=== PATIENT | male | born 1960 | race Caucasian/White ===

== ENCOUNTER → 2017-11-29 10:46 | Outpatient (CLI) | payer OTHER, SELFPAY ==
[2016-12-16 11:27] VITALS: BMI 33.6
[2017-11-29 12:27] LABS: AST(SGOT) 18 U/L (15-37); Alanine Aminotransfer ALT/SGPT 28 U/L (16-61); Albumin, Serum 3.6 g/dL (3.2-5.0); Alkaline Phosphatase 85 U/L (45-117); Anion Gap 9 (5-15); BUN 23 mg/dL (7-18); Bilirubin, Direct 0.15 mg/dL (0.00-0.30); Calcium,Total 9.2 mg/dL (8.5-10.1); Chloride 100 mmol/L (98-107); Cholesterol 168 mg/dL (200); Creatinine, Serum 1.35 mg/dL (0.70-1.30); EST Glomerular Filtration Rate 58 mL/min (>60); Est Glom Filt Rate - Afr Amer 70 mL/min (>60); Globulin 4.3 g/dL (2.2-4.2); Glucose 253 mg/dL (70-110); High Density Lipoprotein 41 mg/dL; Potassium 4.3 mmol/L (3.5-5.1); Protein, Total 7.9 g/dL (6.4-8.2); Sodium Level 136 mmol/L (136-145); Triglycerides 211 mg/dL; Very Low Density Lipoprotein 42 mg/dL (5-40)
== END ==
PROVIDERS: Family Provider Family Medicine; PCP Family Medicine; Visit Provider Family Medicine
DX: E11.9 Type 2 diabetes mellitus without complications (principal)
CPT/HCPCS: 36415; 80048; 80061; 80076; 82043; 82570

== ENCOUNTER → 2018-05-20 16:30 | Outpatient (CLI) | payer OTHER, SELFPAY ==
[2016-12-16 11:27] VITALS: BMI 33.6
--- NOTE | 2018-05-20 | IMM_PTH ---
PATIENT: ARLEEN NAJERA Jr. LOC: [facility] U#:[id number] AGE/SX: 64/M ROOM: RE05/20/[address]: Dr. Tj Leggett MD : 1960 BED: DIS: SPEC #: [id number] RECD: 05/24/18 14:02 STATUS: NAJMA REElvia #: [id number] GIOVANNI: 05/20/18 00:[address]: Tj eLggett DEPT: IMMUNOHISTOCHEMISTRY RECD BY: Anne Guzman ENTERED: 05/24/18 14:02 SP TYPE: IMMUNO OTHR DR: Dr. Pilo Aviles MD Tissues: A - Stomach, NOS Procedures: H Pylori (initial) PHYSICIAN & INSTITUTION [place] [id number] SPECIMEN INFORMATION: Tissue Source: A ? Gastric antrum/body Clinical Info: Huffman?s Specimen Number: [id number] CPT code: 83631 METHODOLOGY: Deparaffinized sections of prefer/formalin-fixed tissue or PAP/DQ stained slides are incubated with monoclonal/polyclonal antibodies/oligonucleotide probes. Localization is made via biotin free immunoperoxidase method. Appropriate controls are performed and reacted as expected. Results on target cell population are indicated in the following table: RESULTS: ANTIBODY / CLONE RESULT Block A H Pylori (polyclonal) negative These tests were developed and their performance characteristics determined by [facility]. They may not have been cleared or approved by the U.S. Food and Drug Administration. The FDA has determined that such clearance or approval is not necessary. INTERPRETATION: A. Gastric antrum/body, biopsy: Negative for Helicobacter pylori organisms. SJ:dorita 05/25/18
--- NOTE | 2018-05-20 09:00 | EGD_PTH ---
PATIENT: ARLEEN NAJERA Jr. LOC: [facility] U#:[id number] AGE/SX: 64/M ROOM: RE05/20/[address]: Dr. Tj Leggett MD : 1960 BED: DIS: SPEC #: [id number] RECD: 05/20/18 15:37 STATUS: NAJMA BRYSON #: [id number] GIOVANNI: 05/20/18 09:[address]: Tj Leggett DEPT: SURGICAL PATHOLOGY RECD BY: Jenise Lopez ENTERED: 05/23/18 11:16 SP TYPE: EGD BIOPSY OT DR: Dr. Pilo Aviles MD [facility] Tissues: A - Gastric mucous membrane B - Esophagus, NOS Procedures: Special Stain Group II Surgery Specimen Level IV Alcian Blue/PAS (control) HEADER OPERATION: EGD with biopsies PRE-OP DIAGNOSIS: Huffman?s TISSUE SUBMITTED: A ? Antrum/body gastric biopsy, B ? Distal esophagus biopsies, rule out Huffman?s/ dysplasia MICROSCOPIC DIAGNOSIS A. Gastric antrum and body, biopsy: Mild gastritis. B. 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 Chronic inflammation. Negative for dysplasia. See comment. SJ:rg 05/24/18 COMMENT A. The results of immunohistochemistry for Helicobacter pylori will be reported separately ([id number]). B. Alcian blue/PAS stain with matched control is used in the evaluation of the specimen. MICROSCOPIC DESCRIPTION Slides are reviewed. A. The specimen shows fragments of gastric mucosa with chronic inflammatory cell infiltrates in the lamina propria consisting of lymphocytes and plasma cells, consistent with mild chronic gastritis. GROSS DESCRIPTION A - Received in fixative is one container labeled with the patient's name and designated gastric antrum and body biopsy. The specimen consists of multiple irregular fragments of dickinson soft tissue that in aggregate measure 0.6 x 0.3 x 0.1 cm. The specimen is totally submitted in one cassette. B - Received in fixative is one container labeled with the patient's name and designated distal esophagus biopsy. The specimen consists of multiple irregular fragments of light dickinson soft tissue that in aggregate measure 2 x 0.3 x 0.1 cm. The specimen is totally submitted in one cassette. / EV:dorita 05/23/18 TC:3 CPT: 85963 x2, 70461
== END ==
PROVIDERS: Family Provider Family Medicine; PCP Family Medicine; Visit Provider Internal Medicine Gastroenterology
DX: K22.10 Ulcer of esophagus without bleeding (principal)
CPT/HCPCS: 88305; 88313; 88342

== ENCOUNTER → 2018-06-08 15:43 | Outpatient (CLI) | payer OTHER, SELFPAY ==
[2016-12-16 11:27] VITALS: BMI 33.6
[2018-06-08 17:48] LABS: AST(SGOT) 29 U/L (15-37); Alanine Aminotransfer ALT/SGPT 36 U/L (16-61); Albumin, Serum 3.6 g/dL (3.2-5.0); Alkaline Phosphatase 76 U/L (45-117); Anion Gap 11 (5-15); BUN 35 mg/dL (7-18); BUN/Creat Ratio 18.9 RATIO (10-20); Bilirubin, Direct 0.13 mg/dL (0.00-0.30); Calcium,Total 8.8 mg/dL (8.5-10.1); Chloride 102 mmol/L (98-107); Cholesterol 147 mg/dL (200); Creatinine, Serum 1.85 mg/dL (0.70-1.30); EST Glomerular Filtration Rate 40 mL/min (>60); Est Glom Filt Rate - Afr Amer 49 mL/min (>60); Globulin 4.1 g/dL (2.2-4.2); Glucose 384 mg/dL (74-106); High Density Lipoprotein 31 mg/dL; Potassium 4.2 mmol/L (3.5-5.1); Protein, Total 7.7 g/dL (6.4-8.2); Sodium Level 136 mmol/L (136-145); Triglycerides 458 mg/dL
== END ==
PROVIDERS: Family Provider Family Medicine; PCP Family Medicine; Visit Provider Family Medicine
DX: E11.9 Type 2 diabetes mellitus without complications (principal)
CPT/HCPCS: 36415; 80048; 80061; 80076

== ENCOUNTER 2018-06-24 18:14 | Observation (INO) | payer OTHER, SELFPAY ==
[2016-12-16 11:27] VITALS: BMI 33.6
[2018-06-24 18:19] VITALS: BP 157/96; PULSE 81; RESP 20; TEMP 36.9; O2SAT 100; BMI 34.9
[2018-06-24 18:22] VITALS: O2SAT 100
[2018-06-24] MEDS: Morphine 4 MG/ML Syringe IV (18:42)
[2018-06-24] MEDS: 0.9% Normal Saline 1,000 ML 150 ML IV ×2 (18:43→21:17)
[2018-06-24] MEDS: Ondansetron 4 MG/2 ML Vial IV (18:43)
[2018-06-24 18:46] LABS: Absolute Lymphocyte Count 1.24 X10^3/ul (0.83-4.51); Absolute Neutrophil Count 4.5 X10^3/uL (2.0-7.7); Basophil# 0.02 X10^3/uL; Basophil% 0.3 % (0-1); Eosinophil# 0.13 X10^3/uL; Hematocrit 40.3 % (40-54); Hemoglobin 13.7 g/dl (13.0-16.5); Lymphocyte # 1.24 X10^3/ul (4.0); Lymphocyte % 18.9 % (19-41); Mean Corpuscular Hgb 27.8 pg (27.0-32.0); Mean Corpuscular Volume 81.7 fL (80-94); Mean Platelet Vol. 11.2 fl (6.2-12.0); Monocyte% 10.7 % (0-10); Neutrophil # 4.46 X10^3/uL (2.7-7.7); Neutrophil % 67.9 % (47-70); Platelet Count 151 K/mm3 (150-450); RBC Distribution Width CV 13.7 % (11.6-14.6); RBC Distribution Width SD 40.6 fl (35.1-43.9); Red Blood Count 4.93 M/mm3 (4.6-6.2); White Blood Count 6.6 K/mm3 (4.4-11.0)
[2018-06-24 18:47] LABS: POSITIVE COUNT NO; POSITIVE DIFFERENTIAL NO; POSITIVE MORPHOLOGY NO
[2018-06-24 19:03] LABS: Anion Gap 15 (5-15); BUN 32 mg/dL (7-18); BUN/Creat Ratio 18.8 RATIO (10-20); Calcium,Total 9.6 mg/dL (8.5-10.1); Chloride 104 mmol/L (98-107); EST Glomerular Filtration Rate 44 mL/min (>60); Est Glom Filt Rate - Afr Amer 54 mL/min (>60); Glucose 129 mg/dL (74-106); Magnesium 1.4 mg/dL (1.6-2.6); Potassium 3.7 mmol/L (3.5-5.1); Sodium Level 139 mmol/L (136-145)
--- NOTE | 2018-06-24 19:32 | ED.VISSUMM ---
- ER Visit Summary Date of Service: 06/24/18 Chief Complaint: Chest pain History of Present Illness: The patient is a 57 M presents to the emergency department chest pain. Patient has a significant history of coronary vascular disease. He has had multiple stents. He follows with Dr. Okeefe. His last heart catheterization he states was May 2017 where he did have more stents placed. He states he has been in his normal state of health. He has been compliant with his aspirin and Plavix. He states that about 5:00 today, he had a tightness across his chest into both arms and felt short of breath. He states these of the same symptoms that he had when he had his prior [place]. He did take aspirin. He denies any fevers or chills. Physical Examination: Vital signs reviewed General: Well-nourished, well-developed Head: Normocephalic, atraumatic Eyes: Pupils equal and reactive, extraocular muscles intact Neck, supple, no lymphadenopathy Heart: Regular rate and rhythm Respiratory: No distress, clear bilaterally Abdomen: Soft, nontender, nondistended, no peritoneal signs Back: Nontender Extremities: Nontender, no edema, no cords Skin: Normal color no rash Neuro: Alert and oriented, no focal or lateralizing deficits Test Results: [] Emergency Department Course and Treatment: EKG was obtained on patient arrival. He has a right bundle branch block which is unchanged from prior. The patient does have allergy to nitro. He artery received aspirin. He was given morphine and Zofran. He had total resolution of his pain. Screening labs including cardiac enzymes were unremarkable. His x-ray shows no evidence of volume overload or acute heart failure. As the patient is pain-free, I did discuss his care with Dr. Denson. He is agreeable with plan for admission for cardiac rule out. Patient was discussed with the hospitalist will be admitted. Treatment Plan: [] Disposition: Admission Impression: Chest pain This note was generated with QuickProNotes dictation software. It may contain incorrect words, spelling, and punctuation that were not noted in review of the chart prior to signing ED Disposition - Plan for ED Patient: Chief Complaint: Chest Pain Referrals: Pilo Aviles MD [Primary Care Provider] -
--- NOTE | 2018-06-24 19:52 | PCM.HP.STD ---
Problem List (1) Unstable angina Status: Acute History of Present Illness Date of Admission: 06/24/18 Chief Complaint: chest pain The patient is a 57 year old M who is in normal state of health but today around 530, he was peeling potatoes and then started to have a midsternal chest pain. It was associated with diaphoresis, shortness of breath and paresthesias down both arms. This is similar to when the patient has had heart attacks in the past. Patient presented to the emergency room and received morphine which alleviated his pain. Patient had a workup that has been negative thus far. Cardiology, with Dr. Denson, was contacted and advised admitting the patient and to consult cardiology for further determination of the next steps in the patient's care. Patient was here in May 2017 where he chest pain at that time and had a left heart catheterization that showed no acute lesions. Patient did have a heart cath in December 2016 where he had a stent to the distal LAD. [] Past Medical History Past Medical History (Chronic Problems): Chronic Problems (Last Updated 05/31/18 @ 11:41 by Dona Ojeda) Dyspnea on exertion (Chronic) Presence of stent in coronary artery (Chronic) PCI/MERRICK to prox RCA and PCI to distal RCA, mid PDA 11/09/16; FFR/MERRICK to mid and distal LAD 12/16/16; PTCA/MERRICK to distal RCA and PTCA to mid RPDA 05/25/17; Hypertension (Chronic) Atherosclerotic heart disease of [place] coronary artery without angina pectoris (Chronic) PCI/MERRICK to prox RCA and PCI to distal RCA, mid PDA 11/09/16; FFR/MERRICK to mid and distal LAD 12/16/16; PTCA/MERRICK to distal RCA and PTCA to mid RPDA 05/25/17; Generalized abdominal discomfort (Chronic) Type II diabetes mellitus (Chronic) HLD (hyperlipidemia) (Chronic) Renal insufficiency (Chronic) Medical History: Medical History (Last Reviewed 06/24/18 @ 19:54 by Enrrique Kapoor DO) Presence of stent in coronary artery (Chronic) Z95.5 PCI/MERRICK to prox RCA and PCI to distal RCA, mid PDA 11/09/16; FFR/MERRICK to mid and distal LAD 12/16/16; PTCA/MERRICK to distal RCA and PTCA to mid RPDA 05/25/17; Hypertension (Chronic) I10 Atherosclerotic heart disease of [place] coronary artery without angina pectoris (Chronic) I25.10 PCI/MERRICK to prox RCA and PCI to distal RCA, mid PDA 11/09/16; FFR/MERRICK to mid and distal LAD 12/16/16; PTCA/MERRICK to distal RCA and PTCA to mid RPDA 05/25/17; Generalized abdominal discomfort (Chronic) R10.84 Type II diabetes mellitus (Chronic) E11.9 HLD (hyperlipidemia) (Chronic) E78.5 Unstable angina pectoris (Acute) NSTEMI (non-ST elevated myocardial infarction) (Acute) I21.4 Renal insufficiency (Chronic) N28.9 RACHEL (obstructive sleep apnea) G47.33 Chest pain (Inactive) R07.9 Allergies nitroglycerin Allergy (Verified 06/24/18 18:21) Shortness of breath Home Medications: Ambulatory Orders Medication Instructions Recorded Carvedilol [Coreg (Beta Lisa)] 25 mg PO BID 11/08/16 Glimepiride [Amaryl] 2 mg PO DAILY 11/08/16 Hydrochlorothiazide [Hctz] 25 mg PO DAILY 11/08/16 Losartan Potassium [Cozaar] 100 mg PO DAILY 11/08/16 buPROPion SR [Wellbutrin SR (150mg 150 mg PO BID 11/08/16 tablets)] Atorvastatin Calcium [Lipitor] 80 mg PO QHS 12/15/16 Dulaglutide [Trulicity] 1.5 mg SQ QWEEK 12/15/16 clopidogrel 75 mg tablet 75 mg PO QDAY 11/04/17 ranolazine ER 500 mg 1,000 mg PO BID tab 05/31/18 tablet,extended release,12 hr sitagliptin 50 mg-metformin 1,000 1 tab PO DAILY tab 05/31/18 mg tablet Isosorbide DN [Isordil] 30 mg PO DAILY 06/24/18 Surgical History: Surgical History (Last Reviewed 06/24/18 @ 19:54 by Enrrique Kapoor DO) Postsurgical percutaneous transluminal coronary angioplasty (PTCA) status Z98.61 PCI/MERRICK to prox RCA and PCI to distal RCA, mid PDA 11/09/16; FFR/MERRICK to mid and distal LAD 12/16/16 History of bilateral inguinal hernia repair Z98.890, Z87.19 History of eye surgery Z98.890 Surgical History: herniorrhaphy - hiatal hernia surgery; and inguinal hernia surgery and stents x 3. Smoking Status: Never smoker Tobacco Use: Non-smoker Alcohol: None Drugs: None - *Family History Paternal Family History: Family History (Last Reviewed 06/24/18 @ 19:54 by Enrrique Kapoor DO) Mother CAD (coronary artery disease) Myocardial infarction, Onset Age: 46 Sister CAD (coronary artery disease) Sister CAD (coronary artery disease) Brother CAD (coronary artery disease) History Items: No pertinent history Maternal Family History: Family History (Last Reviewed 06/24/18 @ 19:54 by Enrrique Kapoor DO) Mother CAD (coronary artery disease) Myocardial infarction, Onset Age: 46 Sister CAD (coronary artery disease) Sister CAD (coronary artery disease) Brother CAD (coronary artery disease) History Items: Heart Disease - Reported as dying at the age of 46 with history of CAD and LA. Sibling Family History: Family History (Last Reviewed 06/24/18 @ 19:54 by Enrrique Kapoor DO) Mother CAD (coronary artery disease) Myocardial infarction, Onset Age: 46 Sister CAD (coronary artery disease) Sister CAD (coronary artery disease) Brother CAD (coronary artery disease) History Items: Heart Disease - Brothers with a history of CAD and PCI. Review of Systems Constitutional: Reports: Malaise. Denies: Anorexia, Chills, Fever Eyes: Denies: Blurred vision, Double vision HEENT: Denies: Head Aches, Sinus Congestion, Sinus Drainage Cardiovascular: Reports: Chest Pain. Denies: Edema Respiratory: Reports: Shortness of Breath. Denies: Cough Gastrointestinal: Reports: Nausea. Denies: Abdominal Pain, Vomiting Genitourinary: Denies: Dysuria Musculoskeletal: Denies: Arm Pain, Back Pain Skin: Denies: Rash, Wounds Neurological: Denies: Numbness, Tingling, Focal weakness Psychiatric: Denies: Anxiety, Depression Hematologic/ Lymphatic: Denies: Easy Bruising, Easy Bleeding, Hx of blood clot Comment: All review of systems are negative except as mentioned in the history of present illness and the other review of systems. VTE Information - Inpt Only VTE Present on Admission: No VTE Pharm Prophylaxis ordered?: Yes Patient Problems: Active and Suspected Problems (Last Updated 05/31/18 @ 11:41 by Dona Ojeda) Unstable angina (Acute) - Physical Exam General: Alert, Cooperative, No apparent distress, - - Sitting in bed. Comfortable. Afebrile. HEENT: Atraumatic, Normocephalic, - - No icterus Oral: Moist Mucosa, No Gingival or Mucosal Lesions/ Ulcerations Neck: No Nodes, Thyroid Normal Size and Texture Lungs: Clear to auscultation, Normal air movement, No rhonchi, No wheeze Cardiovascular: Regular rate, Regular Rhythm, Normal S1, Normal S2, No murmurs Abdomen: Bowel Sounds Present, Soft, Non Tender, Non-Distended, No Hepato-splenomegaly Extremities: No clubbing, No edema, No Calf Tenderness Skin: No rashes, No breakdown Musculoskeletal: No Tenderness to Palpation of Joints or Extremities, No Muscle Wasting Neurological: Neuro grossly intact, Muscle tone normal, Coordination normal Psych/Mental Status: Normal Affect, Appropriate Vital Signs Temp Pulse Resp BP Pulse Ox 36.9 C 81 20 H 157/96 H 100 06/24/18 18:19 06/24/18 18:19 06/24/18 18:19 06/24/18 18:19 06/24/18 18:22 Oxygen Delivery Method Room Air Weight: 110.3 kg Body Mass Index (BMI) 34.9 Laboratory Tests Past 24 Hrs 06/24/18 06/24/18 18:35 18:35 WBC 6.6 RBC 4.93 Hgb 13.7 Hct 40.3 MCV 81.7 MCH 27.8 MCHC 34.0 RDW 13.7 RDW Differential 40.6 Plt Count 151 MPV 11.2 Immature Gran % (Auto) 0.200 Neut % (Auto) 67.9 Lymph % (Auto) 18.9 L [place] % (Auto) 10.7 H Eos % (Auto) 2.0 Baso % (Auto) 0.3 Absolute Neuts (auto) 4.5 Absolute Lymphs (auto) 1.24 Total Counted Not Reportable Sodium 139 Potassium 3.7 Chloride 104 Carbon Dioxide 20.0 L Anion Gap 15 BUN 32 H Creatinine 1.70 H Estim Creat Clear Calc 50.10 Est GFR (MDRD) Af Amer 54 L Est GFR (MDRD) Non-Af 44 L BUN/Creatinine Ratio 18.8 Glucose 129 H Calcium 9.6 Magnesium 1.4 L Troponin I < 0.015 EKG reviewed and showed normal sinus rhythm with a right bundle branch block. No acute changes. Clinical Impression(s) from Imaging Studies Chest X-Ray 06/24/18 18:20 IMPRESSION: No acute cardiopulmonary findings or changes. 1 minimal linear scar of the left lung base. Negative for new consolidation, focal atelectasis, cardiomegaly or substantial pleural effusion. Large hiatal hernia. Electronically Signed: Sheri Arias MD at 19:12 EDT , Service support , Assessment/Plan All Active Problems (Last Updated 05/31/18 @ 11:41 by Dona Ojeda) Unstable angina (Acute) Unstable angina pectoris (Acute) NSTEMI (non-ST elevated myocardial infarction) (Acute) 1. Unstable angina/chest pain Patient with known coronary artery disease and had symptoms similar to prior events Currently, chest pain-free Plan right now, is to cycle troponins and consult cardiology and determine further steps according to cardiology The patient does develop elevation in his cardiac markers and patient will be started on anticoagulation. 2. Chronic kidney disease stage III Creatinine is 1.7 Will need to be cautious The patient does require left heart catheterization as it could lead to further worsening of his kidney disease IV fluids with 1 L saline 3. Diabetes mellitus type 2 [id number] Continue with his home medications Add sliding scale insulin, moderate The patient does require a left heart catheterization, his metformin will need to be held. 4. 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 5. Hypomagnesemia Will replace Follow-up Code Visit OBSV E&M: 66905 Initial observation care L3
--- NOTE | 2018-06-24 19:56 | HP.PCM_ITS ---
Problem List (1) Unstable angina Status: Acute History of Present Illness Date of Admission: 06/24/18 Chief Complaint: chest pain The patient is a 57 year old M who is in normal state of health but today around 530, he was peeling potatoes and then started to have a midsternal chest pain. It was associated with diaphoresis, shortness of breath and paresthesias down both arms. This is similar to when the patient has had heart attacks in the past. Patient presented to the emergency room and received morphine which alleviated his pain. Patient had a workup that has been negative thus far. Cardiology, with Dr. Denson, was contacted and advised admitting the patient and to consult cardiology for further determination of the next steps in the patient's care. Patient was here in May 2017 where he chest pain at that time and had a left heart catheterization that showed no acute lesions. Patient did have a heart cath in December 2016 where he had a stent to the distal LAD. [] Past Medical History Past Medical History (Chronic Problems): Chronic Problems (Last Updated 05/31/18 @ 11:41 by Dona Ojeda) Dyspnea on exertion (Chronic) Presence of stent in coronary artery (Chronic) PCI/MERRICK to prox RCA and PCI to distal RCA, mid PDA 11/09/16; FFR/MERRICK to mid and distal LAD 12/16/16; PTCA/MERRICK to distal RCA and PTCA to mid RPDA 05/25/17; Hypertension (Chronic) Atherosclerotic heart disease of [place] coronary artery without angina pectoris (Chronic) PCI/MERRICK to prox RCA and PCI to distal RCA, mid PDA 11/09/16; FFR/MERRICK to mid and distal LAD 12/16/16; PTCA/MERRICK to distal RCA and PTCA to mid RPDA 05/25/17; Generalized abdominal discomfort (Chronic) Type II diabetes mellitus (Chronic) HLD (hyperlipidemia) (Chronic) Renal insufficiency (Chronic) Medical History: Medical History (Last Reviewed 06/24/18 @ 19:54 by Enrrique Kapoor DO) Presence of stent in coronary artery (Chronic) Z95.5 PCI/MERRICK to prox RCA and PCI to distal RCA, mid PDA 11/09/16; FFR/MERRICK to mid and distal LAD 12/16/16; PTCA/MERRICK to distal RCA and PTCA to mid RPDA 05/25/17; Hypertension (Chronic) I10 Atherosclerotic heart disease of [place] coronary artery without angina pectoris (Chronic) I25.10 PCI/MERRICK to prox RCA and PCI to distal RCA, mid PDA 11/09/16; FFR/MERRICK to mid and distal LAD 12/16/16; PTCA/MERRICK to distal RCA and PTCA to mid RPDA 05/25/17; Generalized abdominal discomfort (Chronic) R10.84 Type II diabetes mellitus (Chronic) E11.9 HLD (hyperlipidemia) (Chronic) E78.5 Unstable angina pectoris (Acute) NSTEMI (non-ST elevated myocardial infarction) (Acute) I21.4 Renal insufficiency (Chronic) N28.9 RACHEL (obstructive sleep apnea) G47.33 Chest pain (Inactive) R07.9 Allergies nitroglycerin Allergy (Verified 06/24/18 18:21) Shortness of breath Home Medications: Ambulatory Orders Medication Instructions Recorded Carvedilol [Coreg (Beta Lisa)] 25 mg PO BID 11/08/16 Glimepiride [Amaryl] 2 mg PO DAILY 11/08/16 Hydrochlorothiazide [Hctz] 25 mg PO DAILY 11/08/16 Losartan Potassium [Cozaar] 100 mg PO DAILY 11/08/16 buPROPion SR [Wellbutrin SR (150mg 150 mg PO BID 11/08/16 tablets)] Atorvastatin Calcium [Lipitor] 80 mg PO QHS 12/15/16 Dulaglutide [Trulicity] 1.5 mg SQ QWEEK 12/15/16 clopidogrel 75 mg tablet 75 mg PO QDAY 11/04/17 ranolazine ER 500 mg 1,000 mg PO BID tab 05/31/18 tablet,extended release,12 hr sitagliptin 50 mg-metformin 1,000 1 tab PO DAILY tab 05/31/18 mg tablet Isosorbide DN [Isordil] 30 mg PO DAILY 06/24/18 Surgical History: Surgical History (Last Reviewed 06/24/18 @ 19:54 by Enrrique Kapoor DO) Postsurgical percutaneous transluminal coronary angioplasty (PTCA) status Z98.61 PCI/MERRICK to prox RCA and PCI to distal RCA, mid PDA 11/09/16; FFR/MERRICK to mid and distal LAD 12/16/16 History of bilateral inguinal hernia repair Z98.890, Z87.19 History of eye surgery Z98.890 Surgical History: herniorrhaphy - hiatal hernia surgery; and inguinal hernia surgery and stents x 3. Smoking Status: Never smoker Tobacco Use: Non-smoker Alcohol: None Drugs: None - *Family History Paternal Family History: Family History (Last Reviewed 06/24/18 @ 19:54 by Enrrique Kapoor DO) Mother CAD (coronary artery disease) Myocardial infarction, Onset Age: 46 Sister CAD (coronary artery disease) Sister CAD (coronary artery disease) Brother CAD (coronary artery disease) History Items: No pertinent history Maternal Family History: Family History (Last Reviewed 06/24/18 @ 19:54 by Enrrique Kapoor DO) Mother CAD (coronary artery disease) Myocardial infarction, Onset Age: 46 Sister CAD (coronary artery disease) Sister CAD (coronary artery disease) Brother CAD (coronary artery disease) History Items: Heart Disease - Reported as dying at the age of 46 with history of CAD and MS. Sibling Family History: Family History (Last Reviewed 06/24/18 @ 19:54 by Enrrique Kapoor DO) Mother CAD (coronary artery disease) Myocardial infarction, Onset Age: 46 Sister CAD (coronary artery disease) Sister CAD (coronary artery disease) Brother CAD (coronary artery disease) History Items: Heart Disease - Brothers with a history of CAD and PCI. Review of Systems Constitutional: Reports: Malaise. Denies: Anorexia, Chills, Fever Eyes: Denies: Blurred vision, Double vision HEENT: Denies: Head Aches, Sinus Congestion, Sinus Drainage Cardiovascular: Reports: Chest Pain. Denies: Edema Respiratory: Reports: Shortness of Breath. Denies: Cough Gastrointestinal: Reports: Nausea. Denies: Abdominal Pain, Vomiting Genitourinary: Denies: Dysuria Musculoskeletal: Denies: Arm Pain, Back Pain Skin: Denies: Rash, Wounds Neurological: Denies: Numbness, Tingling, Focal weakness Psychiatric: Denies: Anxiety, Depression Hematologic/ Lymphatic: Denies: Easy Bruising, Easy Bleeding, Hx of blood clot Comment: All review of systems are negative except as mentioned in the history of present illness and the other review of systems. VTE Information - Inpt Only VTE Present on Admission: No VTE Pharm Prophylaxis ordered?: Yes Patient Problems: Active and Suspected Problems (Last Updated 05/31/18 @ 11:41 by Dona Ojeda ) Unstable angina (Acute) - Physical Exam General: Alert, Cooperative, No apparent distress, - - Sitting in bed. Comfortable. Afebrile. HEENT: Atraumatic, Normocephalic, - - No icterus Oral: Moist Mucosa, No Gingival or Mucosal Lesions/ Ulcerations Neck: No Nodes, Thyroid Normal Size and Texture Lungs: Clear to auscultation, Normal air movement, No rhonchi, No wheeze Cardiovascular: Regular rate, Regular Rhythm, Normal S1, Normal S2, No murmurs Abdomen: Bowel Sounds Present, Soft, Non Tender, Non-Distended, No Hepato- splenomegaly Extremities: No clubbing, No edema, No Calf Tenderness Skin: No rashes, No breakdown Musculoskeletal: No Tenderness to Palpation of Joints or Extremities, No Muscle Wasting Neurological: Neuro grossly intact, Muscle tone normal, Coordination normal Psych/Mental Status: Normal Affect, Appropriate Vital Signs Temp Pulse Resp BP Pulse Ox 36.9 C 81 20 H 157/96 H 100 06/24/18 18:19 06/24/18 18:19 06/24/18 18:19 06/24/18 18:19 06/24/18 18:22 Oxygen Delivery Method Room Air Weight: 110.3 kg Body Mass Index (BMI) 34.9 Laboratory Tests Past 24 Hrs 06/24/18 06/24/18 18:35 18:35 WBC 6.6 RBC 4.93 Hgb 13.7 Hct 40.3 MCV 81.7 MCH 27.8 MCHC 34.0 RDW 13.7 RDW Differential 40.6 Plt Count 151 MPV 11.2 Immature Gran % (Auto) 0.200 Neut % (Auto) 67.9 Lymph % (Auto) 18.9 L [place] % (Auto) 10.7 H Eos % (Auto) 2.0 Baso % (Auto) 0.3 Absolute Neuts (auto) 4.5 Absolute Lymphs (auto) 1.24 Total Counted Not Reportable Sodium 139 Potassium 3.7 Chloride 104 Carbon Dioxide 20.0 L Anion Gap 15 BUN 32 H Creatinine 1.70 H Estim Creat Clear Calc 50.10 Est GFR (MDRD) Af Amer 54 L Est GFR (MDRD) Non-Af 44 L BUN/Creatinine Ratio 18.8 Glucose 129 H Calcium 9.6 Magnesium 1.4 L Troponin I < 0.015 EKG reviewed and showed normal sinus rhythm with a right bundle branch block. No acute changes. Clinical Impression(s) from Imaging Studies Chest X-Ray 06/24/18 18:20 IMPRESSION: No acute cardiopulmonary findings or changes. 1 minimal linear scar of the left lung base. Negative for new consolidation, focal atelectasis, cardiomegaly or substantial pleural effusion. Large hiatal hernia. Electronically Signed: Sheri Arias MD at 19:12 EDT , Service support , Assessment/Plan All Active Problems (Last Updated 05/31/18 @ 11:41 by Dona Ojeda) Unstable angina (Acute) Unstable angina pectoris (Acute) NSTEMI (non-ST elevated myocardial infarction) (Acute) 1. Unstable angina/chest pain * Patient with known coronary artery disease and had symptoms similar to prior events * Currently, chest pain-free * Plan right now, is to cycle troponins and consult cardiology and determine further steps according to cardiology * The patient does develop elevation in his cardiac markers and patient will be started on anticoagulation. 2. Chronic kidney disease stage III * Creatinine is 1.7 * Will need to be cautious * The patient does require left heart catheterization as it could lead to further worsening of his kidney disease * IV fluids with 1 L saline 3. Diabetes mellitus type 2 * [id number] * Continue with his home medications * Add sliding scale insulin, moderate * The patient does require a left heart catheterization, his metformin will need to be held. 4. DVT prophylaxis * Subcu heparin * However, the patient does require anticoagulation then will need to discontinue and gear changer to heparin drip or Lovenox, weight-based. 5. Hypomagnesemia * Will replace * Follow-up Code Visit OBSV E&M: 93901 Initial observation care L3
[2018-06-24 20:04] VITALS: BMI 34.9
[2018-06-24 20:42] VITALS: PULSE 78
[2018-06-24 20:48] VITALS: BP 127/79; PULSE 76; RESP 18; TEMP 36.8; O2SAT 97
[2018-06-24 20:49] VITALS: BMI 34.5
[2018-06-24] MEDS: Carvedilol 25 MG Tablet PO (21:23)
[2018-06-24] MEDS: buPROPion (SR) 150 MG Tablet.SA PO (21:23)
[2018-06-24] MEDS: Atorvastatin Calcium 80 MG Tablet PO (21:23)
[2018-06-24] MEDS: Ranolazine 500 MG Tablet 1000 MG PO (21:24)
[2018-06-24] MEDS: Heparin Injection (Vial) 5,000 UNIT/ML VIAL 5000 UNIT SC (21:24)
[2018-06-24 22:35] LABS: Bedside Glucose 119 mg/dL (70-110)
[2018-06-24 22:41] VITALS: PULSE 84
[2018-06-25] VITALS (11 sets, daily range): BP systolic 103–150; BP diastolic 60–94; PULSE 67–87; RESP 16–18; TEMP 36.2–37.1; O2SAT 95–99
[2018-06-25 06:23] LABS: Anion Gap 12 (5-15); BUN 26 mg/dL (7-18); BUN/Creat Ratio 18.3 RATIO (10-20); Calcium,Total 8.5 mg/dL (8.5-10.1); Chloride 107 mmol/L (98-107); Creatinine, Serum 1.42 mg/dL (0.70-1.30); EST Glomerular Filtration Rate 55 mL/min (>60); Est Glom Filt Rate - Afr Amer 66 mL/min (>60); Estimated Creatinine Clearance 59.98 ml/min; Glucose 80 mg/dL (74-106); Magnesium 2.1 mg/dL (1.6-2.6); Potassium 3.7 mmol/L (3.5-5.1); Sodium Level 141 mmol/L (136-145)
[2018-06-25 07:10] LABS: Bedside Glucose 105 mg/dL (70-110)
[2018-06-25] MEDS: Losartan Potassium 100 MG Tablet PO (08:31)
[2018-06-25] MEDS: Aspirin E.C. 81 MG Tablet PO (10:50)
[2018-06-25] MEDS: Clopidogrel Bisulfate 75 MG Tablet PO (10:50)
[2018-06-25] MEDS: buPROPion (SR) 150 MG Tablet.SA PO ×2 (10:50→21:24)
[2018-06-25] MEDS: LINAGLIPTIN 5 MG TABLET PO (10:51)
[2018-06-25] MEDS: Isosorbide DN 30 MG Tablet PO (10:51)
[2018-06-25] MEDS: hydroCHLOROthiazide 25 MG Tablet PO (10:51)
[2018-06-25] MEDS: Glimepiride 2 MG Tablet PO (10:51)
[2018-06-25] MEDS: metFORMIN HCl 1,000 MG Tablet 1000 MG PO (10:51)
[2018-06-25] MEDS: Carvedilol 25 MG Tablet PO ×2 (10:51→21:24)
[2018-06-25] MEDS: Ranolazine 500 MG Tablet 1000 MG PO ×2 (10:51→21:24)
--- NOTE | 2018-06-25 10:52 | PCM.CONS.C ---
Problem List (1) Unstable angina Status: Acute (2) Dyspnea on exertion Status: Chronic (3) Presence of stent in coronary artery Status: Chronic Comment: PCI/MERRICK to prox RCA and PCI to distal RCA, mid PDA 11/09/16; FFR/MERRICK to mid and distal LAD 12/16/16; PTCA/MERRICK to distal RCA and PTCA to mid RPDA 05/25/17; (4) Hypertension Status: Chronic Qualifiers: Hypertension type: essential hypertension Qualified Code(s): I10 - Essential (primary) hypertension (5) Atherosclerotic heart disease of [place] coronary artery without angina pectoris Status: Chronic Qualifiers: [place] vs. transplanted heart: [place] heart Qualified Code(s): I25.10 - Atherosclerotic heart disease of [place] coronary artery without angina pectoris Comment: PCI/MERRICK to prox RCA and PCI to distal RCA, mid PDA 11/09/16; FFR/MERRICK to mid and distal LAD 12/16/16; PTCA/MERRICK to distal RCA and PTCA to mid RPDA 05/25/17; (6) Type II diabetes mellitus Status: Chronic (7) HLD (hyperlipidemia) Status: Chronic Qualifiers: Hyperlipidemia type: pure hypercholesterolemia Qualified Code(s): E78.00 - Pure hypercholesterolemia, unspecified; E78.0 - Pure hypercholesterolemia Reason for Consult Date of Consultation: 06/25/18 Reason for Consultation: Unstable angina, shortness of breath, dyspnea on exertion, hiatal hernia, hypertension, hyperlipidemia History of Present Illness: The patient is a 57 year old M, diabetes, non-smoker, hypertension and hypercholesterolemia who is a patient of Dr. Portillo with a history of hypertension, hypercholesterolemia, coronary artery disease status post angioplasty and stenting to his RCA on 11/09/16 followed again by angioplasty and stenting of his distal LAD on 12/31/16, followed by angioplasty and stenting to his right coronary artery by Dr. Davison on 05/25/17. At that time, patient had angioplasty and stenting of his distal RCA, followed by stenting of his proximal RCA complicated by stripping off of the stent in his proximal RCA requiring crush technique. In addition the patient has a significant hiatal hernia, and is pending consultation with Drs. Martin at [facility] for hiatal hernia repair next week. The patient was in normal health up until last evening when he developed chest discomfort radiating to both of his arms with associated dyspnea, shortness of breath, similar to his previous anginal symptoms. Patient reported to [facility] where an EKG was performed which showed normal sinus rhythm with old right bundle branch block. Patient was ruled out for myocardial infarction underwent a treadmill echocardiogram this morning in which he went 5 minutes and 43 seconds, developed substernal chest pressure, but of less intensity, and had no significant wall motion abnormalities. He has a baseline inferior posterior wall hypokinesis which appeared to improve with exercise. On further history he is a non-smoker, nondrinker, denies any presyncope, syncope. His telemetry is been negative. [] Past Medical History Allergies/Adverse Reactions: Allergies nitroglycerin Allergy (Verified 06/24/18 18:21) Shortness of breath Home Medications: Ambulatory Orders Medication Instructions Recorded Carvedilol [Coreg (Beta Lisa)] 25 mg PO BID 11/08/16 Glimepiride [Amaryl] 2 mg PO DAILY 11/08/16 Hydrochlorothiazide [Hctz] 25 mg PO DAILY 11/08/16 Losartan Potassium [Cozaar] 100 mg PO DAILY 11/08/16 buPROPion SR [Wellbutrin SR (150mg 150 mg PO BID 11/08/16 tablets)] Atorvastatin Calcium [Lipitor] 80 mg PO QHS 12/15/16 Dulaglutide [Trulicity] 1.5 mg SQ QWEEK 12/15/16 clopidogrel 75 mg tablet 75 mg PO QDAY 11/04/17 ranolazine ER 500 mg 1,000 mg PO BID tab 05/31/18 tablet,extended release,12 hr sitagliptin 50 mg-metformin 1,000 1 tab PO DAILY tab 05/31/18 mg tablet Isosorbide DN [Isordil] 30 mg PO DAILY 06/24/18 Past Medical History (Chronic Problems): Chronic Problems (Last Reviewed 06/24/18 @ 19:54 by Enrrique Kapoor DO) Dyspnea on exertion (Chronic) Presence of stent in coronary artery (Chronic) PCI/MERRICK to prox RCA and PCI to distal RCA, mid PDA 11/09/16; FFR/MERRICK to mid and distal LAD 12/16/16; PTCA/MERRICK to distal RCA and PTCA to mid RPDA 05/25/17; Hypertension (Chronic) Atherosclerotic heart disease of [place] coronary artery without angina pectoris (Chronic) PCI/MERRICK to prox RCA and PCI to distal RCA, mid PDA 11/09/16; FFR/MERRICK to mid and distal LAD 12/16/16; PTCA/MERRICK to distal RCA and PTCA to mid RPDA 05/25/17; Generalized abdominal discomfort (Chronic) Type II diabetes mellitus (Chronic) HLD (hyperlipidemia) (Chronic) Renal insufficiency (Chronic) Surgical History: herniorrhaphy - hiatal hernia surgery; and inguinal hernia surgery and stents x 3. - *Family History Paternal Family History: Family History (Last Reviewed 06/24/18 @ 19:54 by Enrrique Kapoor DO) Mother CAD (coronary artery disease) Myocardial infarction, Onset Age: 46 Sister CAD (coronary artery disease) Sister CAD (coronary artery disease) Brother CAD (coronary artery disease) History Items: No pertinent history Maternal Family History: Family History (Last Reviewed 06/24/18 @ 19:54 by Enrrique Kapoor DO) Mother CAD (coronary artery disease) Myocardial infarction, Onset Age: 46 Sister CAD (coronary artery disease) Sister CAD (coronary artery disease) Brother CAD (coronary artery disease) History Items: Heart Disease - Reported as dying at the age of 46 with history of CAD and IA. Sibling Family History: Family History (Last Reviewed 06/24/18 @ 19:54 by Enrrique Kapoor DO) Mother CAD (coronary artery disease) Myocardial infarction, Onset Age: 46 Sister CAD (coronary artery disease) Sister CAD (coronary artery disease) Brother CAD (coronary artery disease) History Items: Heart Disease - Brothers with a history of CAD and PCI. Smoking Status: Never smoker Tobacco Use: Non-smoker Alcohol: None Drugs: None Review of Systems - Review of Systems General: Denies: Fever, Night Sweats, Fatigue Cardiovascular: Denies: Chest Discomfort, Shortness of Breath, Orthopnea, PND, Peripheral Edema, Palpitations, Lightheadedness, Dizziness, Near Syncope, Syncope Respiratory: Denies: Cough, Sputum Production, Hemoptysis Gastrointestinal: Denies: Hematemesis, Hematochezia, Melena Genitourinary: Denies: Dysuria, Hematuria Skin: Denies: Rash Subjectve: Patient doing well, no acute distress, sitting in bed. Objective: Vital Signs Temp Pulse Resp BP Pulse Ox 97.1 F L 67 18 150/94 H 99 06/25/18 08:26 06/25/18 08:26 06/25/18 08:26 06/25/18 08:26 06/25/18 08:26 Oxygen Delivery Method Room Air Weight: 241 lb 2.971 oz Body Mass Index (BMI) 34.5 Intake and Output for Last 24 Hours 06/23/18 06/24/18 06/25/18 23:59 23:59 23:59 Intake Total 1072 / 1072 Balance 1072 / 1072 General: Awake, Alert, Oriented x 3 HEENT: PERRL, EOMI, Sclera Non Icteric Neck: Supple, Good ROM, No Lymph Node Enlargement Lungs: Clear to auscultation Cardiovascular: Regular Rhythm, Normal S1, Normal S2, No Murmurs, No Rubs, No Gallops Vascular: No Carotid Bruits, Normal Femoral Pulses, Normal Radial Pulses, Normal Dorsalis Pedal Pulse, Normal Posterior Tibial Pulses Abdomen: Bowel Sounds Present, Soft, Non Tender, No HSM, No Organomegaly Extremities: No Cyanosis, No Clubbing, No edema Neurological: No Focal Motor or Sensory Deficit 06/24/18 22:03: Troponin I < 0.015 06/25/18 00:23: Troponin I < 0.015 06/25/18 05:10: Sodium 141, Potassium 3.7, Chloride 107, Carbon Dioxide 22.0, Anion Gap 12, BUN 26 H, Creatinine 1.42 H, Est GFR (MDRD) Af Amer 66, Est GFR (MDRD) Non-Af 55 L, BUN/Creatinine Ratio 18.3, Glucose 80, Calcium 8.5, Magnesium 2.1 Rhythm: EKG: ECHO: LVEF of 55% with mild inferior posterior hypokinesis. No change from previous. Stress Test: Patient did develop chest pressure during exercise, hypertensive blood pressure response to exercise, no wall motion abnormalities noted. Decreased sensitivity due to poor echo windows requiring Definity agent. Cardiac Cath: PCI: CT Surgery: Holter monitor: EPS: PPM: CXR: Chest CT Scan: Assessment/Plan 1. Unstable angina: The patient has recurrent substernal chest pressure which may be cardiac in nature versus symptoms of his significant hiatal hernia. His chest x-ray does not show any overt hiatal hernia although it was an upright film. His troponins are negative. His echocardiogram shows mild global LV dysfunction with an EF around 55% and mild inferior posterior hypokinesis consistent with previous subtotal occlusion of his PDA. Patient underwent angioplasty and stenting to his distal RCA and proximal RCA complicated by a proximal RCA stent stripped off, subsequently crushed by another stent in May 2017. In addition the patient requires hiatal hernia surgery in the upcoming future at [facility]. His stress echocardiogram was negative for overt ischemia particularly of the inferior wall however images were somewhat challenging to obtain an Definity agent was required. Out of an abundance of caution and due to his previous stents, I recommend that he undergo a repeat left heart catheterization this upcoming Wednesday. He will continue baby aspirin, Plavix. Patient is agreed to proceed. Patient may eat this morning. Patient will continue Coreg, recommend increasing his Isordil to 60 mg twice daily, continue losartan, and start hydrochlorothiazide 12.5 mg p.o. daily for elevated diastolic pressures. 2. Hyperlipidemia: Continue aggressive LDL reduction. Recommend fasting lipid profile. Continue Lipitor. 3. Thank you very much for the opportunity to participate in the cardiac care of your patient. Consultation time took place between 1030 and 11 AM. Code Visit Inpatient E&M: 33358 Init Hosp L2
[2018-06-25 11:30] LABS: Cholesterol 128 mg/dL (200); High Density Lipoprotein 30 mg/dL; Triglycerides 246 mg/dL; Very Low Density Lipoprotein 49 mg/dL (5-40)
--- NOTE | 2018-06-25 12:20 | PCM.PN.HOSP ---
Patient Problems: Active and Suspected Problems (Last Reviewed 06/24/18 @ 19:54 by Enrrique Kapoor DO) Unstable angina (Acute) Subjective: No further chest pain. Vitals/I&O's: Vital Signs Temp Pulse Resp BP Pulse Ox 36.2 C L 87 18 150/94 H 99 06/25/18 08:26 06/25/18 11:28 06/25/18 08:26 06/25/18 08:26 06/25/18 08:26 Oxygen Delivery Method Room Air Weight: 109.4 kg Body Mass Index (BMI) 34.5 Intake and Output for Last 24 Hours 06/23/18 06/24/18 06/25/18 23:59 23:59 23:59 Intake Total 1072 / 1072 Balance 1072 / 1072 General: Alert, No apparent distress, - - up at side of bed eating breakfast. HEENT: Atraumatic, Normocephalic Oral: Moist Mucosa Neck: No Nodes, Thyroid Normal Size and Texture Lungs: Clear to auscultation, Normal air movement, No rhonchi, No wheeze Cardiovascular: Regular rate, Regular Rhythm, Normal S1, Normal S2, No murmurs Abdomen: Bowel Sounds Present, Soft, Non Tender, Non-Distended Extremities: No edema, No Calf Tenderness Laboratory Results 06/24/18 21:21: POC Glucose 119 H 06/24/18 22:03: Troponin I < 0.015 06/25/18 00:23: Troponin I < 0.015 06/25/18 05:10: Sodium 141, Potassium 3.7, Chloride 107, Carbon Dioxide 22.0, Anion Gap 12, BUN 26 H, Creatinine 1.42 H, Estim Creat Clear Calc 59.98, Est GFR (MDRD) Af Amer 66, Est GFR (MDRD) Non-Af 55 L, BUN/Creatinine Ratio 18.3, Glucose 80, Calcium 8.5, Magnesium 2.1 06/25/18 05:10: Triglycerides 246 H, Cholesterol 128, LDL Cholesterol 49, VLDL Cholesterol 49 H, HDL Cholesterol 30 L 06/25/18 06:54: POC Glucose 105 Current Medications Acetaminophen (Tylenol) 650 mg PO Q4H PRN PRN PRN Reason: PAIN Aspirin (Ecotrin) 81 mg PO DAILY@0800 [facility] Last Admin: 08/25/18 10:50 Dose: 81 mg Atorvastatin Calcium (Lipitor) 80 mg PO QHS [facility] Last Admin: 06/24/18 21:23 Dose: 80 mg Bupropion HCl (Wellbutrin Sr (150mg Tablets)) 150 mg PO BID [facility] Last Admin: 06/25/18 10:50 Dose: 150 mg Carvedilol (Coreg) 25 mg PO BID [facility] Last Admin: 06/25/18 10:51 Dose: 25 mg Clopidogrel Bisulfate (Plavix) 75 mg PO DAILY [facility] Last Admin: 06/25/18 10:50 Dose: 75 mg Dextrose (D50w Syringe) 0 gm IV X1 PRN; Protocol PRN Reason: Hypoglycemia Glimepiride (Amaryl) 2 mg PO DAILY@0800 [facility] Last Admin: 06/25/18 10:51 Dose: 2 mg Glucagon () 1 mg IM .X1 PRN PRN Reason: Hypoglycemia Heparin Sodium (Porcine) (Heparin Na) 5,000 unit SC Q8 [facility] Last Admin: 06/25/18 07:03 Dose: Not Given Hydrochlorothiazide (Hctz) 25 mg PO DAILY [facility] Last Admin: 06/25/18 10:51 Dose: 25 mg Insulin Human Lispro (Humalog Kwikpen (Bkc)) 0 unit SQ TIDAC [facility] PRN Reason: Protocol Last Admin: 06/25/18 10:52 Dose: Not Given Isosorbide Mononitrate (Imdur) 60 mg PO DAILY [facility] Linagliptin (Tradjenta) 5 mg PO DAILY@0800 [facility] Last Admin: 06/25/18 10:51 Dose: 5 mg Losartan Potassium (Cozaar) 100 mg PO DAILY [facility] Last Admin: 06/25/18 08:31 Dose: 100 mg Magnesium Hydroxide (Milk Of Magnesia) 30 ml PO DAILY PRN PRN Reason: Constipation Metformin HCl (Glucophage) 1,000 mg PO DAILY@0800 [facility] Last Admin: 06/25/18 10:51 Dose: 1,000 mg Morphine Sulfate () 4 mg IV Q3H PRN PRN PRN Reason: SEVERE PAIN (6-10/10) Non-Formulary Medication (Dulaglutide) 1.5 mg SQ QWEEK [facility] Ranolazine (Ranexa) 1,000 mg PO BID [facility] Last Admin: 06/25/18 10:51 Dose: 1,000 mg Sodium Chloride () 5 - 30 ml IV UD PRN PRN Reason: SALINE FLUSH Medical Necessity - Tobacco Use Smoking Status: Never smoker Tobacco Use: Non-smoker Assessment/Plan All Active Problems (Last Reviewed 06/24/18 @ 19:54 by Enrrique Kapoor DO) Unstable angina (Acute) Unstable angina pectoris (Acute) NSTEMI (non-ST elevated myocardial infarction) (Acute) 1. Unstable angina/chest pain Patient with known coronary artery disease and had symptoms similar to prior events Currently, chest pain-free Plan right now, is to cycle troponins and consult cardiology and determine further steps according to cardiology The patient does develop elevation in his cardiac markers and patient will be started on anticoagulation. stress negative plan for [facility] given patient's prior history. 2. Chronic kidney disease stage III Creatinine is 1.7 Will need to be cautious The patient does require left heart catheterization as it could lead to further worsening of his kidney disease IV fluids with 1 L saline 3. Diabetes mellitus type 2 [id number] Continue with his home medications Add sliding scale insulin, moderate The patient does require a left heart catheterization, his metformin will need to be held. 4. DVT prophylaxis Subcu heparin However, the patient does require anticoagulation then will need to discontinue and jacquard loom card changer to heparin drip or Lovenox, weight-based. 5. Hypomagnesemia resolved Code Visit OBSV E&M: 56866 Subsequent observation care L2
[2018-06-25] MEDS: Heparin Injection (Vial) 5,000 UNIT/ML VIAL 5000 UNIT SC ×2 (14:38→21:25)
[2018-06-25 17:06] LABS: Bedside Glucose 122 mg/dL (70-110)
[2018-06-25] MEDS: Atorvastatin Calcium 80 MG Tablet PO (21:24)
[2018-06-25 21:36] LABS: Bedside Glucose 181 mg/dL (70-110)
[2018-06-26] VITALS (12 sets, daily range): BP systolic 95–140; BP diastolic 58–87; PULSE 68–82; RESP 18; TEMP 36.4–36.9; O2SAT 96–99
[2018-06-26] MEDS: Heparin Injection (Vial) 5,000 UNIT/ML VIAL 5000 UNIT SC ×3 (05:59→22:31)
--- NOTE | 2018-06-26 06:24 | NURSING ---
All documentation completed by Ned Sinclair, Director [facility] reviewed by this RN. This RN agrees with all documentation 06/25/18-06/26/18
[2018-06-26 06:50] LABS: Bedside Glucose 133 mg/dL (70-110)
[2018-06-26] MEDS: Aspirin E.C. 81 MG Tablet PO (08:37)
[2018-06-26] MEDS: metFORMIN HCl 1,000 MG Tablet 1000 MG PO (08:37)
[2018-06-26] MEDS: Ranolazine 500 MG Tablet 1000 MG PO ×2 (08:38→22:31)
[2018-06-26] MEDS: Clopidogrel Bisulfate 75 MG Tablet PO (08:38)
[2018-06-26] MEDS: buPROPion (SR) 150 MG Tablet.SA PO ×2 (08:38→22:32)
[2018-06-26] MEDS: Carvedilol 25 MG Tablet PO ×2 (08:38→22:33)
[2018-06-26] MEDS: Glimepiride 2 MG Tablet PO (08:38)
[2018-06-26] MEDS: LINAGLIPTIN 5 MG TABLET PO (08:39)
--- NOTE | 2018-06-26 10:21 | PCM.PN.CARD ---
Subjectve: Patient doing well this morning, try to get up to walk around and had some shortness of breath. Also had some atypical right upper sided chest pain, dissimilar from his previous angina. Telemetry shows normal sinus rhythm. Did have some dizziness yesterday when he had some low blood pressure. Objective: Vital Signs Temp Pulse Resp BP Pulse Ox 97.6 F L 82 18 114/64 97 06/26/18 08:34 06/26/18 08:34 06/26/18 08:34 06/26/18 08:34 06/26/18 08:34 Oxygen Delivery Method Room Air Weight: 241 lb 2.971 oz Body Mass Index (BMI) 34.5 Intake and Output for Last 24 Hours 06/24/18 06/25/18 06/26/18 23:59 23:59 23:59 Intake Total 2191 / 2191 100 / 100 Balance 2191 100 / 100 General: Awake, Alert, Oriented x 3 HEENT: PERRL, EOMI, Sclera Non Icteric Neck: Supple, Good ROM, No Lymph Node Enlargement Lungs: Clear to auscultation Cardiovascular: Regular Rhythm, Normal S1, Normal S2, No Murmurs, No Rubs, No Gallops 06/25/18 05:10: Triglycerides 246 H, Cholesterol 128, LDL Cholesterol 49, VLDL Cholesterol 49 H, HDL Cholesterol 30 L Rhythm: EKG: ECHO: Stress Test: Cardiac Cath: PCI: CT Surgery: Holter monitor: EPS: PPM: CXR: Chest CT Scan: Medical Necessity - Tobacco Use Smoking Status: Never smoker Tobacco Use: Non-smoker Assessment/Plan 1. Unstable angina: The patient has recurrent substernal chest pressure which may be cardiac in nature versus symptoms of his significant hiatal hernia. His chest x-ray does not show any overt hiatal hernia although it was an upright film. His troponins are negative. His echocardiogram shows mild global LV dysfunction with an EF around 55% and mild inferior posterior hypokinesis consistent with previous subtotal occlusion of his PDA. Patient underwent angioplasty and stenting to his distal RCA and proximal RCA complicated by a proximal RCA stent stripped off, subsequently crushed by another stent in May 2017. Continue aspirin and Plavix. We will hold his metformin tomorrow and resume it on Wednesday. In addition the patient requires hiatal hernia surgery in the upcoming future at [facility]. His stress echocardiogram was negative for overt ischemia particularly of the inferior wall however images were somewhat challenging to obtain an Definity agent was required. Out of an abundance of caution and due to his previous stents, I recommend that he undergo a repeat left heart catheterization this upcoming Wednesday. He will continue baby aspirin, Plavix. Patient is agreed to proceed. We will decrease Imdur to 30 mg p.o. twice daily given his positional lightheadedness and dizziness yesterday. He will continue losartan, hydrochlorothiazide 25 mg and continue Coreg. 2. Hyperlipidemia: Continue aggressive LDL reduction. Recommend fasting lipid profile. Continue Lipitor. 3. Thank you very much for the opportunity to participate in the cardiac care of your patient. Repeat left heart catheterization pending for tomorrow. Code Visit Inpatient E&M: 41875 Subs Hosp L2
--- NOTE | 2018-06-26 11:25 | PCM.PN.HOSP ---
Patient Problems: Active and Suspected Problems (Last Reviewed 06/24/18 @ 19:54 by Enrrique Kapoor DO) Unstable angina (Acute) Subjective: Had some left lateral chest pain. Up and ambulating in hallways. Vitals/I&O's: Vital Signs Temp Pulse Resp BP Pulse Ox 36.4 C L 74 18 100/64 96 06/26/18 10:47 06/26/18 10:47 06/26/18 10:47 06/26/18 10:47 06/26/18 10:47 Oxygen Delivery Method Room Air Weight: 109.4 kg Body Mass Index (BMI) 34.5 Intake and Output for Last 24 Hours 06/24/18 06/25/18 06/26/18 23:59 23:59 23:59 Intake Total 2191 100 / 100 Balance 2191 100 / 100 General: Alert, No apparent distress HEENT: Atraumatic, Normocephalic Oral: Moist Mucosa, No Gingival or Mucosal Lesions/ Ulcerations Neck: No Nodes, Thyroid Normal Size and Texture Lungs: Clear to auscultation, Normal air movement, No rhonchi, No wheeze Cardiovascular: Regular rate, Regular Rhythm, Normal S1, Normal S2, No murmurs Abdomen: Bowel Sounds Present, Soft, Non Tender, Non-Distended Neurological: Coordination normal, Gait narrow based and stable Psych/Mental Status: Normal Affect, Appropriate Laboratory Results 06/25/18 05:10: Triglycerides 246 H, Cholesterol 128, LDL Cholesterol 49, VLDL Cholesterol 49 H, HDL Cholesterol 30 L 06/25/18 16:53: POC Glucose 122 H 06/25/18 21:21: POC Glucose 181 H 06/26/18 06:47: POC Glucose 133 H Current Medications Acetaminophen (Tylenol) 650 mg PO Q4H PRN PRN PRN Reason: PAIN Aspirin (Ecotrin) 81 mg PO DAILY@0800 [facility] Last Admin: 06/26/18 08:37 Dose: 81 mg Atorvastatin Calcium (Lipitor) 80 mg PO QHS [facility] Last Admin: 06/25/18 21:24 Dose: 80 mg Bupropion HCl (Wellbutrin Sr (150mg Tablets)) 150 mg PO BID [facility] Last Admin: 06/26/18 08:38 Dose: 150 mg Carvedilol (Coreg) 25 mg PO BID [facility] Last Admin: 06/26/18 08:38 Dose: 25 mg Clopidogrel Bisulfate (Plavix) 75 mg PO DAILY [facility] Last Admin: 06/26/18 08:38 Dose: 75 mg Dextrose (D50w Syringe) 0 gm IV X1 PRN; Protocol PRN Reason: Hypoglycemia Diphenhydramine HCl (Benadryl) 50 mg PO X1 ONE Stop: 06/27/18 08:01 Glimepiride (Amaryl) 2 mg PO DAILY@0800 [facility] Last Admin: 06/26/18 08:38 Dose: 2 mg Glucagon () 1 mg IM .X1 PRN PRN Reason: Hypoglycemia Heparin Sodium (Porcine) (Heparin Na) 5,000 unit SC Q8 [facility] Last Admin: 06/26/18 05:59 Dose: 5,000 unit Hydrochlorothiazide (Hctz) 25 mg PO DAILY [facility] Last Admin: 06/26/18 10:56 Dose: Not Given Sodium Chloride () 1,000 mls @ 0 mls/hr IV .Q0M [facility] PRN Reason: KVO Insulin Human Lispro (Humalog Kwikpen (Bkc)) 0 unit SQ TIDAC [facility] PRN Reason: Protocol Last Admin: 06/26/18 06:53 Dose: Not Given Isosorbide Mononitrate (Imdur) 30 mg PO BID [facility] Linagliptin (Tradjenta) 5 mg PO DAILY@0800 [facility] Last Admin: 06/26/18 08:39 Dose: 5 mg Losartan Potassium (Cozaar) 100 mg PO DAILY [facility] Last Admin: 06/26/18 10:56 Dose: Not Given Magnesium Hydroxide (Milk Of Magnesia) 30 ml PO DAILY PRN PRN Reason: Constipation Metformin HCl (Glucophage) 1,000 mg PO DAILY@0800 [facility] Last Admin: 06/26/18 08:37 Dose: 1,000 mg Morphine Sulfate () 4 mg IV Q3H PRN PRN PRN Reason: SEVERE PAIN (6-10/10) Ranolazine (Ranexa) 1,000 mg PO BID [facility] Last Admin: 06/26/18 08:38 Dose: 1,000 mg Sodium Chloride () 5 - 30 ml IV UD PRN PRN Reason: SALINE FLUSH Medical Necessity - Tobacco Use Smoking Status: Never smoker Tobacco Use: Non-smoker Assessment/Plan All Active Problems (Last Reviewed 06/24/18 @ 19:54 by Enrrique Kapoor DO) Unstable angina (Acute) Unstable angina pectoris (Acute) NSTEMI (non-ST elevated myocardial infarction) (Acute) 1. Unstable angina/chest pain Patient with known coronary artery disease and had symptoms similar to prior events Currently, chest pain-free Plan right now, is to cycle troponins and consult cardiology and determine further steps according to cardiology The patient does develop elevation in his cardiac markers and patient will be started on anticoagulation. stress negative plan for [facility] given patient's prior history. 2. Chronic kidney disease stage III Creatinine is 1.7 Will need to be cautious The patient does require left heart catheterization as it could lead to further worsening of his kidney disease IV fluids with 1 L saline 3. Diabetes mellitus type 2 [id number] Continue with his home medications Add sliding scale insulin, moderate The patient does require a left heart catheterization, his metformin will need to be held. 4. DVT prophylaxis Subcu heparin However, the patient does require anticoagulation then will need to discontinue and price changer to heparin drip or Lovenox, weight-based. 5. Hypomagnesemia resolved Code Visit OBSV E&M: 73224 Subsequent observation care L2
[2018-06-26 11:40] LABS: Bedside Glucose 129 mg/dL (70-110)
[2018-06-26 16:46] LABS: Bedside Glucose 96 mg/dL (70-110)
[2018-06-26] MEDS: Atorvastatin Calcium 80 MG Tablet PO (22:32)
[2018-06-26] MEDS: Isosorbide Mononitrate 30 MG Tablet PO (22:37)
[2018-06-27] VITALS (20 sets, daily range): BP systolic 99–126; BP diastolic 65–77; PULSE 69–87; RESP 15–19; TEMP 36.4–36.6; O2SAT 96–99; BMI 34.6
[2018-06-27 00:11] LABS: Bedside Glucose 108 mg/dL (70-110)
[2018-06-27 05:24] LABS: Absolute Lymphocyte Count 1.78 X10^3/ul (0.83-4.51); Absolute Neutrophil Count 2.8 X10^3/uL (2.0-7.7); Basophil# 0.03 X10^3/uL; Basophil% 0.6 % (0-1); Eosinophil# 0.13 X10^3/uL; Eosinophils% 2.4 % (0-5); Hemoglobin 12.9 g/dl (13.0-16.5); Lymphocyte # 1.78 X10^3/ul (4.0); Lymphocyte % 32.8 % (19-41); Mean Corp Hgb Conc 33.9 g/gl (32-36); Mean Corpuscular Hgb 27.9 pg (27.0-32.0); Mean Corpuscular Volume 82.3 fL (80-94); Mean Platelet Vol. 11.4 fl (6.2-12.0); Monocyte# 0.73 X10^3/uL; Monocyte% 13.4 % (0-10); Neutrophil # 2.75 X10^3/uL (2.7-7.7); Neutrophil % 50.6 % (47-70); Platelet Count 143 K/mm3 (150-450); RBC Distribution Width CV 13.8 % (11.6-14.6); RBC Distribution Width SD 40.5 fl (35.1-43.9); Red Blood Count 4.62 M/mm3 (4.6-6.2); White Blood Count 5.4 K/mm3 (4.4-11.0)
[2018-06-27 05:47] LABS: Anion Gap 13 (5-15); BUN 18 mg/dL (7-18); BUN/Creat Ratio 11.6 RATIO (10-20); Calcium,Total 8.3 mg/dL (8.5-10.1); Chloride 106 mmol/L (98-107); Creatinine, Serum 1.55 mg/dL (0.70-1.30); EST Glomerular Filtration Rate 49 mL/min (>60); Est Glom Filt Rate - Afr Amer 60 mL/min (>60); Estimated Creatinine Clearance 54.95 ml/min; Glucose 105 mg/dL (74-106); Potassium 3.9 mmol/L (3.5-5.1); Sodium Level 141 mmol/L (136-145)
[2018-06-27] MEDS: Ranolazine 500 MG Tablet 1000 MG PO ×2 (05:47→21:25)
[2018-06-27] MEDS: Carvedilol 25 MG Tablet PO (05:47)
[2018-06-27] MEDS: Losartan Potassium 100 MG Tablet PO (05:47)
[2018-06-27] MEDS: Clopidogrel Bisulfate 75 MG Tablet PO (05:47)
[2018-06-27] MEDS: Aspirin E.C. 81 MG Tablet PO (05:47)
[2018-06-27] MEDS: Isosorbide Mononitrate 30 MG Tablet PO ×2 (05:49→21:25)
[2018-06-27 05:51] LABS: International Normalized Ratio 1.1; Prothrombin Time (Protime)PT. 14.6 SECONDS (11.7-14.9)
[2018-06-27 05:52] LABS: Partial Thromboplast Time 26.8 Seconds (24.1-36.2)
[2018-06-27 05:58] LABS: POSITIVE COUNT NO; POSITIVE DIFFERENTIAL NO; POSITIVE MORPHOLOGY NO
[2018-06-27 06:09] LABS: Bacteria 0 SEEN /hpf (None Seen); Mucous, Urine 0 SEEN /hpf (<or=2+); Red Blood Cells-Urine 0 SEEN /hpf (0-5); White Blood Cells 0 SEEN /hpf (0-5)
[2018-06-27 06:22] LABS: Color, Urine Yellow (Yellow); Glucose, Dipstick Normal (Normal); Ketone-Dipstick Negative (Negative); Leukocyte Esterase-Dipstick Negative /ul (Negative); Nitrite-Dipstick Negative (Negative); Occult Blood-Urine Negative /ul (Negative); Protein-Dipstick Negative (Negative); Specific Gravity, Urine 1.015 (1.002-1.030); Urine Bilirubin Dipstick Negative (Negative); Urine Clarity Clear (Clear); Urine Urobilinogen 1 mg/dl (Normal)
[2018-06-27 06:47] LABS: Bedside Glucose 126 mg/dL (70-110)
[2018-06-27 06:52] LABS: Squamous Epithelial Cells - UA 0-5 SEEN /hpf (0-5)
[2018-06-27] MEDS: 0.9% NaCl Peripheral Flush Adult/Peds IV (07:51)
--- NOTE | 2018-06-27 08:28 | NURSING ---
to medical laboratory technical officer, [facility] business dean in attendance
--- NOTE | 2018-06-27 09:29 | CASEMGMT ---
According to the MMO website, the following are in-network tertiary facilities: [facility], [facility], [facility], [facility], [facility], [facility], [employer], and . Rachana YUN CM
[2018-06-27 10:26] LABS: ACT Activated Clotting Time 169 sec (74-137)
[2018-06-27] MEDS: 0.9% Normal Saline 1,000 ML 150 ML IV (10:45)
[2018-06-27] MEDS: DiphenhydrAMINE 25 MG Capsule 50 MG PO (10:45)
[2018-06-27] MEDS: Acetaminophen 325 MG Tablet 650 MG PO (11:09)
[2018-06-27] MEDS: diazePAM 5 MG Tablet PO (11:10)
--- NOTE | 2018-06-27 11:14 | PCM.PN.HOSP ---
Patient Problems: Active and Suspected Problems (Last Reviewed 06/24/18 @ 19:54 by Enrrique Kapoor DO) Unstable angina (Acute) Subjective: Patient seen and examined. He was admitted on account of chest pain is been managed for unstable angina. Patient was scheduled to have a cardiac cath today. He had cardiac cath this morning which showed normal LV size, wall motion and systolic function; had successufl PCI with PTCA at bifurction; unsuccessful PCI of mid PDA. Patient was hypotensive during the procedure and had to receive a troponin. He was therefore transferred to the ICU after the procedure. Patient was seen and examined prior to the cath and felt well. He had no complaints and said chest pain had improved. He denied any fever or chills, any cough or chest pain, shortness of breath, abdominal pain, any diarrhea vomiting. 12 point Review of systems is otherwise negative. Vitals/I&O's: Vital Signs Temp Pulse Resp BP Pulse Ox 97.6 F L 83 19 H 104/73 98 06/27/18 10:54 06/27/18 11:00 06/27/18 11:00 06/27/18 11:00 06/27/18 11:00 Oxygen Delivery Method Room Air Weight: 241 lb 2.971 oz Body Mass Index (BMI) 34.5 Intake and Output for Last 24 Hours 06/25/18 06/26/18 06/27/18 23:59 23:59 23:59 Intake Total 2192 / 2192 650 / 650 Balance 2192 / 2192 650 / 650 General: Alert, Oriented x3, Cooperative, No apparent distress HEENT: Atraumatic, PERRLA, EOMI, Normocephalic Oral: Moist Mucosa Neck: Supple, No JVD, Negative Carotid Bruits Lungs: Clear to auscultation, Normal air movement, No rhonchi, No wheeze, No rales Cardiovascular: Regular rate, Regular Rhythm, Normal S1, Normal S2, No murmurs Abdomen: Bowel Sounds Present, Soft, Non Tender, Non-Distended, No Hepato-splenomegaly Extremities: No clubbing, No cyanosis, No edema, Capillary Refill Less than 3 Seconds Skin: No rashes, No breakdown Musculoskeletal: No Tenderness to Palpation of Joints or Extremities Lymphatic: No Cervical, Supraclavicular, or Inguinal Adenopathy Neurological: Cranial nerves II-XII grossly intact, Motor Exam 5/5 strength throughout Psych/Mental Status: Normal Affect, Appropriate, Alert and oriented to time, place, person, mood and affect Laboratory Results 06/26/18 11:28: POC Glucose 129 H 06/26/18 16:38: POC Glucose 96 06/26/18 22:28: POC Glucose 108 06/27/18 04:42: WBC 5.4, RBC 4.62, Hgb 12.9 L, Hct 38.0 L, MCV 82.3, MCH 27.9, MCHC 33.9, RDW 13.8, RDW Differential 40.5, Plt Count 143 L, MPV 11.4, Immature Gran % (Auto) 0.200, Neut % (Auto) 50.6, Lymph % (Auto) 32.8, [place] % (Auto) 13.4 H, Eos % (Auto) 2.4, Baso % (Auto) 0.6, Absolute Neuts (auto) 2.8, Absolute Lymphs (auto) 1.78, Total Counted Not Reportable 06/27/18 04:42: PT 14.6, INR 1.1, APTT 26.8 06/27/18 04:42: Sodium 141, Potassium 3.9, Chloride 106, Carbon Dioxide 22.0, Anion Gap 13, BUN 18, Creatinine 1.55 H, Estim Creat Clear Calc 54.95, Est GFR (MDRD) Af Amer 60, Est GFR (MDRD) Non-Af 49 L, BUN/Creatinine Ratio 11.6, Glucose 105, Calcium 8.3 L 06/27/18 05:50: Urine Color Yellow, Urine Clarity Clear, Urine pH 6.0, Ur Specific [place] 1.015, Urine Protein Negative, Urine Glucose (UA) Normal, Urine Ketones Negative, Urine Occult Blood Negative, Urine Nitrite Negative, Urine Bilirubin Negative, Urine Urobilinogen 1 H, Ur Leukocyte Esterase Negative, Urine RBC 0 SEEN, Urine WBC 0 SEEN, Ur Squamous Epith Cells 0-5 SEEN, Urine Bacteria 0 SEEN, Urine Mucus 0 SEEN 06/27/18 06:43: POC Glucose 126 H 06/27/18 10:00: Activated Clotting Time 169 H Current Medications Acetaminophen (Tylenol) 650 mg PO Q6H PRN PRN PRN Reason: Mild Pain (0-2/10) Last Admin: 06/27/18 11:09 Dose: 650 mg Aspirin (Ecotrin) 81 mg PO DAILY@0800 [facility] Last Admin: 06/27/18 05:47 Dose: 81 mg Atorvastatin Calcium (Lipitor) 80 mg PO QHS [facility] Last Admin: 06/26/18 22:32 Dose: 80 mg Atropine Sulfate () 0.5 mg IV UD PRN PRN Reason: HR <50 bpm Bupropion HCl (Wellbutrin Sr (150mg Tablets)) 150 mg PO BID [facility] Last Admin: 06/26/18 22:32 Dose: 150 mg Carvedilol (Coreg) 25 mg PO BID [facility] Last Admin: 06/27/18 05:47 Dose: 25 mg Clopidogrel Bisulfate (Plavix) 75 mg PO DAILY [facility] Last Admin: 06/27/18 05:47 Dose: 75 mg Dextrose (D50w Syringe) 0 gm IV X1 PRN; Protocol PRN Reason: Hypoglycemia Diazepam (Valium) 5 mg PO Q6H PRN PRN PRN Reason: BACK SPASMS/ANXIETY Last Admin: 06/27/18 11:10 Dose: 5 mg Glimepiride (Amaryl) 2 mg PO DAILY@0800 [facility] Last Admin: 06/26/18 08:38 Dose: 2 mg Glucagon () 1 mg IM .X1 PRN PRN Reason: Hypoglycemia Heparin Sodium (Beef Lung) (Heparin 500 Unit/5 Ml (100/Ml)) 500 unit IV UD PRN PRN Reason: HEPARIN FLUSH Hydrochlorothiazide (Hctz) 25 mg PO DAILY [facility] Last Admin: 06/26/18 10:56 Dose: Not Given Sodium Chloride () 1,000 mls @ 0 mls/hr IV .Q0M [facility] PRN Reason: KVO Sodium Chloride () 1,000 mls @ 150 mls/hr IV .Q6H40M [facility] Stop: 06/27/18 16:49 Insulin Human Lispro (Humalog Kwikpen (Bkc)) 0 unit SQ TIDAC [facility] PRN Reason: Protocol Last Admin: 06/27/18 07:51 Dose: Not Given Isosorbide Mononitrate (Imdur) 30 mg PO BID [facility] Last Admin: 06/27/18 05:49 Dose: 30 mg Labetalol HCl (Trandate) 5 mg IV X1 PRN PRN Reason: SBP > 160 when pulling sheath Stop: 06/29/18 10:07 Linagliptin (Tradjenta) 5 mg PO DAILY@0800 [facility] Last Admin: 06/26/18 08:39 Dose: 5 mg Losartan Potassium (Cozaar) 100 mg PO DAILY [facility] Last Admin: 06/27/18 05:47 Dose: 100 mg Magnesium Hydroxide (Milk Of Magnesia) 30 ml PO DAILY PRN PRN Reason: Constipation Metoclopramide HCl (Reglan) 5 mg IV Q6H PRN PRN Reason: NAUSEA/VOMITING Morphine Sulfate () 2 mg IV Q4H PRN PRN PRN Reason: Mild back pain (0-2/10) Ranolazine (Ranexa) 1,000 mg PO BID [facility] Last Admin: 06/27/18 05:47 Dose: 1,000 mg Sodium Chloride () 5 - 30 ml IV UD PRN PRN Reason: SALINE FLUSH Last Admin: 06/27/18 07:51 Dose: 10 ml Sodium Chloride () 500 ml IV BOLUS PRN PRN Reason: VASO-VAGAL PROTOCOL Medical Necessity - Tobacco Use Smoking Status: Never smoker Tobacco Use: Non-smoker Assessment/Plan All Active Problems (Last Reviewed 06/24/18 @ 19:54 by Enrrique Kapoor DO) Unstable angina (Acute) Unstable angina pectoris (Acute) NSTEMI (non-ST elevated myocardial infarction) (Acute) 1. Unstable angina s/p left heart cath and balloon angioplasty had left heart cath today which showed successful PCTA to the distal RCA at bifurcation, with reduction of 75% stenosis to 50% stenosis. unable to avance balloon to PL branches due to tortuosity and previous stents despite long sheaths. Unsuccessful PCI of mid PDA. per cardio, to have aspirin indefinitely and plavix for at least 12 months Patient was hypotensive during the procedure with blood pressure going as low as 70 systolic. He received a troponin and a bolus of IV fluids Transferred to the ICU for closer monitoring. on atorvastatin 80mg qhs, carvedilol 25mg bid, plavix 75mg daily and aspirin 81mg daily. Also on losartan 100mg daily and ranexa as well as imdur 2. CKD stage 3 CR today is 1.55, which is around his baseline will monitor and give IVF o/a of contrast administration 3. DM2 on ISS; metformin on hold o/a of cath. also on linagliptin 4. Hypotension: due to cardiac cath. Will hold BP meds and give iVf. received atropine and bolus of IVf as documented above. 5. Hypertension: BP meds on hold due to hypotension as documented above. 6. CAD s/p multiple stents: plan as documented under 1. 7. DVT prophylaxis: heparin This note was generated with [employer] dictation software. It may contain incorrect words, spelling, and punctuation that were not noted in checking the note before signing. Code Visit Inpatient E&M: 39398 Subs Hosp L3
[2018-06-27 12:30] LABS: Bedside Glucose 142 mg/dL (70-110)
--- NOTE | 2018-06-27 13:10 | CRPHASE1_ITS ---
Patient Data/[employer] Correspondent:: Nirmal Denson PCP:: Pilo Aviles Risk Factors/Lifestyle Smoking Status: Never smoker Hx Hypertension: Yes Hx Diabetes Mellitus Type 2: Yes Hx Metabolic Disorders: Yes Hx Dyslipidemia: Yes Hx Obesity: Yes Height: 1.78 m Weight:: 109.4 kg BMI: 34.6 Stress: Long-standing Caffeine: No Family History: Family History (Last Reviewed 06/24/18 @ 19:54 by Enrrique Kapoor DO) Mother CAD (coronary artery disease) Myocardial infarction, Onset Age: 46 Sister CAD (coronary artery disease) Sister CAD (coronary artery disease) Brother CAD (coronary artery disease) Family History: Heart Disease Past Cardiac Illness: Previous PCI w/Stent Laboratory Values: Cardiac Rehab Phase I Labs Triglycerides 246 mg/dL (-199) H 06/25/18 05:10 Cholesterol 128 mg/dL (200) 06/25/18 05:10 LDL Cholesterol 49 mg/dL (0-130) 06/25/18 05:10 HDL Cholesterol 30 mg/dL (40-) L 06/25/18 05:10 Phase I Education Given On:: [place], Nutrition, Antiplatelet medication, Diabetes - Type II Knowledge of Condition:: Yes Hospital Course Pain Description: Tightness, Pressure Medical/Surgical History Angina:: Yes CAD:: Yes Pulmonary:: No COPD:: No Asthma:: No Diabetes Type II:: Yes Hypertension:: Yes Dyslipidemia:: Yes PE:: No DVT:: No GERD:: Yes Cancer:: No Renal:: No Thyroid:: No Depression:: Yes Anxiety:: Yes CABG: No PTCA:: Yes ICD:: No Pacemaker:: No Discharge/Home/Social Eval Discharge Disposition: Home Marital Status:
--- NOTE | 2018-06-27 13:12 | CRPH1.INSTRU ---
General Education CAD and cardiac anatomy and function:: Not instructed Explanation of diagnoses and procedures:: Not instructed Sign/Symptoms of GA:: Needs reinforcement Antiplatelet therapy: Not instructed Proper use of NTG-SL: Not instructed Emergency procedures and activation of EMS: Not instructed Compliance of all prescribed medications: Not instructed Smoking Patient Nicotine/Smoking Risk Factors Are:: Never smoked Dyslipidemia Dyslipidemia Response Code:: Not instructed Overweight/Obesity Patient Overweight/Obesity Risk Factors Are:: Obesity - > or = 30 Overweight/Obesity:: Not instructed Hypertension Recommendations Include:: BP <130/80 if diabetic Hypertension:: Needs reinforcement Heart Disease Patient Heart Disease Risk Factors Are:: Family history of heart disease < 65 years old, Previous cardiac event Heart Disease Response Code:: Needs reinforcement Diabetes Recommendations Include:: Maintain fasting blood sugars 70-110 md/dL, Maintain HgbA1c of 6% or less, Monitor blood sugar as prescribed Diabetes:: Needs reinforcement Metabolic Syndrome Metabolic Syndrome Response Code:: Not instructed Sedentary Sedentary Response Code:: Not instructed Stress Recommendations Include:: Identification of stressors, and assessment of coping skills - PT AND STATE THEY HAVE AN AUTISTIC SON, 16 YO, STRESS
--- NOTE | 2018-06-27 13:15 | CRPH1.INST_ITS ---
General Education CAD and cardiac anatomy and function:: Not instructed Explanation of diagnoses and procedures:: Not instructed Sign/Symptoms of OR:: Needs reinforcement Antiplatelet therapy: Not instructed Proper use of NTG-SL: Not instructed Emergency procedures and activation of EMS: Not instructed Compliance of all prescribed medications: Not instructed Smoking Patient Nicotine/Smoking Risk Factors Are:: Never smoked Dyslipidemia Dyslipidemia Response Code:: Not instructed Overweight/Obesity Patient Overweight/Obesity Risk Factors Are:: Obesity - > or = 30 Overweight/Obesity:: Not instructed Hypertension Recommendations Include:: BP <130/80 if diabetic Hypertension:: Needs reinforcement Heart Disease Patient Heart Disease Risk Factors Are:: Family history of heart disease < 65 years old, Previous cardiac event Heart Disease Response Code:: Needs reinforcement Diabetes Recommendations Include:: Maintain fasting blood sugars 70-110 md/dL, Maintain HgbA1c of 6% or less, Monitor blood sugar as prescribed Diabetes:: Needs reinforcement Metabolic Syndrome Metabolic Syndrome Response Code:: Not instructed Sedentary Sedentary Response Code:: Not instructed Stress Recommendations Include:: Identification of stressors, and assessment of coping skills - PT AND STATE THEY HAVE AN AUTISTIC SON, 16 YO, STRESS
[2018-06-27] MEDS: buPROPion (SR) 150 MG Tablet.SA PO ×2 (16:13→21:25)
--- NOTE | 2018-06-27 17:16 | PCM.PN.CARD ---
Subjectve: The patient is now status post further invasive evaluation performed by Dr. Denson with respect to diagnostic cardiac catheterization. This led to distal RCA PTCA/no stent. The patient appears to be resting comfortably at this time. He has no acute adverse symptoms or events. Objective: Vital Signs Temp Pulse Resp BP Pulse Ox 97.8 F 82 18 103/76 96 06/27/18 16:00 06/27/18 16:00 06/27/18 16:00 06/27/18 16:00 06/27/18 16:00 Oxygen Delivery Method Room Air Weight: 241 lb 2.971 oz Body Mass Index (BMI) 34.5 Intake and Output for Last 24 Hours 06/25/18 06/26/18 06/27/18 23:59 23:59 23:59 Intake Total 2192 / 2192 650 / 650 120 / 120 Balance 2192 / 2192 650 / 650 120 / 120 General: Awake, Alert, Oriented x 3, Cooperative, No Acute Distress Neck: No JVD Lungs: Clear to auscultation Cardiovascular: Regular Rhythm, Premature Ectopic Beats, Normal S1, Normal S2 Abdomen: Bowel Sounds Present, Soft, Non Tender Neurological: No Focal Motor or Sensory Deficit 06/27/18 04:42: WBC 5.4, RBC 4.62, Hgb 12.9 L, Hct 38.0 L, MCV 82.3, MCH 27.9, MCHC 33.9, RDW 13.8, RDW Differential 40.5, Plt Count 143 L, MPV 11.4, Immature Gran % (Auto) 0.200, Neut % (Auto) 50.6, Lymph % (Auto) 32.8, [place] % (Auto) 13.4 H, Eos % (Auto) 2.4, Baso % (Auto) 0.6, Absolute Neuts (auto) 2.8, Total Counted Not Reportable 06/27/18 04:42: PT 14.6, INR 1.1, APTT 26.8 06/27/18 04:42: Sodium 141, Potassium 3.9, Chloride 106, Carbon Dioxide 22.0, Anion Gap 13, BUN 18, Creatinine 1.55 H, Est GFR (MDRD) Af Amer 60, Est GFR (MDRD) Non-Af 49 L, BUN/Creatinine Ratio 11.6, Glucose 105, Calcium 8.3 L 06/27/18 05:50: Urine Color Yellow, Urine Clarity Clear, Urine pH 6.0, Ur Specific [place] 1.015, Urine Protein Negative, Urine Glucose (UA) Normal, Urine Ketones Negative, Urine Occult Blood Negative, Urine Nitrite Negative, Urine Bilirubin Negative, Urine Urobilinogen 1 H, Ur Leukocyte Esterase Negative, Urine RBC 0 SEEN, Urine WBC 0 SEEN Rhythm: Sinus rhythm Cardiac Cath: Please see official report PCI: Please see official report Medical Necessity - Tobacco Use Smoking Status: Never smoker Tobacco Use: Non-smoker Assessment/Plan 1. CAD status post RCA PTCA/no stent The patient has a history of underlying extensive coronary artery disease. He is undergone multiple diagnostic cardiac catheterization/PCI procedures. At the present time based upon ongoing concerns and the need for upcoming noncardiac surgery he underwent repeat cardiac catheterization under the direction of Dr. Denson. He received PTCA to the distal RCA. Unfortunately the right PDA system was unable to be intervened upon despite Dr. Denson's attempts. Thus the present time he will need to continue his risk factor modification and medical management. He will need continued outpatient cardiovascular follow-up. 2. Hyperlipidemia The patient will need to continue risk factor evaluation care as deemed appropriate. 3. Hypertension The patient's blood pressure will be followed. He will need to continue medical management with adjustment as needed. 4. Diabetes mellitus The patient will continue under the care of internal medicine. Comment: The patient's case has been discussed and reviewed with the patient and Dr. Denson. This note was generated with [employer] dictation software. It may contain incorrect words, spelling, and punctuation that were not noted in checking the note before signing.
[2018-06-27 17:50] LABS: Bedside Glucose 138 mg/dL (70-110)
[2018-06-27] MEDS: Atorvastatin Calcium 80 MG Tablet PO (21:25)
[2018-06-27 21:26] LABS: Bedside Glucose 158 mg/dL (70-110)
[2018-06-28] VITALS (12 sets, daily range): BP systolic 96–145; BP diastolic 60–97; PULSE 68–83; RESP 13–18; TEMP 36.4–36.6; O2SAT 94–98
[2018-06-28 05:06] LABS: Absolute Lymphocyte Count 1.38 X10^3/ul (0.83-4.51); Absolute Neutrophil Count 2.5 X10^3/uL (2.0-7.7); Basophil# 0.01 X10^3/uL; Basophil% 0.2 % (0-1); Eosinophil# 0.11 X10^3/uL; Eosinophils% 2.5 % (0-5); Hematocrit 36.4 % (40-54); Lymphocyte # 1.38 X10^3/ul (4.0); Lymphocyte % 31.6 % (19-41); Mean Corpuscular Hgb 27.6 pg (27.0-32.0); Mean Corpuscular Volume 83.7 fL (80-94); Mean Platelet Vol. 10.9 fl (6.2-12.0); Monocyte# 0.42 X10^3/uL; Monocyte% 9.6 % (0-10); Neutrophil # 2.45 X10^3/uL (2.7-7.7); Neutrophil % 56.1 % (47-70); Platelet Count 117 K/mm3 (150-450); RBC Distribution Width CV 13.8 % (11.6-14.6); RBC Distribution Width SD 42.3 fl (35.1-43.9); Red Blood Count 4.35 M/mm3 (4.6-6.2); White Blood Count 4.4 K/mm3 (4.4-11.0)
[2018-06-28 05:13] LABS: POSITIVE COUNT NO; POSITIVE DIFFERENTIAL NO; POSITIVE MORPHOLOGY NO
[2018-06-28 05:27] LABS: Anion Gap 10 (5-15); BUN 14 mg/dL (7-18); BUN/Creat Ratio 9.7 RATIO (10-20); Calcium,Total 8.3 mg/dL (8.5-10.1); Chloride 110 mmol/L (98-107); Creatinine, Serum 1.45 mg/dL (0.70-1.30); EST Glomerular Filtration Rate 53 mL/min (>60); Est Glom Filt Rate - Afr Amer 65 mL/min (>60); Estimated Creatinine Clearance 58.74 ml/min; Glucose 130 mg/dL (74-106); Potassium 4.1 mmol/L (3.5-5.1); Sodium Level 144 mmol/L (136-145)
--- NOTE | 2018-06-28 08:41 | PCM.PN.CARD ---
Subjectve: The patient is awake and alert. He denies any ongoing chest discomfort or difficulty breathing. Objective: Vital Signs Temp Pulse Resp BP Pulse Ox 97.5 F L 73 15 145/88 H 97 06/28/18 07:26 06/28/18 07:26 06/28/18 07:26 06/28/18 07:26 06/28/18 07:26 Oxygen Delivery Method Room Air Weight: 241 lb 2.971 oz Body Mass Index (BMI) 34.5 Intake and Output for Last 24 Hours 06/26/18 06/27/18 06/28/18 23:59 23:59 23:59 Intake Total 650 / 650 2280 / 2280 400 / 400 Output Total 525 / 525 1000 / 1000 Balance 650 / 650 1755 / 1755 -600 / -600 General: Awake, Alert, Oriented x 3, Cooperative, No Acute Distress Neck: No JVD Lungs: Clear to auscultation Cardiovascular: Regular Rhythm, Normal S1, Normal S2 Vascular: Normal Femoral Pulses Abdomen: Bowel Sounds Present, Soft, Non Tender Extremities: No Cyanosis, No Clubbing, No edema Neurological: No Focal Motor or Sensory Deficit Psych/Mental Status: Appropriate, Normal Affect 06/28/18 05:00: WBC 4.4, RBC 4.35 L, Hgb 12.0 L, Hct 36.4 L, MCV 83.7, MCH 27.6, MCHC 33.0, RDW 13.8, RDW Differential 42.3, Plt Count 117 L, MPV 10.9, Immature Gran % (Auto) 0.000, Neut % (Auto) 56.1, Lymph % (Auto) 31.6, [place] % (Auto) 9.6, Eos % (Auto) 2.5, Baso % (Auto) 0.2, Absolute Neuts (auto) 2.5, Total Counted Not Reportable 06/28/18 05:00: Sodium 144, Potassium 4.1, Chloride 110 H, Carbon Dioxide 24.0, Anion Gap 10, BUN 14, Creatinine 1.45 H, Est GFR (MDRD) Af Amer 65, Est GFR (MDRD) Non-Af 53 L, BUN/Creatinine Ratio 9.7 L, Glucose 130 H, Calcium 8.3 L Rhythm: Sinus rhythm EKG: Rhythm; right bundle branch block pattern; no acute ECG changes Medical Necessity - Tobacco Use Smoking Status: Never smoker Tobacco Use: Non-smoker Assessment/Plan 1. CAD status post RCA PTCA/no stent The patient has a history of underlying extensive coronary artery disease. He is undergone multiple diagnostic cardiac catheterization/PCI procedures. At the present time based upon ongoing concerns and the need for upcoming noncardiac surgery he underwent repeat cardiac catheterization under the direction of Dr. Denson. He received PTCA to the distal RCA. Unfortunately the right PDA system was unable to be intervened upon despite Dr. Denson's attempts. Thus the present time he will need to continue his risk factor modification and medical management. Will continue on medications with respect to his aspirin, antiplatelet agents, nitrates, beta-blockers, afterload reducing agents, and his statins, etc. He will need continued outpatient cardiovascular follow-up. 2. Hyperlipidemia The patient will need to continue risk factor evaluation care as deemed appropriate. 3. Hypertension The patient's blood pressure will be followed. As his blood pressure is returning to his baseline status he will reinitiate his medications, which were on temporary hold, with respect to his beta-blockers, diuretics, and ARB's. He will need to continue medical management with adjustment as needed. 4. Diabetes mellitus The patient will continue under the care of internal medicine. Overall, at the present time, barring unforeseen event, it appears the patient will continue medical therapy, continue outpatient cardiovascular follow-up, and with respect to returning to work would plan to do so on 07/05/2018. Also, with respect to the patient's future noncardiovascular surgery, he will need close monitoring of his cardiac rate, rhythm, and blood pressure during and following his surgical procedure with attempts to avoid significant fluctuations in his vital signs during and following his surgical procedure. He should also have avoidance of IV volume overload during and following his surgical procedure. He should be considered for cardiac monitoring following his procedure. Should continue his medications, especially his beta-blockers which he has been on, during and following his surgical procedure as best as possible. His antiplatelet therapy may need to be temporarily interrupted for his procedure and resumed as soon as possible following his procedure. As his procedure is being performed at [facility], if need be, cardiology at that institution can be consulted to assist with the evaluation care of the patient. Comment: The patient's case has been discussed and reviewed with the patient and Dr. Denson. This note was generated with App in the [employer] software. It may contain incorrect words, spelling, and punctuation that were not noted in checking the note before signing.
--- NOTE | 2018-06-28 09:15 | PCM.DC ---
- Discharge Diagnoses Current Active Problems: Current Active and Chronic Problems (Last Reviewed 06/24/18 @ 19:54 by Enrrique Kapoor DO) Unstable angina (Acute) You will use the following diet at home:: Cardiac Your food should be the consistency of: Regular Your liquids should be the consistency of: Regular/Thin Discharge Activity: Return to Normal Activity May resume sexual activity in: No Restrictions Weight Bearing Status: Weight bearing as tolerated Call your doctor if you observe: Shortness of breath, Dizziness, Chest pain Instructions: Discharge Instructions for Angina, Warning Signs of a Heart Attack Allergies/Adverse Reactions: Allergies nitroglycerin Allergy (Verified 06/24/18 18:21) Shortness of breath Medications to take at Discharge Carvedilol [Coreg (Beta Lisa)] 25 mg PO BID 11/08/16 Glimepiride [Amaryl] 2 mg PO DAILY 11/08/16 Hydrochlorothiazide [Hctz] 25 mg PO DAILY 11/08/16 Losartan Potassium [Cozaar] 100 mg PO DAILY 11/08/16 buPROPion SR [Wellbutrin SR (150mg tablets)] 150 mg PO BID 11/08/16 Atorvastatin Calcium [Lipitor] 80 mg PO QHS 12/15/16 Dulaglutide [Trulicity] 1.5 mg SQ QWEEK 12/15/16 clopidogrel 75 mg tablet 75 mg PO QDAY 11/04/17 ranolazine ER 500 mg tablet,extended release,12 hr 1,000 mg PO BID tab 05/31/18 sitagliptin 50 mg-metformin 1,000 mg tablet 1 tab PO DAILY tab 05/31/18 Isosorbide DN [Isordil] 30 mg PO DAILY 06/24/18 Primary Care Physician: Pilo Aviles MD [Primary Care Provider] - Please follow up with your Primary Care Physician in: one week Test Results: Test results from this visit will be discussed in further detail at your follow-up appointment, if applicable. Please Follow Up With: Nirmal Denson MD When: two weeks Proposed Discharge Date: 06/28/18
--- NOTE | 2018-06-28 09:17 | PCM.DC.SUM ---
Discharge Date and Diagnosis Date of Admission: 06/24/18 Date of Discharge: 06/28/18 - Primary Discharge Diagnosis Active and Suspected Problems (Last Reviewed 06/24/18 @ 19:54 by Enrrique Kapoor DO) Unstable angina (Acute) - Secondary Discharge Diagnosis Chronic Problems (Last Reviewed 06/24/18 @ 19:54 by Enrrique Kapoor DO) Dyspnea on exertion (Chronic) Presence of stent in coronary artery (Chronic) PCI/MERRICK to prox RCA and PCI to distal RCA, mid PDA 11/09/16; FFR/MERRICK to mid and distal LAD 12/16/16; PTCA/MERRICK to distal RCA and PTCA to mid RPDA 05/25/17; Hypertension (Chronic) Atherosclerotic heart disease of [place] coronary artery without angina pectoris (Chronic) PCI/MERRICK to prox RCA and PCI to distal RCA, mid PDA 11/09/16; FFR/MERRICK to mid and distal LAD 12/16/16; PTCA/MERRICK to distal RCA and PTCA to mid RPDA 05/25/17; Generalized abdominal discomfort (Chronic) Type II diabetes mellitus (Chronic) HLD (hyperlipidemia) (Chronic) Renal insufficiency (Chronic) Hospital Course and Treatment Imaging Results: Laboratory Tests 06/24/18 06/24/18 06/24/18 18:35 18:35 21:21 WBC 6.6 RBC 4.93 Hgb 13.7 Hct 40.3 MCV 81.7 MCH 27.8 MCHC 34.0 RDW 13.7 RDW Differential 40.6 Plt Count 151 MPV 11.2 Immature Gran % (Auto) 0.200 Neut % (Auto) 67.9 Lymph % (Auto) 18.9 L [place] % (Auto) 10.7 H Eos % (Auto) 2.0 Baso % (Auto) 0.3 Absolute Neuts (auto) 4.5 Absolute Lymphs (auto) 1.24 Total Counted Not Reportable PT INR APTT Activated Clotting Time Sodium 139 Potassium 3.7 Chloride 104 Carbon Dioxide 20.0 L Anion Gap 15 BUN 32 H Creatinine 1.70 H Estim Creat Clear Calc 50.10 Est GFR (MDRD) Af Amer 54 L Est GFR (MDRD) Non-Af 44 L BUN/Creatinine Ratio 18.8 Glucose 129 H Calcium 9.6 Magnesium 1.4 L Troponin I < 0.015 Triglycerides Cholesterol LDL Cholesterol VLDL Cholesterol HDL Cholesterol Urine Color Urine Clarity Urine pH Ur Specific [place] Urine Protein Urine Glucose (UA) Urine Ketones Urine Occult Blood Urine Nitrite Urine Bilirubin Urine Urobilinogen Ur Leukocyte Esterase Urine RBC Urine WBC Ur Squamous Epith Cells Urine Bacteria Urine Mucus POC Glucose 119 H 06/24/18 06/25/18 06/25/18 22:03 00:23 05:10 WBC RBC Hgb Hct MCV MCH MCHC RDW RDW Differential Plt Count MPV Immature Gran % (Auto) Neut % (Auto) Lymph % (Auto) [place] % (Auto) Eos % (Auto) Baso % (Auto) Absolute Neuts (auto) Absolute Lymphs (auto) Total Counted PT INR APTT Activated Clotting Time Sodium 141 Potassium 3.7 Chloride 107 Carbon Dioxide 22.0 Anion Gap 12 BUN 26 H Creatinine 1.42 H Estim Creat Clear Calc 59.98 Est GFR (MDRD) Af Amer 66 Est GFR (MDRD) Non-Af 55 L BUN/Creatinine Ratio 18.3 Glucose 80 Calcium 8.5 Magnesium 2.1 Troponin I < 0.015 < 0.015 Triglycerides Cholesterol LDL Cholesterol VLDL Cholesterol HDL Cholesterol Urine Color Urine Clarity Urine pH Ur Specific [place] Urine Protein Urine Glucose (UA) Urine Ketones Urine Occult Blood Urine Nitrite Urine Bilirubin Urine Urobilinogen Ur Leukocyte Esterase Urine RBC Urine WBC Ur Squamous Epith Cells Urine Bacteria Urine Mucus POC Glucose 06/25/18 06/25/18 06/25/18 05:10 06:54 16:53 WBC RBC Hgb Hct MCV MCH MCHC RDW RDW Differential Plt Count MPV Immature Gran % (Auto) Neut % (Auto) Lymph % (Auto) [place] % (Auto) Eos % (Auto) Baso % (Auto) Absolute Neuts (auto) Absolute Lymphs (auto) Total Counted PT INR APTT Activated Clotting Time Sodium Potassium Chloride Carbon Dioxide Anion Gap BUN Creatinine Estim Creat Clear Calc Est GFR (MDRD) Af Amer Est GFR (MDRD) Non-Af BUN/Creatinine Ratio Glucose Calcium Magnesium Troponin I Triglycerides 246 H Cholesterol 128 LDL Cholesterol 49 VLDL Cholesterol 49 H HDL Cholesterol 30 L Urine Color Urine Clarity Urine pH Ur Specific [place] Urine Protein Urine Glucose (UA) Urine Ketones Urine Occult Blood Urine Nitrite Urine Bilirubin Urine Urobilinogen Ur Leukocyte Esterase Urine RBC Urine WBC Ur Squamous Epith Cells Urine Bacteria Urine Mucus POC Glucose 105 122 H 06/25/18 06/26/18 06/26/18 21:21 06:47 11:28 WBC RBC Hgb Hct MCV MCH MCHC RDW RDW Differential Plt Count MPV Immature Gran % (Auto) Neut % (Auto) Lymph % (Auto) [place] % (Auto) Eos % (Auto) Baso % (Auto) Absolute Neuts (auto) Absolute Lymphs (auto) Total Counted PT INR APTT Activated Clotting Time Sodium Potassium Chloride Carbon Dioxide Anion Gap BUN Creatinine Estim Creat Clear Calc Est GFR (MDRD) Af Amer Est GFR (MDRD) Non-Af BUN/Creatinine Ratio Glucose Calcium Magnesium Troponin I Triglycerides Cholesterol LDL Cholesterol VLDL Cholesterol HDL Cholesterol Urine Color Urine Clarity Urine pH Ur Specific [place] Urine Protein Urine Glucose (UA) Urine Ketones Urine Occult Blood Urine Nitrite Urine Bilirubin Urine Urobilinogen Ur Leukocyte Esterase Urine RBC Urine WBC Ur Squamous Epith Cells Urine Bacteria Urine Mucus POC Glucose 181 H 133 H 129 H 06/26/18 06/26/18 06/27/18 16:38 22:28 04:42 WBC 5.4 RBC 4.62 Hgb 12.9 L Hct 38.0 L MCV 82.3 MCH 27.9 MCHC 33.9 RDW 13.8 RDW Differential 40.5 Plt Count 143 L MPV 11.4 Immature Gran % (Auto) 0.200 Neut % (Auto) 50.6 Lymph % (Auto) 32.8 [place] % (Auto) 13.4 H Eos % (Auto) 2.4 Baso % (Auto) 0.6 Absolute Neuts (auto) 2.8 Absolute Lymphs (auto) 1.78 Total Counted Not Reportable PT INR APTT Activated Clotting Time Sodium Potassium Chloride Carbon Dioxide Anion Gap BUN Creatinine Estim Creat Clear Calc Est GFR (MDRD) Af Amer Est GFR (MDRD) Non-Af BUN/Creatinine Ratio Glucose Calcium Magnesium Troponin I Triglycerides Cholesterol LDL Cholesterol VLDL Cholesterol HDL Cholesterol Urine Color Urine Clarity Urine pH Ur Specific [place] Urine Protein Urine Glucose (UA) Urine Ketones Urine Occult Blood Urine Nitrite Urine Bilirubin Urine Urobilinogen Ur Leukocyte Esterase Urine RBC Urine WBC Ur Squamous Epith Cells Urine Bacteria Urine Mucus POC Glucose 96 108 06/27/18 06/27/18 06/27/18 04:42 04:42 05:50 WBC RBC Hgb Hct MCV MCH MCHC RDW RDW Differential Plt Count MPV Immature Gran % (Auto) Neut % (Auto) Lymph % (Auto) [place] % (Auto) Eos % (Auto) Baso % (Auto) Absolute Neuts (auto) Absolute Lymphs (auto) Total Counted PT 14.6 INR 1.1 APTT 26.8 Activated Clotting Time Sodium 141 Potassium 3.9 Chloride 106 Carbon Dioxide 22.0 Anion Gap 13 BUN 18 Creatinine 1.55 H Estim Creat Clear Calc 54.95 Est GFR (MDRD) Af Amer 60 Est GFR (MDRD) Non-Af 49 L BUN/Creatinine Ratio 11.6 Glucose 105 Calcium 8.3 L Magnesium Troponin I Triglycerides Cholesterol LDL Cholesterol VLDL Cholesterol HDL Cholesterol Urine Color Yellow Urine Clarity Clear Urine pH 6.0 Ur Specific [place] 1.015 Urine Protein Negative Urine Glucose (UA) Normal Urine Ketones Negative Urine Occult Blood Negative Urine Nitrite Negative Urine Bilirubin Negative Urine Urobilinogen 1 H Ur Leukocyte Esterase Negative Urine RBC 0 SEEN Urine WBC 0 SEEN Ur Squamous Epith Cells 0-5 SEEN Urine Bacteria 0 SEEN Urine Mucus 0 SEEN POC Glucose 06/27/18 06/27/18 06/27/18 06:43 10:00 11:17 WBC RBC Hgb Hct MCV MCH MCHC RDW RDW Differential Plt Count MPV Immature Gran % (Auto) Neut % (Auto) Lymph % (Auto) [place] % (Auto) Eos % (Auto) Baso % (Auto) Absolute Neuts (auto) Absolute Lymphs (auto) Total Counted PT INR APTT Activated Clotting Time 169 H Sodium Potassium Chloride Carbon Dioxide Anion Gap BUN Creatinine Estim Creat Clear Calc Est GFR (MDRD) Af Amer Est GFR (MDRD) Non-Af BUN/Creatinine Ratio Glucose Calcium Magnesium Troponin I Triglycerides Cholesterol LDL Cholesterol VLDL Cholesterol HDL Cholesterol Urine Color Urine Clarity Urine pH Ur Specific [place] Urine Protein Urine Glucose (UA) Urine Ketones Urine Occult Blood Urine Nitrite Urine Bilirubin Urine Urobilinogen Ur Leukocyte Esterase Urine RBC Urine WBC Ur Squamous Epith Cells Urine Bacteria Urine Mucus POC Glucose 126 H 142 H 06/27/18 06/27/18 06/28/18 17:46 21:20 05:00 WBC 4.4 RBC 4.35 L Hgb 12.0 L Hct 36.4 L MCV 83.7 MCH 27.6 MCHC 33.0 RDW 13.8 RDW Differential 42.3 Plt Count 117 L MPV 10.9 Immature Gran % (Auto) 0.000 Neut % (Auto) 56.1 Lymph % (Auto) 31.6 [place] % (Auto) 9.6 Eos % (Auto) 2.5 Baso % (Auto) 0.2 Absolute Neuts (auto) 2.5 Absolute Lymphs (auto) 1.38 Total Counted Not Reportable PT INR APTT Activated Clotting Time Sodium Potassium Chloride Carbon Dioxide Anion Gap BUN Creatinine Estim Creat Clear Calc Est GFR (MDRD) Af Amer Est GFR (MDRD) Non-Af BUN/Creatinine Ratio Glucose Calcium Magnesium Troponin I Triglycerides Cholesterol LDL Cholesterol VLDL Cholesterol HDL Cholesterol Urine Color Urine Clarity Urine pH Ur Specific [place] Urine Protein Urine Glucose (UA) Urine Ketones Urine Occult Blood Urine Nitrite Urine Bilirubin Urine Urobilinogen Ur Leukocyte Esterase Urine RBC Urine WBC Ur Squamous Epith Cells Urine Bacteria Urine Mucus POC Glucose 138 H 158 H 06/28/18 05:00 WBC RBC Hgb Hct MCV MCH MCHC RDW RDW Differential Plt Count MPV Immature Gran % (Auto) Neut % (Auto) Lymph % (Auto) [place] % (Auto) Eos % (Auto) Baso % (Auto) Absolute Neuts (auto) Absolute Lymphs (auto) Total Counted PT INR APTT Activated Clotting Time Sodium 144 Potassium 4.1 Chloride 110 H Carbon Dioxide 24.0 Anion Gap 10 BUN 14 Creatinine 1.45 H Estim Creat Clear Calc 58.74 Est GFR (MDRD) Af Amer 65 Est GFR (MDRD) Non-Af 53 L BUN/Creatinine Ratio 9.7 L Glucose 130 H Calcium 8.3 L Magnesium Troponin I Triglycerides Cholesterol LDL Cholesterol VLDL Cholesterol HDL Cholesterol Urine Color Urine Clarity Urine pH Ur Specific [place] Urine Protein Urine Glucose (UA) Urine Ketones Urine Occult Blood Urine Nitrite Urine Bilirubin Urine Urobilinogen Ur Leukocyte Esterase Urine RBC Urine WBC Ur Squamous Epith Cells Urine Bacteria Urine Mucus POC Glucose Diagnostic Data Chest X-Ray 06/24/18 18:20 IMPRESSION: No acute cardiopulmonary findings or changes. 1 minimal linear scar of the left lung base. Negative for new consolidation, focal atelectasis, cardiomegaly or substantial pleural effusion. Large hiatal hernia. Electronically Signed: Sheri Arias MD at 19:12 EDT , Service support , The estimated ejection fraction is 55 %. Trivial mitral valve insufficiency. Trivial tricuspid valve insufficiency. Mid-Inferior: Mildly hypokinetic Infero-Basal: Mildly hypokinetic Compared to echo repoort dated 05/13/2017, no appreciable changes noted. Medications to take at Discharge Carvedilol [Coreg (Beta Lisa)] 25 mg PO BID 11/08/16 Glimepiride [Amaryl] 2 mg PO DAILY 11/08/16 Hydrochlorothiazide [Hctz] 25 mg PO DAILY 11/08/16 Losartan Potassium [Cozaar] 100 mg PO DAILY 11/08/16 buPROPion SR [Wellbutrin SR (150mg tablets)] 150 mg PO BID 11/08/16 Atorvastatin Calcium [Lipitor] 80 mg PO QHS 12/15/16 Dulaglutide [Trulicity] 1.5 mg SQ QWEEK 12/15/16 clopidogrel 75 mg tablet 75 mg PO QDAY 11/04/17 ranolazine ER 500 mg tablet,extended release,12 hr 1,000 mg PO BID tab 05/31/18 sitagliptin 50 mg-metformin 1,000 mg tablet 1 tab PO DAILY tab 05/31/18 Isosorbide DN [Isordil] 30 mg PO DAILY 06/24/18 cardiology Operations: None Procedures: 2-D Echocardiogram, Cardiac catheterization Summary of Care Provided: The patient is a 57 year old M with a history of CAD status post multiple stents, hypertension, hyperlipidemia, type 2 diabetes mellitus and CKD as well as hiatal hernia. He was admitted by the ED on 06/24/2018 with a complaint of midsternal chest pain with assisted diaphoresis, shortness of breath and paresthesias down both arms. This is similar to when he had heart attacks in the past. Chest pain was relieved by morphine administered in the ED. Initial troponins were negative. MARTHA score was 4. EKG showed normal sinus rhythm with old right bundle branch block he was admitted and managed for chest pain. He had a stress echocardiogram during which he developed substernal chest pressure with no significant wall motion abnormalities from baseline inferior posterior wall hypokinesis which appeared to improve with exercise. Out of an abundance of caution and due to his previous stents, cardiology recommended that he have a repeat left heart catheterization. Patient continued on his aspirin, Plavix and statin as well as Coreg and was also on Imdur and was started on hydrochlorothiazide as well. He had a left heart cath on 06/27/2018 which showed successful PCTA to distal RCA at bifurcation with reduction of 75% stenosis 50% stenosis. However balloon was not advanced to PL branches due to tortuosity and previous stents despite a long sheath and those unsuccessful PCI of mid PD. Patient was hypotensive during cath which resolved with administration of atropine. He was therefore admitted to the ICU for monitoring after the cath. Patient remained stable in the ICU and blood pressure normalized. 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 Patient seen and examined prior to discharge. He had no complaints and felt very well. He denied any fever or chills, cough or chest pain, any shortness of breath, abdominal pain, diarrhea vomiting. Review of systems is otherwise negative. Labs and vitals reviewed. Home medications reviewed and reconciled. Medications were optimised, imdur was increased to 60mg daily and he was also started on HCTZ. He is to follow-up with his surgeon at [facility] for hiatal hernia repair. Plavix 5 days before hiatal hernia surgery.Surgery scheduled for September [address] Martin at [facility]. o/e: vitals:' Vital Signs Height 5 ft 10 in Weight: 241 lb 2.971 oz Weight in Pounds 241.2 lbs BMI 34.6 Pulse Ox 98 Temperature 97.5 F Pulse Rate 73 Respiratory Rate 15 Blood Pressure [BP] 124/70 Blood Pressure 124/70 Blood Pressure Position [BP] Semi-Fowlers Blood Pressure Position Semi-Fowlers []General: Alert, Oriented x3, Cooperative, No apparent distress HEENT: Atraumatic, PERRLA, EOMI, Normocephalic Oral: Moist Mucosa Neck: Supple, No JVD, Negative Carotid Bruits Lungs: Clear to auscultation, Normal air movement, No rhonchi, No wheeze, No rales Cardiovascular: Regular rate, Regular Rhythm, Normal S1, Normal S2, No murmurs Abdomen: Bowel Sounds Present, Soft, Non Tender, Non-Distended, No Hepato-splenomegaly Extremities: No clubbing, No cyanosis, No edema, Capillary Refill Less than 3 Seconds Skin: No rashes, No breakdown Musculoskeletal: No Tenderness to Palpation of Joints or Extremities Lymphatic: No Cervical, Supraclavicular, or Inguinal Adenopathy Neurological: Cranial nerves II-XII grossly intact, Motor Exam 5/5 strength throughout Psych/Mental Status: Normal Affect, Appropriate, Alert and oriented to time, place, person, mood and affect Plan as stated above. Patient counselled to abstain from taking his metformin for the next 48 hours due to contrast administration with cardiac cath. He is to resume taking metformin on 06/30/18. Discharge Activity: Return to Normal Activity May resume sexual activity in: No Restrictions Weight Bearing Status: Weight bearing as tolerated Call your doctor if you observe: Shortness of breath, Dizziness, Chest pain Home Medications: Medications to take at Discharge Carvedilol [Coreg (Beta Lisa)] 25 mg PO BID 11/08/16 Glimepiride [Amaryl] 2 mg PO DAILY 11/08/16 Hydrochlorothiazide [Hctz] 25 mg PO DAILY 11/08/16 Losartan Potassium [Cozaar] 100 mg PO DAILY 11/08/16 buPROPion SR [Wellbutrin SR (150mg tablets)] 150 mg PO BID 11/08/16 Atorvastatin Calcium [Lipitor] 80 mg PO QHS 12/15/16 Dulaglutide [Trulicity] 1.5 mg SQ QWEEK 12/15/16 clopidogrel 75 mg tablet 75 mg PO QDAY 11/04/17 ranolazine ER 500 mg tablet,extended release,12 hr 1,000 mg PO BID tab 05/31/18 sitagliptin 50 mg-metformin 1,000 mg tablet 1 tab PO DAILY tab 05/31/18 Isosorbide DN [Isordil] 30 mg PO DAILY 06/24/18 Primary Care Physician: Pilo Aviles MD [Primary Care Provider] - Please follow up with your Primary Care Physician in: one week Please Follow Up With: Nirmal Denson MD When: two weeks Patient Instructions: Discharge Instructions for Angina, Warning Signs of a Heart Attack Disposition: Home Minutes spent on discharge:: 40 Patient Condition:: Stable Medical Necessity - Tobacco Use Smoking Status: Never smoker Tobacco Use: Non-smoker Meaningful Use Info Meaningful Use Diagnoses (Choose all that apply): None applicable Code Visit Inpatient E&M: 50466 Disch Hosp
[2018-06-28] MEDS: LINAGLIPTIN 5 MG TABLET PO (10:01)
[2018-06-28] MEDS: Aspirin E.C. 81 MG Tablet PO (10:01)
[2018-06-28] MEDS: Glimepiride 2 MG Tablet PO (10:01)
[2018-06-28] MEDS: Losartan Potassium 100 MG Tablet PO (10:02)
[2018-06-28] MEDS: Carvedilol 25 MG Tablet PO (10:02)
[2018-06-28] MEDS: hydroCHLOROthiazide 25 MG Tablet PO (10:03)
[2018-06-28] MEDS: Isosorbide Mononitrate 30 MG Tablet PO (10:03)
[2018-06-28] MEDS: Clopidogrel Bisulfate 75 MG Tablet PO (10:03)
[2018-06-28] MEDS: Ranolazine 500 MG Tablet 1000 MG PO (10:03)
[2018-06-28] MEDS: buPROPion (SR) 150 MG Tablet.SA PO (10:04)
--- NOTE | 2018-06-28 10:09 | PCM.PN.CARD ---
Subjectve: Patient doing well this morning, absolutely no chest pain overnight. Right groin is clean/dry/intact, no thrills, bruits or hematoma. Telemetry negative. Hemoglobin and creatinine within nominal limits. Objective: Vital Signs Temp Pulse Resp BP Pulse Ox 97.5 F L 76 18 124/70 H 98 06/28/18 07:26 06/28/18 09:00 06/28/18 09:00 06/28/18 09:00 06/28/18 09:00 Oxygen Delivery Method Room Air Weight: 241 lb 2.971 oz Body Mass Index (BMI) 34.5 Intake and Output for Last 24 Hours 06/26/18 06/27/18 06/28/18 23:59 23:59 23:59 Intake Total 650 / 650 2280 / 2280 400 / 400 Output Total 525 / 525 1000 / 1000 Balance 650 / 650 1755 / 1755 -600 / -600 General: Awake, Alert, Oriented x 3 HEENT: PERRL, EOMI, Sclera Non Icteric Neck: Supple, Good ROM, No Lymph Node Enlargement Lungs: Clear to auscultation Cardiovascular: Regular Rhythm, Normal S1, Normal S2, No Murmurs, No Rubs, No Gallops 06/28/18 05:00: WBC 4.4, RBC 4.35 L, Hgb 12.0 L, Hct 36.4 L, MCV 83.7, MCH 27.6, MCHC 33.0, RDW 13.8, RDW Differential 42.3, Plt Count 117 L, MPV 10.9, Immature Gran % (Auto) 0.000, Neut % (Auto) 56.1, Lymph % (Auto) 31.6, [place] % (Auto) 9.6, Eos % (Auto) 2.5, Baso % (Auto) 0.2, Absolute Neuts (auto) 2.5, Total Counted Not Reportable 06/28/18 05:00: Sodium 144, Potassium 4.1, Chloride 110 H, Carbon Dioxide 24.0, Anion Gap 10, BUN 14, Creatinine 1.45 H, Est GFR (MDRD) Af Amer 65, Est GFR (MDRD) Non-Af 53 L, BUN/Creatinine Ratio 9.7 L, Glucose 130 H, Calcium 8.3 L Rhythm: EKG: ECHO: Stress Test: Cardiac Cath: PCI: CT Surgery: Holter monitor: EPS: PPM: CXR: Chest CT Scan: Medical Necessity - Tobacco Use Smoking Status: Never smoker Tobacco Use: Non-smoker Assessment/Plan 1. Unstable angina: The patient has recurrent substernal chest pressure which may be cardiac in nature versus symptoms of his significant hiatal hernia. His chest x-ray does not show any overt hiatal hernia although it was an upright film. His troponins are negative. His echocardiogram shows mild global LV dysfunction with an EF around 55% and mild inferior posterior hypokinesis consistent with previous subtotal occlusion of his PDA. Patient underwent angioplasty and stenting to his distal RCA and proximal RCA complicated by a proximal RCA stent stripped off, subsequently crushed by another stent in May 2017. Continue aspirin and Plavix. We will hold his metformin tomorrow and resume it on Wednesday. In addition the patient requires hiatal hernia surgery in the upcoming future at [facility]. His stress echocardiogram was negative for overt ischemia particularly of the inferior wall however images were somewhat challenging to obtain an Definity agent was required. Out of an abundance of caution and due to his previous stents, I recommended that he undergo a repeat left heart catheterization which took place yesterday, 06/27/18. This demonstrated widely patent stents of his LAD, proximal and mid right coronary artery. We attempted to proceed with percutaneous balloon inflation of the mid posterior lateral branch, distal RCA, and PDA. We were unable to advance our balloons past the bifurcation of the PDA due to tortuosity, and poor backup despite a long sheath and an AL-1 guide. We ballooned the bifurcation of the PDA and PL branch, and try to balloon the mid PDA with minimal success. Patient had no chest pain symptoms during the procedure overnight. Would not recommend any additional intervention at this time given the challenges with his anatomy. I believe he can proceed with hiatal hernia surgery repair with Dr. Torres Martin at [facility] sometime around September. I have made a copy of his catheterization film which I requested him to take with him on his clinic and hospitalization visits so that they can identify the challenges that we had trying to correct his coronary disease. His vessels are fairly small, and I do not believe would be worthwhile attempting aggressive corrective measures at this time. He will continue baby aspirin, Plavix. Would recommend holding his Plavix about 5 days prior to his hiatal hernia surgery. He will require at least 3 months of dual antiplatelet therapy for his balloon angioplasty of his distal RCA. Patient is agreed to proceed. We will decrease Imdur to 30 mg p.o. twice daily given his positional lightheadedness and dizziness yesterday. He will continue losartan, hydrochlorothiazide 25 mg and continue Coreg. 2. Hyperlipidemia: Continue aggressive LDL reduction. Recommend fasting lipid profile. Continue Lipitor. 3. Thank you very much for the opportunity to participate in the cardiac care of your patient. Patient may be discharged home and follow-up with Dr. Okeefe.
--- NOTE | 2018-06-28 10:28 | NURSING ---
discharged with instruction in care of
== END 2018-06-28 10:22 | disposition home or self-care (01) ==
LOC: ED 18:55 → PCU 20:09 → ICU 06-27 09:46
PROVIDERS: Internal Medicine Cardiovascular Disease; Emergency Provider Emergency Medicine; Family Provider Family Medicine; PCP Family Medicine; Visit Provider Student in an Organized Health Care Education/Training Program
DX: I25.110 Atherosclerotic heart disease of native coronary artery with unstable angina pectoris (principal); Z95.5 Presence of coronary angioplasty implant and graft; E78.5 Hyperlipidemia, unspecified; E11.22 Type 2 diabetes mellitus with diabetic chronic kidney disease; I12.9 Hypertensive chronic kidney disease with stage 1 through stage 4 chronic kidney disease, or unspecified chronic kidney disease; N18.3 Chronic kidney disease, stage 3 (moderate); K44.9 Diaphragmatic hernia without obstruction or gangrene; I45.10 Unspecified right bundle-branch block; Z79.899 Other long term (current) drug therapy; Z79.02 Long term (current) use of antithrombotics/antiplatelets; I25.2 Old myocardial infarction; G47.33 Obstructive sleep apnea (adult) (pediatric)
CPT/HCPCS: 36415; 71045; 80048; 80061; 81001; 82962; 83735; 84484; 85025; 85347; 85610; 85730; 92920; 93005; 93017; 93306; 93350; 93458; 96361; 96372; 96374; 96375; 99218; 99285; C1760; J7030; Q9957; A4216; C1725; C1769; C1887; C1894; C8928; G0378; J2405; Q9967

== ENCOUNTER → 2018-10-21 08:26 | Outpatient (CLI) | payer OTHER, SELFPAY ==
[2018-06-27 13:12] VITALS: BMI 34.6
[2018-10-18 15:03] VITALS: BMI 33.3
[2018-10-21 11:02] LABS: Anion Gap 11 (5-15); BUN 27 mg/dL (7-18); BUN/Creat Ratio 18.5 RATIO (10-20); Calcium,Total 9.6 mg/dL (8.5-10.1); Chloride 106 mmol/L (98-107); Cholesterol 180 mg/dL (200); Creatinine, Serum 1.46 mg/dL (0.70-1.30); EST Glomerular Filtration Rate 53 mL/min (>60); Est Glom Filt Rate - Afr Amer 64 mL/min (>60); Glucose 277 mg/dL (74-106); High Density Lipoprotein 34 mg/dL; Potassium 4.3 mmol/L (3.5-5.1); Sodium Level 139 mmol/L (136-145); Triglycerides 263 mg/dL; Very Low Density Lipoprotein 53 mg/dL (5-40)
== END ==
PROVIDERS: Family Provider Family Medicine; PCP Family Medicine; Referring Provider Family Medicine; Visit Provider Family Medicine
DX: E11.65 Type 2 diabetes mellitus with hyperglycemia (principal)
CPT/HCPCS: 36415; 80048; 80061

== ENCOUNTER → 2018-12-15 06:19 | Outpatient (CLI) | payer OTHER, SELFPAY ==
[2018-06-27 13:12] VITALS: BMI 34.6
[2018-11-29 07:46] VITALS: BMI 33.0
--- NOTE | 2018-12-16 13:49 | PFT ---
INTRODUCTION: The patient is a 58-year-old male that presents for pulmonary function studies secondary to a diagnosis of dyspnea. Respiratory therapy reports good patient effort. Bronchodilators were used during testing. INTERPRETATION: Forced expiration spirometry demonstrates no evidence of a large airways obstructive ventilatory defect with a postbronchodilator FEV1/FVC of 74%. There was no significant response to aerosolized bronchodilators. Spirograms are of good quality and plateau gradually. Body plethysmography was performed and reveals lung volumes to be within normal limits. Diffusing capacity by single breath CO is also within normal limits. When compared to previous pulmonary function studies dated July 2017, there has been significant improvement in the patient's FVC and FEV1. In addition, the patient's DLCO has improved by 27%. IMPRESSION: Essentially normal pulmonary function studies. There has been significant improvement since PFTs were last completed in July 2017.
== END ==
PROVIDERS: Family Provider Family Medicine; PCP Family Medicine; Referring Provider Internal Medicine Critical Care Medicine; Visit Provider Internal Medicine Critical Care Medicine
DX: R06.09 Other forms of dyspnea (principal); K44.9 Diaphragmatic hernia without obstruction or gangrene
CPT/HCPCS: 94060; 94726; 94729

== ENCOUNTER → 2019-07-14 06:50 | Outpatient (CLI) | payer OTHER, SELFPAY ==
[2018-06-27 13:12] VITALS: BMI 34.6
[2019-05-02 06:49] VITALS: BMI 34.9
--- NOTE | 2019-07-15 08:42 | BRONCHALL ---
Bronchoprovocation Challenge - Bronchoprovocation Challenge Bronchoprovocation Challenge: INTRODUCTION: The patient is a 58-year-old male that presents for a methacholine challenge secondary to a diagnosis of dyspnea on exertion. Respiratory therapy reports good patient effort. INTERPRETATION: Initial spirometry did not show any large airways obstructive ventilatory defect and preserved airflow throughout. The patient was then given progressively increasing doses of methacholine in a standardized fashion. At no point during testing to the patient have a significant drop in his FEV1 to indicate the presence of bronchial hyperresponsiveness. IMPRESSION: Negative methacholine challenge.
== END ==
PROVIDERS: Family Provider Family Medicine; PCP Family Medicine; Referring Provider Internal Medicine Critical Care Medicine; Visit Provider Internal Medicine Critical Care Medicine
DX: R06.09 Other forms of dyspnea (principal)
CPT/HCPCS: 94070; 95070; J3490; J7674

== ENCOUNTER 2019-09-26 16:39 | Emergency (ER) | payer OTHER, SELFPAY ==
[2018-06-27 13:12] VITALS: BMI 34.6
[2019-08-07 15:11] VITALS: BMI 35.2
[2019-09-26 16:40] VITALS: BP 161/91; PULSE 95; RESP 18; TEMP 36.8; O2SAT 98; BMI 36.5
--- NOTE | 2019-09-26 16:56 | EKG12_ITS ---
Test Reason : GEN ILLNESS Blood Pressure : / mmHG Vent. Rate : 091 BPM Atrial Rate : 091 BPM P-R Int : 158 ms QRS Dur : 140 ms QT Int : 398 ms P-R-T Axes : 035 -40 -05 degrees QTc Int : 489 ms Sinus rhythm with Premature supraventricular complexes Left axis deviation Right bundle branch block Abnormal ECG Confirmed by STEPHANE BENJAMIN ([id number]), international editorial producer EVELIO DOMINGUEZ ([id number]) on 09/29/2019 11:25:44 AM Referred By: ERIC Confirmed By:STEPHANE BENJAMIN
--- NOTE | 2019-09-26 16:56 | CT_ITS ---
We are attempting to reach an attending provider to discuss findings. An addendum with communication details will be sent when the communication is complete. STUDY: CT BRAIN WITHOUT CONTRAST REASON FOR EXAM: Male, 58 years old. Weakness. Dizziness. RADIATION DOSAGE (If Supplied By Facility): CTDIvol = ( 44.99 ) mGy, DLP = ( 796.11 ) mGycm TECHNIQUE: Transaxial CT imaging of the brain was performed without administration of intravenous contrast material. Individualized dose optimization techniques were used for this CT. COMPARISON: January 24, 2017 FINDINGS: Normal soft tissue structures. Normal calvarium. There is right-sided extra-axial fluid collection consistent with subdural hematoma measuring 13.1 x 7.4 x 2.2 cm with layering increased density at the posterior aspect and diminished density at the anterior aspect. There is effacement of the sulci. There is shift of midline structures of 1.3 cm with subfalcine herniation. There is effacement of the right lateral ventricle. There is effacement of the basal cisterns. Normal basal ganglia and thalami. Normal brainstem. Normal cerebellum. There is intracranial hemorrhage. There are no findings of an acute ischemic infarction. Normal visualized paranasal sinuses. CT/Brain/Head without Contrast IMPRESSION: Large right extra-axial fluid collection consistent with subdural hematoma. There is mass effect with subfalcine herniation and impending uncal herniation. Electronically Signed: Titus Guzman MD at 18:26 EST , Service support ,
--- NOTE | 2019-09-26 17:05 | RAD_ITS ---
STUDY: X-RAY CHEST REASON FOR EXAM: Male, 58 years old. Weakness. TECHNIQUE: Single AP portable view of the chest. COMPARISON: December 25, 2017. FINDINGS: The lungs are clear and expanded. There is no demonstrated pleural abnormality. Normal size heart. Normal mediastinum and tim. Normal visualized pulmonary arteries. Normal visualized aortic arch and descending thoracic aorta. Normal visualized thoracic spine. Normal visualized ribs, clavicles, and shoulders. There is no demonstrated abnormality of the visualized soft tissue structures of the upper abdomen. RAD/Chest 1 View IMPRESSION: Normal x-ray examination of the chest. Electronically Signed: Titus Guzman MD at 17:31 EST , Service support ,
[2019-09-26 17:32] VITALS: O2SAT 98
[2019-09-26 17:34] VITALS: BP 148/91; PULSE 89; RESP 17; O2SAT 97
[2019-09-26 17:39] LABS: Absolute Lymphocyte Count 0.68 X10^3/uL (0.83-4.51); Absolute Neutrophil Count 7.6 X10^3/uL (2.0-7.7); Basophil# 0.02 X10^3/uL; Basophil% 0.2 % (0-1); Eosinophil# 0.01 X10^3/uL; Eosinophils% 0.1 % (0-5); Hematocrit 43.2 % (40-54); Hemoglobin 14.4 g/dL (13.0-16.5); Lymphocyte # 0.68 X10^3/ul (4.0); Lymphocyte % 7.7 % (19-41); Mean Corp Hgb Conc 33.3 g/dL (32-36); Mean Corpuscular Hgb 28.7 pg (27.0-32.0); Mean Corpuscular Volume 86.2 fL (80-94); Mean Platelet Vol. 11.1 fl (6.2-12.0); Monocyte# 0.52 X10^3/uL; Monocyte% 5.9 % (0-10); NRBC Flagged by Analyzer 0 % (0-5); Neutrophil # 7.58 X10^3/uL (2.7-7.7); Neutrophil % 85.8 % (47-70); Platelet Count 159 K/mm3 (150-450); RBC Distribution Width CV 13.2 % (11.6-14.6); RBC Distribution Width SD 41.2 fl (35.1-43.9); Red Blood Count 5.01 M/mm3 (4.6-6.2); White Blood Count 8.8 K/mm3 (4.4-11.0)
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
[2019-09-26 17:45] LABS: Bedside Glucose 130 mg/dL (70-110)
[2019-09-26 17:57] LABS: Anion Gap 9 (5-15); BUN 18 mg/dL (7-18); BUN/Creat Ratio 14.3 RATIO (10-20); Calcium,Total 9.2 mg/dL (8.5-10.1); Chloride 105 mmol/L (98-107); Creatinine, Serum 1.26 mg/dL (0.70-1.30); EST Glomerular Filtration Rate 63 mL/min (>60); Est Glom Filt Rate - Afr Amer 76 mL/min (>60); Estimated Creatinine Clearance 62.58 ml/min; Glucose 153 mg/dL (74-106); Potassium 4.1 mmol/L (3.5-5.1); Sodium Level 139 mmol/L (136-145)
[2019-09-26 18:04] LABS: International Normalized Ratio 1.2; Prothrombin Time (Protime)PT. 15.1 SECONDS (11.7-14.9)
[2019-09-26 18:05] LABS: Partial Thromboplast Time 24.4 Seconds (24.1-36.2)
[2019-09-26 18:08] VITALS: BP 150/75; PULSE 91; RESP 13; O2SAT 99
[2019-09-26 18:30] VITALS: BP 165/94; PULSE 89; RESP 16; O2SAT 97
[2019-09-26 18:54] VITALS: BP 165/94; PULSE 89; RESP 16; O2SAT 97
== END 2019-09-26 18:55 | disposition short-term general hospital (02) ==
PROVIDERS: Emergency Provider Emergency Medicine; Family Provider Family Medicine; PCP Family Medicine
DX: I62.00 Nontraumatic subdural hemorrhage, unspecified (principal); R27.0 Ataxia, unspecified; G83.14 Monoplegia of lower limb affecting left nondominant side; I25.10 Atherosclerotic heart disease of native coronary artery without angina pectoris; I10 Essential (primary) hypertension; E78.5 Hyperlipidemia, unspecified; Z79.02 Long term (current) use of antithrombotics/antiplatelets
CPT/HCPCS: 70450; 71045; 80048; 82962; 84484; 85025; 85610; 85730; 93005; 99285; A4216

== ENCOUNTER 2019-10-16 15:21 | Outpatient (RCR) | payer OTHER, SELFPAY ==
[2018-06-27 13:12] VITALS: BMI 34.6
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
--- NOTE | 2020-03-12 11:12 | HP.PT.NRP ---
ARLEEN NAJERA Jr. was seen in my office for initial evaluation on 10/16/19. The following Plan of Care was established for this patient: This patient was last seen in our office . Pertinent comments regarding their Physical therapy will appear below: Patient has not attended physical therapy in over 8 weeks- appropriate for d/c and return to MD as appropriate. At this point I will be discontinuing this patient from physical therapy. I would be happy to see this patient again in the future if found appropriate by the physician. Thank you! ADAM AgT
== END 2019-10-16 19:00 | disposition home or self-care (01) ==
LOC: PT 15:21
PROVIDERS: Family Provider Family Medicine; PCP Family Medicine
DX: I62.00 Nontraumatic subdural hemorrhage, unspecified (principal)
CPT/HCPCS: 97161

== ENCOUNTER → 2020-02-27 06:07 | Outpatient (CLI) | payer OTHER, SELFPAY ==
[2018-06-27 13:12] VITALS: BMI 34.6
[2020-02-06 09:22] VITALS: BMI 34.1
--- NOTE | 2020-02-27 09:55 | STRESSREP ---
Stress Test Report Date: 02-27-2020 Procedure: Pharmacologic stress nuclear imaging study Indications: Chest pain; CAD; PCI Consent: Per the patient Procedure: The patient underwent pharmacologic (Regadenoson) evaluation with a peak heart rate of 103 beats per minute (63 %predicted maximal heart rate) and a peak blood pressure of 166/90 mmHg. The baseline ECG demonstrated sinus rhythm; right bundle branch block pattern. The peak pharmacologic ECG demonstrated no obvious ECG changes. There were no cardiac dysrhythmias pretest, during pharmacologic infusion, or recovery. There was no complaint of chest discomfort during pharmacologic infusion or recovery. The examination was discontinued secondary to completion of protocol. Impression: 1. Pharmacologic (Regadenoson) evaluation 2. Peak pharmacologic ECG with no obvious ECG changes. 3. There were no cardiac dysrhythmias pretest, during pharmacologic infusion, or recovery. 4. Nuclear images pending Myocardial perfusion imaging study: Technique: The patient was injected with 14.4 millicuries of technetium 99m Cardiolite and subsequently rest SPECT Cardiolite nuclear imaging was obtained in the horizontal long, vertical long, and short axis views. The patient underwent pharmacologic (Regadenoson) evaluation with a peak heart rate of 103 beats per minute (63 % percent predicted maximal heart rate) and a peak blood pressure of 166/90 mmHg. The patient was injected with 45.0 millicuries of technetium 99m Cardiolite and subsequently stress SPECT Cardiolite nuclear imaging was obtained in the horizontal long, vertical long, and short axis views. A gated Cardiolite study at peak stress was obtained. Interpretation: Rest and stress SPECT Cardiolite nuclear imaging status post realignment, normalization, and attenuation correction demonstrate status post stress diminished myocardial perfusion/tracer uptake in portions of the distal inferior and inferior apical segments. There is diminished end systolic thickening and brightening in the aforementioned areas. The gated Cardiolite study demonstrates diminished myocardial thickening and inward wall motion in the aforementioned areas. The reported LVEF is 51 %. Impression: 1. Rest and stress SPECT Cardiolite nuclear imaging demonstrate myocardial perfusion changes appearing compatible with an area of stress-induced myocardial ischemia in portions of the distal inferior and inferior apical segments. 2. The gated Cardiolite study reports an LVEF of 51 %. This note was generated with [employer] software. It may contain incorrect words, spelling, and punctuation that were not noted in checking the note before signing.
== END ==
PROVIDERS: PCP Family Medicine; Referring Provider Physician Assistant Medical; Visit Provider Physician Assistant Medical
DX: I25.10 Atherosclerotic heart disease of native coronary artery without angina pectoris (principal); I10 Essential (primary) hypertension; E11.9 Type 2 diabetes mellitus without complications; R06.09 Other forms of dyspnea
CPT/HCPCS: 78452; 93017; A9500; A4216; J2785

== ENCOUNTER → 2020-05-02 08:32 | Outpatient (CLI) | payer OTHER, SELFPAY ==
[2018-06-27 13:12] VITALS: BMI 34.6
[2020-03-27 10:16] VITALS: BMI 34.1
--- NOTE | 2020-05-02 08:36 | RAD_ITS ---
STUDY: X-RAY - RIGHT FOOT CLINICAL: Male, 59 years old. Patient awoke yesterday with foot pain laterally extending across MT bones medially, no trauma TECHNIQUE: 3 view(s) of the foot. COMPARISON: None. FINDINGS: There is a plantar calcaneal spur. Normal visualized subtalar, talonavicular, calcaneocuboid, tarsal and tarsometatarsal articulations. Normal metatarsi. Normal metatarsophalangeal joint of the great toe. Normal tibial and fibular sesamoid bones. Normal interphalangeal joint of the great toe. Normal phalanges of the great toe. Normal second through fifth metatarsophalangeal joints. Normal interphalangeal joints and phalanges of the lesser toes. The soft tissue structures are unremarkable. RAD/Foot min 3 Views IMPRESSION: Small plantar spur. Electronically Signed: Arsen Crowley, at 9:37 EDT , Service support ,
== END ==
PROVIDERS: PCP Family Medicine; Referring Provider Family Medicine; Visit Provider Family Medicine
DX: M77.41 Metatarsalgia, right foot (principal)
CPT/HCPCS: 73630

== ENCOUNTER → 2020-07-01 10:46 | Outpatient (CLI) | payer OTHER, SELFPAY ==
[2018-06-27 13:12] VITALS: BMI 34.6
[2020-07-01 09:46] VITALS: BMI 33.8
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
[2020-07-01 11:14] LABS: Absolute Lymphocyte Count 1.85 X10^3/uL (0.83-4.51); Absolute Neutrophil Count 4.8 X10^3/uL (2.0-7.7); Basophil# 0.04 X10^3/uL; Basophil% 0.5 % (0-1); Eosinophil# 0.18 X10^3/uL; Eosinophils% 2.4 % (0-5); Hematocrit 45.6 % (40-54); Hemoglobin 15.1 g/dL (13.0-16.5); Lymphocyte # 1.85 X10^3/ul (4.0); Lymphocyte % 24.3 % (19-41); Mean Corp Hgb Conc 33.1 g/dL (32-36); Mean Corpuscular Hgb 28.3 pg (27.0-32.0); Mean Corpuscular Volume 85.4 fL (80-94); Monocyte# 0.71 X10^3/uL; Monocyte% 9.3 % (0-10); NRBC Flagged by Analyzer 0 % (0-5); Neutrophil # 4.81 X10^3/uL (2.7-7.7); Neutrophil % 63.2 % (47-70); Platelet Count 172 K/mm3 (150-450); RBC Distribution Width CV 13.2 % (11.6-14.6); RBC Distribution Width SD 40.6 fl (35.1-43.9); Red Blood Count 5.34 M/mm3 (4.6-6.2); White Blood Count 7.6 K/mm3 (4.4-11.0)
[2020-07-01 11:40] LABS: BNP,B-Type NATRIURETIC PEPTIDE 5.9 pg/mL (0-100)
[2020-07-01 11:41] LABS: Anion Gap 5 (5-15); BUN 21 mg/dL (7-18); BUN/Creat Ratio 17.4 RATIO (10-20); Calcium,Total 9.2 mg/dL (8.5-10.1); Chloride 105 mmol/L (98-107); Creatinine, Serum 1.21 mg/dL (0.70-1.30); EST Glomerular Filtration Rate 65 mL/min (>60); Est Glom Filt Rate - Afr Amer 79 mL/min (>60); Glucose 299 mg/dL (74-106); Potassium 4.5 mmol/L (3.5-5.1); Sodium Level 136 mmol/L (136-145)
== END ==
PROVIDERS: PCP Family Medicine; Referring Provider Physician Assistant Medical; Visit Provider Physician Assistant Medical
DX: R06.09 Other forms of dyspnea (principal); R06.9 Unspecified abnormalities of breathing
CPT/HCPCS: 36415; 71046; 80048; 83880; 85025

== ENCOUNTER 2020-07-15 19:00 | Emergency (ER) | payer OTHER, SELFPAY ==
[2018-06-27 13:12] VITALS: BMI 34.6
[2020-07-01 09:46] VITALS: BMI 33.8
[2020-07-15 19:01] VITALS: BP 156/99; PULSE 83; RESP 20; TEMP 36.1; O2SAT 99; BMI 33.5
--- NOTE | 2020-07-15 19:42 | EKG12_ITS ---
Test Reason : CP Blood Pressure : / mmHG Vent. Rate : 084 BPM Atrial Rate : 084 BPM P-R Int : 158 ms QRS Dur : 138 ms QT Int : 406 ms P-R-T Axes : 053 -19 -03 degrees QTc Int : 479 ms Normal sinus rhythm Right bundle branch block Abnormal ECG Confirmed by CAMPBELL LYNNE, OLEGARIO ([id number]), machine quilt stuffer JAM SIMPSON ([id number]) on 07/17/2020 11:09:36 AM Referred By: Confirmed By:OLEGARIO HIGHTOWER MD
--- NOTE | 2020-07-15 19:42 | RAD_ITS ---
STUDY: X-RAY CHEST REASON FOR EXAM: Male, 59 years old. Chest discomfort worsening today. TECHNIQUE: Frontal view COMPARISON: 07/01/2020 FINDINGS: The lungs are expanded. Mild left basilar atelectasis similar to previous study. Normal size heart. Normal mediastinum and tim. Normal visualized pulmonary arteries. Normal visualized aortic arch and descending thoracic aorta. Normal visualized thoracic spine. Normal visualized ribs, clavicles, and shoulders. There is no demonstrated abnormality of the visualized soft tissue structures of the upper abdomen. RAD/Chest 1 View (Portable) IMPRESSION: Mild left basilar atelectasis. Electronically Signed: Gaurav Rasmussen DO at 19:57 EDT Tel [phone], Service support ,
--- NOTE | 2020-07-15 20:02 | CT_ITS ---
STUDY: CT ABDOMEN AND PELVIS WITHOUT CONTRAST REASON FOR EXAM: Male, 59 years old. RIGHT FLANK PAIN. -- hx:hiatal hernia,mi,diabetes -- Surgery:hiatal.hernia repair x 2,inguinal hernia repair, heart stents RADIATION DOSAGE (If Supplied By Facility): CTDIvol = ( 16.11 ) mGy, DLP = ( 865.18 ) mGycm TECHNIQUE: Transaxial images were obtained from the dome of the diaphragm to the symphysis pubis without oral contrast, and without intravenous contrast. Sagittal and coronal images were reconstructed. Individualized dose optimization techniques were used for this CT. COMPARISON: 11/07/2012 FINDINGS: The visualized lung bases are unremarkable. The visualized portions of the heart are within normal limits. Fatty liver. Normal gallbladder and extrahepatic biliary system. Normal spleen. Normal pancreas. Normal bilateral adrenal glands. 3.5 cm cyst in the right kidney. Mild right hydronephrosis and hydroureter. Normal left kidney. Small hiatal hernia. Normal small intestine. Diverticulosis of the colon. The appendix is visualized and appears normal. Mildly calcified abdominal aorta. Normal inferior vena cava. Normal retroperitoneum. There is a stone measuring 2 mm within the intramural segment of the right UVJ in the urinary bladder. Mild fatty density at the inguinal canals, left more than right. Mild fatty umbilical hernia. Normal osseous structures. CT/Abdomen/Pelvis without Cont IMPRESSION: Hiatal hernia. Colonic diverticulosis. Right renal cyst. Right hydronephrosis and hydroureter with a stone noted at the right UVJ. Mild fatty density at the inguinal canals. Small fatty umbilical hernia. Fatty liver. Electronically Signed: Gaurav Rasmussen DO at 21:34 EDT Tel [phone], Service support ,
[2020-07-15 20:09] LABS: Absolute Lymphocyte Count 1.62 X10^3/uL (0.83-4.51); Absolute Neutrophil Count 6.2 X10^3/uL (2.0-7.7); Basophil# 0.03 X10^3/uL; Basophil% 0.3 % (0-1); Eosinophil# 0.13 X10^3/uL; Eosinophils% 1.5 % (0-5); Hematocrit 48.3 % (40-54); Lymphocyte # 1.62 X10^3/ul (4.0); Lymphocyte % 18.7 % (19-41); Mean Corp Hgb Conc 33.1 g/dL (32-36); Mean Corpuscular Hgb 27.6 pg (27.0-32.0); Mean Corpuscular Volume 83.3 fL (80-94); Mean Platelet Vol. 11.3 fl (6.2-12.0); Monocyte# 0.68 X10^3/uL; Monocyte% 7.9 % (0-10); NRBC Flagged by Analyzer 0 % (0-5); Neutrophil # 6.18 X10^3/uL (2.7-7.7); Neutrophil % 71.4 % (47-70); Platelet Count 176 K/mm3 (150-450); RBC Distribution Width CV 13.2 % (11.6-14.6); RBC Distribution Width SD 39.9 fl (35.1-43.9); White Blood Count 8.7 K/mm3 (4.4-11.0)
[2020-07-15 20:30] LABS: Anion Gap 6 (5-15); BUN 16 mg/dL (7-18); BUN/Creat Ratio 13.8 RATIO (10-20); Calcium,Total 9.3 mg/dL (8.5-10.1); Chloride 109 mmol/L (98-107); Creatinine, Serum 1.16 mg/dL (0.70-1.30); EST Glomerular Filtration Rate 69 mL/min (>60); Est Glom Filt Rate - Afr Amer 83 mL/min (>60); Estimated Creatinine Clearance 71.67 ml/min; Glucose 176 mg/dL (74-106); Potassium 3.7 mmol/L (3.5-5.1); Sodium Level 140 mmol/L (136-145)
[2020-07-15 20:41] LABS: International Normalized Ratio 1.1; Prothrombin Time (Protime)PT. 13.6 SECONDS (11.7-14.9)
[2020-07-15] MEDS: 0.9% Normal Saline 1,000 ML 150 ML IV (20:51)
[2020-07-15] MEDS: Ketorolac 30 MG/ML Syringe IV (20:51)
[2020-07-15 21:00] LABS: Bacteria 0 SEEN /hpf (None Seen); Mucous, Urine 0 SEEN /hpf (<or=2+); Red Blood Cells-Urine 0 SEEN /hpf (0-5); Squamous Epithelial Cells - UA 0 SEEN /hpf (0-5); White Blood Cells 0 SEEN /hpf (0-5)
[2020-07-15 21:06] LABS: Color, Urine Yellow (Yellow); Glucose, Dipstick 100 mg/dl (Normal); Ketone-Dipstick Negative (Negative); Leukocyte Esterase-Dipstick Negative /ul (Negative); Nitrite-Dipstick Negative (Negative); Occult Blood-Urine 50 /ul (Negative); Protein-Dipstick 30 mg/dl (Negative); Urine Bilirubin Dipstick Negative (Negative); Urine Clarity Clear (Clear); Urine Urobilinogen Normal (Normal)
--- NOTE | 2020-07-15 22:04 | ED.VIS.GEN ---
History of Present Illness Chief Complaint: Chest Pain Detail of Chief Complaint: Flank pain, chest pain, left arm tingling Informant: Patient Onset: Today Current Severity: Mild Maximum Severity: Moderate Narrative: She presents to the ER secondary to right flank pain. He has had multiple bouts of sharp right flank pain today. He states when driving home from work he was having trouble finding a comfortable position to sit. He does report having some intermittent chest pain but states he has had that frequently in the past with negative work-ups. He states he would not of come to the emergency room just for that. He also states he has had some intermittent numbness and tingling in his left arm today. He denies neck pain or recent injury. - Past Medical History (1) Atherosclerotic heart disease of [place] coronary artery without angina pectoris Status: Chronic Comment: PCI/MERRICK to prox RCA and PCI to distal RCA, mid PDA 11/09/16; FFR/MERRICK to mid and distal LAD 12/16/16; PTCA/MERRICK to distal RCA and PTCA to mid RPDA 05/25/17; PTCA to distal RCA and unsuccessful PCI to mid PDA in June 2018; (2) Essential (primary) hypertension Status: Chronic (3) RACHEL (obstructive sleep apnea) Status: Chronic (4) Presence of stent in coronary artery Status: Chronic Comment: PCI/MERRICK to prox RCA and PCI to distal RCA, mid PDA 11/09/16; FFR/MERRICK to mid and distal LAD 12/16/16; PTCA/MERRICK to distal RCA and PTCA to mid RPDA 05/25/17; (5) Pure hypercholesterolemia Status: Chronic (6) Type II diabetes mellitus Status: Chronic Past Medical History - Allergies and Home Meds Allergies/Adverse Reactions: Allergies nitroglycerin Allergy (Verified 07/15/20 19:01) Shortness of breath Primary Care Physician: Pilo Aviles MD [Primary Care Provider] - Prior records reviewed: Yes Surgical History: herniorrhaphy - hiatal hernia surgery; and inguinal hernia surgery and stents x 3. Lives: Spouse/ Significant Other Smoking Status: Never smoker - Family History Paternal Family History: Family History (Last Reviewed 03/29/20 @ 13:06 by Dona Shore PA, PA) Mother CAD (coronary artery disease) Myocardial infarction, Onset Age: 46 Sister CAD (coronary artery disease) Sister CAD (coronary artery disease) Brother CAD (coronary artery disease) Family History: Reports: No pertinent history Maternal Family History: Family History (Last Reviewed 03/29/20 @ 13:06 by Dona MARTINEZ, PA) Mother CAD (coronary artery disease) Myocardial infarction, Onset Age: 46 Sister CAD (coronary artery disease) Sister CAD (coronary artery disease) Brother CAD (coronary artery disease) Family History: Reports: Heart Disease - Reported as dying at the age of 46 with history of CAD and MD. Sibling Family History: Family History (Last Reviewed 03/29/20 @ 13:06 by Dona MARTINEZ, PA) Mother CAD (coronary artery disease) Myocardial infarction, Onset Age: 46 Sister CAD (coronary artery disease) Sister CAD (coronary artery disease) Brother CAD (coronary artery disease) Family History: Reports: Heart Disease - Brothers with a history of CAD and PCI. Review of Systems General: Denies: Chills, Fever Eyes: Denies: Visual changes - bilaterally ENT: Denies: Bilateral ear pain Cardiovascular: Reports: Chest pain Respiratory: Denies: Dyspnea, Cough Gastrointestinal: Reports: Abdominal pain - Right flank pain Genitourinary: Denies: Dysuria Musculoskeletal: Denies: Swelling, Extremity Pain Skin: Denies: Rash Neurological: Denies: Headache Hematologic: Denies: Easy bruising, Easy bleeding Allergy: Denies: Uticaria Physical Exam Vital Signs/Narrative: Vital Signs Temp Pulse Resp BP Pulse Ox 07/15/20 19:01 97.0 F L 83 20 H 156/99 H 99 Inital Vital Signs reviewed: Yes General: Well nourished, Well developed Head: Normocephalic ENT: Moist mucous membranes Neck: Supple Cardiovascular: Regular rate, Regular rhythm Respiratory: No distress, CTA bilaterally Abdomen: Soft, Nontender, Normal bowel sounds Back: Nontender Extremities: Nontender Skin: Normal color Neurological: Alert, Oriented x3 Psychological: Normal affect Diagnostic/Tx/Re-eval Impressions Chest X-Ray 07/15/20 19:42 IMPRESSION: Mild left basilar atelectasis. Electronically Signed: Gaurav Rasmussen DO at 19:57 EDT Tel [phone], Service support , Abdomen/Pelvis CT 07/15/20 20:02 IMPRESSION: Hiatal hernia. Colonic diverticulosis. Right renal cyst. Right hydronephrosis and hydroureter with a stone noted at the right UVJ. Mild fatty density at the inguinal canals. Small fatty umbilical hernia. Fatty liver. Electronically Signed: Gaurav Rasmussen DO at 21:34 EDT Tel [phone], Service support , 07/15/20 19:42 Chest 1 View (Portable) [RAD] Stat 07/15/20 20:02 Abdomen/Pelvis without Cont [CT] Stat Laboratory Results 07/15/20 07/15/20 07/15/20 19:53 19:53 19:53 WBC 8.7 RBC 5.80 Hgb 16.0 Hct 48.3 MCV 83.3 MCH 27.6 MCHC 33.1 RDW Std Deviation 39.9 RDW Coeff of Papi 13.2 Plt Count 176 MPV 11.3 Immature Gran % (Auto) 0.200 Neut % (Auto) 71.4 H Lymph % (Auto) 18.7 L [place] % (Auto) 7.9 Eos % (Auto) 1.5 Baso % (Auto) 0.3 Absolute Neuts (auto) 6.2 Absolute Lymphs (auto) 1.62 Nucleated RBC % 0 PT 13.6 INR 1.1 Sodium 140 Potassium 3.7 Chloride 109 H Carbon Dioxide 25.0 Anion Gap 6 BUN 16 Creatinine 1.16 Estim Creat Clear Calc 71.67 Est GFR (MDRD) Af Amer 83 Est GFR (MDRD) Non-Af 69 BUN/Creatinine Ratio 13.8 Glucose 176 H Calcium 9.3 Troponin I < 0.015 Urine Color Urine Clarity Urine pH Ur Specific [place] Urine Protein Urine Glucose (UA) Urine Ketones Urine Occult Blood Urine Nitrite Urine Bilirubin Urine Urobilinogen Ur Leukocyte Esterase Urine RBC Urine WBC Ur Squamous Epith Cells Urine Bacteria Urine Mucus 07/15/20 20:54 WBC RBC Hgb Hct MCV MCH MCHC RDW Std Deviation RDW Coeff of [place] Plt Count MPV Immature Gran % (Auto) Neut % (Auto) Lymph % (Auto) [place] % (Auto) Eos % (Auto) Baso % (Auto) Absolute Neuts (auto) Absolute Lymphs (auto) Nucleated RBC % PT INR Sodium Potassium Chloride Carbon Dioxide Anion Gap BUN Creatinine Estim Creat Clear Calc Est GFR (MDRD) Af Amer Est GFR (MDRD) Non-Af BUN/Creatinine Ratio Glucose Calcium Troponin I Urine Color Yellow Urine Clarity Clear Urine pH 5.0 Ur Specific [place] 1.020 Urine Protein 30 H Urine Glucose (UA) 100 H Urine Ketones Negative Urine Occult Blood 50 H Urine Nitrite Negative Urine Bilirubin Negative Urine Urobilinogen Normal Ur Leukocyte Esterase Negative Urine RBC 0 SEEN Urine WBC 0 SEEN Ur Squamous Epith Cells 0 SEEN Urine Bacteria 0 SEEN Urine Mucus 0 SEEN - EKG Initial EKG Interpretation: Sinus Rhythm - Sinus at 84 with right bundle branch block. No acute ischemia. - Medical Decision Making Patient had been ordered morphine however wanted to be able to drive himself home. He was given Toradol and IV fluids. Patient does have evidence of a 2 mm right distal ureter stone. Cardiac work-up was unremarkable. Pain medication will be sent to the pharmacy for him to cook pickled meat in the morning. He will be referred to Dr. Santana as needed. ED Disposition - Plan for ED Patient: Disposition: Home or Assisted Living Diagnosis: Kidney stone Instructions: ED Renal Stone w Colic Prescriptions: Naproxen [Naprosyn] 500 mg PO BID PRN PRN #20 tab PRN Reason: Pain Score 4-10/10 Transmission Status: Pending to [id number] Hydrocodone Bitart/Apap 5-325 [[place] 5MG-325MG] 1 tablet PO Q6H PRN PRN 3 Days #10 tablet PRN Reason: Pain Transmission Status: Received by [id number] Ondansetron [Zofran Odt] 4 mg PO Q8H PRN PRN #10 tab PRN Reason: Nausea Transmission Status: Pending to [id number] Referrals: Dami Santana MD [STAFF PHYSICIAN] - As Needed
[2020-07-15 22:18] VITALS: PULSE 75; RESP 16
[2020-07-15 22:19] VITALS: PULSE 75; RESP 16
== END 2020-07-15 22:26 | disposition home or self-care (01) ==
PROVIDERS: Emergency Provider Emergency Medicine; PCP Family Medicine
DX: N20.0 Calculus of kidney (principal); I25.10 Atherosclerotic heart disease of native coronary artery without angina pectoris; Z95.5 Presence of coronary angioplasty implant and graft
CPT/HCPCS: 71045; 74176; 80048; 81001; 84484; 85025; 85610; 93005; 96361; 96374; 96375; 99285; J7030; J2405

== ENCOUNTER 2020-12-11 17:44 | Emergency (ER) | payer OTHER, SELFPAY ==
[2018-06-27 13:12] VITALS: BMI 34.6
[2020-10-14 14:44] VITALS: BMI 33.5
[2020-12-11] VITALS (7 sets, daily range): BP systolic 140–176; BP diastolic 78–96; PULSE 71–94; RESP 16–20; TEMP 36.7; O2SAT 97–100; BMI 34.8
--- NOTE | 2020-12-11 18:01 | EKG12_ITS ---
Test Reason : HEAD INJURY Blood Pressure : / mmHG Vent. Rate : 073 BPM Atrial Rate : 073 BPM P-R Int : 162 ms QRS Dur : 150 ms QT Int : 426 ms P-R-T Axes : 034 -20 -01 degrees QTc Int : 469 ms Normal sinus rhythm Right bundle branch block Abnormal ECG Confirmed by SHERMAN LYNNE, RACHELLE ([id number]), brands editor JAM SIMPSON ([id number]) on 12/13/2020 8:39:32 AM Referred By: KEILA Confirmed By:RADHA WHITAKER MD
--- NOTE | 2020-12-11 18:01 | CT_ITS ---
We are attempting to reach an attending provider to discuss findings. An addendum with communication details will be sent when the communication is complete. STUDY: CT HEAD STROKE PROTOCOL W/O CONTRAST INJECTION REASON FOR EXAM: Male, 60 years old. FELL 2 DAYS AGO ON ICE AND HIT BACK OF HEAD, PT ON THINNERS, LEFT EYE PRESSURE, HX HTN, DIAB, CAD RADIATION DOSAGE (If Supplied By Facility): CTDIvol = ( 44.99 ) mGy, DLP = ( 846.73 ) mGycm TECHNIQUE: Transaxial CT imaging of the brain was performed without administration of intravenous contrast material. Individualized dose optimization techniques were used for this CT. COMPARISON: 09/26/2019. FINDINGS: Normal soft tissue structures. Small anusha hole noted within the right parietal bone Calcification of cavernous carotids. Mild cortical atrophy and periventricular white matter ischemic changes.. Normal basal ganglia and thalami. Normal brainstem. Normal cerebellum. There is no intracranial hemorrhage. There are no findings of an acute ischemic infarction. Normal visualized paranasal sinuses. Previously noted right subdural hematoma has resolved. CT/STROKE Brain/Head without Cont IMPRESSION: Mild atrophy and periventricular white matter ischemic changes. No evidence for acute bleed.. If concern for acute infarct MRI recommended. Electronically Signed: Kristian Spencer MD at 18:38 EST , Service support ,
[2020-12-11 18:13] LABS: Absolute Lymphocyte Count 2.02 X10^3/uL (0.83-4.51); Absolute Neutrophil Count 4.6 X10^3/uL (2.0-7.7); Basophil# 0.03 X10^3/uL; Basophil% 0.4 % (0-1); Eosinophil# 0.16 X10^3/uL; Eosinophils% 2.1 % (0-5); Hemoglobin 15.4 g/dL (13.0-16.5); Lymphocyte # 2.02 X10^3/ul (4.0); Lymphocyte % 26.5 % (19-41); Mean Corp Hgb Conc 33.5 g/dL (32-36); Mean Corpuscular Hgb 28.4 pg (27.0-32.0); Mean Corpuscular Volume 84.7 fL (80-94); Mean Platelet Vol. 11.2 fl (6.2-12.0); Monocyte# 0.77 X10^3/uL; Monocyte% 10.1 % (0-10); NRBC Flagged by Analyzer 0 % (0-5); Neutrophil # 4.61 X10^3/uL (2.7-7.7); Neutrophil % 60.5 % (47-70); Platelet Count 178 K/mm3 (150-450); RBC Distribution Width CV 12.8 % (11.6-14.6); RBC Distribution Width SD 39.3 fl (35.1-43.9); Red Blood Count 5.43 M/mm3 (4.6-6.2); White Blood Count 7.6 K/mm3 (4.4-11.0)
--- NOTE | 2020-12-11 18:19 | RAD_ITS ---
STUDY: X-RAY CHEST REASON FOR EXAM: Male, 60 years old. HYPERTENSION, SOB. FELL ON ICE WEDNESDAY AND HIT BACK OF HEAD TECHNIQUE: AP portable COMPARISON: 07/01/2020 FINDINGS: Less than optimal inspiratory effort is seen however the lungs are clear. There is no demonstrated pleural abnormality. Heart is mildly enlarged. Normal mediastinum and tim. Normal visualized pulmonary arteries. Mildly calcified aortic arch and descending thoracic aorta. Dorsal spine demonstrates degenerative change. Normal visualized ribs, clavicles, and shoulders. Postsurgical changes are seen in left upper quadrant of the abdomen with mild bowel distention. RAD/Chest 1 View IMPRESSION: No acute cardiopulmonary pathology Electronically Signed: Kristian Spencer MD at 18:42 EST , Service support ,
--- NOTE | 2020-12-11 18:22 | ED.VISSUMM ---
- ER Visit Summary Date of Service: 12/11/20 Chief Complaint: Left upper eyelid drooping History of Present Illness: The patient is a [address] Aviles and Dr. Okeefe. He reports that he noticed that his left upper eyelid was drooping 4 days ago. This seemed to have gradually worsened. It does not seem to be related to the time of day. He denies any other neurologic symptoms. No change in his vision. No vertigo. No difficulty with his speech. No numbness or weakness. He denies any chest pain or palpitations. Physical Examination: Vitals: Stable. Afebrile. General: Well-nourished and well-developed. Eyes: Ptosis is present on the left. Extraocular motions are intact. He does not have an a fair pupillary defect. His pupils are equal and reactive to light. Head: Normocephalic atraumatic. Neck: Supple, no lymphadenopathy. No JVD. Nontender. Cardiovascular: Regular rate and rhythm. No murmurs. Respiratory: No respiratory distress. Clear to auscultation bilaterally. Abdominal: Soft, nontender, nondistended, normal bowel sounds. No guarding, rebound, or peritoneal signs. Back: Nontender. Extremities: Nontender, no edema. Skin: Normal color, no rash. Neurologic: Alert and oriented ?3. Cranial nerves II through XII are intact. Normal strength and sensation. Psych: Normal affect. Test Results: EKG is sinus at 73 and unchanged from October 2020. Troponin is negative. INR is 1.1 and PTT of 20.9. Chem-7 shows a BUN of 19. CBC shows monocytes of 10. Clinical Impression(s) from Imaging Studies Brain CT 12/11/20 18:01 IMPRESSION: Mild atrophy and periventricular white matter ischemic changes. No evidence for acute bleed.. If concern for acute infarct MRI recommended. Electronically Signed: Kristian Spencer MD at 18:38 EST , Service support , ADDENDUM: 12/11/20 5252 IMPRESSION: Mild atrophy and periventricular white matter ischemic changes. No evidence for acute bleed.. If concern for acute infarct MRI recommended. N.B. : The above information has been verbally conveyed by Kristian Spencer MD to Lex Antunez MD, MD, on 12/11/2020 18:40:57 (ET). Electronically Signed: Kristian Spencer MD at 18:38 EST , Service support , Chest X-Ray 12/11/20 18:19 IMPRESSION: No acute cardiopulmonary pathology Electronically Signed: Kristian Spencer MD at 18:42 EST , Service support , Head/Neck CTA 12/11/20 19:30 IMPRESSION: Mild atherosclerotic disease of the brain as well as the neck without evidence for hemodynamically significant stenosis or occlusive thrombus. Electronically Signed: Kristian Spencer MD at 20:01 EST , Service support , Emergency Department Course and Treatment: Patient is resting comfortably without complaint. Treatment Plan: Patient was discussed with Dr. Soni of ophthalmology. She will be discharged with instructions to follow-up tomorrow for another exam and further evaluation. Return to the emergency department for any worsening symptoms. Disposition: To home in improved and stable condition. Impression: 1. Ptosis on left. This note was generated with [employer] dictation software. It may contain incorrect words, spelling, and punctuation that were not noted in review of the chart prior to signing ED Disposition - Plan for ED Patient: Instructions: Treating Dry Eyes Referrals: Chetna Soni MD [STAFF PHYSICIAN] - 1 Day for another exam
[2020-12-11 18:31] LABS: Bedside Glucose 87 mg/dL (70-110)
[2020-12-11 18:32] LABS: Anion Gap 5 (5-15); BUN 19 mg/dL (7-18); BUN/Creat Ratio 15.4 RATIO (10-20); Calcium,Total 9.3 mg/dL (8.5-10.1); Chloride 107 mmol/L (98-107); Creatinine, Serum 1.23 mg/dL (0.70-1.30); EST Glomerular Filtration Rate 64 mL/min (>60); Est Glom Filt Rate - Afr Amer 77 mL/min (>60); Estimated Creatinine Clearance 66.77 ml/min; Glucose 94 mg/dL (74-106); Potassium 3.9 mmol/L (3.5-5.1); Sodium Level 138 mmol/L (136-145)
[2020-12-11 18:34] LABS: International Normalized Ratio 1.1; Prothrombin Time (Protime)PT. 13.9 SECONDS (11.7-14.9)
[2020-12-11 18:36] LABS: Partial Thromboplast Time 20.9 Seconds (24.1-36.2)
--- NOTE | 2020-12-11 19:30 | CT_ITS ---
STUDY: CTA HEAD AND NECK WITH CONTRAST REASON FOR EXAM: Male, 60 years old. PTOSIS ON LEFT SIDE, HIT POSTERIOR HEAD ON ZACK, C/O LEFT EYE PRESSURE, HX HTN, DIAB, STENT RADIATION DOSAGE (If Supplied By Facility): CTDIvol = ( 23.85 ) mGy, DLP = ( 771.98 ) mGycm TECHNIQUE: CT angiography was performed with a multi-detector CT scanner. Data acquisition was obtained from the skull base through the vertex following intravenous administration of IV 100mL Isovue-370. MIP images were reconstructed from the axial data set. Post-processing of the angiographic images was performed, with multiplanar reformation and 3D reconstruction. Individualized dose optimization techniques were used for this CT. COMPARISON: No relevant priors. FINDINGS: Normal bilateral petrous carotid arteries. Calcific plaquing of the right cavernous carotid artery with a normal supraclinoid bifurcation. Calcific plaquing of the left cavernous carotid artery with a normal supraclinoid bifurcation. Normal right A1 segments of the anterior cerebral artery. Normal left A1 segments of the anterior cerebral artery. Normal intact anterior communicating artery (ACOM). Normal bilateral A2 segments of the anterior cerebral arteries. Normal right M1 and M2 segments of the middle cerebral arteries, with a normal M1 bifurcation. Normal left M1 and M2 segments of the middle cerebral arteries, with a normal M1 bifurcation. Normal right posterior communicating artery (PCOM). Normal left posterior communicating artery (PCOM). Normal bilateral vertebral arteries. Normal basilar artery with a normal basilar bifurcation. The visualized bilateral superior cerebellar (SCA) arteries are normal. Normal bilateral P1, P2 and visualized P3 segments of the posterior cerebral arteries. There is no demonstrated aneurysm of the [place]. There is no demonstrated abnormality of the visualized brain. AORTIC ARCH: Normal visualized aortic arch. Normal origins of the brachiocephalic, left common carotid, and left subclavian arteries. RIGHT CAROTID ARTERIES: Normal right common carotid artery (CCA). Minor calcific plaquing of the right common carotid bulb. Minor calcific plaquing of the origin of the right internal carotid (ICA) artery without a hemodynamically significant stenosis. Normal visualized cervical portion of the right internal carotid artery. Normal origin of the right external carotid artery (ECA). LEFT CAROTID ARTERIES: Normal left common carotid artery (CCA). Minor calcific plaquing of the left common carotid bulb. Minor calcific plaquing of the origin of the left internal carotid (ICA) artery without a hemodynamically significant stenosis. Normal visualized cervical portion of the left internal carotid artery. Normal origin of the left external carotid artery (ECA). VERTEBRAL ARTERIES: Normal right vertebral artery. Mild calcific plaquing of the distal left vertebral CT/CTA Head AND Neck W/ Contrast IMPRESSION: Mild atherosclerotic disease of the brain as well as the neck without evidence for hemodynamically significant stenosis or occlusive thrombus. Electronically Signed: Kristian Spencer MD at 20:01 EST , Service support ,
== END 2020-12-11 20:19 | disposition home or self-care (01) ==
LOC: ED 18:40
PROVIDERS: Emergency Provider Emergency Medicine; PCP Family Medicine
DX: H02.402 Unspecified ptosis of left eyelid (principal); I25.10 Atherosclerotic heart disease of native coronary artery without angina pectoris; E78.00 Pure hypercholesterolemia, unspecified; I10 Essential (primary) hypertension; Z79.82 Long term (current) use of aspirin
CPT/HCPCS: 70450; 70496; 70498; 71045; 80048; 82962; 84484; 85025; 85610; 85730; 93005; 99284; Q9967; A4216

== ENCOUNTER 2021-05-08 05:28 | Inpatient (IN) | payer OTHER, SELFPAY ==
[2018-06-27 13:12] VITALS: BMI 34.6
[2021-04-17 14:25] VITALS: BMI 34.7
[2021-05-08] VITALS (11 sets, daily range): BP systolic 120–182; BP diastolic 63–114; PULSE 62–83; RESP 12–20; TEMP 36–36.7; O2SAT 96–98; BMI 36.0; BMI 33.7
--- NOTE | 2021-05-08 05:32 | RAD_ITS ---
STUDY: X-RAY CHEST REASON FOR EXAM: Male, 60 years old. chest pain TECHNIQUE: Single AP portable view of the chest. COMPARISON: 12/11/2020 FINDINGS: The lungs are clear and expanded. There is no demonstrated pleural abnormality. Normal size heart. Normal mediastinum and tim. Normal visualized pulmonary arteries. Normal visualized aortic arch and descending thoracic aorta. Normal visualized thoracic spine. Normal visualized ribs, clavicles, and shoulders. There is no demonstrated abnormality of the visualized soft tissue structures of the upper abdomen. RAD/Chest 1 View (Portable) IMPRESSION: Normal x-ray examination of the chest. Electronically Signed: Jaspreet Baez DO at 6:11 EDT Tel , Service support ,
--- NOTE | 2021-05-08 05:32 | EKG12_ITS ---
Test Reason : CP Blood Pressure : / mmHG Vent. Rate : 071 BPM Atrial Rate : 071 BPM P-R Int : 156 ms QRS Dur : 138 ms QT Int : 426 ms P-R-T Axes : 014 -45 011 degrees QTc Int : 462 ms Normal sinus rhythm Right bundle branch block Left anterior fascicular block Bifascicular block Abnormal ECG Confirmed by SATINDER LYNNE, SLIM ([id number]), dictionary editor JAM SIMPSON ([id number]) on 05/12/2021 1:04:50 PM Referred By: MR Confirmed By:SLIM RAJAN MD
[2021-05-08] MEDS: Morphine 4 MG/ML Syringe IV (05:37)
[2021-05-08] MEDS: Ondansetron 4 MG/2 ML Vial IV (05:37)
[2021-05-08] MEDS: Aspirin 81 MG TAB.CHEW 324 MG PO (05:37)
[2021-05-08 05:40] LABS: Absolute Lymphocyte Count 1.99 X10^3/uL (0.83-4.51); Absolute Neutrophil Count 4.2 X10^3/uL (2.0-7.7); Basophil# 0.03 X10^3/uL; Basophil% 0.4 % (0-1); Eosinophil# 0.21 X10^3/uL; Hematocrit 46.1 % (40-54); Hemoglobin 15.3 g/dL (13.0-16.5); Lymphocyte # 1.99 X10^3/ul (0.83-4.51); Lymphocyte % 28.1 % (19-41); Mean Corp Hgb Conc 33.2 g/dL (32-36); Mean Corpuscular Hgb 28.3 pg (27.0-32.0); Mean Corpuscular Volume 85.2 fL (80-94); Mean Platelet Vol. 11.8 fl (6.2-12.0); Monocyte# 0.62 X10^3/uL; Monocyte% 8.8 % (0-10); NRBC Flagged by Analyzer 0 % (0-5); Neutrophil % 59.4 % (47-70); Platelet Count 171 K/mm3 (150-450); RBC Distribution Width SD 40.2 fl (35.1-43.9); Red Blood Count 5.41 M/mm3 (4.6-6.2); White Blood Count 7.1 K/mm3 (4.4-11.0)
--- NOTE | 2021-05-08 05:46 | ED.VIS.CHEST ---
HPI History of Present Illness Chief Complaint: Chest Pain Narrative Narrative: Patient presenting for evaluation secondary to chest pain. Patient does have a underlying history of significant atherosclerotic heart disease with multiple stents, diabetes, hypertension, hyperlipidemia. Patient states that he has been dealing with intermittent chest pain over the course of about the last 2 weeks but has become more persistent tonight. He states that at the beginning of the night it lasted for about an hour then went away then he woke up about an hour prior to arrival and its been continuous and severe. Substernal radiating up into his jaw and down through his arms causing some tingling in his hands. He does endorse that there is some lightheadedness with it. No shortness of breath. No real exacerbating relieving factors other than that is worse when he lays flat. Patient denies any fevers chills night sweats. He denies recent infectious signs or symptoms. Patient's last stress test was about a year ago. He denies any recent cardiac catheterizations. No changes in his medications. Review of systems otherwise negative. [facility] Medical History (Updated 05/08/21 @ 07:[address] Greg Kelley MD) Atherosclerotic heart disease of [place] coronary artery without angina pectoris Chest pain Dyspnea on exertion Essential (primary) hypertension Generalized abdominal discomfort Hernia, hiatal Kidney stone NSTEMI (non-ST elevated myocardial infarction) RACHEL (obstructive sleep apnea) Pure hypercholesterolemia Renal insufficiency Type II diabetes mellitus Unstable angina Unstable angina pectoris Home Medications atorvastatin 80 mg PO QHS 12/15/16 [History Last Taken 06/23/18] sitagliptin 50 mg-metformin 1,000 mg tablet 1 tab PO BID tab 10/18/18 [History Last Taken Unknown] pioglitazone 30 mg tablet 30 mg PO DAILY 02/03/19 [History Last Taken Unknown] losartan 25 mg tablet 25 mg PO DAILY 08/07/19 [History Last Taken Unknown] glimepiride 2 mg tablet 4 mg PO DAILY tab 11/22/19 [History Last Taken Unknown] carvedilol 6.25 mg tablet 6.25 mg PO BID #180 tab 03/27/20 [Rx Last Taken Unknown] isosorbide mononitrate 60 mg tablet,extended release 24 hr 60 mg PO BID #180 tab 03/27/20 [Rx Last Taken Unknown] aspirin 81 mg chewable tablet 81 mg PO DAILY #1 tab 10/14/20 [Rx Last Taken Unknown] clopidogrel 75 mg PO DAILY 12/11/20 [History Last Taken Unknown] Allergy/AdvReac Type Severity Reaction Status Date / Time nitroglycerin Allergy Shortness Verified 05/08/21 05:31 of breath Family History Mother CAD (coronary artery disease) Myocardial infarction, Onset Age: 46 Sister CAD (coronary artery disease) Sister CAD (coronary artery disease) Brother CAD (coronary artery disease) Surgical History History of bilateral inguinal hernia repair History of eye surgery History of repair of hiatal hernia (~08/2018) Postsurgical percutaneous transluminal coronary angioplasty (PTCA) status Presence of stent in coronary artery (~05/25/17) Social History Smoking Status: Never smoker alcohol intake: never substance use type: does not use caffeine: No ROS ROS ED Constitutional Constitutional ED: Denies fever(s) Eyes Eyes: Denies change in vision ENT ENT ED: Denies rhinorrhea or sore throat Cardiovascular Cardiovascular: Reports as per HPI and chest pain Respiratory/Chest Respiratory/Chest: Denies cough, dyspnea or dyspnea on exertion Gastrointestinal Gastrointestinal: Denies abdominal pain, nausea or vomiting Genitourinary Genitourinary ED: Denies dysuria Musculoskeletal Musculoskeletal: Denies myalgias or neck pain Integumentary Denies rash Neurologic Neurologic: Denies headache(s), paresthesias or weakness Psychiatric Psychiatric: Denies depression Endocrine Endocrinology: Denies polydipsia or polyuria Hematologic/Lymphatic Hematologic/Lymphatic: Denies easy bleeding or easy bruising Allergic/Immunologic Allergic/Immunologic ED: Denies urticaria EXAM Physical Exam Const Vital Signs: 05/08/21 05:29 05/08/21 05:33 05/08/21 05:34 Temperature 96.8 F L Temperature Source Temporal Pulse Rate 76 Respiratory Rate 20 H Respiratory Effort Normal Blood Pressure 182/114 H Blood Pressure Mean 136 Pulse Ox 98 Oxygen Delivery Method Room Air Oxygen Flow Rate (L/min) 05/08/21 06:26 05/08/21 06:29 05/08/21 07:00 Temperature 97 F L Temperature Source Temporal Pulse Rate 80 83 72 Respiratory Rate 13 12 17 Respiratory Effort Blood Pressure 145/94 H 145/94 H 125/89 H Blood Pressure Mean 111 111 101 Pulse Ox 96 96 98 Oxygen Delivery Method Nasal Cannula Oxygen Flow Rate (L/min) 2 Positive well nourished and well developed Constitutional Narrative: Very anxious male otherwise not in physiologic distress General Appearance ED: well developed and NAD HEENT Reports moist mucous membranes normocephalic and atraumatic Eyes EOMs intact bilaterally Neck no lymphadenopathy, supple and no JVD Chest Wall inspection of chest normal and palpation of chest normal Chest Narrative: No evidence of vesicular rash Resp normal respiratory effort and clear to auscultation bilaterally Auscultation: Negative for rales, rhonchi or wheezes Cardio regular rate, regular rhythm, S1 normal heart sound, S2 normal heart sound and no murmurs Peripheral Pulses: radial pulses present and posterior tibial pulses present GI normal to inspection, nondistended, normoactive bowel sounds, soft to palpation and non-tender Extremity normal to inspection Extremity Narrative: Calves are supple no palpable cord General Extremety ED: Negative for edema or tenderness General Extremity: Negative for edema Neuro oriented x3 and no sensory deficits noted Sensorium / Orientation: awake and alert Psych Mood & Affect: anxious Skin no rashes or lesions noted Heart Score History: Highly Suspicious ECG: Significant ST-Depression Age: >45 - <65 years Risk Factors: >/= 3 Risk Factors or History of CAD Score: 7 MDM MDM MDM Narrative Medical decision making narrative: Patient presented for evaluation secondary to chest pain. Patient's EKG does demonstrate evidence of anteroseptal changes. Patient was administered aspirin in the emergency department. CBC was unremarkable, chemistry shows normal renal function no electrolyte derangements. Patient's initial high-sensitivity troponin was 1400 indicative of a likely non-ST elevation myocardial infarction. Repeat evaluation of the patient shows him to be chest pain-free, I ordered a nitroglycerin drip should he redevelop chest pain, and place the patient on a heparin drip. I discussed patient's case with Dr. Boudreaux, cardiology who recommended the patient to stay n.p.o. Patient will be admitted under the hospitalist for further treatment. Lab Data Labs: Laboratory Results - last 24 hr 05/08/21 05/08/21 05/08/21 05:35 05:35 07:00 WBC 7.1 RBC 5.41 Hgb 15.3 Hct 46.1 MCV 85.2 MCH 28.3 MCHC 33.2 RDW Std Deviation 40.2 RDW Coeff of Papi 13.0 Plt Count 171 MPV 11.8 Immature Gran % (Auto) 0.300 Neut % (Auto) 59.4 Lymph % (Auto) 28.1 [place] % (Auto) 8.8 Eos % (Auto) 3.0 Baso % (Auto) 0.4 Absolute Neuts (auto) 4.2 Absolute Lymphs (auto) 1.99 Nucleated RBC % 0 APTT 25.4 Sodium 136 Potassium 4.4 Chloride 103 Carbon Dioxide 24.0 Anion Gap 9 BUN 18 Creatinine 1.25 Estim Creat Clear Calc 65.70 Est GFR (MDRD) Af Amer 76 Est GFR (MDRD) Non-Af 63 BUN/Creatinine Ratio 14.4 Glucose 325 H Calcium 9.2 Troponin I High Sens 1441.6 H* Radiography Chest X-Ray - ED: 1 View, Read by ED Physician and Normal Diagnostic Testing: Radiology Impression Chest X-Ray 05/08/21 05:32 IMPRESSION: Normal x-ray examination of the chest. Electronically Signed: Jaspreet Baez DO at 6:11 EDT Tel , Service support , EKG Initial EKG: Attestation: I personally reviewed and interpreted this EKG as follows: (Sinus rhythm of 71 with right bundle branch block morphology. New onset of a left anterior fascicular block with T wave inversions anteriorly in leads V2 and V3 that were not present in a prior EKG December of this year. No evidence of pathologic ST elevation. There is some minimal ST depression ) Critical Care Time Critical care time (excluding procedures): 30-74 minutes, Discussing w/Patient &/or Family/Help Desk Analyst, Discussing w/Consultants and Arranging Admission or Transfer Discharge Plan Triage Chief Complaint: Chest Pain ED Provider: Greg Kelley Dx/Rx/DC Orders Clinical Impression: NSTEMI (non-ST elevated myocardial infarction) Prescriptions: No Action sitagliptin-metformin 50-1,000 mg tablet 1 tab PO BID RF: 0 losartan 25 mg tablet 25 mg PO DAILY RF: 0 pioglitazone [Actos] 30 mg tablet 30 mg PO DAILY RF: 0 aspirin 81 mg tablet,chewable 81 mg PO DAILY Qty: 1 RF: 0 carvedilol 6.25 mg tablet 6.25 mg PO BID Qty: 180 RF: 3 isosorbide mononitrate 60 mg tablet extended release 24 hr 60 mg PO BID Qty: 180 RF: 3 glimepiride 2 mg tablet 4 mg PO DAILY RF: 0 atorvastatin 80 MG tablet 80 mg PO QHS RF: 0 clopidogrel 75 MG tablet 75 mg PO DAILY RF: 0 Primary Care Provider: Pilo Aviles Referrals: Pilo Aviles MD [Primary Care Provider] - Disposition Disposition: Acute Care Hospital [facility]
[2021-05-08 06:40] LABS: Anion Gap 9 (5-15); BUN 18 mg/dL (7-18); BUN/Creat Ratio 14.4 RATIO (10-20); Calcium,Total 9.2 mg/dL (8.5-10.1); Chloride 103 mmol/L (98-107); Creatinine, Serum 1.25 mg/dL (0.70-1.30); EST Glomerular Filtration Rate 63 mL/min (>60); Est Glom Filt Rate - Afr Amer 76 mL/min (>60); Glucose 325 mg/dL (74-106); Potassium 4.4 mmol/L (3.5-5.1); Sodium Level 136 mmol/L (136-145)
[2021-05-08] MEDS: HEPARIN/D5w 25,000 UNITS 25,000 UNITS/250 ML IV.SOLN. 10 UNITS IV (07:15)
[2021-05-08] MEDS: Heparin Injection (Vial) 5,000 UNIT/ML VIAL 4000 UNIT IV (07:15)
[2021-05-08 07:17] LABS: Partial Thromboplast Time 25.4 Seconds (24.1-36.2)
--- NOTE | 2021-05-08 07:28 | PCM.HP.STD ---
HPI - General General Date of Admission: 05/08/21 HPI Narrative ARLEEN NAJERA, is a 60 M who presents to the hospital with chest pain. He has been having intermittent chest pain for the last 2 weeks however overnight it became more persistent and intense. It lasted for about an hour prior to going away and he was able to go to bed and then when he woke up this morning he had severe chest pain that continued until his arrival here in the hospital. He does have an extensive previous cardiac history with a stent to his RCA in 2018 and a failed stent to the PDA. In the ER he had an elevated troponin to 1400, and his EKG showed minimal ST depressions. The ED spoke with cardiology for plans of a heparin drip and [employer] today. [facility] Medical History Atherosclerotic heart disease of [place] coronary artery without angina pectoris Chest pain Dyspnea on exertion Essential (primary) hypertension Generalized abdominal discomfort Hernia, hiatal Kidney stone NSTEMI (non-ST elevated myocardial infarction) RACHEL (obstructive sleep apnea) Pure hypercholesterolemia Renal insufficiency Type II diabetes mellitus Unstable angina Unstable angina pectoris Home Medications atorvastatin 80 mg PO DAILY 12/15/16 [History Last Taken 05/08/21] sitagliptin 50 mg-metformin 1,000 mg tablet 1 tab PO BID tab 10/18/18 [History Last Taken 05/08/21 04:30] pioglitazone 30 mg tablet 30 mg PO DAILY 02/03/19 [History Last Taken 05/08/21] losartan 25 mg tablet 25 mg PO DAILY 08/07/19 [History Last Taken 05/08/21] glimepiride 2 mg tablet 4 mg PO DAILY tab 11/22/19 [History Last Taken 05/08/21] carvedilol 6.25 mg tablet 6.25 mg PO BID #180 tab 03/27/20 [Rx Last Taken 05/08/21 04:30] isosorbide mononitrate 60 mg tablet,extended release 24 hr 60 mg PO BID #180 tab 03/27/20 [Rx Last Taken 05/08/21 04:30] aspirin 81 mg chewable tablet 81 mg PO DAILY #1 tab 10/14/20 [Rx Last Taken 05/08/21] clopidogrel 75 mg PO DAILY 12/11/20 [History Last Taken 05/08/21] Allergy/AdvReac Type Severity Reaction Status Date / Time nitroglycerin Allergy Shortness Verified 05/08/21 05:31 of breath Family History Mother CAD (coronary artery disease) Myocardial infarction, Onset Age: 46 Sister CAD (coronary artery disease) Sister CAD (coronary artery disease) Brother CAD (coronary artery disease) Surgical History History of bilateral inguinal hernia repair History of eye surgery History of repair of hiatal hernia (~08/2018) Postsurgical percutaneous transluminal coronary angioplasty (PTCA) status Presence of stent in coronary artery (~05/25/17) Social History Smoking Status: Never smoker alcohol intake: never substance use type: does not use caffeine: No ROS Constitutional Constitutional: Denies chills, fatigue, fever(s) or malaise Eyes Eyes: Denies blurry vision ENT HEENT: Denies headache(s) or nasal discharge Cardiovascular Cardiovascular: Reports chest pain; Denies dyspnea on exertion or syncope Respiratory/Chest Respiratory/Chest: Denies cough, shortness of breath at rest or shortness of breath with exertion Gastrointestinal Gastrointestinal: Denies constipation, diarrhea, nausea or vomiting Genitourinary Genitourinary: Denies dysuria Neurologic Neurologic: Denies focal weakness, numbness or tremor(s) Psychiatric Psychiatric: Denies anxiety or depression Vital Signs Vital Signs Vital Signs: 05/08/21 05:29 05/08/21 05:33 05/08/21 05:34 Temperature 96.8 F L Temperature Source Temporal Pulse Rate 76 Respiratory Rate 20 H Respiratory Effort Normal Blood Pressure 182/114 H Blood Pressure Mean 136 Pulse Ox 98 Oxygen Delivery Method Room Air Oxygen Flow Rate (L/min) 05/08/21 06:26 05/08/21 06:29 05/08/21 07:00 Temperature 97 F L Temperature Source Temporal Pulse Rate 80 83 72 Respiratory Rate 13 12 17 Respiratory Effort Blood Pressure 145/94 H 145/94 H 125/89 H Blood Pressure Mean 111 111 101 Pulse Ox 96 96 98 Oxygen Delivery Method Nasal Cannula Oxygen Flow Rate (L/min) 2 Weight Weight: 251 lb 1.704 oz Body Mass Index (BMI) 36.0 Physical Exam Const alert, oriented x3 and no apparent distress General Appearance: cooperative HEENT normocephalic and moist oral mucous membranes Eyes PERRL, EOMs intact bilaterally and conjunctivae normal Neck supple and no JVD Resp normal respiratory effort, no retractions, no use of accessory muscles and clear to auscultation bilaterally Auscultation: Negative for crackles, rales, rhonchi or wheezes Cardio regular rate, regular rhythm, S1 normal heart sound, S2 normal heart sound and no murmurs GI soft to palpation, non-tender and non-distended; Negative for hepatosplenomegaly Extremity no clubbing, cyanosis or edema Skin no rashes or lesions noted Neuro no focal motor deficits and no sensory deficits noted Psych affect normal Appearance: appropriate Results Lab / Micro Data Result Diagrams: 05/08/21 05:35 05/08/21 05:35 Labs: Laboratory Results - last 24 hr 05/08/21 05/08/21 05/08/21 05:35 05:35 07:00 WBC 7.1 RBC 5.41 Hgb 15.3 Hct 46.1 MCV 85.2 MCH 28.3 MCHC 33.2 RDW Std Deviation 40.2 RDW Coeff of Papi 13.0 Plt Count 171 MPV 11.8 Immature Gran % (Auto) 0.300 Neut % (Auto) 59.4 Lymph % (Auto) 28.1 [place] % (Auto) 8.8 Eos % (Auto) 3.0 Baso % (Auto) 0.4 Absolute Neuts (auto) 4.2 Absolute Lymphs (auto) 1.99 Nucleated RBC % 0 APTT 25.4 Sodium 136 Potassium 4.4 Chloride 103 Carbon Dioxide 24.0 Anion Gap 9 BUN 18 Creatinine 1.25 Estim Creat Clear Calc 65.70 Est GFR (MDRD) Af Amer 76 Est GFR (MDRD) Non-Af 63 BUN/Creatinine Ratio 14.4 Glucose 325 H Calcium 9.2 Troponin I High Sens 1441.6 H* Radiology Impression Chest X-Ray 05/08/21 05:32 IMPRESSION: Normal x-ray examination of the chest. Electronically Signed: Jaspreet Baez DO at 6:11 EDT Tel , Service support , Assessment & Plan Assessment/Plan (1) Type II diabetes mellitus: (2) NSTEMI (non-ST elevated myocardial infarction): PLAN: 1. NSTEMI/CAD status post stents/HTN/HLD -We will continue with his home blood pressure medications -Consult cardiology for cath and possible stenting -Continue with a heparin drip -Continue with his home aspirin and Plavix 2. DM2 -We will hold his home medications, place with long-acting insulin at night as well as sliding scale insulin -Accu-Cheks AC at bedtime, will adjust as necessary DVT: Heparin drip Charges/Coding Visit Charges Inpatient E&M: 62888 Init Hosp L2
[2021-05-08 08:51] LABS: International Normalized Ratio 1.1; Prothrombin Time (Protime)PT. 13.4 SECONDS (11.7-14.9)
--- NOTE | 2021-05-08 09:23 | EKG12_ITS ---
Test Reason : Blood Pressure : / mmHG Vent. Rate : 071 BPM Atrial Rate : 071 BPM P-R Int : 164 ms QRS Dur : 146 ms QT Int : 424 ms P-R-T Axes : 035 -38 039 degrees QTc Int : 460 ms Normal sinus rhythm Left axis deviation Right bundle branch block Abnormal ECG When compared with ECG of 08-MAY-2021 08:43, MANUAL COMPARISON REQUIRED, DATA IS UNCONFIRMED Confirmed by SATINDER LYNNE, SLIM ([id number]), medical editor JAM SIMPSON ([id number]) on 05/13/2021 7:43:47 AM Referred By: TANIA Confirmed By:SLIM RAJAN MD
--- NOTE | 2021-05-08 09:34 | CASEMGMT ---
According to the MMO website, the following are in-network tertiary facilities: [facility], [facility], [facility], [facility], [facility], [facility], [facility], [facility], [facility], and . Rachana YUN CM
--- NOTE | 2021-05-08 10:02 | PCM.CONS.C ---
Assessment & Plan Assessment/Plan (1) NSTEMI (non-ST elevated myocardial infarction): PLAN: 60-year-old patient, with the extensive cardiac history, patient had a history of CAD prior PCI and stent to the distal RCA as well has PCI and stent of the LAD Last cardiac catheterization done here at [facility] by Dr. Denson in Jun 2018 where he had a PCI to the mid PDA patient had a history of right-sided subdural hematoma after head injury in Sep 2019 requiring right craniotomy/anusha hole history of obstructive sleep apnea, hypertension, hyperlipidemia This presentation with progressive symptoms of chest pain for the last 2 weeks came into the ER where he been evaluated by EKG series of high sensitive troponin which is elevated and treated as non-ST elevation CA Symptoms of chest pain improved and currently he is on Plavix, atorvastatin, aspirin and heparin Recommendation and plan; 1. His primary lute packer or applier Dr. Thomas discussed the case with the [place] lute packer or applier Dr. Henson for transfer to accountant controller care due to the complexity of his coronary artery disease and long segment of stent from the distal to the proximal RCA and diffuse atherosclerosis involving the posterolateral branch and the RPDA Last angiogram is LAD stent is patent and the left main is normal and LV function is preserved. 2. Based on his clinical presentation and complexity of his coronary anatomy recommendation will be to transfer to a tertiary facility with a backup cardiovascular surgery support. 3. We will continue the current medical treatment, (2) Chest pain: (3) RACHEL (obstructive sleep apnea): (4) Pure hypercholesterolemia: (5) Presence of stent in coronary artery: HPI Consult Data Date of Consult: 05/08/21 HPI Narrative Reason for Consultation: CAD/non-STEMI HPI Narrative: ARLEEN NAJERA, is a 60 M who presents [facility] Medical History Atherosclerotic heart disease of [place] coronary artery without angina pectoris Chest pain Dyspnea on exertion Essential (primary) hypertension Generalized abdominal discomfort Hernia, hiatal Kidney stone NSTEMI (non-ST elevated myocardial infarction) RACHEL (obstructive sleep apnea) Pure hypercholesterolemia Renal insufficiency Type II diabetes mellitus Unstable angina Unstable angina pectoris Home Medications atorvastatin 80 mg PO QHS 12/15/16 [History Last Taken 06/23/18] sitagliptin 50 mg-metformin 1,000 mg tablet 1 tab PO BID tab 10/18/18 [History Last Taken Unknown] pioglitazone 30 mg tablet 30 mg PO DAILY 02/03/19 [History Last Taken Unknown] losartan 25 mg tablet 25 mg PO DAILY 08/07/19 [History Last Taken Unknown] glimepiride 2 mg tablet 4 mg PO DAILY tab 11/22/19 [History Last Taken Unknown] carvedilol 6.25 mg tablet 6.25 mg PO BID #180 tab 03/27/20 [Rx Last Taken Unknown] isosorbide mononitrate 60 mg tablet,extended release 24 hr 60 mg PO BID #180 tab 03/27/20 [Rx Last Taken Unknown] aspirin 81 mg chewable tablet 81 mg PO DAILY #1 tab 10/14/20 [Rx Last Taken Unknown] clopidogrel 75 mg PO DAILY 12/11/20 [History Last Taken Unknown] Allergy/AdvReac Type Severity Reaction Status Date / Time nitroglycerin Allergy Shortness Verified 05/08/21 05:31 of breath Family History Mother CAD (coronary artery disease) Myocardial infarction, Onset Age: 46 Sister CAD (coronary artery disease) Sister CAD (coronary artery disease) Brother CAD (coronary artery disease) Surgical History History of bilateral inguinal hernia repair History of eye surgery History of repair of hiatal hernia (~08/2018) Postsurgical percutaneous transluminal coronary angioplasty (PTCA) status Presence of stent in coronary artery (~05/25/17) Social History Smoking Status: Never smoker alcohol intake: never substance use type: does not use caffeine: No Physical Exam Narrative Patient seen evaluated today at bedside along with the nursing staff, at bedside Symptoms of chest pain resolved Patient alert and orientated x3 Not in acute distress Review of the property assessment monitor showed underlying normal sinus rhythm Cardiovascular examination; S1-S2 normal, no murmur, no systolic or diastolic murmur, no pericardial rub, no added sounds Respiratory system examination; Normal bilateral air entry Examination of the abdomen; abdomen is soft no palpable mass Examination of lower extremity no lower extremity edema, no clubbing no cyanosis Examination of central nervous system no focal neurological deficit. Objective Data Vital Signs: Vital Signs Temp Pulse Resp BP Pulse Ox 97.9 F 71 16 135/84 H 97 05/08/21 08:28 05/08/21 08:28 05/08/21 08:28 05/08/21 08:28 05/08/21 08:28 Oxygen Flow Rate (L/min) 2 Oxygen Delivery Method Room Air Weight: 235 lb 5 oz Body Mass Index (BMI) 33.7 Lab / Micro Data Result Diagrams: 05/08/21 05:35 05/08/21 05:35 Labs: Laboratory Results - last 24 hr 05/08/21 05/08/21 05/08/21 05:35 05:35 07:00 WBC 7.1 RBC 5.41 Hgb 15.3 Hct 46.1 MCV 85.2 MCH 28.3 MCHC 33.2 RDW Std Deviation 40.2 RDW Coeff of Papi 13.0 Plt Count 171 MPV 11.8 Immature Gran % (Auto) 0.300 Neut % (Auto) 59.4 Lymph % (Auto) 28.1 [place] % (Auto) 8.8 Eos % (Auto) 3.0 Baso % (Auto) 0.4 Absolute Neuts (auto) 4.2 Absolute Lymphs (auto) 1.99 Nucleated RBC % 0 PT INR APTT 25.4 Sodium 136 Potassium 4.4 Chloride 103 Carbon Dioxide 24.0 Anion Gap 9 BUN 18 Creatinine 1.25 Estim Creat Clear Calc 65.70 Est GFR (MDRD) Af Amer 76 Est GFR (MDRD) Non-Af 63 BUN/Creatinine Ratio 14.4 Glucose 325 H Calcium 9.2 Troponin I High Sens 1441.6 H* 05/08/21 07:00 WBC RBC Hgb Hct MCV MCH MCHC RDW Std Deviation RDW Coeff of Papi Plt Count MPV Immature Gran % (Auto) Neut % (Auto) Lymph % (Auto) [place] % (Auto) Eos % (Auto) Baso % (Auto) Absolute Neuts (auto) Absolute Lymphs (auto) Nucleated RBC % PT 13.4 INR 1.1 APTT Sodium Potassium Chloride Carbon Dioxide Anion Gap BUN Creatinine Estim Creat Clear Calc Est GFR (MDRD) Af Amer Est GFR (MDRD) Non-Af BUN/Creatinine Ratio Glucose Calcium Troponin I High Sens Cardiology Labs/Tests 05/08/21 05:35: WBC 7.1, RBC 5.41, Hgb 15.3, Hct 46.1, MCV 85.2, MCH 28.3, MCHC 33.2, Plt Count 171, MPV 11.8, Immature Gran % (Auto) 0.300, Neut % (Auto) 59.4, Lymph % (Auto) 28.1, [place] % (Auto) 8.8, Eos % (Auto) 3.0, Baso % (Auto) 0.4, Absolute Neuts (auto) 4.2, Nucleated RBC % 0 05/08/21 05:35: Sodium 136, Potassium 4.4, Chloride 103, Carbon Dioxide 24.0, Anion Gap 9, BUN 18, Creatinine 1.25, Est GFR (MDRD) Af Amer 76, Est GFR (MDRD) Non-Af 63, BUN/Creatinine Ratio 14.4, Glucose 325 H, Calcium 9.2 05/08/21 07:00: APTT 25.4 05/08/21 07:00: PT 13.4, INR 1.1 Rhythm: Normal sinus rhythm EKG: Normal sinus rhythm Right bundle branch block Left anterior fascicular blocks, bifascicular block Radiography Diagnostic Testing: Radiology Impression Chest X-Ray 05/08/21 05:32 IMPRESSION: Normal x-ray examination of the chest. Electronically Signed: Jaspreet Baez DO at 6:11 EDT Tel , Service support ,
[2021-05-08] MEDS: 0.9% Normal Saline 1,000 ML 100 ML IV ×2 (10:37→18:33)
[2021-05-08 12:36] LABS: Bedside Glucose 250 mg/dL (70-110)
[2021-05-08 13:49] LABS: Partial Thromboplast Time 43.5 Seconds (24.1-36.2)
--- NOTE | 2021-05-08 14:34 | DS.PCM_ITS ---
Providers Date of Admission: 05/08/21 Primary Care Physician: Dr. Pilo Aviles MD Consultations 05/08/21 08:25 Consult: Cardiology Routine Consulting Provider: Jose Arenas Reason for Consult: NSTEMI EMERGENT Consult: No MD Notified: Yes Date Notified: 05/08/21 Time Notified: 07:27 Method of Notification: Verbal Reason For Visit: NSTEMI Diagnosis Discharge Diagnosis (1) Type II diabetes mellitus: Status: Chronic Code(s): E11.9 - Type 2 diabetes mellitus without complications (2) NSTEMI (non-ST elevated myocardial infarction): Status: Acute Code(s): I21.4 - Non-ST elevation (NSTEMI) myocardial infarction Medications at Discharge Home Medications atorvastatin 80 mg PO DAILY 12/15/16 sitagliptin 50 mg-metformin 1,000 mg tablet 1 tab PO BID tab 10/18/18 pioglitazone 30 mg tablet 30 mg PO DAILY 02/03/19 losartan 25 mg tablet 25 mg PO DAILY 08/07/19 glimepiride 2 mg tablet 4 mg PO DAILY tab 11/22/19 carvedilol 6.25 mg tablet 6.25 mg PO BID #180 tab 03/27/20 isosorbide mononitrate 60 mg tablet,extended release 24 hr 60 mg PO BID #180 tab 03/27/20 aspirin 81 mg chewable tablet 81 mg PO DAILY #1 tab 10/14/20 clopidogrel 75 mg PO DAILY 12/11/20 Hospital Course Operations None Procedures None Summary of Care Provided Minutes Spent on Discharge: 35 Hospital Course: Per HPI: ARLEEN NAJERA, is a 60 M who presents to the hospital with chest pain. He has been having intermittent chest pain for the last 2 weeks however overnight it became more persistent and intense. It lasted for about an hour prior to going away and he was able to go to bed and then when he woke up this morning he had severe chest pain that continued until his arrival here in the hospital. He does have an extensive previous cardiac history with a stent to his RCA in 2018 and a failed stent to the PDA. In the ER he had an elevated troponin to 1400, and his EKG showed minimal ST depressions. The ED spoke with cardiology for plans of a heparin drip and Record Ch[employer] today. Hospital Course: 1. NSTEMI/CAD status post stent/HTN/SSV-65-ft[age]-old male with a extensive family history of heart disease presents to the hospital with 2 weeks of intermittent chest pain that progressively got worse and presented this morning with more severe chest pain. He was found to have an elevated troponin to 1400 and the high sensitivity panel and was started on a heparin drip. On review of his previous cath images, it felt that his lesions would be too challenging to manage at this hospital and he stated that his primary secondary english teacher had recommended if he see a secondary english teacher in the [facility] for further evaluation and management. Unfortunately there is a huge weight at [facility] therefore we were able to communicate with [facility] and they were able to accept him this afternoon. In the meantime he did develop some more chest pain after he was given a dose of morphine and started on nitroglycerin drip which he is currently tolerating and states the morphine and nitro helped relieve his chest pain. Plan for discharge this afternoon to [facility] for further cardiac evaluation. This plan was discussed with him and his and both expressed understanding of the risk and benefits of transfer and would like to proceed. Physical Exam Const alert, oriented x3 and no apparent distress General Appearance: cooperative HEENT normocephalic and moist oral mucous membranes Eyes PERRL, EOMs intact bilaterally and conjunctivae normal Neck supple and no JVD Resp normal respiratory effort, no retractions, no use of accessory muscles and clear to auscultation bilaterally Auscultation: Negative for crackles, rales, rhonchi or wheezes Cardio regular rate, regular rhythm, S1 normal heart sound, S2 normal heart sound and no murmurs GI soft to palpation, non-tender and non-distended; Negative for hepatosplenomegaly Extremity no clubbing, cyanosis or edema Skin no rashes or lesions noted Neuro no focal motor deficits and no sensory deficits noted Psych affect normal Appearance: appropriate Weight / BMI Weight Weight: 235 lb 5 oz Body Mass Index (BMI) 33.7 ABG / Lab / Microbiology Data Result Diagrams: 05/09/21 03:46 05/09/21 03:46 Laboratory: Laboratory Results - last 24 hr 05/08/21 05/08/21 05/08/21 05:35 05:35 07:00 WBC 7.1 RBC 5.41 Hgb 15.3 Hct 46.1 MCV 85.2 MCH 28.3 MCHC 33.2 RDW Std Deviation 40.2 RDW Coeff of Papi 13.0 Plt Count 171 MPV 11.8 Immature Gran % (Auto) 0.300 Neut % (Auto) 59.4 Lymph % (Auto) 28.1 [place] % (Auto) 8.8 Eos % (Auto) 3.0 Baso % (Auto) 0.4 Absolute Neuts (auto) 4.2 Absolute Lymphs (auto) 1.99 Nucleated RBC % 0 PT INR APTT 25.4 Sodium 136 Potassium 4.4 Chloride 103 Carbon Dioxide 24.0 Anion Gap 9 BUN 18 Creatinine 1.25 Estim Creat Clear Calc 65.70 Est GFR (MDRD) Af Amer 76 Est GFR (MDRD) Non-Af 63 BUN/Creatinine Ratio 14.4 Glucose 325 H Calcium 9.2 Troponin I High Sens 1441.6 H* POC Glucose 05/08/21 05/08/21 05/08/21 07:00 12:22 13:28 WBC RBC Hgb Hct MCV MCH MCHC RDW Std Deviation RDW Coeff of Papi Plt Count MPV Immature Gran % (Auto) Neut % (Auto) Lymph % (Auto) [place] % (Auto) Eos % (Auto) Baso % (Auto) Absolute Neuts (auto) Absolute Lymphs (auto) Nucleated RBC % PT 13.4 INR 1.1 APTT 43.5 H Sodium Potassium Chloride Carbon Dioxide Anion Gap BUN Creatinine Estim Creat Clear Calc Est GFR (MDRD) Af Amer Est GFR (MDRD) Non-Af BUN/Creatinine Ratio Glucose Calcium Troponin I High Sens POC Glucose 250 H Radiography Diagnostic Testing: Radiology Impression Chest X-Ray 05/08/21 05:32 IMPRESSION: Normal x-ray examination of the chest. Electronically Signed: Jaspreet Baez DO at 6:11 EDT Tel , Service support , Meaningful Use Info Meaningful Use Diagnoses (Choose all that apply): None applicable Discharge Plan Admission Admit Date/Time: 05/08/21 07:27 Attending Provider: Frederic Erazo Primary Care Provider: Pilo Aviles Consulting Providers: Jose Arenas Discharge Orders/Prescriptions Prescriptions: No Action sitagliptin-metformin 50-1,000 mg tablet 1 tab PO BID RF: 0 losartan 25 mg tablet 25 mg PO DAILY RF: 0 pioglitazone [Actos] 30 mg tablet 30 mg PO DAILY RF: 0 aspirin 81 mg tablet,chewable 81 mg PO DAILY Qty: 1 RF: 0 carvedilol 6.25 mg tablet 6.25 mg PO BID Qty: 180 RF: 3 isosorbide mononitrate 60 mg tablet extended release 24 hr 60 mg PO BID Qty: 180 RF: 3 glimepiride 2 mg tablet 4 mg PO DAILY RF: 0 atorvastatin 80 MG tablet 80 mg PO DAILY RF: 0 clopidogrel 75 MG tablet 75 mg PO DAILY RF: 0 Referrals / Follow Up: Pilo Aviles MD [Primary Care Provider] - Disposition Discharge Orders: Discharge Patient (Routine); Ordered 05/09/21 Ordered By: Dr. Frederic Erazo Charges/Coding Visit Charges Inpatient E&M: 27986 Disch Hosp
[2021-05-08] MEDS: Insulin Lispro 100 UNIT/ML INSULN.PEN SC ×2 (16:52→21:05)
[2021-05-08 17:35] LABS: Bedside Glucose 233 mg/dL (70-110)
[2021-05-08] MEDS: Morphine 2 MG/ML Syringe IV (20:12)
[2021-05-08] MEDS: 0.9% Saline Lock 10 ML Syringe IV (20:17)
[2021-05-08] MEDS: Carvedilol 6.25 MG Tablet PO (20:18)
[2021-05-08] MEDS: Atorvastatin Calcium 80 MG Tablet PO (20:18)
[2021-05-08] MEDS: Isosorbide Mononitrate 60 MG Tablet PO (20:18)
[2021-05-08 21:01] LABS: Partial Thromboplast Time 40.2 Seconds (24.1-36.2)
[2021-05-08 21:16] LABS: Bedside Glucose 249 mg/dL (70-110)
[2021-05-08] MEDS: Heparin Injection (Vial) 5,000 UNIT/ML VIAL IV (22:10)
[2021-05-09] VITALS (17 sets, daily range): BP systolic 97–170; BP diastolic 52–127; PULSE 60–88; RESP 14–32; TEMP 36.6–36.7; O2SAT 95–100
[2021-05-09] MEDS: HEPARIN/D5w 25,000 UNITS 25,000 UNITS/250 ML IV.SOLN. 13 UNITS IV (03:07)
[2021-05-09] MEDS: 0.9% Normal Saline 1,000 ML 100 ML IV ×2 (03:07→10:57)
[2021-05-09 04:06] LABS: Absolute Lymphocyte Count 2.11 X10^3/uL (0.83-4.51); Absolute Neutrophil Count 3.4 X10^3/uL (2.0-7.7); Basophil# 0.03 X10^3/uL; Basophil% 0.5 % (0-1); Eosinophil# 0.18 X10^3/uL; Eosinophils% 2.9 % (0-5); Hematocrit 40.9 % (40-54); Hemoglobin 13.4 g/dL (13.0-16.5); Lymphocyte # 2.11 X10^3/ul (0.83-4.51); Lymphocyte % 33.5 % (19-41); Mean Corp Hgb Conc 32.8 g/dL (32-36); Mean Corpuscular Hgb 28.5 pg (27.0-32.0); Mean Corpuscular Volume 86.8 fL (80-94); Mean Platelet Vol. 11.8 fl (6.2-12.0); Monocyte# 0.51 X10^3/uL; Monocyte% 8.1 % (0-10); NRBC Flagged by Analyzer 0 % (0-5); Neutrophil # 3.43 X10^3/uL (2.7-7.7); Neutrophil % 54.5 % (47-70); Platelet Count 150 K/mm3 (150-450); RBC Distribution Width SD 40.9 fl (35.1-43.9); Red Blood Count 4.71 M/mm3 (4.6-6.2); White Blood Count 6.3 K/mm3 (4.4-11.0)
[2021-05-09 04:11] LABS: Partial Thromboplast Time 55.2 Seconds (24.1-36.2)
[2021-05-09 04:14] LABS: Anion Gap 6 (5-15); BUN 19 mg/dL (7-18); BUN/Creat Ratio 17.3 RATIO (10-20); Calcium,Total 8.2 mg/dL (8.5-10.1); Chloride 105 mmol/L (98-107); EST Glomerular Filtration Rate 73 mL/min (>60); Est Glom Filt Rate - Afr Amer 88 mL/min (>60); Estimated Creatinine Clearance 74.66 ml/min; Glucose 205 mg/dL (74-106); Potassium 4.1 mmol/L (3.5-5.1); Sodium Level 137 mmol/L (136-145)
[2021-05-09] MEDS: Insulin Lispro 100 UNIT/ML INSULN.PEN SC ×2 (06:40→10:58)
[2021-05-09 06:46] LABS: Bedside Glucose 210 mg/dL (70-110)
--- NOTE | 2021-05-09 08:54 | PN.CARD_ITS ---
Subjective Subjective The patient states that he has still had an episode of chest discomfort yesterday evening for which she received additional medical therapy. He states he is feeling better at this time. He denies any acute respiratory related issues. Objective Data Vital Signs: Vital Signs Temp Pulse Resp BP Pulse Ox 98.1 F 60 16 97/52 L 96 05/09/21 02:00 05/09/21 07:28 05/09/21 02:00 05/09/21 02:00 05/09/21 02:00 Oxygen Flow Rate (L/min) 2 Oxygen Delivery Method Room Air Weight: 235 lb 5 oz Body Mass Index (BMI) 33.7 Intake & Output: Intake and Output for Last 24 Hours 05/07/21 05/08/21 05/09/21 23:59 23:59 23:59 Intake Total 947.67 / 947.67 Output Total 375 / 375 Balance 572.67 / 572.67 Lab / Micro Data Result Diagrams: 05/09/21 03:46 05/09/21 03:46 Labs: Laboratory Results - last 24 hr 05/08/21 05/08/21 05/08/21 12:22 13:28 16:51 WBC RBC Hgb Hct MCV MCH MCHC RDW Std Deviation RDW Coeff of Papi Plt Count MPV Immature Gran % (Auto) Neut % (Auto) Lymph % (Auto) Christian % (Auto) Eos % (Auto) Baso % (Auto) Absolute Neuts (auto) Absolute Lymphs (auto) Nucleated RBC % APTT 43.5 H Sodium Potassium Chloride Carbon Dioxide Anion Gap BUN Creatinine Estim Creat Clear Calc Est GFR (MDRD) Af Amer Est GFR (MDRD) Non-Af BUN/Creatinine Ratio Glucose Calcium POC Glucose 250 H 233 H 05/08/21 05/08/21 05/09/21 20:35 21:03 03:46 WBC 6.3 RBC 4.71 Hgb 13.4 Hct 40.9 MCV 86.8 MCH 28.5 MCHC 32.8 RDW Std Deviation 40.9 RDW Coeff of Papi 13.0 Plt Count 150 MPV 11.8 Immature Gran % (Auto) 0.500 Neut % (Auto) 54.5 Lymph % (Auto) 33.5 Christian % (Auto) 8.1 Eos % (Auto) 2.9 Baso % (Auto) 0.5 Absolute Neuts (auto) 3.4 Absolute Lymphs (auto) 2.11 Nucleated RBC % 0 APTT 40.2 H Sodium Potassium Chloride Carbon Dioxide Anion Gap BUN Creatinine Estim Creat Clear Calc Est GFR (MDRD) Af Amer Est GFR (MDRD) Non-Af BUN/Creatinine Ratio Glucose Calcium POC Glucose 249 H 05/09/21 05/09/21 05/09/21 03:46 03:46 06:39 WBC RBC Hgb Hct MCV MCH MCHC RDW Std Deviation RDW Coeff of Papi Plt Count MPV Immature Gran % (Auto) Neut % (Auto) Lymph % (Auto) Christian % (Auto) Eos % (Auto) Baso % (Auto) Absolute Neuts (auto) Absolute Lymphs (auto) Nucleated RBC % APTT 55.2 H Sodium 137 Potassium 4.1 Chloride 105 Carbon Dioxide 26.0 Anion Gap 6 BUN 19 H Creatinine 1.10 Estim Creat Clear Calc 74.66 Est GFR (MDRD) Af Amer 88 Est GFR (MDRD) Non-Af 73 BUN/Creatinine Ratio 17.3 Glucose 205 H Calcium 8.2 L POC Glucose 210 H Cardiology Labs/Tests 05/08/21 13:28: APTT 43.5 H 05/08/21 20:35: APTT 40.2 H 05/09/21 03:46: WBC 6.3, RBC 4.71, Hgb 13.4, Hct 40.9, MCV 86.8, MCH 28.5, MCHC 32.8, Plt Count 150, MPV 11.8, Immature Gran % (Auto) 0.500, Neut % (Auto) 54.5, Lymph % (Auto) 33.5, Christian % (Auto) 8.1, Eos % (Auto) 2.9, Baso % (Auto) 0.5, Absolute Neuts (auto) 3.4, Nucleated RBC % 0 05/09/21 03:46: Sodium 137, Potassium 4.1, Chloride 105, Carbon Dioxide 26.0, Anion Gap 6, BUN 19 H, Creatinine 1.10, Est GFR (MDRD) Af Amer 88, Est GFR (MDRD) Non-Af 73, BUN/Creatinine Ratio 17.3, Glucose 205 H, Calcium 8.2 L 07/09/21 03:46: APTT 55.2 H Rhythm: Sinus rhythm; brief episodes appearing compatible with an ectopic atrial rhythm/tachycardia Date of Procedure: 11/09/16 Procedure: Left heart catheterization, left ventriculogram, coronary arteriography Indications: Unstable angina pectoris; non-ST segment elevation NV Consent: Per patient Medications: Versed 1 mg IV push total Procedure: The patient was brought to the cardiac catheterization laboratory laid supine on the cardiac catheterization table. The right inguinal area was prepped and draped in standard sterile fashion. 2% Xylocaine was used for local anesthesia. Using the modified Seldinger technique the right femoral artery was cannulated and a #4 Tunisian arterial sheath was placed. A #4 Tunisian JL 5 Marlen left coronary artery catheter was then advanced to the level of the central aorta where central aortic pressure was noted. This catheter was then used to engage the left coronary ostium where selective left coronary arteriography was performed in multiple views. This catheter was then exchanged over a J-tip guidewire for a #4 Tunisian 3 DRC Kieran right catheter. This catheter was then advanced to the level of the central aorta where central aortic pressure was noted. It was then used to engage the right coronary ostium where selective right coronary arteriography was performed in multiple views. This catheter was then exchanged over a J-tip guidewire for a #4 Tunisian pigtail catheter. This catheter was then advanced to the level of the central aorta and with the assistance of a J-tip guidewire prolapsed across the aortic valve into the left ventricle. Left ventricular pressure was measured recorded. A single plane TUBBS left ventriculogram was performed using 20 cc of Isovue at 10 cc/s. Left ventricular pressure was measured recorded. The left heart pullback procedure was performed. All catheters were subsequently removed. The cardiac catheterization sheath was secured in place pending further evaluation and care per interventional cardiology. There was no apparent bleeding, hematoma, or complication otherwise prior to completion of the diagnostic cardiac catheterization case. Findings: Hemodynamics: Pre-angiographic dye load: Central aortic pressure: 83/65 mmHg Mean central aortic pressure: 74 mmHg Left ventricular pressure: 81/30 mmHg Post angiographic dye load: Central aortic pressure: 90/71 mmHg Mean central aortic pressure: 83 mmHg Left ventricular pressure: 75/21 mmHg Left ventricle: Normal left ventricular size, wall motion, and systolic function. The estimated LVEF is 55%. Left main coronary artery: This is a large vessel giving rise to the left anterior descending and left circumflex coronary arteries. It appears to be angiographically normal. Left anterior descending coronary artery: Moderate sized vessel giving rise to a small septal cafeteria supervisor system and a small first diagonal branch and a small to moderate second diagonal branch and subsequently courses towards the LV apex. Status post the diagonal branching system the LAD demonstrates 25% diffuse eccentric appearing stenosis. The mid LAD demonstrates a 50-75% smooth eccentric appearing stenosis in the area of the [place]. The diagonal branching system demonstrates minimal luminal irregularities. Left circumflex coronary artery: The LCx appears to be a large vessel giving rise to a large first OM and then continuing on as a small moderate size vessel terminating as a small vessel in the AV groove. The OM vessel demonstrates minimal luminal irregularities. Status post the takeoff of the OM the LCx demonstrates a 10-25% concentric ap pearing stenosis. Right coronary artery: This is a large dominant vessel giving rise to a moderate sized right PDA, moderate size right AV segment, and small right posterior lateral system. The RCA demonstrates a proximal 75% long diffuse irregular appearing stenosis followed by a 25% eccentric appearing stenosis followed by mid minimal luminal irregularities followed by distal 50-75% eccentric appearing stenosis followed by distal diffuse 25% eccentric appearing stenosis. The right PDA demonstrates a mid subtotal occlusion. The ostial/proximal portion of the right AV segment demonstrates a 50-75% appearing stenosis. The right posterior lateral branch demonstrates a mid 50% appearing stenosis. Aortic valve annulus: Normal Aortic valve: Normal Aortic root: Normal Mitral valve annulus: Normal Atrial valve: Normal Discussion: The cardiac catheterization reveals elevation of the left ventricular end- diastolic pressure compatible decreased diastolic compliance. The left ventricle demonstrates normal left ventricular size, wall motion, and systolic function. The estimated LVEF is 55%. Coronary arteriography demonstrates angiographically significant appearing multivessel CAD. The patient will need to continue cardiovascular risk factor evaluation and medical management. He will need to continue medical therapy as deemed appropriate. His case has been discussed with Nirmal Denson MD, the interventional section of the [facility]. The consensus was to proceed with further catheter based PCI of the RCA distribution with subsequent medical therapy and noninvasive evaluation via exercise tolerance test/imaging study of the coronary physiology to assist with further guidance for possible additional catheter based revascularization therapy of the left coronary artery system. Findings: 1. Elevated left ventricular end-diastolic pressure compatible decreased diastolic compliance 2. Left ventricle: A. Normal left ventricular size, wall motion, and systolic function B. Estimated LVEF 55% 3. Left main coronary artery: A. Angiographically normal 4. Left anterior descending coronary artery: A. Status post the diagonal branching system the LAD demonstrates 25% diffuse eccentric appearing stenosis B. Mid LAD demonstrates a 50-75% smooth eccentric appearing stenosis in the area of the [place] C. Diagonal branching system demonstrates minimal luminal irregularities 5. Left circumflex coronary artery: A. OM vessel demonstrates minimal luminal irregularities B. Status post the takeoff of the OM the LCx demonstrates a 10-25% concentric appearing stenosis 6. Right coronary artery: A. Large dominant vessel B. Proximal 75% long diffuse irregular appearing stenosis followed by 25% eccentric appearing stenosis C. Mid minimal luminal irregularities D. Distal 50-75% eccentric appearing stenosis followed by distal 25% diffuse eccentric appearing stenosis E. Right PDA: Mid subtotal occlusion F. Ostial/proximal portion of the right AV segment demonstrates a 50-75% appearing stenosis G. Right posterior lateral branch demonstrates a mid 50% appearing stenosis Cardiac catheterization: 05-25-2017: Left ventricle: Mid inferior wall: Hypokinetic; LVEF 60% Left main coronary artery: Normal LAD: Previous stent: Patent LCx: 25% stenosis RCA: Proximal stent: Patent RCA: Distal: 85% stenosis followed by 50% stenosis followed by 75% stenosis RCA: Right posterior left ventricular branch: 85% stenosis RCA: Right PDA: Subtotally occluded RCA: Right AV segment: 50 to 75% stenosis PCI: DATE OF PROCEDURE: 11/09/2016. HISTORY OF PRESENT ILLNESS: The patient is a very pleasant 55-year-old diabetic gentleman, nonsmoker, who presented to [facility] on 11/08[facility]2016 with substernal chest pain and an indeterminate troponin. The patient was brought to the director geophysical laboratory today by Dr. Okeefe who performed a left heart catheterization on the patient. He found that there were no nobstructive disease lesions in multiple arteries, but in particular the mid LAD and distal LAD stenosis of about 50-60%. In addition, he was found to have a dominant right coronary artery with an eccentric proximal 80% stenosis at a santos's crook, followed distally with a 70% stenosis, followed in the mid PDA with an 90% stenosis in a 2-0 mm or less sized vessel. The patient had been pretreated with aspirin and Plavix, and it appear that his PDA lesion was most likely the culprit for his angina given it was the tightest of all the vessels. As the patient's right coronary appeared to be a santos's crook and we anticipated some challenges with negotiating wires and balloons down the vessel, a long 55 cm sheath was exchanged for the 4-Tunisian sheath and flushed with heparinized saline. The patient was then given 6000 units of IV heparin. Next, a 6-Tunisian HS2 guide catheter was engaged into the right coronary artery. There was no dampening or ventricularization upon engagement. Next, a 0.01 free universal wire was used to cannulate the PDA without difficulty. Next, a 2.0 x 12 mm balloon was positioned across the lesion in the PDA and deployed at 6 atmospheres x2 inflations. It was then pulled back into the distal RCA and finally the proximal RCA once again being deployed at 10 atmospheres x10 seconds. 100 mcg of intracoronary nitro were given as the patient is EXQUISITELY SENSITIVE TO NITROGLYCERIN. Post-POBA angiogram demonstrated excellent MARTHA 3 flow down the PDA; however, there was significant recoil of the mid PDA lesion. There were no other dissections not ed. We then attempted to negotiate the same 2-0 balloon down the vessel, but due to its flaring we were unable to get down the PDA. We then took a 3.0 x 12 mm balloon and predilated the distal and proximal RCA. We then attempted to pass the previously mentioned balloon down the BMW wire, but were unable to do so. We then tried a 2.0 x 9 Euphora balloon, but again were unable to pass it into the PDA. Balloon appeared to be getting caught on multiple stenotic areas throughout the course of the RCA. We then tried a second дмитрий wire, this time a 0.014 run through wire into the PDA. We then attempted to pass the balloon down this wire as well as the original BMW wire without success. Next, we thought it may be better to stent the distal RCA and possibly the proximal RCA in order to facilitate passage of stents. We attempted multiple times with a 3.0 x 15 Promus stent to cross the proximal portion of the right coronary artery, but due to the tortuosity, calcification and stenosis we were unable to do so despite дмитрий wire, GuideLiner, and pushing off the back part of the aorta. We then did a final angiogram and detected an edge dissection possibly from the GuideLiner in the proximal portion of the RCA. We then passed the 3.0 x 12 mm balloon down the run through wire into the proximal RCA and inflated the balloon for 30 seconds in order to tack up the dissection. With double дмитрий wire in place, we then made a final attempt to place a drug-eluting stent and placed a 3.5 x 16 Promus Synergy Marina stent in the proximal RCA at 14 atmospheres with an excellent result. There were no dissections noted in the distal RCA, and previously mentioned recoil of the mid PDA was still present. At this point, we had used almost 400 mL of IV contrast dye between the 2 cases, th e patient was chest pain free, hemodynamically stable, and the dissection was treated with a stent, so therefore we decided to abort any additional angioplasty or stenting. The wire and guide catheter removed and the long 55 cm sheath was exchanged for a 6-Tunisian short sheath and flushed with heparinized saline. CONCLUSION: 1. Successful complex angioplasty and stenting requiring multiple wires, multiple balloons, multiple stents to the PDA, distal RCA and proximal RCA with the final drug-eluting stent in the proximal RCA to tack up a dissection, possibly induced by the GuideLiner. The patient received a 3.5 x 16 Promus Synergy stent with an excellent result. 2. The patient will be managed medically with aspirin, Plavix, beta-blockers, MOISES inhibitors, and aggressive antilipid medications. The patient will follow up with Dr. Okeefe going forward and consideration will be made for a possible stress test to assess the perfusion of the anterior wall with the LAD stenoses. My jacobo mmendation should we require additional work on the RCA would be that he require a long 55 cm sheath, as well as an AL1 guide catheter to provide additional backup being careful not to crimp the proximal portion of the right coronary artery stents. PCI: DATE OF SERVICE: 12/16/2016 HISTORY OF PRESENT ILLNESS: The patient is a very pleasant 56-year-old moderately obese diabetic gentleman with a history of hypertension, hypercholesterolemia, coronary artery disease with com plex coronary anatomy of his right coronary artery and PDA. The patient underwent angioplasty and stenting of his proximal RCA several weeks ago, which was complicated by difficult access into the PDA. The PDA and distal RCA were ballooned only. We were unable to negotiate stents down to these vessels. In addition, the patient had what appeared to be a diffusely diseased mid LAD and distal LAD stenosis in tandem with each other. This did not appear on his stress test to be abnormal. Post-angioplasty, the patient continued to have both exertional and nonexertional chest pain as well as profound fatigue. To better evaluate his LAD, a FFR was requested by Dr. Okeefe. The risks and benefits of the procedure were thoroughly explained to the patient and informed consent was obtained as well as limitations with surgical backup, should there be a complication. Next, the patient was prepped and draped in the usual sterile fashion. Under fluoroscopic guidance, the right femoral artery was anesthetized with 1% lidocaine followed by access with a single anterior stick of a Cook needle, followed by the placement of an exchange length J-wire. Next, a 6-Tunisian short sheath was placed without complications and flushed with heparinized saline. Next, a 6-Tunisian EBU 3.75 guide was easily engaged into the left main coronary artery. There was no dampening or ventricularization upon engagement. Next, a 0.014 FFR wire was normalized in the left main, and easily passed down the 2 tandem LAD lesions and deposited in the distal LAD. Next, adenosine infusion was given per protocol and his FFR was found to be 0.52. As this was markedly abnormal, we then proceeded with intervention of his mid and distal LAD. With the wire already in place and 6000 units of heparin already given at the time of access, we then proceed with angioplasty. A 2.0 x 12 balloon was used to predilate from distal to proximal several inflations at 8 atmospheres. 200 mcg of intracoronary nitroglycerin was given. Post-POBA angiography demonstrated excellent MARTHA 3 flow, no new lesions and no dissection. Next, a 2.5 x 12 Promus Synergy stent was positioned across the distal LAD stenosis and deployed at 12 atmospheres x10 seconds. We then positioned a 2.5 x 38 Promus Synergy stent telescoping the distal end into the previously mentioned distal LAD stent. Being careful not to encroach on the ostium of the diagonal branch, we then deployed the stent at 14 atmospheres x10 seconds. Post-stent angiography demonstrated excellent MARTHA 3 flow, no new lesions and no dissection. It appeared that the proximal portion of the long stent was somewhat under deployed and this was treated with a 3.0 x 8 noncompliant Emerge balloon from the mid portion of the long stent to the ostium of the long stent u nder fluoroscopic guidance. 200 mcg again were given. Post-POBA angiography demonstrated excellent MARTHA 3 flow, no new lesions and no dissection. We then reactivated the FFR of the flow wire to determine if post-stent FFR normalized and it was found to be 0.89, which was normal. Wire and guide catheter removed and the sheath was sutured into place. CONCLUSIONS: Successful heparin and Plavix assisted and FFR guided angioplasty and stenting of the mid and distal LAD receiving a 2.5 x 12 Promus Synergy stent in the distal LAD, followed upstream with a 2.5 x 38 Promus Synergy stent postdilated proximally with a 3.0 noncompliant balloon. Post-FFR analysis of the stented area turned out to be 0.89, which was normal. RECOMMENDATIONS: 1. At this point, the patient will continue baby aspirin and Plavix going forward. We did not relook at his right coronary artery as we want this to heal for several months' time before reattempting angioplasty of his right coronary artery if indicated. In addition, his blood pressure was somewhat low, which may be contributing to his overall fatigue symptoms. Adjustments of his antihypertensives may need to be performed in order to improve the patient's overall wellbeing. 2. The patient will be admitted to the ICU, and the sheath will be removed once his ACT is less than 150 seconds. 3. The patient will follow up with Dr. Okeefe going forward. The patient tolerated the procedure well. PCI: 06-27-2018 CONCLUSIONS Normal LV size, wall motion,and systolic function Single vessel CAD of the PDA and PL branch Successful PCI with PTCA to the distal RCA at bifurcation with a 2.0 x 12 Balloon; 75%-->50%, no dissection. Unable to advance balloon to PL branches due to tortuosity and previous stents and despite long sheath, AL-1 guide and run through wire. Unsuccessful PCI of the mid PDA despite inflating 1.5 mm balloon; unable to advance new balloon into lesion due to tortuosity and despite maximal backup as outlined above. RECOMMENDATIONS Referred for immediate PCI Highly recommend quitting all tobacco products Follow up with primary visual effects editor Risk factor modification ASA Indefinitley Plavix for at least 12 months Routine post interventional care Refer for Outpatient Cardiac Rehab Manual sheath removal per protocol Pt will require at least 1 month of DAPT, prior to hiatal hernia repair surgery. Would not attempt any additional PCI of RCA given previous loss of stent in proximal portion of RCA, tortuosity and lack of pushability despite maximal back up. No evidence of damage to proximal RCA stent at end of procedure. Successful Mynx closure. Pt is at low risk for non-cardiac hiatal hernia surgery. F/u with Dr Okeefe. DESCRIPTION OF PROCEDURE The patient arrived to the procedure lab. The risks and benefits of the procedure as well as a full description of our services here and lack of surgical backup were fully explained to the patient and/or their significant other prior to the catheterization. The Timeout was completed, verifying the correct patient and procedure. The patient's procedural site was prepped and draped in the usual fashion. Local anesthetic was given subcutaneously to right groin region with Lidocaine 2%. Using a modified Seldinger technique, arterial access was obtained via the right femoral artery, a 4Fr sheath was inserted. Left Coronary Artery selective angiography was performed in multiple views using a 4 Fr. JL5 catheter. Right Coronary Artery selective angiography was then performed in multiple views using a 4 Fr. 3DRC catheter Arterial sheath was exchanged for a 6fr 45cm sheath ALI Guide catheter was inserted and engaged into the RCA. Angiogram performed pre balloon dilatation. BMW Guide wire was advanced to the Right PDA. runthrough Guide wire was advanced to the 1st PL branch emerge 2.00x12 Balloon catheter was inserted. PTCA balloon inflated at 10 atms for 11 secs. Emerge 1.50x8 Balloon catheter was inserted into PDA PTCA balloon inflated at 12 atms for 13 secs. Angiogram performed post balloon dilatation. emerge 1.20x8 Balloon catheter was inserted into PDA branch Contrast was injected through the sheath and the Right Iliac and Femoral artery were assessed for possible closure device. The arterial sheath was pulled and a Mynx closure device was deployed for hemostasis CORONARY ANGIOGRAPHY DOMINANCE: Right Dominant LEFT HEART ASSESSMENT Left Ventricular Ejection Fraction: by LV Gram 60 % Normal Left Ventricular systolic function Inferior Mid Hypokinesis - Mild LEFT MAIN: Angiographically normal LEFT ANTERIOR DECENDING ARTERY: PROX LAD: Previously placed stent is patent CIRCUMFLEX ARTERY: Mild luminal irregularities less than 30% RIGHT CORONARY ARTERY: Previously placed stent is patent DISTAL RCA: 70 % Stenosis RT PLV: 75 % Stenosis RT PDA: Mid - 85 % Stenosis INTERVENTION INFORMATION LESION SITE: RPL (1st) Lesion Complexity: High/C, lesion at bifurcation: Yes, thrombus present: No, lesion length: 18 mm, culprit lesion: No Pre Stenosis: 70 % Pre intervention MARTHA flow: 3 PROCEDURE: Balloon Angioplasty Post Stenosis: 50 % Post intervention MARTHA flow: 3 Lesion Devices: Choe .014 BMW [place] Straight 190cm Choe .014 BMW [place] Straight 190cm Terumo .014 Runthrough Extra Floppy 180cm straight Hebert Sci EMERGE MR 1.50x08 BALLOON LESION SITE: RT PDA (Mid) Lesion Complexity: Non-High/Non-C, lesion at bifurcation: No, thrombus present: No, lesion length: 16 mm, culprit lesion: Yes Pre Stenosis: 85 % Pre intervention MARTHA flow: 3 PROCEDURE: Balloon Angioplasty Post Stenosis: 85 % Post intervention MARTHA flow: 3 Lesion Devices: Hebert Sci EMERGE MR 1.50x08 BALLOON Hebert Sci EMERGE MR 1.20x08 BALLOON Physical Exam Const alert, oriented x3, no apparent distress and healthy appearing Orientation / Consciousness: awake HEENT normocephalic, head/scalp atraumatic and hearing grossly normal bilaterally Eyes PERRL and EOMs intact bilaterally Neck full ROM, supple and no JVD Chest inspection of chest normal Resp normal respiratory effort and clear to auscultation bilaterally Cardio regular rate, regular rhythm, S1 normal heart sound, S2 normal heart sound and no JVD GI normal to inspection, nondistended, normoactive bowel sounds Extremity no pedal edema Skin no rashes or lesions noted Psych mental status grossly normal Assessment & Plan Assessment/Plan (1) NSTEMI (non-ST elevated myocardial infarction): PLAN: The patient has presented back with recurrent symptoms and objective findings compatible with a non-STEMI. His previous cardiac history was reviewed as well as his previous cardiac catheterization/PCI procedures/attempts. The patient had been referred as an outpatient to [facility] for evaluation for chronic total occlusion therapy. At the present time based upon the patient's recurrent acute course he is being monitored and is being treated medically including IV heparin. An attempt has been made with [facility] to arrange transfer to their facility. However they have notified the hospital of the patient is on a waiting list . A discussion was held with the patient with respect to consideration for transfer to another tertiary care facility such as [facility] for advance cardiovascular evaluation and care. The patient was agreeable to this. (2) Atherosclerotic heart disease of [place] coronary artery without angina pectoris: QUALIFIERS: [place] vs. transplanted heart: [place] heart Qualified Code(s): I25.10 - Atherosclerotic heart disease of [place] coronary artery without angina pectoris PLAN: The patient does have a history of underlying CAD. He has undergone PCI in the past. He has been treated medically with aspirin, antiplatelets, nitrates, beta- blockers, and lipid-lowering agents. He has had attempt at Ranexa in the past which he states was not beneficial to him. At the moment he will continue medical therapy which has included IV heparin pending further cardiovascular evaluation care. (3) Presence of stent in coronary artery: PLAN: The patient does have a history of underlying PCI. Again there is been concerns, especially of the RCA system, of distal RCA disease which has undergone attempted PCI on more than one occasion at [facility]. These attempts were unsuccessful with respect to maintaining patency of the distal RCA system. At the moment is unclear whether this is contributing to the patient's ongoing acute event versus another coronary lesion. Based upon his extensive history/disease and previous conversations requesting a referral to a tertiary care center for further assessment of his CAD status and possible HEEL TRIMMER it was felt reasonable that he be transferred to such a center for further evaluation and care at this time. He was agreeable to this approach. (4) Pure hypercholesterolemia: PLAN: He will continue lipid-lowering therapy. (5) Essential (primary) hypertension: PLAN: His blood pressure will be monitored. He will continue medical management. (6) Type II diabetes mellitus: PLAN: He will continue evaluation care per internal medicine. (7) Renal insufficiency: PLAN: His renal function does need to be taken into consideration with respect to ongoing evaluation and care and medical therapy. Addt'l Comments The patient's case has been discussed and reviewed with the patient. The patient's case was also discussed with Dr. Marin Patel of [facility] cardiology. He agreed to accept the patient in transfer for further evaluation and care. This note was generated using a voice recognition system and there may be incorrect words, spelling or punctuation that were not noted when reviewing the office note prior to saving. Procedure Criteria Type of Procedure Procedure Type: Elective Elective Risks - COVID COVID Risk Discussion: The surgeon/proceduralist and patient have discussed in detail the risk of exposure to and/or potential harm posed by the COVID-19 virus with having a surgery/procedure at this time versus the risk of delaying the surgery/procedure. It is not possible to know either the risk of delaying the surgery or procedure or chance of getting an infection with perfect accuracy, but a joint decision was made between the patient and the surgeon/proceduralist to proceed at this time with the scheduled surgery/procedure as indicated on the consent form.
--- NOTE | 2021-05-09 09:09 | NURSING ---
Report given to Maddison YUN, at [facility] at 2710
[2021-05-09] MEDS: Morphine 2 MG/ML Syringe IV (09:32)
--- NOTE | 2021-05-09 09:45 | EKG12_ITS ---
Test Reason : Blood Pressure : / mmHG Vent. Rate : 065 BPM Atrial Rate : 065 BPM P-R Int : 158 ms QRS Dur : 136 ms QT Int : 436 ms P-R-T Axes : 019 -25 -01 degrees QTc Int : 453 ms Normal sinus rhythm Right bundle branch block Abnormal ECG When compared with ECG of 08-MAY-2021 05:32, MANUAL COMPARISON REQUIRED, DATA IS UNCONFIRMED Confirmed by SATINDER LYNNE, SLIM ([id number]), industrial editor JAM SIMPSON ([id number]) on 05/13/2021 7:44:33 AM Referred By: JOSEP Confirmed By:SLIM RAJAN MD
[2021-05-09] MEDS: Losartan Potassium 25 MG Tablet PO (09:51)
[2021-05-09] MEDS: Isosorbide Mononitrate 60 MG Tablet PO (09:51)
[2021-05-09] MEDS: Carvedilol 6.25 MG Tablet PO (09:51)
[2021-05-09] MEDS: Aspirin 81 MG TAB.CHEW PO (09:51)
[2021-05-09] MEDS: Clopidogrel Bisulfate 75 MG Tablet PO (09:51)
[2021-05-09 10:14] LABS: Partial Thromboplast Time 49.1 Seconds (24.1-36.2)
[2021-05-09] MEDS: Nitroglycerin Infusion 250 ML 3 MG CONT INF (10:54)
[2021-05-09 11:16] LABS: Bedside Glucose 266 mg/dL (70-110)
--- NOTE | 2021-05-09 14:51 | NURSING ---
This RN gave report to COURT [place] at [facility].
[2021-05-09 17:05] LABS: Bedside Glucose 197 mg/dL (70-110)
== END 2021-05-09 16:57 | disposition short-term general hospital (02) | DRG 282 ==
LOC: ED 07:35 → PCU 07:44
PROVIDERS: Admitting Provider Family Medicine; Emergency Provider Emergency Medicine; PCP Family Medicine; Visit Provider Family Medicine
DX: I21.4 Non-ST elevation (NSTEMI) myocardial infarction (principal); E11.9 Type 2 diabetes mellitus without complications; I25.10 Atherosclerotic heart disease of native coronary artery without angina pectoris; I10 Essential (primary) hypertension; E78.5 Hyperlipidemia, unspecified; G47.33 Obstructive sleep apnea (adult) (pediatric); Z79.899 Other long term (current) drug therapy; Z79.84 Long term (current) use of oral hypoglycemic drugs; Z79.02 Long term (current) use of antithrombotics/antiplatelets; Z79.82 Long term (current) use of aspirin; Z95.5 Presence of coronary angioplasty implant and graft
CPT/HCPCS: 36415; 71045; 80048; 82962; 84484; 85025; 85610; 85730; 93005; 97802; 99285; J7030; A4216; J2405

== ENCOUNTER → 2021-06-02 11:23 | Outpatient (CLI) | payer OTHER, SELFPAY ==
[2018-06-27 13:12] VITALS: BMI 34.6
[2021-05-08 08:25] VITALS: BMI 33.7
[2021-06-02 13:09] LABS: Anion Gap 10 (5-15); BUN 22 mg/dL (7-18); BUN/Creat Ratio 18.2 RATIO (10-20); Calcium,Total 9.7 mg/dL (8.5-10.1); Chloride 96 mmol/L (98-107); Creatinine, Serum 1.21 mg/dL (0.70-1.30); EST Glomerular Filtration Rate 65 mL/min (>60); Est Glom Filt Rate - Afr Amer 79 mL/min (>60); Glucose 446 mg/dL (74-106); Potassium 4.5 mmol/L (3.5-5.1); Sodium Level 128 mmol/L (136-145)
== END ==
PROVIDERS: PCP Family Medicine; Referring Provider Family Medicine; Visit Provider Family Medicine
DX: E11.9 Type 2 diabetes mellitus without complications (principal)
CPT/HCPCS: 36415; 80048

== ENCOUNTER → 2021-06-24 11:40 | Outpatient (CLI) | payer OTHER, SELFPAY ==
[2018-06-27 13:12] VITALS: BMI 34.6
[2021-06-13 13:44] VITALS: BMI 30.5
--- NOTE | 2021-06-24 18:51 | STRESSREP ---
Stress Test Report Date: 06-24-2021 Procedure: Exercise tolerance test Indications: CAD; status post PCI; status post CABG; precardiac rehabilitation evaluation Consent: Per the patient Procedure: The patient exercised on a Jason protocol for 3 minutes completing Stage II (secondary to technical difficulties the treadmill went from preexercise directly to stage II) achieving a peak heart rate of 116 bpm (72% predicted maximal heart rate) with a peak blood pressure 170/96 mmHg and a peak MET capacity of approximately 7 MET's. The baseline ECG demonstrated sinus rhythm; right bundle branch block pattern. The peak exercise ECG demonstrated no obvious ECG change. There were no cardiac dysrhythmias pretest, during exercise, or recovery. The functional capacity was considered average. The patient had complaints of chest discomfort, shortness of breath, and fatigue at peak exercise/peak recovery. The examination was discontinued secondary to shortness of breath, fatigue, and leg discomfort. Impression: 1. Technically inadequate (percent predicted maximal heart rate less than 85%) exercise tolerance test 2. Peak exercise ECG with with continued right bundle branch block pattern with no obvious ECG changes at the heart rate achieved 3. There were no cardiac dysrhythmias during exercise or recovery This note was generated with [employer] software. It may contain incorrect words, spelling, and punctuation that were not noted in checking the note before signing.
== END ==
PROVIDERS: PCP Family Medicine; Referring Provider Internal Medicine Cardiovascular Disease; Visit Provider Internal Medicine Cardiovascular Disease
DX: I25.10 Atherosclerotic heart disease of native coronary artery without angina pectoris (principal); Z95.5 Presence of coronary angioplasty implant and graft; Z95.1 Presence of aortocoronary bypass graft
CPT/HCPCS: 93017

== ENCOUNTER → 2021-06-25 12:47 | Outpatient (CLI) | payer OTHER, SELFPAY ==
[2018-06-27 13:12] VITALS: BMI 34.6
[2021-06-13 13:44] VITALS: BMI 30.5
--- NOTE | 2021-06-25 12:56 | PCM.CR.HP2 ---
CR - History & Physical - General Arrival date:: 06/25/21 Arrival time:: 12:57 Date of Referral:: 06/13/21 Date of CR Evaluation:: 06/25/21 Referring Physician: Dr. Pilo Okeefe Primary Diagnosis: CABG - History of Present Cardiac Event Onset Date: Enter Onset Date of cardiac illnesses in Comment field below Coronary Artery Bypass Graft:: Yes - 05/15/2021 - Sleep Disorder Evaluation Hx of Sleep Apnea: Yes Do you snore loudly (louder than talking or can be heard through closed doors)?: No Do you often feel tired/ fatigued/ sleepy during daytime?: No Has anyone observed you stop breathing during sleep?: No History of Hypertension (for STOP score): Yes STOP Results: Negative - Medications Home Medications: Ambulatory Orders Medication Instructions Recorded atorvastatin 80 mg PO DAILY 12/15/16 aspirin 81 mg chewable tablet 81 mg PO DAILY #1 tab 10/14/20 clopidogrel 75 mg PO DAILY 12/11/20 ezetimibe 10 mg tablet 10 mg PO DAILY 05/19/21 furosemide 40 mg tablet 40 mg PO DAILY 05/19/21 acetaminophen 325 mg tablet 650 mg PO Q4H PRN tab 05/30/21 metoprolol tartrate 25 mg tablet 25 mg PO BID tab 06/13/21 pioglitazone 30 mg tablet 30 mg PO DAILY tab 06/13/21 sitagliptin 50 mg-metformin 1,000 1 tab PO BID 06/13/21 mg tablet - Allergies Allergies/Adverse Reactions: Allergies nitroglycerin Adverse Reaction (Verified 05/09/21 10:18) Shortness of breath Advanced Directives - Advanced Directives Power of Director Of Academic Support: No Living Will: No Advance Directives Information Provided: No Advance Directives on File: No DNR Order?:: No - MOLST See MOLST form: No Past Medical History - Covid-19 Screening Fever: No Unexplained muscle aches: No Current respiratory symptoms: No Upper respiratory infections symptoms: No Gastro-intestinal symptoms: No Sen-Dyvk-Bdsfio symptoms: No Has tested positive for COVID-19 in last 30 days: No Had contact w/person w/symptoms or Covid-19 (+) last 14 days: No Has High Risk Exposures ID'd by Health dept/Inf Control team: No 65 years or older:: No Lives in Assisted Living facility:: No Has a chronic lung disease or moderate to severe asthma:: No Has a serious heart condition:: Yes Immunocompromised:: No Severely obese (Body Mass Index of 40 or higher):: No Diabetic:: Yes Has chronic kidney disease undergoing dialysis:: No Has liver disease:: No - Past Medical Illness Medical History: Past Medical History (Last Updated 06/13/21 @ 13:48 by Dona Shore PA, PA) Atherosclerotic heart disease of [place] coronary artery without angina pectoris I25.10 PCI/MERRICK to prox RCA and PCI to distal RCA, mid PDA 11/09/16; FFR/MERRICK to mid and distal LAD 12/16/16; PTCA/MERRICK to distal RCA and PTCA to mid RPDA 05/25/17; PTCA to distal RCA and unsuccessful PCI to mid PDA in June 2018; WHITAKER to LAD 05/15/21 Chest pain R07.9 Dyspnea on exertion R06.09 Essential (primary) hypertension I10 Generalized abdominal discomfort R10.84 Hernia, hiatal K44.9 Status post Leah fundoplication Kidney stone N20.0 NSTEMI (non-ST elevated myocardial infarction) I21.4 RACHEL (obstructive sleep apnea) G47.33 Pure hypercholesterolemia E78.00 Renal insufficiency N28.9 Type II diabetes mellitus E11.9 Unstable angina I20.0 Unstable angina pectoris - Past Surgical History Surgical History: Past Surgical History (Last Reviewed 06/13/21 @ 13:48 by Dona MARTINEZ, PA) History of bilateral inguinal hernia repair Z98.890, Z87.19 History of coronary artery bypass graft Onset Date: 05/15/21 Z95.1 WHITAKER to LAD 05/15/21 History of eye surgery Z98.890 History of repair of hiatal hernia Onset Date: ~08/2018 Z98.890, Z87.19 Postsurgical percutaneous transluminal coronary angioplasty (PTCA) status Z98.61 PCI/MERRICK to prox RCA and PCI to distal RCA, mid PDA 11/09/16; FFR/MERRICK to mid and distal LAD 12/16/16 Presence of stent in coronary artery Onset Date: ~05/25/17 Z95.5 PCI/MERRICK to prox RCA and PCI to distal RCA, mid PDA 11/09/16; FFR/MERRICK to mid and distal LAD 12/16/16; PTCA/MERRICK to distal RCA and PTCA to mid RPDA 05/25/17; Surgical History: herniorrhaphy - hiatal hernia surgery; and inguinal hernia surgery and stents x 3. - Family History Summary Family History: Family History (Last Reviewed 06/13/21 @ 13:48 by Dona Shore PA, PA) Mother CAD (coronary artery disease) Myocardial infarction, Onset Age: 46 Sister CAD (coronary artery disease) Sister CAD (coronary artery disease) Brother CAD (coronary artery disease) Social History - Smoking History Smoking Status: Never smoker Hx Tobacco Use: No Hx Smoking Exposure: No - Alcohol Use Alcohol Usage: No - Substance Abuse Hx Substance Use: No - Occupation Occupation (List type of work in comments):: Employed Hours worked per day:: 11 - Hobbies, Recreation, Social Activities Recreational Activities: I am able to engage in a few activities Social Environment - Status Marital Status: - Current Living Arrangements Living Environment:: Spouse - Children How many children do you have?: 5 Do any of your children live nearby?: Yes - Safety Do you feel safe in your surroundings?: Yes - Assistance Do you need any assistance at home?: none Review of Systems - Review of Systems Hints: Right click = Denies (Slash). Left click = Reports ([place]) Review of Present Symptoms: Reports: Shortness of Breath with Exertion, Operative Discomfort, Wound Healing. Denies: Shortness of Breath at Rest, PVD, Angina, Dizziness/Lightheadedness, Fatigue, Heart Arrhythmia/Irregularities, Appetite - Normal, Appetite - Special Diet, Sleep - Normal, Sexual Changes - Pain Is Patient Pain Free?: No Pain Location: chest Pain Level: 05/10 Risk Factor Assessment - Vital Signs Pulse Ox: 98 - Pulse Pulse Rate: 85 Pulse Rhythm: Regular - Hypertension Blood Pressure Sitting - Left Arm: 106/72 - Stress Stress: Home/Family - Diabetes Diabetic History: Type II Nutrition Referral for Diabetes: Yes - Obesity Height: 5 ft 10 in Weight:: 96.615 kg Weight in Pounds: 213.0 lbs Body Mass Index (BMI): 30.5 Nutritional Referral for Obesity: No - Physical Inactivity Physical Inactivity: Recreational activity - Risk Stratification Risk Guidelines: Lowest Risk: Risk Factor for Smoking, Moderate Risk: Risk Factor for Dyslipidemia, Risk Factor for Obesity, Risk Factor for Sedentary Lifestyle, Risk Factor for Depression, Highest Risk: Risk Factor for Diabetes, Risk Factor for Hypertension - Family History Family History: Family History (Last Reviewed 06/13/21 @ 13:48 by Dona Shore PA, PA) Mother CAD (coronary artery disease) Myocardial infarction, Onset Age: 46 Sister CAD (coronary artery disease) Sister CAD (coronary artery disease) Brother CAD (coronary artery disease) Motivation - Motivation to Participate On a scale of 1 to 10, how prepared are you to commit to attending program?: 8 What do you see as barriers to successfully being able to complete the program?: work What do you see as the benefits of succesfully completing the program? In other words, what do you hope to get out of participating in the program?: more energy Are there issues you are dealing with that will interfere with completing the program?: none Do you have a spouse or signficant other, family or friends who will help support you to complete the program?:
--- NOTE | 2021-06-25 12:56 | PCM.CR.ITP ---
Diagnosis - General Information Admitting Diagnosis: CABG Personal Learning Style:: Audio/Visual Barriers to Learning: Vision Impairment Stage of change r/t lifestyle modifications:: Contemplation Gave educational material for:: Treating Heart Disease, Emotions & Heart Disease, Stress Management & Relaxation, Sleep Disorders & Heart Disease, How The Heart Works, What it means to have Heart Disease, How Coronary Artery Disease is Diagnosed, Heart Procedures, What Heart Medications Do, Risk Factors & Modifications, Living an Active Life, Nutrition - Education/Goals Cardiac Rehabilitation Goals: 1. Maintain the individual as the primary focus of care. 2. To improve the patient's quality of life. 3. Identification of cardiac risk factors and provide cardiac risk factor management. 4. Enhance the psychosocial status of the patient. 5. Reconditioning enough to allow the patient to resume customary activities. 6. Control symptoms of cardiac disease Personal Goals: Initial Assessment: Improve energy level, Get back to work, or to resume activities faster, Improve muscle strength and endurance, Improve diet and eating habits (eat healthier), Control risk factors (learn risk factor modification) Scale for measuring improvement of personal goals: Enter appropriate number in Comments. 2 = Unchanged. 3 = Slightly Better. 4 = Moderate Improvement. 5 = Met my Goal - Diagnosis & Disease Process Outcomes/Goals: Pt IDs own risk factors & lifestyle modifications by Session 10, Verbalizes symptoms of angina & response by session 3., Pt independently manages, Other Additional Outcomes/Goals: Plan/Interventions: Assist Pt to ID & engage in lifestyle modification to reduce CVD risk, Instruct on individual risk factors, Review symptoms of angina & emergency actions, Review secondary diagnosis & identify educational needs., Other see comment 30 day Reassessments:: Not Met 30 day Reassessments:: Not Met 30 day Reassessments:: Not Met 30 day Reassessments:: Not Met Final Reassessments:: Not Met - Safety Referral to Physical Therapy: No Referral to [facility] Case Management: No Fall Risk Assessed:: Yes Assistive Devices:: None Exercise - Initial Assessment - Visit Date of Eval: 06/25/21 - initial eval Mets: Pre-: >3 METS for 30 minutes by discharge, >5 METS for 30 minutes by discharge, >7 METS for 30 minutes by discharge - Physician Prescribed Exercise Modalities: Treadmill, Biodyne, Airdyne, NuStep, SciFit Frequency: 3x/week for 12 weeks [36 sessions] Intensity: 60-80% of age predicted maximum heart rate reserve Current METSs:: 3 Target Heart Rate:: 97-137 Resting Blood Pressure: 106/72 EKG Type: SR w/RBBB - Outcomes & Goals Goals:: Verbalizes understanding of THR, RPE & goal METS by session 6, Documents in home exercise log/reports 30 min aerobic 5 day/wk by DC, Demonstrates accurate pulse taking by DC, Other additional outcome/goals: see below - Intervention & Plan Exercise Program Goals: Instruct on personal THR & RPE, Instruct on MET level & personal MET goal, Show patient to take own pulse /validate performance until accurate, Instruct on home exercise, Other additional plan/int - Physical Activity Home Exercise Physical Activity - Home Exercise: Safe Exercise, Warm-up, Self-monitoring, Cool-Down, Home Exercise > 30 min Daily, Sitting Time <3 hours/daily - Outcomes & Goals Outcomes/Goals: Demonstrates correct Warm-up/exercise Cool-Down (S3) if = 2.5 METs, Verbalizes symptoms of exercise intolerance by Session 3 (S3), Demonstrate safe equipment use (S3) & follows exercise prescrition (6), Other: See below - Intervention & Plan Plan/Intervention: Instruct warm-up & cool-down if exercising at > 2 METs, Instruct on symptoms of exercise intolerance & actions to take, Instruct & monitor on saf, Assess intial functional capacity & safety risk, Other See below Nutrition - Initial Assessment - Program Goals Nutrition Program Goals: LDL <100 optimal. 100 - 129 Near optimal. 130 - 159 Borderline High. 160 - 189 High. Total Cholesterol <200 desirable. 200 - 239 Borderline High. >/= 240 High. HDL < 40 Low >/=60 High. Triglycerides <150 desirable. <199 optimal. VlDL 5 - 40. HgbA1C <7%. BMI <25 Patient has diagnosis of Hyperlipidemia (ICD E78)?: Yes - Visit Date of Assessment:: 06/25/21 - initial eval - Cholesterol/Lipids Determine presence & major risk factors that modify LDL goal: Hypertension or hypertensive medication, Low HDL cholesterol <40 mg/dL*, Family history of premature CHD in Male < 55 years: female <65 yearsFa, Age men > 45 years; women >/= 55 years Outcomes/Goals: Pt IDs own risk factors & lifestyle modifications by Session 10, Verbalizes symptoms of angina & response by session 3., Pt independently manages, Other Additional Outcomes/Goals: Intervention/Plan: Advocate for lipid panel cholesterol medication if applicable, Instruct on personal lipid levels & lipid goals/NCEP guidelines, Instruct on cholesterol, Other additional plan/int Referral to dietitian:: Yes - Diabetes (Other Core Measures) Diabetes Type: Diagnosis Type II ICD-10 E11 Non-Insulin Dependent?: Yes Do you monitor your blood sugar at home?: Yes Referral to Diabetic Clinic:: Yes Outcomes/Goals:: Able to state symptoms of, Able to state, Able to state, Other additional - Weight Mgt (Other Care) Height: 5 ft 10 in Weight:: 96.615 kg BMI: 30.5 Diagnosis Overweight/Obesity BMI> 30% ICD-10 E66: No Diagnosis High BMI/Morbid Obesity BMI> 35% ICD-10 Z68: No Outcomes/Goals: Pt sets, maintains & shows weight loss goal & trend during rehab, Other additional outcomes/goals Intervention/Plan: Instruct on ideal BMI & set weight loss goal w/patient, Assist pt to ID & incorporate diet changes for weight loss by S9, Refer to Structured Weight Loss program as appropriate, Encourage goal of using 250-300dcal per session for weight loss, Other additional plan/interventions - Healthy Eating Habits Will attend diet classes:: Yes Outcomes/Goals:: Consume diet rich in vegs,fruits,whole grain/high fiber,fish,lean meat, Limit sat/trans fats,cholesterol & added salts & sugars, Other additional outcome/goals: Intervention/Plan:: Assess current eating habits, Other Additional plan/interventions - Education Gave educational materials for:: Signs & symptoms of hypoglycemia, Signs & symptoms of hyperglycemia, Relate diabetes to coronary artery disease, Healthy eating Nutrition - 30-Day Assessment Nutrition - 60-Day Assessment Nutrition - 90-Day Assessment Nutrition - Final Assessment Medical - Initial Assessment - Visit Date of Eval: 06/25/21 - initial eval - Medication Compliance Preventative Medication(s):: Aspirin, Clopidogrel/P2Y12 inhibit, Statin/lipid, Beta cricket H/O mental health issues: depression, anxiety, or addiction?: No Doesn?t believe in the benefits of treatment?: No Believes medications are unnecessary or harmful?: No Has a concern about medication side effects?: No Expresses concern over the cost of medications?: No Outcomes/Goals: Verbalizes medications,desired effect & common side effects @ DC, Pt self-reports following medication regimen, Keeps card in wallet w/medications listed by DC, Other additional outcome/goals: Interventions/plans: Instruct on medication effects & side effects, Review medication list w/patient every two weeks, Instruct importance of taking meds as ordered & assist problem solving, Other additional - Tobacco Use Tobacco Use: Non-smoker Do you use smokeless tobacco?: No - Hypertension Hypertension Diagnosis:: Hypertension ICD-10 I10 Resting Blood Pressure:: 106/72 [employer] Hypertension Guidelines: [place] [employer] Hypertension Guidelines. Normal BP Less than 120/80. Elevated BP 120/80. Hypertension Stage 1: BP 130-139/80-89. Hypertesnion Stage 2: BP 140 or higher/90 or higher. Hypertension Crisis: BP higher than 180/120 Outcomes/Goals: Able to verbalize/achieve optimal blood pressure <130/80, Incorporates diet changes & exercise for blood pressure control by DC, Other additional outcomes/goals Interventions/plan: Instruct on optimal blood pressure, hypertension & medications, Instruct on effects of sodium, alcohol, stress, exercise &hypertension, Other additional plan/interventions - Tobacco Cessation Referral Smoking Cessation Referral:: No Individual Education/Counseling:: No Education Schedule Given:: Yes Medical- 30-Day Assessment Medical- 60-Day Assessment Medical- 90-Day Assessment Medical - Final Assessment Psychosocial - Initial Assess - VIsit Date of Eval: 06/25/21 - initial eval Not Applicable: No History of previous Mental disease:: No - Outcomes/Goals: See list Psychosocial Outcomes/Goals:: ID's personal stressors & 2 strategies to manage stress by discharge, Other Additional outcome/goals: - Intervention/Plan: See List Interventions/Plan:: Assess stressors,coping strategies & signs of derpression on admission, Instruct/assist pt to develop coping & personal stress Mgt strategies, Refer to Behavioral Health if appropriate, Refer to Physician if appropriate, Instruct patient to recognize signs & symptoms of depression, Instruct patient to recog, Other additional plan/intervention Psychosocial - 30-Day Assess Psychosocial - 60-Day Assess Psychosocial - 90-Day Assess Psychosocial - Final Assessmen Patient Health Questionnaire Initial Assessment 1. Little interest or pleasure in doing things: More than half the days 2. Feeling down, depressed, or hopeless: Several days 3. Trouble falling or staying asleep, or sleeping too much: Not at all 4. Feeling tired or having little energy: Nearly every day 5. Poor appetite or overeating: Not at all 6. Feeling bad about yourself -- or that you are a failure or have let yourself or your family down: More than half the days 7. Trouble concentrating on things, such as reading the newspaper or watching television: Not at all 8. Moving or speaking so slowly that other people could have noticed. Or the opposite - being so fidgety or restless that you have been moving around a lot more than usual: Not at all 9. Thoughts that you would be better off , or of hurting yourself in some way: Not at all How difficult have these problems made it for you to do your work, take care of things at home, or get along with other people?: Somewhat difficult Total Score: 8 MARU-Q SV Test - Statements CAD is a disease of the arteries in the heart: False Examples of risk factors for heart disease: True Angina is chest pain or discomfort: I Don't Know The benefits of resistance training include: True Eating more meat and dairy products: False Anti-platelet medications such as aspirin are important: True The only effective way to manage stress: False An exercise warm-up slowly increases heart rate: True Prepared, processed foods usually have high sodium: True Depression is common after a heart attack: True The statin medications lower cholesterol: True To control blood pressure, lower the amount of sodium: True If someone gets chest discomfort during walking: False Transfats are partially hydrogenated vegetable oils: True Sleep apnea that is not treated increases the risk: I Don't Know To control cholesterol, one should become a vegetarian: False Someone knows if he/she is exercising at the right level: I Don't Know Diabetes cannot be prevented with exercise & health eating: False Stress is a large risk for heart attack: True A diet that can help lower blood pressure is rich in: True - Total Score Total Correct Responses: 17 Self-Efficacy Initial Assessment We would like to know how confident you are in doing certain activities. Please select your confidence level for:: Select your confidence level for the following using the scale 1-10 where 1 is not at all confident and 10 is totally confident. Your score is the average of all 6 responses. Fatigue: How confident are you that you can keep the fatigue caused by your disease from interfering with the things you want to do? Select Number: 10 Physical Discomfort or Pain: How confident are you that you can keep the physical discomfort or pain of your disease from interfering with the things you want to do? Select Number: 5 Emotional Distress: How confident are you that you can keep the emotional distress caused by your disease from interfering with the things you want to do? Select Number: 8 Other Symptoms or Health Problems: How confident are you that you can keep other symptoms or health problems from interfering with the things you want to do? Select Number: 9 Different Tasks and Activities: How confident are you that you can do the different tasks and activities needed to manage your health condition so as to reduce your need to see a doctor? Select Number: 9 Medication: How confident are you that you can do things other than just taking medication to reduce how much your illness affects your everyday life? Select Number: 9 Total Score:: 8 Nutrition Survey - Nutrition Survey Initial Have you lost >10 lbs over the past 2 months without trying?: Yes Are you following a special diet at home for diabetes, low fat, or low salt?: No Are you interested in meeting with a dietitian for help understanding your diet?: No Do you eat less than 3 meals a day?: Yes Do you eat fatty meats (espinoza, sausage, ribs, etc), fried foods, desserts, large amounts of salad dressings, margarine, butter, or cheese most days?: Yes Do you have food allergies? [Enter types in comment field]: No Do you eat in restaurants more than 3 times a week?: No Do you season food with salt, seasoning salt, or garlic salt?: Yes Do you used canned, boxed, frozen meals, or soups, seasoning packets?: No Total Score:: 4
[2021-06-25 13:54] VITALS: BP 106/72; PULSE 85; O2SAT 98; BMI 30.5
[2021-06-25 13:55] VITALS: BP 106/72; BMI 30.5
== END ==
PROVIDERS: PCP Family Medicine; Referring Provider Internal Medicine Cardiovascular Disease; Visit Provider Internal Medicine Cardiovascular Disease
DX: Z95.1 Presence of aortocoronary bypass graft (principal)

== ENCOUNTER 2021-06-30 15:35 | Outpatient (RCR) | payer OTHER, SELFPAY ==
[2021-06-25 13:55] VITALS: BMI 30.5
== END 2021-07-01 23:59 ==
LOC: CR 15:35
PROVIDERS: PCP Family Medicine; Referring Provider Internal Medicine Cardiovascular Disease; Visit Provider Internal Medicine Cardiovascular Disease
DX: I25.10 Atherosclerotic heart disease of native coronary artery without angina pectoris (principal); Z95.5 Presence of coronary angioplasty implant and graft; I10 Essential (primary) hypertension; Z95.1 Presence of aortocoronary bypass graft; I21.4 Non-ST elevation (NSTEMI) myocardial infarction
CPT/HCPCS: 93798

== ENCOUNTER 2021-07-04 15:15 | Outpatient (RCR) | payer OTHER, SELFPAY ==
[2021-06-25 13:55] VITALS: BMI 30.5
== END 2021-07-31 23:59 ==
LOC: CR 15:15
PROVIDERS: PCP Family Medicine; Referring Provider Internal Medicine Cardiovascular Disease; Visit Provider Internal Medicine Cardiovascular Disease
DX: I25.10 Atherosclerotic heart disease of native coronary artery without angina pectoris (principal); I25.2 Old myocardial infarction; Z95.1 Presence of aortocoronary bypass graft; I10 Essential (primary) hypertension; Z95.5 Presence of coronary angioplasty implant and graft
CPT/HCPCS: 93798

== ENCOUNTER 2021-09-07 11:52 | Emergency (ER) | payer OTHER, SELFPAY ==
[2021-06-25 13:55] VITALS: BMI 30.5
[2021-09-07 11:53] VITALS: BP 170/115; PULSE 96; RESP 16; TEMP 36.6; O2SAT 99; BMI 31.3
--- NOTE | 2021-09-07 12:06 | EX.ED.GENINJ ---
HPI History of Present Illness Chief Complaint: Laceration Informant: patient Onset/Context/Timing Onset: Today Location of pain/injuries: Left arm Current Severity: Mild Maximum Severity: Moderate Narrative Narrative: Patient presents with laceration to the proximal medial left arm. He states he got it caught on a wagon hook this morning. He is right-hand dominant. He states he initially had some paresthesias in his left arm but that is improved currently. [facility] Medical History Atherosclerotic heart disease of [place] coronary artery without angina pectoris Chest pain Dyspnea on exertion Essential (primary) hypertension Generalized abdominal discomfort Hernia, hiatal Kidney stone NSTEMI (non-ST elevated myocardial infarction) RACHEL (obstructive sleep apnea) Pure hypercholesterolemia Renal insufficiency Type II diabetes mellitus Unstable angina Unstable angina pectoris Home Medications atorvastatin 80 mg PO DAILY 12/15/16 [History Last Taken 05/08/21] aspirin 81 mg chewable tablet 81 mg PO DAILY #1 tab 10/14/20 [Rx Last Taken 05/08/21] clopidogrel 75 mg PO DAILY 12/11/20 [History Last Taken 05/08/21] ezetimibe 10 mg tablet 10 mg PO DAILY 05/19/21 [History Last Taken Unknown] furosemide 40 mg tablet 40 mg PO DAILY 05/19/21 [History Last Taken Unknown] acetaminophen 325 mg tablet 650 mg PO Q4H PRN tab 05/30/21 [History Last Taken Unknown] metoprolol tartrate 25 mg tablet 25 mg PO BID tab 06/13/21 [History Last Taken Unknown] pioglitazone 30 mg tablet 30 mg PO DAILY tab 06/13/21 [History Last Taken Unknown] sitagliptin 50 mg-metformin 1,000 mg tablet 1 tab PO BID 06/13/21 [History Last Taken Unknown] Allergy/AdvReac Type Severity Reaction Status Date / Time No Known Allergies Allergy Verified 09/07/21 11:55 Family History Mother CAD (coronary artery disease) Myocardial infarction, Onset Age: 46 Sister CAD (coronary artery disease) Sister CAD (coronary artery disease) Brother CAD (coronary artery disease) Surgical History History of bilateral inguinal hernia repair History of coronary artery bypass graft (05/15/21) History of eye surgery History of repair of hiatal hernia (~08/2018) Postsurgical percutaneous transluminal coronary angioplasty (PTCA) status Presence of stent in coronary artery (~05/25/17) Social History Smoking Status: Never smoker alcohol intake: never substance use type: does not use caffeine: No ROS ROS ED Constitutional Constitutional ED: Denies chills or fever(s) Eyes Eyes: Denies change in vision ENT ENT ED: Denies rhinorrhea or sore throat Cardiovascular Cardiovascular: Denies chest pain Respiratory/Chest Respiratory/Chest: Denies dyspnea Gastrointestinal Gastrointestinal: Denies abdominal pain Musculoskeletal Musculoskeletal: Reports myalgias Integumentary Reports other Details: Laceration left Neurologic Neurologic: Reports paresthesias; Denies weakness Allergic/Immunologic Allergic/Immunologic ED: Denies urticaria EXAM Physical Exam Const Vital Signs: 09/07/21 11:53 Temperature 97.9 F Temperature Source Temporal Pulse Rate 96 Respiratory Rate 16 Blood Pressure 170/115 H Blood Pressure Mean 133 Pulse Ox 99 Oxygen Delivery Method Room Air Positive well nourished and well developed General Appearance ED: well developed Eyes PERRL and EOMs intact bilaterally Neck full ROM Chest Wall inspection of chest normal and palpation of chest normal Resp normal respiratory effort and clear to auscultation bilaterally Cardio regular rhythm Rate: regular rate GI normal to inspection, nondistended, normoactive bowel sounds Extremity Extremity Narrative: 5 cm laceration on the medial aspect of the left upper inner arm. Mild bleeding noted. Full range of motion of left upper extremity. Strong distal pulses with normal sensation. Neuro oriented x3 Sensorium / Orientation: alert Skin Skin Narrative: Laceration as above PROC Procedures Lacerations Left upper arm laceration: Length: 1.97 in Depth: Sub Q Prep: [place] Laceration repair: Irrigated, Lidocaine and Local Number of Sutures/Kanika: 8 Suture Information: Ethilon, Simple and 4-0 Comment: Left upper extremity laceration anesthetized with 9 cc of 1% lidocaine. Wound cleansed and irrigated. Skin closed with 8 simple interrupted sutures of 4-0 nylon. MDM MDM MDM Narrative Medical decision making narrative: Tetanus update provided. Wound sutured. Please see procedure note. Treatment and Re-Evaluation Comments:: Wound care discussed. Patient to have sutures removed in 7 to 10 days. Discharge Plan Triage Chief Complaint: Laceration ED Provider: Danielle Delgado Dx/Rx/DC Orders Clinical Impression: Laceration of left upper arm Instructions: ED Laceration: All Closures Prescriptions: No Action aspirin 81 mg tablet,chewable 81 mg PO DAILY Qty: 1 RF: 0 pioglitazone 30 mg tablet 30 mg PO DAILY RF: 0 Janumet 50-1,000 mg tablet 1 tab PO BID RF: 0 ezetimibe 10 mg tablet 10 mg PO DAILY RF: 0 furosemide 40 mg tablet 40 mg PO DAILY RF: 0 metoprolol tartrate 25 mg tablet 25 mg PO BID RF: 0 atorvastatin 80 MG tablet 80 mg PO DAILY RF: 0 clopidogrel 75 MG tablet 75 mg PO DAILY RF: 0 acetaminophen 325 mg tablet 650 mg PO Q4H PRNRF: 0 Primary Care Provider: Pilo Aviles Referrals: Pilo Aviles MD [Primary Care Provider] - 10 Day for suture removal Disposition Disposition: Home, Self Care
[2021-09-07] MEDS: Lidocaine 1% (20 ml mdv) 20 ML Vial INFILT (12:13)
[2021-09-07] MEDS: Diphth,Pertuss(Acell),Tet Vac 0.5 ML Vial IM (12:13)
== END 2021-09-07 12:40 | disposition home or self-care (01) ==
PROVIDERS: Emergency Provider Emergency Medicine; PCP Family Medicine
DX: S41.112A Laceration without foreign body of left upper arm, initial encounter (principal); I25.110 Atherosclerotic heart disease of native coronary artery with unstable angina pectoris; I25.2 Old myocardial infarction; X58.XXXA Exposure to other specified factors, initial encounter
CPT/HCPCS: 12001; 90715; 96372; 99283

== ENCOUNTER 2021-12-19 21:46 | Emergency (ER) | payer OTHER, SELFPAY ==
[2021-06-25 13:55] VITALS: BMI 30.5
[2021-12-19 21:47] VITALS: BP 163/89; PULSE 85; RESP 16; TEMP 36.1; O2SAT 98; BMI 34.4
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
--- NOTE | 2021-12-19 22:45 | RAD_ITS ---
STUDY: X-RAY - RIGHT HAND, ATTENTION FIFTH FINGER REASON FOR EXAM: Male, 61 years old. trauma pain -- 5th finger TECHNIQUE: 3 view(s) of the finger were obtained. COMPARISON: None. FINDINGS: Normal metacarpal head. Normal metacarpophalangeal joint. Normal proximal phalanx. Normal middle phalanx. Normal distal phalanx. Normal proximal interphalangeal joint. Normal distal interphalangeal joint. RAD/Finger(s) Min 2 Views IMPRESSION: Normal x-ray examination of the finger. Electronically Signed: Jaspreet Baez DO at 23:15 EST ,
== END 2021-12-19 23:31 | disposition home or self-care (01) ==
PROVIDERS: Emergency Provider Emergency Medicine; PCP Family Medicine; Visit Provider Emergency Medicine
DX: S63.616A Unspecified sprain of right little finger, initial encounter (principal); E11.9 Type 2 diabetes mellitus without complications; S60.041A Contusion of right ring finger without damage to nail, initial encounter; I25.10 Atherosclerotic heart disease of native coronary artery without angina pectoris; I10 Essential (primary) hypertension; E78.00 Pure hypercholesterolemia, unspecified; G47.33 Obstructive sleep apnea (adult) (pediatric); I25.2 Old myocardial infarction; Z95.5 Presence of coronary angioplasty implant and graft; X58.XXXA Exposure to other specified factors, initial encounter; Z79.82 Long term (current) use of aspirin; Z79.84 Long term (current) use of oral hypoglycemic drugs; Z79.899 Other long term (current) drug therapy
CPT/HCPCS: 73140; 99282

== ENCOUNTER 2022-01-29 14:12 | Outpatient (CLI) | payer OTHER, SELFPAY ==
[2021-06-25 13:55] VITALS: BMI 30.5
[2022-01-29 15:46] LABS: Anion Gap 5 (5-15); BUN 23 mg/dL (7-18); BUN/Creat Ratio 20.4 RATIO (10-20); Calcium,Total 9.1 mg/dL (8.5-10.1); Chloride 108 mmol/L (98-107); Cholesterol 144 mg/dL (200); Creatinine, Serum 1.13 mg/dL (0.70-1.30); EST Glomerular Filtration Rate 70 mL/min (>60); Est Glom Filt Rate - Afr Amer 85 mL/min (>60); Glucose 113 mg/dL (74-106); High Density Lipoprotein 37 mg/dL; Potassium 4.3 mmol/L (3.5-5.1); Sodium Level 139 mmol/L (136-145); Triglycerides 168 mg/dL; Very Low Density Lipoprotein 34 mg/dL (5-40)
== END 2022-01-29 23:59 | disposition home or self-care (01) ==
LOC: MFPLAB 14:16
PROVIDERS: PCP Family Medicine; Referring Provider Family Medicine; Visit Provider Family Medicine
DX: N52.9 Male erectile dysfunction, unspecified (principal); E11.9 Type 2 diabetes mellitus without complications
CPT/HCPCS: 36415; 80048; 80061; 84403

== ENCOUNTER → 2022-05-16 | Outpatient (CLI) | payer OTHER, SELFPAY ==
[2021-06-25 13:55] VITALS: BMI 30.5
[2022-05-16 09:16] LABS: Anion Gap 6 (5-15); BUN 18 mg/dL (7-18); BUN/Creat Ratio 14.4 RATIO (10-20); Calcium,Total 9.2 mg/dL (8.5-10.1); Chloride 107 mmol/L (98-107); Cholesterol 135 mg/dL (200); Creatinine, Serum 1.25 mg/dL (0.70-1.30); EST Glomerular Filtration Rate 63 mL/min (>60); Est Glom Filt Rate - Afr Amer 76 mL/min (>60); Glucose 198 mg/dL (74-106); High Density Lipoprotein 37 mg/dL; Potassium 4.4 mmol/L (3.5-5.1); Sodium Level 139 mmol/L (136-145); Triglycerides 145 mg/dL; Very Low Density Lipoprotein 29 mg/dL (5-40)
== END | disposition home or self-care (01) ==
LOC: LAB 07:22
PROVIDERS: PCP Family Medicine; Referring Provider Family Medicine; Visit Provider Family Medicine
DX: E11.9 Type 2 diabetes mellitus without complications (principal)
CPT/HCPCS: 36415; 80048; 80061

== ENCOUNTER → 2022-06-11 | Outpatient (CLI) | payer OTHER, SELFPAY ==
[2021-06-25 13:55] VITALS: BMI 30.5
--- NOTE | 2022-06-11 16:10 | RAD_ITS ---
INDICATION: Dyspnea EXAMINATION/TECHNIQUE: X-RAY - XR Chest 2 Views COMPARISON: Chest radiograph from 05/08/2021 FINDINGS: Support devices: None. No focal consolidations, effusions, or sizable pneumothorax. Scattered chronic fibrotic changes, predominantly in the lung bases. Cardiomediastinal silhouette is within normal limits. Midline sternotomy postoperative changes with intact appearance of the cerclage wires. No acute findings in the bones or soft tissues. RAD/Chest PA and Lateral IMPRESSION: No radiographic evidence of acute cardiopulmonary disease. Electronically Signed: Donovan Reardon, at 9:25 EDT ,
[2022-06-11 16:47] LABS: Absolute Lymphocyte Count 1.93 X10^3/uL (0.83-4.51); Absolute Neutrophil Count 5.2 X10^3/uL (2.0-7.7); Basophil# 0.03 X10^3/uL; Basophil% 0.4 % (0-1); Eosinophil# 0.16 X10^3/uL; Hematocrit 43.7 % (40-54); Hemoglobin 14.6 g/dL (13.0-16.5); Lymphocyte # 1.93 X10^3/ul (0.83-4.51); Mean Corp Hgb Conc 33.4 g/dL (32-36); Mean Corpuscular Hgb 27.4 pg (27.0-32.0); Mean Corpuscular Volume 82.1 fL (80-94); Mean Platelet Vol. 11.1 fl (6.2-12.0); Monocyte# 0.73 X10^3/uL; Monocyte% 9.1 % (0-10); NRBC Flagged by Analyzer 0 % (0-5); Neutrophil # 5.17 X10^3/uL (2.7-7.7); Neutrophil % 64.4 % (47-70); Platelet Count 176 K/mm3 (150-450); RBC Distribution Width CV 13.9 % (11.6-14.6); RBC Distribution Width SD 41.1 fl (35.1-43.9); Red Blood Count 5.32 M/mm3 (4.6-6.2)
[2022-06-11 17:11] LABS: Anion Gap 6 (5-15); BNP,B-Type NATRIURETIC PEPTIDE 10.8 pg/mL (0-100); BUN 20 mg/dL (7-18); BUN/Creat Ratio 14.6 RATIO (10-20); Calcium,Total 9.3 mg/dL (8.5-10.1); Chloride 107 mmol/L (98-107); Creatinine, Serum 1.37 mg/dL (0.70-1.30); EST Glomerular Filtration Rate 56 mL/min (>60); Est Glom Filt Rate - Afr Amer 68 mL/min (>60); Glucose 204 mg/dL (74-106); Potassium 4.1 mmol/L (3.5-5.1); Sodium Level 138 mmol/L (136-145)
== END | disposition home or self-care (01) ==
LOC: RAD 16:08
PROVIDERS: PCP Family Medicine; Visit Provider Nurse Practitioner Gerontology
DX: R06.00 Dyspnea, unspecified (principal)
CPT/HCPCS: 36415; 71046; 80048; 83880; 85025

== ENCOUNTER → 2022-06-13 | Outpatient (CLI) | payer OTHER, SELFPAY ==
[2021-06-25 13:55] VITALS: BMI 30.5
[2022-06-13 09:57] LABS: D-Dimer Quantitative (DVT/PE) < 0.27 FEU/ug/m (0.27-0.49)
== END | disposition home or self-care (01) ==
PROVIDERS: PCP Family Medicine; Referring Provider Nurse Practitioner Gerontology; Visit Provider Nurse Practitioner Gerontology
DX: R06.00 Dyspnea, unspecified (principal)
CPT/HCPCS: 36415; 85379

== ENCOUNTER → 2022-06-25 | Outpatient (CLI) | payer OTHER, SELFPAY ==
[2021-06-25 13:55] VITALS: BMI 30.5
--- NOTE | 2022-06-25 07:00 | ECHOCS_ITS ---
Reason For Study: DYSPNEA Procedure This was a 2D Doppler, Color Flow transthoracic echocardiogram. The study was technically difficult. Contrast injection was performed. Exam performed in department. Left Ventricle Normal LV size. Segmental dysfunction with preserved ejection fraction (see wall motion). The estimated ejection fraction is 60 %. No evidence for diastolic dysfunction. No regional wall motion abnormalities noted. Right Ventricle Normal RV size. Normal systolic function. Atria Normal left atrium. The right atrium is mildly enlarged. No doppler evidence for ASD. Mitral Valve There is no mitral annular calcification. The mitral valve is structurally normal. No prolapse or stenosis seen. Mild (1+) mitral valve insufficiency. Tricuspid Valve Normal tricuspid valve. Trivial tricuspid valve insufficiency. Unable to estimate RV systolic pressure due to insufficient tricuspid regurgitant envelope. Aortic Valve Normal aortic valve. Trivial aortic valve insufficiency. Pulmonic Valve The pulmonic valve is not well visualized. Great Vessels Normal sized aortic root. Pericardium/Pleural No pericardial effusion. Medication 22 gauge I.V. with prn adaptor inserted into right arm. Diluted definity 2ml given slow IV push to enhance endocardial definition. MMode/2D Measurements & Calculations LVIDd: 5.0 cm IVSd: 0.94 cm Ao root diam: 3.4 cm LVIDs: 3.1 cm LVPWd: 1.2 cm FS: 37.5 % LAV(MOD-bp): 52.8 ml LVAd ap4: 36.2 cm2 SV(MOD-sp4): 80.4 ml LAV(MOD-bp) Indexed: 23.4 ml/m2 LVLd ap4: 9.0 cm LAV(MOD-sp2): 52.2 ml EDV(MOD-sp4): 117.5 ml LAV(MOD-sp4): 45.6 ml EDV(sp4-el): 122.8 ml LVAs ap4: 19.1 cm2 LVLs ap4: 8.0 cm ESV(MOD-sp4): 37.1 ml ESV(sp4-el): 39.1 ml EF(MOD-sp4): 68.5 % EF(sp4-el): 68.2 % SV(sp4-el): 83.8 ml LA A4 area: 18.7 cm2 LA dimension(2D): 4.1 cm RA A4 area: 22.5 cm2 Time Measurements MV dec time: 0.31 sec Doppler Measurements & Calculations MV E max bonilla: 57.9 cm/sec Lat Peak E' Bonilla: 7.6 cm/sec Med Peak E' Bonilla: 5.1 cm/sec MV A max bonilla: 64.7 cm/sec E/E' lat: 7.7 E/E' med: 11.3 MV E/A: 0.89 MV V2 max: 69.7 cm/sec MV dec slope: 190.6 cm/sec2 Ao V2 max: 99.6 cm/sec MV max P.9 mmHg Ao max P.0 mmHg MV V2 mean: 37.6 cm/sec Ao V2 mean: 69.3 cm/sec MV mean P.67 mmHg Ao mean P.2 mmHg MV V2 VTI: 23.2 cm Ao V2 VTI: 22.3 cm LV V1 max: 75.7 cm/sec PA V2 max: 60.8 cm/sec LV V1 max P.3 mmHg LV V1 mean P.3 mmHg LV V1 mean: 54.9 cm/sec LV V1 VTI: 17.5 cm ECHO/Echo Complete W/ Contrast Interpretation Summary This study was technically difficult. Contrast injection was perfomed. Segmental dysfunction with preserved ejection fraction (see wall motion). The estimated ejection fraction is 60 %. The right atrium is mildly enlarged. Mild (1+) mitral valve insufficiency. Trivial tricuspid valve insufficiency. Trivial aortic valve insufficiency. Unable to estimate RV systolic pressure due to insufficient tricuspid regurgita nt envelope. No evidence for diastolic dysfunction. Ordering Physician: Roxana Gongora Referring Physician: Roxana Gongora Performed By: Nandini Deras RCS
--- NOTE | 2022-06-25 09:42 | STRESSREP_ITS ---
Stress Test Report Date: 06/25/2022 Procedure: Exercise tolerance test/imaging study Indications: Dypnea on exertion; CAD; PCI; CABG Consent: Per the patient Procedure: The patient exercised on a Jason protocol for 05:53 minutes completing Stage I and 2 minutes 53 seconds of Stage II achieving a peak heart rate of 117 bpm (73% predicted maximal heart rate) with a peak blood pressure 170/82 mmHg and a peak MET capacity of 7 METs. The baseline ECG demonstrated normal sinus rhythm; right bundle branch block. The peak exercise ECG demonstrated continued right bundle branch block pattern. There were no cardiac dysrhythmias pretest, during exercise, or recovery. The functional capacity was considered average. There was no complaint of chest discomfort during exercise or recovery. The examination was discontinued secondary to chest discomfort, dyspnea, and lightheadedness. Impression: 1. Technically adequate (percent predicted maximal heart rate greater than 85%) exercise tolerance test 2. Peak exercise ECG with continued right bundle branch block pattern 3. There were no cardiac dysrhythmias pretest, during exercise, or recovery 4. Pharmacologic (Regadenoson) evaluation pending Procedure: Pharmacologic stress nuclear imaging study Consent: Per the patient Procedure: The patient underwent pharmacologic (Regadenoson 0.4mg ) evaluation with a peak heart rate of 90 beats per minute (56%predicted maximal heart rate) and a peak blood pressure of 128/88 mmHg. The baseline ECG demonstrated normal sinus rhythm; right bundle branch block pattern. The peak pharmacologic ECG demonstrated continued right bundle branch block pattern. There were no cardiac dysrhythmias pretest, during pharmacologic infusion, or recovery. There was no complaint of chest discomfort during pharmacologic infusion or recovery. The examination was discontinued secondary to completion of protocol. Impression: 1. Pharmacologic (Regadenoson) evaluation 2. Peak pharmacologic ECG with continued right bundle branch block pattern. 3. There were no cardiac dysrhythmias pretest, during pharmacologic infusion, or recovery. 4. Nuclear images pending Myocardial perfusion imaging study: Technique: The patient was injected with 14.8 millicuries of technetium 99m Cardiolite and subsequently rest SPECT Cardiolite nuclear imaging was obtained in the horizontal long, vertical long, and short axis views. The patient exercised on a Jason protocol for 05:53 minutes completing Stage I and 2 minutes 53 seconds of Stage II achieving a peak heart rate of 117 bpm (73% predicted maximal heart rate) with a peak blood pressure 170/82 mmHg and a peak MET capacity of 7 METs. The patient underwent pharmacologic (Regadenoson) evaluation with a peak heart rate of 90 beats per minute (56% percent predicted maximal heart rate) and a peak blood pressure of 128/80 mmHg. The patient was injected with 44.3 millicuries of technetium 99m Cardiolite and subsequently stress SPECT Cardiolite nuclear imaging was obtained in the horizontal long, vertical long, and short axis views. A gated Cardiolite study at peak stress was obtained. Interpretation: Rest and stress SPECT Cardiolite nuclear imaging status post realignment, normalization, and attenuation correction demonstrate at rest the appearance of relative uniform tracer uptake and myocardial perfusion appearing within normal limits. Status post stress there is notation of diminished myocardial perfusion/tracer uptake in portions of the distal inferior/inferior apical segments. There is end-systolic thickening and brightening. The gated Cardiolite study demonstrates myocardial thickening and inward wall motion.. The reported LVEF is 56%. Impression: 1. Rest and stress SPECT her nuclear imaging demonstrate myocardial perfusion changes compatible with an area of stress-induced myocardial ischemia involving portions of the distal inferior/inferior apical segments. 2. The gated Cardiolite study reports an LVEF of 56%. This note was generated with [employer] software. It may contain incorrect words, spelling, and punctuation that were not noted in checking the note before signing.
== END | disposition home or self-care (01) ==
LOC: CVS 06:59
PROVIDERS: PCP Family Medicine; Referring Provider Nurse Practitioner Gerontology; Visit Provider Nurse Practitioner Gerontology
DX: R06.00 Dyspnea, unspecified (principal); I25.10 Atherosclerotic heart disease of native coronary artery without angina pectoris; R06.02 Shortness of breath; Z95.1 Presence of aortocoronary bypass graft; Z95.5 Presence of coronary angioplasty implant and graft
CPT/HCPCS: 78452; 93017; 93306; A9500; Q9957; A4216; C8929; J2785

== ENCOUNTER → 2022-08-22 | Outpatient (CLI) | payer OTHER, SELFPAY ==
[2021-06-25 13:55] VITALS: BMI 30.5
[2022-08-22 08:58] LABS: Anion Gap 7 (5-15); BUN 19 mg/dL (7-18); BUN/Creat Ratio 16.1 RATIO (10-20); Calcium,Total 9.1 mg/dL (8.5-10.1); Chloride 109 mmol/L (98-107); Cholesterol 118 mg/dL (200); Creatinine, Serum 1.18 mg/dL (0.70-1.30); EST Glomerular Filtration Rate 67 mL/min (>60); Est Glom Filt Rate - Afr Amer 81 mL/min (>60); Glucose 169 mg/dL (74-106); High Density Lipoprotein 37 mg/dL; Potassium 4.2 mmol/L (3.5-5.1); Sodium Level 140 mmol/L (136-145); Triglycerides 116 mg/dL; Very Low Density Lipoprotein 23 mg/dL (5-40)
== END | disposition home or self-care (01) ==
LOC: LAB 07:16
PROVIDERS: PCP Family Medicine; Referring Provider Family Medicine; Visit Provider Family Medicine
DX: E11.9 Type 2 diabetes mellitus without complications (principal)
CPT/HCPCS: 36415; 80048; 80061

== ENCOUNTER → 2022-12-03 | Outpatient (CLI) | payer OTHER, SELFPAY ==
[2021-06-25 13:55] VITALS: BMI 30.5
--- NOTE | 2022-12-03 16:20 | RAD_ITS ---
INDICATION: KNEE PAIN RIGHT KNEE PAIN FOR MONTHS. NO INJURY. EXAMINATION/TECHNIQUE: X-RAY - RIGHT XR Knee Complete 4 Views or More 4 VIEWS COMPARISON: None. FINDINGS: BONES: No fracture demonstrated. Degenerative changes with joint space narrowing and osteophytes most pronounced at the patellofemoral and medial joint compartments. JOINTS: No dislocation. SOFT TISSUES: Unremarkable. Arterial calcifications. RAD/Knee 4 or More Views IMPRESSION: Degenerative changes. No evidence of fracture. Electronically Signed: Afua Lemus MD at 8:00 EST ,
== END | disposition home or self-care (01) ==
LOC: MTRAD 16:18
PROVIDERS: PCP Family Medicine; Referring Provider Family Medicine; Visit Provider Family Medicine
DX: M25.561 Pain in right knee (principal)
CPT/HCPCS: 73564

== ENCOUNTER → 2023-03-11 | Outpatient (CLI) | payer OTHER, SELFPAY ==
[2021-06-25 13:55] VITALS: BMI 30.5
[2023-03-11 15:23] LABS: Hemoglobin 14.4 g/dL (13.0-16.5); Mean Corp Hgb Conc 32.7 g/dL (32-36); Mean Corpuscular Hgb 27.5 pg (27.0-32.0); Mean Platelet Vol. 11.5 fl (6.2-12.0); Platelet Count 172 K/mm3 (150-450); RBC Distribution Width CV 13.9 % (11.6-14.6); RBC Distribution Width SD 42.7 fl (35.1-43.9); Red Blood Count 5.24 M/mm3 (4.6-6.2); White Blood Count 6.7 K/mm3 (4.4-11.0)
[2023-03-11 15:35] LABS: Anion Gap 6 (5-15); BUN 18 mg/dL (7-18); BUN/Creat Ratio 15.3 RATIO (10-20); Calcium,Total 8.9 mg/dL (8.5-10.1); Chloride 108 mmol/L (98-107); Cholesterol 132 mg/dL (200); Creatinine, Serum 1.18 mg/dL (0.70-1.30); EST Glomerular Filtration Rate 67 mL/min (>60); Est Glom Filt Rate - Afr Amer 81 mL/min (>60); Glucose 158 mg/dL (74-106); High Density Lipoprotein 41 mg/dL; Sodium Level 137 mmol/L (136-145); Triglycerides 150 mg/dL; Very Low Density Lipoprotein 30 mg/dL (5-40)
== END | disposition home or self-care (01) ==
LOC: MTLAB 11:36
PROVIDERS: PCP Family Medicine; Referring Provider Family Medicine; Visit Provider Family Medicine
DX: I10 Essential (primary) hypertension (principal); R42 Dizziness and giddiness
CPT/HCPCS: 36415; 80048; 80061; 85027

== ENCOUNTER 2023-03-15 07:28 | Day surgery (SDC) | payer OTHER, SELFPAY ==
[2021-06-25 13:55] VITALS: BMI 30.5
[2023-03-12 14:15] VITALS: BMI 33.9
--- NOTE | 2023-03-12 14:35 | RAD_ITS ---
HISTORY: Cardiac Catheterization. TECHNIQUE: XR Chest 2 Views. COMPARISON: 06/11/2022. FINDINGS: CARDIOMEDIASTINAL BORDERS: Cardiac silhouette within normal limits in size. Mediastinal contour unremarkable with calcification of the aortic knob and midline sternotomy. LUNGS: Chronic calcified granuloma in the right upper lobe. Low lung volumes with chronic mild atelectasis and scarring in the lung bases. PLEURA: No pleural effusion or pneumothorax seen. OSSEOUS STRUCTURES: Degenerative change. OTHER: Gaseous distention of bowel in the upper abdomen. RAD/Chest PA and Lateral IMPRESSION: No acute cardiopulmonary process identified. Electronically Signed: Mayte Mcginnis MD at 14:36 EDT ,
--- NOTE | 2023-03-19 14:21 | CL.D_ITS ---
Patient Name: ARLEEN NAJERA Study Date: 03/15/2023 Performing: Hao Lacy MD Ht: 70 inches 177.8 cm : 1960 Wt: 236.8 lbs 107.27 kg Age: 62 Gender: male BSA: 2.24 PROCEDURE(S) PERFORMED [id number])LHC/COR/CABG CLINICAL PROFILE AND INDICATIONS Indications: Worsening Angina Heart Failure: None Stress/Imaging Date: 06/22/22 CAD Presentations: Unstable angina. CONCLUSIONS Severe [place] coronary artery disease involving severe disease of the distal right coronary artery in the proximal left anterior descending artery. The right coronary artery previously had 2 PCI attempts which were unsuccessful and the LAD is bypassed. RECOMMENDATIONS Medical therapy DESCRIPTION OF PROCEDURE The patient arrived to the procedure lab. The risks and benefits of the procedure as well as a full description of our services here and current unavailability of surgical backup were fully explained to the patient and/or their significant other prior to the catheterization. The Timeout was completed, verifying the correct patient and procedure. The patient's procedural site was prepped and draped in the usual fashion. Local anesthetic was given subcutaneously to left radial region with Lidocaine 2%. Using a modified Seldinger technique, arterial access was obtained via the left radial artery, a 6Fr sheath was inserted. Left internal mammary artery graft to the LAD selective angiography was performed in multiple views using a 5 Fr. IM catheter. Left Coronary Artery selective angiography was performed in multiple views using a 5 Fr. JL3.5 catheter. Right Coronary Artery selective angiography was then performed in multiple views using a 5 Fr. 3DRC (Kieran) catheter.The arterial sheath was pulled and a TR Band was applied for hemostasis. 8cc of air CORONARY ANGIOGRAPHY DOMINANCE: Right Dominant LEFT HEART ASSESSMENT Left Ventricular Ejection Fraction: by Echo 60 % Normal LV wall motion Normal Left Ventricular systolic function LEFT MAIN: Mild calcification, No significant disease noted LEFT ANTERIOR DESCENDING ARTERY: Severely diseased vessel previously stented with a proximal 80% stenosis and an area of long in-stent stenosis. First diagonal with an ostial 80%, a second diagonal which is larger with diffuse 80% stenosis CIRCUMFLEX ARTERY: Nondominant left circumflex artery with tiny first obtuse marginal branch and a second obtuse marginal branch with a bifurcating 50% stenosis in the AV groove branch with mild disease RIGHT CORONARY ARTERY: Previously stented large dominant vessel. Proximal stent with minimal in-stent stenosis mid segment with 30% stenosis the mid to distal stent is patent, bifurcation of the PDA and PL with 60% stenosis and then is subtotally occluded mid PDA and a high-grade distal PL stenosis GRAFTS: WHITAKER graft to the Mid LAD is patent COMPLICATIONS No Complications PROCEDURE MEDICATIONS Fentanyl 50 mcg IV Versed 1 mg IV Versed 1 mg IV Oxygen: 2 L/min via nasal cannula Heparin given IA 03/15/2023 08:52:45 Verapamil 2.5mg, Ntg 100mcgs, 3000 units of Heparin given IA 03/15/2023 08:52:45 SUMMARY OF HEMODYNAMIC DATA Time AIR REST ECG 07:50:13 Art 142/70 (94) 08:57:14 AO 149/65 (97) SA 09:03:55 ECG 09:35:58 AIR REST 09:38:21 Signed By Hao Lacy MD On 03/19/2023 14:20:06 Hao Lacy MD
== END 2023-03-15 11:00 | disposition home or self-care (01) ==
LOC: CLSP 07:29
PROVIDERS: PCP Family Medicine; Referring Provider Internal Medicine Cardiovascular Disease; Visit Provider Internal Medicine Cardiovascular Disease
DX: I25.110 Atherosclerotic heart disease of native coronary artery with unstable angina pectoris (principal); E11.9 Type 2 diabetes mellitus without complications; I25.2 Old myocardial infarction; G47.33 Obstructive sleep apnea (adult) (pediatric); E78.00 Pure hypercholesterolemia, unspecified; E66.9 Obesity, unspecified; Z95.1 Presence of aortocoronary bypass graft; Z95.5 Presence of coronary angioplasty implant and graft; Z79.82 Long term (current) use of aspirin; Z79.84 Long term (current) use of oral hypoglycemic drugs; Z79.899 Other long term (current) drug therapy; Z68.33 Body mass index [BMI] 33.0-33.9, adult
CPT/HCPCS: 71046; 93455; 93459; 99152; 99153; C1894; J7040; C1769; Q9967

== ENCOUNTER → 2023-04-27 | Outpatient (CLI) | payer OTHER, SELFPAY ==
[2021-06-25 13:55] VITALS: BMI 30.5
[2023-04-27 11:43] LABS: Absolute Lymphocyte Count 1.63 X10^3/uL (0.83-4.51); Absolute Neutrophil Count 5.1 X10^3/uL (2.0-7.7); Basophil# 0.04 X10^3/uL; Basophil% 0.5 % (0-1); Eosinophil# 0.16 X10^3/uL; Eosinophils% 2.1 % (0-5); Hematocrit 45.6 % (40-54); Hemoglobin 14.5 g/dL (13.0-16.5); Lymphocyte # 1.63 X10^3/ul (0.83-4.51); Lymphocyte % 21.2 % (19-41); Mean Corp Hgb Conc 31.8 g/dL (32-36); Mean Corpuscular Hgb 27.7 pg (27.0-32.0); Mean Corpuscular Volume 87.2 fL (80-94); Mean Platelet Vol. 11.3 fl (6.2-12.0); Monocyte% 9.1 % (0-10); NRBC Flagged by Analyzer 0 % (0-5); Neutrophil # 5.13 X10^3/uL (2.7-7.7); Neutrophil % 66.6 % (47-70); Platelet Count 206 K/mm3 (150-450); RBC Distribution Width CV 13.6 % (11.6-14.6); RBC Distribution Width SD 43.4 fl (35.1-43.9); Red Blood Count 5.23 M/mm3 (4.6-6.2); White Blood Count 7.7 K/mm3 (4.4-11.0)
[2023-04-27 12:08] LABS: Vitamin D,25 Hydroxy 32.6 ng/mL
[2023-04-27 12:26] LABS: Free T3 2.5 pg/mL (2.18-3.98); T4 Free Direct 0.83 ng/dL (0.76-1.46); Thyroid Stim Hormone (TSH) 0.63 uIU/mL (0.358-3.74)
== END | disposition home or self-care (01) ==
LOC: LAB 11:14
PROVIDERS: PCP Family Medicine; Referring Provider Nurse Practitioner Gerontology; Visit Provider Nurse Practitioner Gerontology
DX: R53.83 Other fatigue (principal)
CPT/HCPCS: 36415; 82306; 84439; 84443; 84481; 85025

== ENCOUNTER 2023-09-12 19:15 | Emergency (ER) | payer OTHER, SELFPAY ==
[2021-06-25 13:55] VITALS: BMI 30.5
[2023-09-12 19:16] VITALS: BP 173/100; PULSE 84; RESP 18; TEMP 36.6; O2SAT 98; BMI 32.9
--- NOTE | 2023-09-12 19:24 | EDS_ITS ---
<Statement entered by Danielle Delgado MD - 09/12/23 22:21> I have personally performed a face to face assessment of the patient and have reviewed the MARY Note. Patient presents secondary to right foot injury. 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 He complains of pain across the top of his right foot. Patient sitting upright in bed no acute distress. Lower extremity examination reveals mild edema and tenderness over the dorsal aspect of the foot. Good cap refill and sensation noted distally. No tenderness at the ankle or knee. Right foot x-rays from interpretation reveal nondisplaced transverse fracture along the proximal second metatarsal. Test results were discussed with podiatry. Patient given walking boot and crutches. Patient will follow-up with podiatry. Return instructions given. HPI History of Present Illness Chief Complaint: Lower Extremity Injury Narrative Narrative: Patient presents with a right foot injury. A metal gate was knocked over onto his foot and a cow stepped on top of it. He has bruising and swelling to the top of the foot but is able to ambulate. No weakness or paresthesias. [facility] Medical History Atherosclerotic heart disease of [place] coronary artery without angina pectoris Chest pain Dyspnea on exertion Essential (primary) hypertension Generalized abdominal discomfort Hernia, hiatal Kidney stone NSTEMI (non-ST elevated myocardial infarction) RACHEL (obstructive sleep apnea) Pure hypercholesterolemia Renal insufficiency Type II diabetes mellitus Unstable angina Unstable angina pectoris Home Medications atorvastatin 80 mg tablet 80 mg PO DAILY lower chloesterol 12/15/16 [History Last Taken 05/08/21] aspirin 81 mg chewable tablet 81 mg PO DAILY #1 TAB 10/14/20 [Rx Last Taken 03/15/23] clopidogrel 75 mg tablet 75 mg PO DAILY antiplatelet 12/11/20 [History Last Taken 03/15/23] ezetimibe 10 mg tablet 10 mg PO DAILY 05/19/21 [History Last Taken Unknown] acetaminophen 325 mg tablet 650 mg PO Q4H PRN Pain 05/30/21 [History Last Taken Unknown] metoprolol tartrate 25 mg tablet 25 mg PO BID 06/13/21 [History Last Taken 03/15/23] pioglitazone 30 mg tablet 30 mg PO DAILY 06/13/21 [History Last Taken Unknown] sitagliptin phosphate 50 mg-metformin 1,000 mg tablet (Janumet) 1 tab PO BID 06/13/21 [History Last Taken Unknown] glimepiride 4 mg tablet 4 mg PO DAILY 03/12/23 [History Last Taken Unknown] isosorbide mononitrate 30 mg tablet,extended release 24 hr 60 mg PO DAILY 03/12/23 [History Last Taken Unknown] nitroglycerin 0.4 mg sublingual tablet 0.4 mg sublingual Q5-15M PRN chest pain #25 tabs 03/12/23 [Rx Last Taken Unknown] pantoprazole 40 mg tablet,delayed release 40 mg PO DAILY 03/12/23 [History Last Taken Unknown] ranolazine 1,000 mg tablet,extended release,12 hr 1,000 mg PO BID take with food #180 tabs 05/12/23 [Rx Last Taken Unknown] Allergy/AdvReac Type Severity Reaction Status Date / Time No Known Allergies Allergy Verified 09/12/23 19:18 Family History Mother CAD (coronary artery disease) Myocardial infarction, Onset Age: 46 Sister CAD (coronary artery disease) Sister CAD (coronary artery disease) Brother CAD (coronary artery disease) Surgical History History of bilateral inguinal hernia repair History of coronary artery bypass graft (05/15/21) History of eye surgery History of repair of hiatal hernia (~08/2018) Postsurgical percutaneous transluminal coronary angioplasty (PTCA) status Presence of stent in coronary artery (~05/25/17) Social History Smoking Status: Never smoker alcohol intake: never substance use type: does not use caffeine: No ROS ROS ED ROS Narrative Neuro: Negative for motor/sensory dysfunction. Skin: Negative for wound. Musc: Positive for foot pain, swelling, trauma. EXAM Physical Exam Narrative Exam Narrative: CONST: Patient sitting in no acute distress. EYES: Normal inspection. NECK: Normal inspection. SKIN: Color normal, no rash, warm, dry, intact. EXTREMITIES: Soft tissue swelling, tenderness, and bruising over right dorsal foot. No tenderness of the ankle or digits. Full ROM, normal strength and DF/PF, normal sensation, 2+ DP pulse. NEURO: Oriented x4. PSYCH: Normal affect. Const Vital Signs: 09/12/23 19:16 Temperature 97.9 F Temperature Source Temporal Pulse Rate 84 Respiratory Rate 18 Blood Pressure 173/100 H Blood Pressure Mean 124 Pulse Ox 98 Oxygen Delivery Method Room Air MDM MDM MDM Narrative Medical decision making narrative: Patient has traumatic left foot injury and has bruising, swelling and tenderness over the dorsal foot. Ankle nontender. Neurovascularly intact. X-ray shows nondisplaced fracture at the base of the second metatarsal bone. I spoke with on-call podiatry Dr. Cooper to discuss weightbearing status as the patient already receiving IV culture. He recommended a walking boot, crutches, and to try to be nonweightbearing initially for the first week until he follows up in the office. Patient was given these instructions. He is comfortable using ice and OTC pain relievers and declined narcotics. He was discharged in stable condition. Radiography Diagnostic Testing: Clinical Impression(s) from Imaging Studies Foot X-Ray 09/12/23 19:25 IMPRESSION: Nondisplaced fracture of the base of the second metatarsal bone. Electronically Signed: Apolinar Mishra MD at 19:38 EST Reading Location ID and State: [facility] / [place] , Service support , ED attending interpretation of left foot x-ray shows a nondisplaced fracture at the base of the second metatarsal Discharge Plan Triage Chief Complaint: Lower Extremity Injury ED Midlevel Provider: Shanita Watkins ED Provider: Danielle Delgado Dx/Rx/DC Orders Clinical Impression: Closed fracture of second metatarsal bone of right foot Instructions: ED Fracture, Foot Prescriptions: No Action aspirin 81 mg tablet,chewable 81 mg PO DAILY Qty: 1 0RF pioglitazone 30 mg tablet 30 mg PO DAILY Janumet 50-1,000 mg tablet 1 tab PO BID ezetimibe 10 mg tablet 10 mg PO DAILY metoprolol tartrate 25 mg tablet 25 mg PO BID pantoprazole 40 mg tablet,delayed release (DR/EC) 40 mg PO DAILY glimepiride 4 mg tablet 4 mg PO DAILY nitroglycerin 0.4 mg tablet, sublingual 0.4 mg sublingual Q5-15M PRN (Reason: chest pain) Qty: 25 3RF Rx Instructions: do not exceed 3 doses per episode isosorbide mononitrate 30 mg tablet extended release 24 hr 60 mg PO DAILY atorvastatin 80 MG tablet 80 mg PO DAILY clopidogrel 75 MG tablet 75 mg PO DAILY acetaminophen 325 mg tablet 650 mg PO Q4H PRN (Reason: Pain) ranolazine 1,000 mg tablet extended release 12 hr 1,000 mg PO BID Qty: 180 3RF Primary Care Provider: Pilo Aviles Referrals: Greg Cooper DPM [Med Staff - Active Staff] - Pilo Aviels MD [Primary Care Provider] - Activity Restrictions/Additional Instructions: Ice, rest, and keep your weight off of the foot until you follow-up with orthopedics Disposition Disposition: Home, Self Care
--- NOTE | 2023-09-12 19:25 | RAD_ITS ---
EXAM: XR RIGHT FOOT COMPLETE, 3 OR MORE VIEWS CLINICAL INDICATION: cow stepped on foot TECHNIQUE: Frontal, lateral and oblique views of the right foot. COMPARISON: No relevant prior studies available. FINDINGS: BONES/JOINTS: Nondisplaced fracture of the base of the second metatarsal bone. There is a calcaneal spur. Preservation of the joint space. No sclerotic or destructive changes observed. SOFT TISSUES: Unremarkable. No soft tissue swelling or gas. No radiopaque foreign body. RAD/Foot min 3 Views IMPRESSION: Nondisplaced fracture of the base of the second metatarsal bone. Electronically Signed: Apolinar Mishra MD at 19:38 EST ,
== END 2023-09-12 20:25 | disposition home or self-care (01) ==
LOC: ED 20:10
PROVIDERS: Emergency Provider Emergency Medicine; PCP Family Medicine; Visit Provider Emergency Medicine
DX: S92.324A Nondisplaced fracture of second metatarsal bone, right foot, initial encounter for closed fracture (principal); E11.9 Type 2 diabetes mellitus without complications; I25.10 Atherosclerotic heart disease of native coronary artery without angina pectoris; E78.00 Pure hypercholesterolemia, unspecified; I10 Essential (primary) hypertension; I25.2 Old myocardial infarction; Z79.82 Long term (current) use of aspirin; Z79.84 Long term (current) use of oral hypoglycemic drugs; Z79.899 Other long term (current) drug therapy; X58.XXXA Exposure to other specified factors, initial encounter; Z95.1 Presence of aortocoronary bypass graft; Z95.5 Presence of coronary angioplasty implant and graft
CPT/HCPCS: 73630; 99283

== ENCOUNTER 2023-10-04 11:47 | Outpatient (CLI) | payer OTHER, SELFPAY ==
[2021-06-25 13:55] VITALS: BMI 30.5
[2023-10-04 16:08] LABS: AST(SGOT) 18 U/L (15-37); Alanine Aminotransfer ALT/SGPT 28 U/L (16-61); Albumin, Serum 3.8 g/dL (3.2-5.0); Alkaline Phosphatase 74 U/L (45-117); Anion Gap 6 (5-15); BUN 23 mg/dL (7-18); BUN/Creat Ratio 17.4 RATIO (10-20); Calcium,Total 9.2 mg/dL (8.5-10.1); Chloride 108 mmol/L (98-107); Cholesterol 174 mg/dL (200); Creatinine, Serum 1.32 mg/dL (0.70-1.30); EST Glomerular Filtration Rate 58 mL/min (>60); Est Glom Filt Rate - Afr Amer 71 mL/min (>60); Globulin 3.9 g/dL (2.2-4.2); Glucose 136 mg/dL (74-106); High Density Lipoprotein 43 mg/dL; Potassium 4.5 mmol/L (3.5-5.1); Protein, Total 7.7 g/dL (6.4-8.2); Sodium Level 141 mmol/L (136-145); Triglycerides 181 mg/dL; Very Low Density Lipoprotein 36 mg/dL (5-40)
== END 2023-10-04 23:59 | disposition home or self-care (01) ==
LOC: MFPLAB 11:47
PROVIDERS: PCP Family Medicine; Visit Provider Family Medicine
DX: E11.9 Type 2 diabetes mellitus without complications (principal)
CPT/HCPCS: 36415; 80053; 80061; 83036

== ENCOUNTER → 2023-10-04 | Outpatient (CLI) | payer OTHER, SELFPAY ==
[2021-06-25 13:55] VITALS: BMI 30.5
--- NOTE | 2023-10-04 09:00 | MRI_ITS ---
STUDY: MRI RIGHT FOOT REASON FOR EXAM: Male, 62 years old. Metatarsal fracture, right foot. TECHNIQUE: Standardized fat and water weighted pulse sequences were obtained in all 3 orthogonal planes. COMPARISON: Right foot radiographs dated 09/12/2023. FINDINGS: There is a nondisplaced fracture with cortical thickening of the proximal shaft of the second metatarsal with adjacent marrow edema (coronal T2 series 9 images 17-18; axial STIR series 6 images 28-29). Normal bone marrow of the remainder of the metatarsals, phalanges, tarsals and visualized distal tibia/fibula, without fracture, periostitis, erosions or reactive bone edema. Normal sesamoids without sesamoiditis, fracture or avascular necrosis. Normal joint spaces, without effusions. There are no extraarticular fluid collections. Normal visualized Chopart and Lisfranc joints and normal Lisfranc ligament. Normal intermetatarsal spaces without intermetatarsal ([place]) neuroma or bursitis. Normal visualized distal posterior tibialis tendon. Normal visualized distal anterior tibialis tendon. Normal visualized distal peroneus longus and brevis tendons. Normal visualized extensor digitorum longus, extensor hallucis longus, flexor digitorum brevis and flexor hallucis longus tendons. Normal visualized plantar fascia without fasciitis, fibromatosis or tear. Normal intrinsic muscles of the foot, without soft tissue masses or evidence of denervation atrophy. There is subcutaneous soft tissue edema along the dorsum of the forefoot. MRI/Lower Ext/No Jt/w/o IMPRESSION: Nondisplaced fracture with cortical thickening of the proximal shaft of the second metatarsal with adjacent marrow edema. Subcutaneous soft tissue edema along the dorsum of the forefoot. Electronically Signed: Van Howe MD at 15:18 EST ,
== END | disposition home or self-care (01) ==
LOC: MRI 09:03
PROVIDERS: PCP Family Medicine; Referring Provider Podiatrist; Visit Provider Podiatrist
DX: S93.326A Dislocation of tarsometatarsal joint of unspecified foot, initial encounter (principal)
CPT/HCPCS: 73718

== ENCOUNTER 2023-11-20 23:29 | Observation (INO) | payer OTHER, SELFPAY ==
[2021-06-25 13:55] VITALS: BMI 30.5
[2023-11-20 23:31] VITALS: BP 185/118; PULSE 77; RESP 20; TEMP 36.4; O2SAT 99; BMI 32.5
--- NOTE | 2023-11-20 23:46 | ED.VIS.CHEST ---
HPI History of Present Illness Chief Complaint: Chest Pain Informant: patient and EMS Narrative Narrative: Patient presents with episode of chest pain. Patient has a history of multiple stents approximately 7. He had bypass surgery in May 2022. He states he was just sitting watching TV when he got anterior chest pressure and heaviness. May be slightly short of breath. No diaphoresis or nausea. He did get lightheaded. This is similar to his other episodes that have ended up leading to repeat stenting. He is on aspirin and Plavix and is taking them. He is also taking all his other meds including for diabetes blood pressure and cholesterol. He sees Dr. Lacy. [facility] Medical History Atherosclerotic heart disease of [place] coronary artery without angina pectoris Chest pain Dyspnea on exertion Essential (primary) hypertension Generalized abdominal discomfort Hernia, hiatal Kidney stone NSTEMI (non-ST elevated myocardial infarction) RACHEL (obstructive sleep apnea) Pure hypercholesterolemia Renal insufficiency Type II diabetes mellitus Unstable angina Unstable angina pectoris Home Medications atorvastatin 80 mg tablet 80 mg PO DAILY lower chloesterol 12/15/16 [History Last Taken 05/08/21] aspirin 81 mg chewable tablet 81 mg PO DAILY #1 TAB 10/14/20 [Rx Last Taken 03/15/23] clopidogrel 75 mg tablet 75 mg PO DAILY antiplatelet 12/11/20 [History Last Taken 03/15/23] ezetimibe 10 mg tablet 10 mg PO DAILY 05/19/21 [History Last Taken Unknown] acetaminophen 325 mg tablet 650 mg PO Q4H PRN Pain 05/30/21 [History Last Taken Unknown] metoprolol tartrate 25 mg tablet 25 mg PO BID 06/13/21 [History Last Taken 03/15/23] pioglitazone 30 mg tablet 30 mg PO DAILY 06/13/21 [History Last Taken Unknown] sitagliptin phosphate 50 mg-metformin 1,000 mg tablet (Janumet) 1 tab PO BID 06/13/21 [History Last Taken Unknown] glimepiride 4 mg tablet 4 mg PO DAILY 03/12/23 [History Last Taken Unknown] isosorbide mononitrate 30 mg tablet,extended release 24 hr 30 mg PO DAILY 03/12/23 [History Last Taken Unknown] pantoprazole 40 mg tablet,delayed release 40 mg PO DAILY 03/12/23 [History Last Taken Unknown] ranolazine 1,000 mg tablet,extended release,12 hr 1,000 mg PO BID take with food #180 tabs 05/12/23 [Rx Last Taken Unknown] Allergy/AdvReac Type Severity Reaction Status Date / Time No Known Allergies Allergy Verified 09/12/23 19:18 Family History (Reviewed 08/25/23 @ 11:17 by Roxana Gongora FINANCIAL ADMINISTRATION OFFICER, FINANCIAL ADMINISTRATION OFFICER-C) Mother CAD (coronary artery disease) Myocardial infarction, Onset Age: 46 Sister CAD (coronary artery disease) Sister CAD (coronary artery disease) Brother CAD (coronary artery disease) Surgical History (Reviewed 08/25/23 @ 11:17 by Roxana Gongora FINANCIAL ADMINISTRATION OFFICER, FINANCIAL ADMINISTRATION OFFICER-C) History of bilateral inguinal hernia repair History of coronary artery bypass graft (05/15/21) History of eye surgery History of repair of hiatal hernia (~08/2018) Postsurgical percutaneous transluminal coronary angioplasty (PTCA) status Presence of stent in coronary artery (~05/25/17) Social History Smoking Status: Never smoker alcohol intake: never substance use type: does not use caffeine: No ROS ROS ED ROS Narrative A complete review of systems was performed and is negative except as documented in the history of present illness. Some specific details below. Constitutional: No recent fevers or chills. He was feeling normal when this happened. EYE: No discharge, visual complaints, or pain. ENT: No difficulty swallowing. No swelling. No pain. No reflux symptoms. CV: See history of present illness. Respiratory: See history of present illness. No shortness of breath now. GI: No abdominal pain. No nausea vomiting diarrhea. No blood in stool. No nausea with the episode. : No frequency dysuria or hematuria. Musculoskeletal: No recent trauma. No pains. No swelling. Skin: No rash. Nondiaphoretic now or with the episode. Neuro: No weakness or numbness. Endocrine: No polyuria or polydipsia. EXAM Physical Exam Narrative Exam Narrative: CONSTITUTIONAL: Patient is nontoxic in appearance. The patient looks comfortable. Work of breathing looks normal. HEENT: No notable trauma. Mucous membranes moist. EYES: No conjunctival injection. No pallor. NECK:No JVD. No stridor. CARDIOVASCULAR: Regular rate. Regular rhythm. No notable murmur. No JVD. He has a well-healed median sternotomy. RESPIRATORY: No respiratory distress. Breathing is unlabored. No wheezes. No rhonchi. No rales. No pain with a deep breath. No chest wall tenderness. Saturations are normal at 99% on room air showing no hypoxia. GASTROINTESTINAL: Not distended. Bowel sounds are normal. No tenderness. GENITOURINARY: No tenderness over the bladder. No CVA tenderness. MUSCULOSKELETAL: Atraumatic. No notable peripheral edema. No tenderness. NEUROLOGICAL: Patient is alert and appropriate. No focal deficit noted. SKIN: No noted rashes. No diaphoresis. PSYCHIATRIC: Patient is calm. Mood is appropriate. Const Vital Signs: 11/20/23 23:31 11/20/23 23:39 11/21/23 01:33 Temperature 97.5 F L Temperature Source Oral Pulse Rate 77 70 Respiratory Rate 20 H 14 Respiratory Effort Normal Blood Pressure 185/118 H 161/92 H Blood Pressure Mean 140 115 Pulse Ox 99 98 Oxygen Delivery Method Room Air Room Air Heart Score History: Moderately Suspicious ECG: Nonspecific Repolarization Age: >45 - <65 years Risk Factors: >/= 3 Risk Factors or History of CAD Troponin: </= Normal Limit Score: 5 MDM MDM MDM Narrative Medical decision making narrative: My independent interpretation of the patient's single view chest x-ray shows his prior median sternotomy wires and surgery. No sign of cute process. Final reading is negative. Patient's CBC is overall normal. The patient's electrolytes are normal other than mild elevation of chloride at 109. Patient's magnesium is normal at 2.0. Patient's first troponin is negative at 11. Lab Data Labs: Laboratory Results - last 24 hr 11/20/23 23:40 WBC 6.7 RBC 5.36 Hgb 14.9 Hct 46.4 MCV 86.6 MCH 27.8 MCHC 32.1 RDW Std Deviation 41.5 RDW Coeff of Papi 13.3 Plt Count 175 MPV 11.5 Immature Gran % (Auto) 0.200 Neut % (Auto) 55.5 Lymph % (Auto) 27.3 [place] % (Auto) 13.1 H Eos % (Auto) 3.3 Baso % (Auto) 0.6 Absolute Neuts (auto) 3.7 Absolute Lymphs (auto) 1.82 Nucleated RBC % 0 Sodium 139 Potassium 4.1 Chloride 109 H Carbon Dioxide 25.0 Anion Gap 5 BUN 17 Creatinine 1.23 Estim Creat Clear Calc 75.75 Est GFR (MDRD) Af Amer 77 Est GFR (MDRD) Non-Af 63 BUN/Creatinine Ratio 13.8 Glucose 119 H Calcium 9.7 Magnesium 2.0 Troponin I High Sens 11 Radiography Diagnostic Testing: Clinical Impression(s) from Imaging Studies Chest X-Ray 11/21/23 00:25 IMPRESSION: No acute findings in the chest. Electronically Signed: Apolinar Bentley MD at 0:57 EST , EKG Initial EKG: Comments: My independent interpretation of the patient's EKG shows a normal sinus rhythm with overall rate of 81. No ectopy. There is a right bundle branch block. Nonspecific ST changes likely consistent with the block but no sign of acute ST elevation. MA interval, QTc are within normal limits. QRS duration is slightly long. This EKG is similar to a prior of 03/16/2023 Discharge Plan Triage Chief Complaint: Chest Pain ED Provider: Christian Fischer Dx/Rx/DC Orders Prescriptions: No Action aspirin 81 mg tablet,chewable 81 mg PO DAILY Qty: 1 0RF pioglitazone 30 mg tablet 30 mg PO DAILY Janumet 50-1,000 mg tablet 1 tab PO BID ezetimibe 10 mg tablet 10 mg PO DAILY metoprolol tartrate 25 mg tablet 25 mg PO BID pantoprazole 40 mg tablet,delayed release (DR/EC) 40 mg PO DAILY glimepiride 4 mg tablet 4 mg PO DAILY isosorbide mononitrate 30 mg tablet extended release 24 hr 30 mg PO DAILY atorvastatin 80 MG tablet 80 mg PO DAILY clopidogrel 75 MG tablet 75 mg PO DAILY acetaminophen 325 mg tablet 650 mg PO Q4H PRN (Reason: Pain) ranolazine 1,000 mg tablet extended release 12 hr 1,000 mg PO BID Qty: 180 3RF Primary Care Provider: Pilo Aviles Referrals: Pilo Aviles MD [Primary Care Provider] -
[2023-11-21] VITALS (14 sets, daily range): BP systolic 123–180; BP diastolic 80–98; PULSE 55–76; RESP 13–18; TEMP 36.4–37.2; O2SAT 94–100; BMI 32.1
--- NOTE | 2023-11-21 00:25 | RAD_ITS ---
EXAM: XR CHEST, 1 VIEW CLINICAL INDICATION: chest pain TECHNIQUE: Frontal view of the chest. COMPARISON: 2 view chest 03/12/2023 FINDINGS: LUNGS AND PLEURAL SPACES: Unremarkable. No consolidation or edema. No pneumothorax. No effusion. HEART: Unremarkable. Cardiac silhouette not enlarged. MEDIASTINUM: Surgical changes of the mediastinum. BONES/JOINTS: Unremarkable. No acute fracture. SOFT TISSUES: Unremarkable. RAD/Chest 1 View (Portable) IMPRESSION: No acute findings in the chest. Electronically Signed: Apolinar Bentley MD at 0:57 EST ,
[2023-11-21 00:27] LABS: Absolute Lymphocyte Count 1.82 X10^3/uL (0.83-4.51); Absolute Neutrophil Count 3.7 X10^3/uL (2.0-7.7); Basophil# 0.04 X10^3/uL; Basophil% 0.6 % (0-1); Eosinophil# 0.22 X10^3/uL; Eosinophils% 3.3 % (0-5); Hematocrit 46.4 % (40-54); Hemoglobin 14.9 g/dL (13.0-16.5); Lymphocyte # 1.82 X10^3/ul (0.83-4.51); Lymphocyte % 27.3 % (19-41); Mean Corp Hgb Conc 32.1 g/dL (32-36); Mean Corpuscular Hgb 27.8 pg (27.0-32.0); Mean Corpuscular Volume 86.6 fL (80-94); Mean Platelet Vol. 11.5 fl (6.2-12.0); Monocyte# 0.87 X10^3/uL; Monocyte% 13.1 % (0-10); NRBC Flagged by Analyzer 0 % (0-5); Neutrophil % 55.5 % (47-70); Platelet Count 175 K/mm3 (150-450); RBC Distribution Width CV 13.3 % (11.6-14.6); RBC Distribution Width SD 41.5 fl (35.1-43.9); Red Blood Count 5.36 M/mm3 (4.6-6.2); White Blood Count 6.7 K/mm3 (4.4-11.0)
[2023-11-21 00:47] LABS: Anion Gap 5 (5-15); BUN 17 mg/dL (7-18); BUN/Creat Ratio 13.8 RATIO (10-20); Calcium,Total 9.7 mg/dL (8.5-10.1); Chloride 109 mmol/L (98-107); Creatinine, Serum 1.23 mg/dL (0.70-1.30); EST Glomerular Filtration Rate 63 mL/min (>60); Est Glom Filt Rate - Afr Amer 77 mL/min (>60); Estimated Creatinine Clearance 75.75 ml/min; Glucose 119 mg/dL (74-106); Potassium 4.1 mmol/L (3.5-5.1); Sodium Level 139 mmol/L (136-145); Troponin-I HS (w/2H Reflex) 11 pg/mL (3.0-78.0)
[2023-11-21 02:25] LABS: Reflex Troponin-HS? (from REC) Y
--- NOTE | 2023-11-21 02:41 | PCM.HP.STD ---
HPI - General General Date of Admission: 11/21/23 Date of Service: 11/21/23 Chief Complaint: Chest pain HPI Narrative ARLEEN MEDINA, is a 62 M with a past medical history of essential hypertension, hyperlipidemia; on statin and ezetimibe, obesity with BMI 32.5 this admission, obstructive sleep apnea, diabetes mellitus type 2; of unknown control, history of renal calculi, GERD due to hiatal hernia; s/p Leah funcdoplication and coronary artery disease; status post stents x 7 ([id number]) with subsequent CABG with WHITAKER to LAD (2020) on chronic aspirin, Plavix, ISMO plus ranolazine followed by Dr. Lacy who presents to [facility] ER complaining of chest pain. Mr. Medina reports his symptoms began approximately 1 hour prior to arrival with the abrupt onset of chest pain that began at rest while he was watching TV. He describes the chest pain as anterior, pressure-like with heaviness, moderate at approximately 5 out of 10 with nothing seeming to make the pain better or worse. He states he is taking his aspirin and Plavix as well as other medications as prescribed. He denies associated fever, chills, nausea, vomiting, diaphoresis, diarrhea, constipation, recent illness, recent overexertion or recent medication changes. In the ER he was noted to have a normal troponin of 11 pg/mL along with an EKG that was nonacute showing normal sinus rhythm at 81 bpm with a right bundle branch block and slightly prolonged QRS duration (similar to prior EKG of 03/16/2023) and then he was admitted to the CDU under observation status for ongoing care for status expected to be less than 48 hours. [facility] Medical History Atherosclerotic heart disease of [place] coronary artery without angina pectoris Chest pain Dyspnea on exertion Essential (primary) hypertension Generalized abdominal discomfort Hernia, hiatal Kidney stone NSTEMI (non-ST elevated myocardial infarction) RACHEL (obstructive sleep apnea) Pure hypercholesterolemia Renal insufficiency Type II diabetes mellitus Unstable angina Unstable angina pectoris Home Medications atorvastatin 80 mg tablet 80 mg PO DAILY lower chloesterol 12/15/16 [History Last Taken 05/08/21] aspirin 81 mg chewable tablet 81 mg PO DAILY #1 TAB 10/14/20 [Rx Last Taken 03/15/23] clopidogrel 75 mg tablet 75 mg PO DAILY antiplatelet 12/11/20 [History Last Taken 03/15/23] ezetimibe 10 mg tablet 10 mg PO DAILY 05/19/21 [History Last Taken Unknown] acetaminophen 325 mg tablet 650 mg PO Q4H PRN Pain 05/30/21 [History Last Taken Unknown] metoprolol tartrate 25 mg tablet 25 mg PO BID 06/13/21 [History Last Taken 03/15/23] pioglitazone 30 mg tablet 30 mg PO DAILY 06/13/21 [History Last Taken Unknown] sitagliptin phosphate 50 mg-metformin 1,000 mg tablet (Janumet) 1 tab PO BID 06/13/21 [History Last Taken Unknown] glimepiride 4 mg tablet 4 mg PO DAILY 03/12/23 [History Last Taken Unknown] isosorbide mononitrate 30 mg tablet,extended release 24 hr 30 mg PO DAILY 03/12/23 [History Last Taken Unknown] pantoprazole 40 mg tablet,delayed release 40 mg PO DAILY 03/12/23 [History Last Taken Unknown] ranolazine 1,000 mg tablet,extended release,12 hr 1,000 mg PO BID take with food #180 tabs 05/12/23 [Rx Last Taken Unknown] Allergy/AdvReac Type Severity Reaction Status Date / Time No Known Allergies Allergy Verified 09/12/23 19:18 Family History Mother CAD (coronary artery disease) Myocardial infarction, Onset Age: 46 Sister CAD (coronary artery disease) Sister CAD (coronary artery disease) Brother CAD (coronary artery disease) Surgical History History of bilateral inguinal hernia repair History of coronary artery bypass graft (05/15/21) History of eye surgery History of repair of hiatal hernia (~08/2018) Postsurgical percutaneous transluminal coronary angioplasty (PTCA) status Presence of stent in coronary artery (~05/25/17) Social History household members: spouse housing: house number of children: 5 current occupational status: employed 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 HENT: Denies headache, denies stuffy nose, denies sore throat EYES: Denies changes in vision Resp: Denies cough, denies shortness of breath Cardiac: Patient admits to chest pain that began at rest as per HPI. GI: Denies abdominal pain, denies changes in bowel, denies nausea, vomiting or difficulty swallowing. : Denies changes in urination Extremity: Denies swelling Musculoskeletal: Feels somewhat generally weak and unwell Neuro: Denies any numbness/tingling Heme: Denies any bleeding or bruising Skin: Denies rashes Psychiatric: No complaints voiced related to uncontrolled depression or anxiety. Endocrine: No polyuria, polydipsia or polyphagia. The rest of the 14 point ROS was negative except for positives in HPI. Vital Signs Vital Signs Vital Signs: 11/20/23 23:31 11/20/23 23:39 11/21/23 01:33 Temperature 97.5 F L Temperature Source Oral Pulse Rate 77 70 Respiratory Rate 20 H 14 Respiratory Effort Normal Blood Pressure 185/118 H 161/92 H Blood Pressure Mean 140 115 Pulse Ox 99 98 Oxygen Delivery Method Room Air Room Air 11/21/23 02:24 Temperature Temperature Source Pulse Rate 76 Respiratory Rate 16 Respiratory Effort Blood Pressure 140/85 H Blood Pressure Mean 103 Pulse Ox 98 Oxygen Delivery Method Room Air Weight Weight: 226 lb 10.163 oz Body Mass Index (BMI) 32.5 Physical Exam Const alert, oriented x3, no apparent distress and average body habitus General Appearance: cooperative HEENT normocephalic, head/scalp atraumatic, hearing grossly normal bilaterally and moist oral mucous membranes Eyes PERRL and EOMs intact bilaterally Neck no lymphadenopathy and supple Resp normal respiratory effort, no retractions, no use of accessory muscles and clear to auscultation bilaterally Cardio regular rate and regular rhythm GI normal to inspection, nondistended, normoactive bowel sounds, soft to palpation, non-tender and non-distended Extremity normal to inspection, full ROM and no clubbing, cyanosis or edema Skin Skin Narrative: Patient has no evidence of rash or abscess at this time. Neuro oriented x3, CN's II-XII intact bilaterally, moves all extremities and no focal motor deficits Sensorium / Orientation: awake, alert, oriented to person, oriented to place and oriented to time Speech: speech normal Motor Exam: strength 5/5 throughout Psych affect normal Results Medical Records Data Attestation: I reviewed the patient's medical records Lab / Micro Data Attestation: I reviewed the patient's lab results. 11/20/23 23:40 11/20/23 23:40 Labs: Laboratory Results - last 24 hr 11/20/23 23:40: WBC 6.7, RBC 5.36, Hgb 14.9, Hct 46.4, MCV 86.6, MCH 27.8, MCHC 32.1, RDW Std Deviation 41.5, RDW Coeff of Papi 13.3, Plt Count 175, MPV 11.5, Immature Gran % (Auto) 0.200, Neut % (Auto) 55.5, Lymph % (Auto) 27.3, [place] % (Auto) 13.1 H, Eos % (Auto) 3.3, Baso % (Auto) 0.6, Absolute Neuts (auto) 3.7, Absolute Lymphs (auto) 1.82, Nucleated RBC % 0, Sodium 139, Potassium 4.1, Chloride 109 H, Carbon Dioxide 25.0, Anion Gap 5, BUN 17, Creatinine 1.23, Estim Creat Clear Calc 75.75, Est GFR (MDRD) Af Amer 77, Est GFR (MDRD) Non-Af 63, BUN/Creatinine Ratio 13.8, Glucose 119 H, Calcium 9.7, Magnesium 2.0, Troponin I High Sens 11 Imagaing Radiology Impression Chest X-Ray 11/21/23 00:25 IMPRESSION: No acute findings in the chest. Electronically Signed: Apolinar Bentley MD at 0:57 EST , [facility] [address] [address] Echo Complete W/ Contrast 06/25/22 0939 MR#: [id number] Acct: [id number] Name: ARLEEN MEDINA Jr. Rep #: [id number] : 1960 61 From: Pilo Okeefe MD Attending Dr: Roxana Gongora NP-C Status: REG CLI Ordering Dr: Roxana Gongora ELECTROMEDICAL EQUIPMENT REPAIRER ELECTROMEDICAL EQUIPMENT REPAIRER-C Date: 06/25/22 Location: [facility] Sex: M C Admitted: Reason For Study: DYSPNEA Procedure This was a 2D Doppler, Color Flow transthoracic echocardiogram. The study was technically difficult. Contrast injection was performed. Exam performed in department. Left Ventricle Normal LV size. Segmental dysfunction with preserved ejection fraction (see wall motion). The estimated ejection fraction is 60 %. No evidence for diastolic dysfunction. No regional wall motion abnormalities noted. Right Ventricle Normal RV size. Normal systolic function. Atria Normal left atrium. The right atrium is mildly enlarged. No doppler evidence for ASD. Mitral Valve There is no mitral annular calcification. The mitral valve is structurally normal. No prolapse or stenosis seen. Mild (1+) mitral valve insufficiency. Tricuspid Valve Normal tricuspid valve. Trivial tricuspid valve insufficiency. Unable to estimate RV systolic pressure due to insufficient tricuspid regurgitant envelope. Aortic Valve Normal aortic valve. Trivial aortic valve insufficiency. Pulmonic Valve The pulmonic valve is not well visualized. Great Vessels Normal sized aortic root. Pericardium/Pleural No pericardial effusion. Medication 22 gauge I.V. with prn adaptor inserted into right arm. Diluted definity 2ml given slow IV push to enhance endocardial definition. MMode/2D Measurements & Calculations LVIDd: 5.0 cm IVSd: 0.94 cm Ao root diam: 3.4 cm LVIDs: 3.1 cm LVPWd: 1.2 cm FS: 37.5 % LAV(MOD-bp): 52.8 ml LVAd ap4: 36.2 cm2 SV(MOD-sp4): 80.4 ml LAV(MOD-bp) Indexed: 23.4 ml/m2 LVLd ap4: 9.0 cm LAV(MOD-sp2): 52.2 ml EDV(MOD-sp4): 117.5 ml LAV(MOD-sp4): 45.6 ml EDV(sp4-el): 122.8 ml LVAs ap4: 19.1 cm2 LVLs ap4: 8.0 cm ESV(MOD-sp4): 37.1 ml ESV(sp4-el): 39.1 ml EF(MOD-sp4): 68.5 % EF(sp4-el): 68.2 % SV(sp4-el): 83.8 ml LA A4 area: 18.7 cm2 LA dimension(2D): 4.1 cm RA A4 area: 22.5 cm2 Time Measurements MV dec time: 0.31 sec Doppler Measurements & Calculations MV E max bonilla: 57.9 cm/sec Lat Peak E' Bonilla: 7.6 cm/sec Med Peak E' Bonilla: 5.1 cm/sec MV A max bonilla: 64.7 cm/sec E/E' lat: 7.7 E/E' med: 11.3 MV E/A: 0.89 MV V2 max: 69.7 cm/sec MV dec slope: 190.6 cm/sec2 Ao V2 max: 99.6 cm/sec MV max P.9 mmHg Ao max P.0 mmHg MV V2 mean: 37.6 cm/sec Ao V2 mean: 69.3 cm/sec MV mean P.67 mmHg Ao mean P.2 mmHg MV V2 VTI: 23.2 cm Ao V2 VTI: 22.3 cm LV V1 max: 75.7 cm/sec PA V2 max: 60.8 cm/sec LV V1 max P.3 mmHg LV V1 mean P.3 mmHg LV V1 mean: 54.9 cm/sec LV V1 VTI: 17.5 cm ECHO/Echo Complete W/ Contrast Interpretation Summary This study was technically difficult. Contrast injection was perfomed. Segmental dysfunction with preserved ejection fraction (see wall motion). The estimated ejection fraction is 60 %. The right atrium is mildly enlarged. Mild (1+) mitral valve insufficiency. Trivial tricuspid valve insufficiency. Trivial aortic valve insufficiency. Unable to estimate RV systolic pressure due to insufficient tricuspid regurgitant envelope. No evidence for diastolic dysfunction. Ordering Physician: Roxana Gongora Referring Physician: Roxana Gongora Performed By: Nandini Deras RCS 06/25/221723 Date Pilo Okeefe MD CC: CINDA Gongora; Dr. Pilo Aviles MD ~ Date Dictated: 06/25/22938 Date Transcribed: 06/25/221723 Union Carpenter: Signed Assessment & Plan Assessment/Plan (1) Chest pain: QUALIFIERS: Chest pain type: unspecified Qualified Code(s): R07.9 - Chest pain, unspecified (2) History of coronary artery bypass graft: PLAN: Plan 1. Chest pain in the setting of known coronary artery disease; status post stents x 7 ([id number]) with subsequent CABG with WHITAKER to LAD (2020) on chronic aspirin, Plavix, ISMO plus ranolazine followed by Dr. Lacy of [facility] - Admit to CDU under observation status. Serialize troponin. Patient already on maximal medical therapy with negative troponin and unremarkable EKG. 2. Essential hypertension - Resume home medications plus give as needed hydralazine IV for systolic blood pressure greater than 160 mmHg. 3. Hyperlipidemia; on statin and ezetimibe - Continue current treatment and check lipid profile in light of #1. 4. Obesity with BMI 32.5 this admission plus obstructive sleep apnea - Weight loss will be recommended. 5. Diabetes mellitus type 2; of unknown control - ADA diet. FSBS q. AC/HS plus SSI. Check HgbA1c to objectiely assess quality of diabetic control in light of #1. 6. History of renal calculi - Stable with no evidence of active disease. 7. GERD due to hiatal hernia; s/p Leah fundoplication - Noted. 8. DVT prophylaxis - Lovenox 40 mg sq daily. Total time: Approximately 45 minutes. Charges/Coding Visit Charges OBSV E&M: [id number] Observ/hosp same date L1
[2023-11-21 03:13] LABS: Troponin-I HS 15 pg/mL (3.0-78.0)
--- NOTE | 2023-11-21 03:13 | ECHOCS_ITS ---
Reason For Study: Chest pain Procedure This was a 2D Doppler, Color Flow transthoracic echocardiogram. Exam performed portable in patient room. Left Ventricle Normal LV size. Mild concentric left ventricular hypertrophy. Left ventricular systolic function is normal. The left ventricular ejection fraction is 60 %. Stage 1 diastolic dysfunction. No regional wall motion abnormalities noted. Right Ventricle Normal RV size. Normal systolic function. Aortic Valve Trisinus/trileaflet aortic valve. Mild (1+) aortic valve insufficiency. Pulmonic Valve Normal pulmonic valve. Great Vessels Normal aortic root. The pulmonary artery is normal size. Normal inferior vena cava. Pericardium/Pleural No pericardial effusion. Medication Diluted definity 1ml given slow IV push to enhance endocardial definition. MMode/2D Measurements & Calculations LVIDd: 4.0 cm IVSd: 1.2 cm Ao root diam: 3.5 cm LVIDs: 2.9 cm LVPWd: 1.3 cm RVDd: 4.0 cm FS: 27.6 % LAV(MOD-bp): 53.5 ml LVAd ap4: 35.2 cm2 LVAd ap2: 23.7 cm2 LAV(MOD-bp) Indexed: 24.4 ml/m2 LVLd ap4: 8.5 cm LVLd ap2: 8.6 cm LAV(MOD-sp2): 49.8 ml EDV(MOD-sp4): 116.6 ml EDV(MOD-sp2): 53.8 ml LAV(MOD-sp4): 53.3 ml EDV(sp4-el): 123.8 ml EDV(sp2-el): 55.1 ml LVAs ap4: 21.1 cm2 LVAs ap2: 15.0 cm2 LVLs ap4: 7.4 cm LVLs ap2: 6.7 cm ESV(MOD-sp4): 50.0 ml ESV(MOD-sp2): 28.0 ml ESV(sp4-el): 51.1 ml ESV(sp2-el): 28.6 ml EF(MOD-sp4): 57.2 % EF(MOD-sp2): 48.0 % EF(sp4-el): 58.7 % SV(MOD-sp4): 66.7 ml SV(MOD-sp2): 25.8 ml SV(sp4-el): 72.7 ml LA A4 area: 20.0 cm2 LA dimension(2D): 3.7 cm RA A4 area: 17.1 cm2 TAPSE: 1.4 cm Time Measurements MV dec time: 0.33 sec Doppler Measurements & Calculations MV E max bonilla: 61.9 cm/sec Lat Peak E' Bonilla: 8.0 cm/sec Med Peak E' Bonilla: 5.0 cm/sec MV A max bonilla: 67.7 cm/sec E/E' lat: 7.7 E/E' med: 12.4 MV E/A: 0.92 MV dec slope: 188.5 cm/sec2 Ao V2 max: 104.5 cm/sec LV V1 max: 87.7 cm/sec Ao max P.4 mmHg LV V1 max P.1 mmHg Ao V2 mean: 70.1 cm/sec LV V1 mean P.7 mmHg Ao mean P.3 mmHg LV V1 mean: 62.3 cm/sec Ao V2 VTI: 25.3 cm LV V1 VTI: 20.9 cm AV (velocity ratio): 0.82 PA V2 max: 74.8 cm/sec ECHO/Echo Complete W/ Contrast Interpretation Summary Normal LV size. Mild concentric left ventricular hypertrophy. Left ventricular systolic function is normal. The left ventricular ejection fraction is 60 %. Stage 1 diastolic dysfunction. Mild (1+) aortic valve insufficiency. Contrast injection was performed. Ordering Physician: Juliocesar Mercado Referring Physician: Pilo Aviles Performed By: Debi Pinon RDCS
[2023-11-21 06:28] LABS: Troponin-I HS 16 pg/mL (3.0-78.0)
[2023-11-21 07:07] LABS: Cholesterol 156 mg/dL (200); High Density Lipoprotein 40 mg/dL; Triglycerides 153 mg/dL; Very Low Density Lipoprotein 31 mg/dL (5-40)
[2023-11-21 07:17] LABS: Hemoglobin A1c 7.2 % (3.8-5.6)
[2023-11-21] MEDS: Aspirin 81 MG TAB.CHEW PO (08:16)
--- NOTE | 2023-11-21 11:33 | CPS ---
SMI AND PEP PLACED AT BEDSIDE. PT SLEEPING WILL CHECK BACK LATER.
[2023-11-21] MEDS: Clopidogrel Bisulfate 75 MG Tablet PO (11:36)
[2023-11-21] MEDS: Metoprolol Tartrate 25 MG Tablet PO ×2 (11:36→20:41)
[2023-11-21] MEDS: Isosorbide Mononitrate 30 MG Tablet PO ×2 (11:36→20:41)
[2023-11-21] MEDS: Ranolazine 500 MG Tablet 1000 MG PO ×2 (11:37→20:41)
[2023-11-21] MEDS: Ezetimibe 10 MG Tablet PO (11:37)
[2023-11-21] MEDS: Pantoprazole Sodium 40 MG Tablet PO (11:37)
[2023-11-21] MEDS: Enoxaparin 40 MG/0.4 ML Syringe SC (11:38)
--- NOTE | 2023-11-21 12:51 | PCM.CONS.C ---
Assessment & Plan Assessment/Plan (1) History of coronary artery bypass graft: (2) Chest pain: QUALIFIERS: Chest pain type: unspecified Qualified Code(s): R07.9 - Chest pain, unspecified (3) RACHEL (obstructive sleep apnea): (4) Pure hypercholesterolemia: (5) Atherosclerotic heart disease of [place] coronary artery without angina pectoris: QUALIFIERS: [place] vs. transplanted heart: [place] heart Qualified Code(s): I25.10 - Atherosclerotic heart disease of [place] coronary artery without angina pectoris (6) Type II diabetes mellitus: (7) Renal insufficiency: PLAN: Plan 62-year-old patient seen and evaluated today in PCU along with the nursing staff family were at bedside at time of evaluation This patient has a multiple medical comorbidities with significant history of CAD With prior PCI and stent of RCA as well as LAD Subsequently in 2020 patient had CABG with WHITAKER to LAD Has been on maximal medical therapy and he presented with symptoms of chest pain with negative cardiac workup evidently the symptoms happened while he was watching the TV symptoms of chest pain resolved. Cardiac care plan recommendations; This patient with complex coronary artery disease involving the RCA and LAD stents Also has a last cardiac catheterization in March 19, 2023 by his primary spooler rubber strand Dr. Lacy Which revealed severe [place] coronary atherosclerosis involving the distal RCA in the proximal LAD. And RCA has a previous to PCI's which were unsuccessful and the LAD is bypassed. Patient presentation is symptoms of chest pain. The cardiac catheterization revealed the left main is mildly calcified. Severe diffuse disease involving the stented LAD as well as the ostial diagonal branch. And the circumflex had nonobstructive atherosclerosis . the WHITAKER to LAD was patent cardiac cath in March 19, 2020 The echocardiographic evaluation at that time showed EF in the range of 60%, with normal LV wall motion. I discussed in detail his cardiac medication would recommend to maximize antianginal medication , his current dose of Ranexa is 1000 mg twice daily To continue on dual antiplatelet therapy. And current dose of statin Cardiac workup with a series of enzymes is negative and the symptoms of chest pain resolved at rest to increase the long-acting nitrate to isosorbide mononitrate 60 mg daily. To increase the beta-cricket metoprolol to tartrate for 50 mg twice daily Patient to follow-up as an outpatient with the cardiac team. Primary spooler rubber strand Dr. Lacy. As well as echocardiogram Emiliana discussed in detail the previous cardiac catheterization his current medication. And patient to follow-up as an outpatient for continuation of cardiac care By his primary spooler rubber strand. HPI Consult Data Date of Consult: 11/21/23 HPI Narrative Reason for Consultation: Patient with CAD status post CABG/angina HPI Narrative: ARLEEN NAJERA, is a 62 M who presents [facility] Medical History Atherosclerotic heart disease of [place] coronary artery without angina pectoris Chest pain Dyspnea on exertion Essential (primary) hypertension Generalized abdominal discomfort Hernia, hiatal Kidney stone NSTEMI (non-ST elevated myocardial infarction) RACHEL (obstructive sleep apnea) Pure hypercholesterolemia Renal insufficiency Type II diabetes mellitus Unstable angina Unstable angina pectoris Home Medications atorvastatin 80 mg tablet 80 mg PO DAILY lower chloesterol 12/15/16 [History Last Taken 05/08/21] aspirin 81 mg chewable tablet 81 mg PO DAILY #1 TAB 10/14/20 [Rx Last Taken 03/15/23] clopidogrel 75 mg tablet 75 mg PO DAILY antiplatelet 12/11/20 [History Last Taken 03/15/23] ezetimibe 10 mg tablet 10 mg PO DAILY 05/19/21 [History Last Taken Unknown] acetaminophen 325 mg tablet 650 mg PO Q4H PRN Pain 05/30/21 [History Last Taken Unknown] metoprolol tartrate 25 mg tablet 25 mg PO BID 06/13/21 [History Last Taken 03/15/23] pioglitazone 30 mg tablet 30 mg PO DAILY 06/13/21 [History Last Taken Unknown] sitagliptin phosphate 50 mg-metformin 1,000 mg tablet (Novumet) 1 tab PO BID 06/13/21 [History Last Taken Unknown] glimepiride 4 mg tablet 4 mg PO DAILY 03/12/23 [History Last Taken Unknown] isosorbide mononitrate 30 mg tablet,extended release 24 hr 30 mg PO DAILY 03/12/23 [History Last Taken Unknown] pantoprazole 40 mg tablet,delayed release 40 mg PO DAILY 03/12/23 [History Last Taken Unknown] ranolazine 1,000 mg tablet,extended release,12 hr 1,000 mg PO BID take with food #180 tabs 05/12/23 [Rx Last Taken Unknown] Allergy/AdvReac Type Severity Reaction Status Date / Time No Known Allergies Allergy Verified 09/12/23 19:18 Family History Mother CAD (coronary artery disease) Myocardial infarction, Onset Age: 46 Sister CAD (coronary artery disease) Sister CAD (coronary artery disease) Brother CAD (coronary artery disease) Surgical History History of bilateral inguinal hernia repair History of coronary artery bypass graft (05/15/21) History of eye surgery History of repair of hiatal hernia (~08/2018) Postsurgical percutaneous transluminal coronary angioplasty (PTCA) status Presence of stent in coronary artery (~05/25/17) Social History household members: spouse housing: house number of children: 5 current occupational status: employed 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 Risk Stratification Risk Stratification Applicable: No Objective Data Vital Signs: Vital Signs Temp Pulse Resp BP Pulse Ox O2 Del Method 98 F 65 18 154/80 H 97 Room Air 11/21/23 10:30 11/21/23 11:36 11/21/23 10:30 11/21/23 11:36 11/21/23 10:30 11/21/23 10:30 Oxygen Delivery Method Room Air Weight: 224 lb 3.362 oz Body Mass Index (BMI) 32.1 Lab / Micro Data 11/20/23 23:40 11/20/23 23:40 Labs: Laboratory Results - last 24 hr 11/20/23 23:40: WBC 6.7, RBC 5.36, Hgb 14.9, Hct 46.4, MCV 86.6, MCH 27.8, MCHC 32.1, RDW Std Deviation 41.5, RDW Coeff of Papi 13.3, Plt Count 175, MPV 11.5, Immature Gran % (Auto) 0.200, Neut % (Auto) 55.5, Lymph % (Auto) 27.3, [place] % (Auto) 13.1 H, Eos % (Auto) 3.3, Baso % (Auto) 0.6, Absolute Neuts (auto) 3.7, Absolute Lymphs (auto) 1.82, Nucleated RBC % 0, Sodium 139, Potassium 4.1, Chloride 109 H, Carbon Dioxide 25.0, Anion Gap 5, BUN 17, Creatinine 1.23, Estim Creat Clear Calc 75.75, Est GFR (MDRD) Af Amer 77, Est GFR (MDRD) Non-Af 63, BUN/Creatinine Ratio 13.8, Glucose 119 H, Calcium 9.7, Magnesium 2.0, Troponin I High Sens 11 11/21/23 02:25: Troponin I High Sens 15 11/21/23 05:44: Hemoglobin A1c 7.2 H, Troponin I High Sens 16, Triglycerides 153, Cholesterol 156, LDL Cholesterol 85, VLDL Cholesterol 31, HDL Cholesterol 40 Cardiology Labs/Tests 11/20/23 23:40: WBC 6.7, RBC 5.36, Hgb 14.9, Hct 46.4, MCV 86.6, MCH 27.8, MCHC 32.1, Plt Count 175, MPV 11.5, Immature Gran % (Auto) 0.200, Neut % (Auto) 55.5, Lymph % (Auto) 27.3, [place] % (Auto) 13.1 H, Eos % (Auto) 3.3, Baso % (Auto) 0.6, Absolute Neuts (auto) 3.7, Nucleated RBC % 0, Sodium 139, Potassium 4.1, Chloride 109 H, Carbon Dioxide 25.0, Anion Gap 5, BUN 17, Creatinine 1.23, Est GFR (MDRD) Af Amer 77, Est GFR (MDRD) Non-Af 63, BUN/Creatinine Ratio 13.8, Glucose 119 H, Calcium 9.7, Magnesium 2.0 11/21/23 05:44: Hemoglobin A1c 7.2 H, Triglycerides 153, Cholesterol 156, LDL Cholesterol 85, VLDL Cholesterol 31, HDL Cholesterol 40 Rhythm: EKG: ECHO: Stress Test: Cardiac Cath: PCI: CT Surgery: Holter monitor: EPS: PPM: CXR: Chest CT Scan: Radiography Diagnostic Testing: Radiology Impression Chest X-Ray 11/21/23 00:25 IMPRESSION: No acute findings in the chest. Electronically Signed: Apolinar Bentley MD at 0:57 EST ,
--- NOTE | 2023-11-21 13:25 | PCM.PN.HOSP ---
Reason for Visit Reason for Visit: Diagnoses Chest pain, unspecified (11/21/23) Presence of aortocoronary bypass graft (11/21/23) Subjective Subjective Patient seen at bedside this morning. Sitting up comfortably in bed, conversing normally, no acute distress. Patient denies any further chest pain episodes since coming into the hospital overnight. Denies any acute pain or discomfort this morning. No other acute concerns at this time. Objective Data Objective Data Vital Signs: Vital Signs Temp Pulse Resp BP Pulse Ox O2 Del Method 98 F 65 18 154/80 H 97 Room Air 11/21/23 10:30 11/21/23 11:36 11/21/23 10:30 11/21/23 11:36 11/21/23 10:30 11/21/23 10:30 Oxygen Delivery Method Room Air Weight: 101.7 kg Body Mass Index (BMI) 32.1 Lab / Micro Data 11/20/23 23:40 11/20/23 23:40 Labs: Laboratory Results - last 24 hr 11/20/23 23:40: WBC 6.7, RBC 5.36, Hgb 14.9, Hct 46.4, MCV 86.6, MCH 27.8, MCHC 32.1, RDW Std Deviation 41.5, RDW Coeff of Papi 13.3, Plt Count 175, MPV 11.5, Immature Gran % (Auto) 0.200, Neut % (Auto) 55.5, Lymph % (Auto) 27.3, [place] % (Auto) 13.1 H, Eos % (Auto) 3.3, Baso % (Auto) 0.6, Absolute Neuts (auto) 3.7, Absolute Lymphs (auto) 1.82, Nucleated RBC % 0, Sodium 139, Potassium 4.1, Chloride 109 H, Carbon Dioxide 25.0, Anion Gap 5, BUN 17, Creatinine 1.23, Estim Creat Clear Calc 75.75, Est GFR (MDRD) Af Amer 77, Est GFR (MDRD) Non-Af 63, BUN/Creatinine Ratio 13.8, Glucose 119 H, Calcium 9.7, Magnesium 2.0, Troponin I High Sens 11 11/21/23 02:25: Troponin I High Sens 15 11/21/23 05:44: Hemoglobin A1c 7.2 H, Troponin I High Sens 16, Triglycerides 153, Cholesterol 156, LDL Cholesterol 85, VLDL Cholesterol 31, HDL Cholesterol 40 Radiography Diagnostic Testing: Radiology Impression Chest X-Ray 11/21/23 00:25 IMPRESSION: No acute findings in the chest. Electronically Signed: Apolinar Bentley MD at 0:57 EST , Physical Exam Const alert, oriented x3 and no apparent distress Constitutional Narrative: Pleasant middle-age male, obese, sitting up comfortably bed, conversing normally, no acute distress. General Appearance: cooperative and comfortable HEENT normocephalic, head/scalp atraumatic, hearing grossly normal bilaterally, nasal mucous membranes and turbinates normal and moist oral mucous membranes Eyes PERRL, EOMs intact bilaterally and conjunctivae normal Neck full ROM, no lymphadenopathy and supple Lymph Lymphatic: no lymphadenopathy noted Chest inspection of chest normal Resp normal respiratory effort, normal air movement, no use of accessory muscles and clear to auscultation bilaterally Cardio regular rate, regular rhythm, no murmurs and peripheral pulses 2+ throughout GI normal to inspection, nondistended, normoactive bowel sounds, soft to palpation, non-tender and non-distended Back/Spine normal ROM Extremity normal to inspection, full ROM and no pedal edema Skin no rashes or lesions noted Neuro no focal motor deficits and no sensory deficits noted Speech: speech normal Psych mental status grossly normal Assessment & Plan Assessment/Plan (1) Chest pain: QUALIFIERS: Chest pain type: unspecified Qualified Code(s): R07.9 - Chest pain, unspecified PLAN: Plan Patient is a 62-year-old male who presented to [facility] ED on 11/20/2023 with chest pain. 1. Chest pain, history of CAD with stenting x 7 (2016-) and CABG x 1 (2020) Presented with chest pain at rest that resolved on its own. Troponins negative x 3. EKG with no ST changes. Hemodynamically stable. ? Cardiology consulted. Will plan for echo tomorrow morning; if similar to previous, like okay for discharge home. Cardiology increased doses of home nitrate and beta-cricket. Continue aspirin, Plavix, statin. Close outpatient follow-up with cardiology after discharge. Chronic medical conditions: ? Hypertension: Continue home Lopressor and titrate at increased doses as noted above. ? Hyperlipidemia: Continue home statin and Zetia. ? GERD: Continue home PPI. ? Obesity: BMI 32 on admit. Encouraged lifestyle medications. Complicates hospital course, care and prognosis. ? Type 2 diabetes mellitus: Home regimen of metformin, Sitagliptin, pioglitazone, glimepiride. Refused insulin on admission here. Monitor sugars on daily BMP. ? RACHEL: Continue home PAP therapy. DVT prophylaxis: Lovenox CODE STATUS: Full code, verified Expected disposition: Home, 1 to 2 days Total clinical time spent by myself addressing the patient's medical issues, reviewing all the data, and collaborating with patient's care team: 35 minutes. Charges/Coding Visit Charges Inpatient E&M: 38647 Subs Hosp L2
--- NOTE | 2023-11-21 18:50 | NURSING ---
1844 into see patient, sitting in chair. c/o of chest discomfort and both arms/hands tingling. Vital signs stable. charge nurse aware. called for EKG. Dr antonette Zhou RN
--- NOTE | 2023-11-21 19:24 | NURSING ---
191 patient feeling less discomfort. report given to night nurse Andrew Zhou RN
[2023-11-21] MEDS: Atorvastatin Calcium 80 MG Tablet PO (20:41)
[2023-11-21 20:51] LABS: Troponin-I HS 14 pg/mL (3.0-78.0)
[2023-11-21 22:15] LABS: Troponin-I HS 16 pg/mL (3.0-78.0)
[2023-11-22] VITALS (12 sets, daily range): BP systolic 123–166; BP diastolic 78–93; PULSE 56–80; RESP 14–20; TEMP 36.3–36.8; O2SAT 94–100
[2023-11-22 02:16] LABS: Hematocrit 41.7 % (40-54); Hemoglobin 13.5 g/dL (13.0-16.5); Mean Corp Hgb Conc 32.4 g/dL (32-36); Mean Corpuscular Hgb 27.6 pg (27.0-32.0); Mean Corpuscular Volume 85.1 fL (80-94); Platelet Count 157 K/mm3 (150-450); RBC Distribution Width CV 13.3 % (11.6-14.6); RBC Distribution Width SD 41.1 fl (35.1-43.9); White Blood Count 8.5 K/mm3 (4.4-11.0)
[2023-11-22 02:40] LABS: Troponin-I HS 15 pg/mL (3.0-78.0)
[2023-11-22 03:37] LABS: Anion Gap 7 (5-15); BUN 19 mg/dL (7-18); BUN/Creat Ratio 15.4 RATIO (10-20); Calcium,Total 8.9 mg/dL (8.5-10.1); Chloride 107 mmol/L (98-107); Creatinine, Serum 1.23 mg/dL (0.70-1.30); EST Glomerular Filtration Rate 63 mL/min (>60); Est Glom Filt Rate - Afr Amer 77 mL/min (>60); Estimated Creatinine Clearance 75.36 ml/min; Glucose 207 mg/dL (74-106); Potassium 4.2 mmol/L (3.5-5.1); Sodium Level 139 mmol/L (136-145)
[2023-11-22] MEDS: Acetaminophen 325 MG Tablet 650 MG PO ×2 (06:55→15:35)
[2023-11-22] MEDS: Pantoprazole Sodium 40 MG Tablet PO (08:12)
[2023-11-22] MEDS: Ezetimibe 10 MG Tablet PO (08:13)
[2023-11-22] MEDS: Ranolazine 500 MG Tablet 1000 MG PO ×2 (08:13→20:56)
[2023-11-22] MEDS: Enoxaparin 40 MG/0.4 ML Syringe SC (08:13)
[2023-11-22] MEDS: Aspirin 81 MG TAB.CHEW PO (08:13)
[2023-11-22] MEDS: Clopidogrel Bisulfate 75 MG Tablet PO (08:13)
[2023-11-22] MEDS: Metoprolol Tartrate 25 MG Tablet PO ×2 (08:14→20:56)
[2023-11-22] MEDS: Isosorbide Mononitrate 60 MG Tablet PO (08:18)
--- NOTE | 2023-11-22 09:02 | PN.CARD_ITS ---
Subjective Subjective Patient reports that last evening while sitting in the chair relaxing he developed recurrent anginal symptoms. He describes the symptoms that started as a tingling down both arms and progressed to pain from both shoulders down to his elbows. This lasted approximately 45 minutes and resolved as he relaxed. He does not remember receiving sublingual nitro. The patient's antianginal medical regiment was increased during this admission. Today he will receive his fourth dose of the newer increased regimen. His Ranexa has been increased to 1000 mg twice daily metoprolol was increased as well as his Imdur. The patient has not had symptoms with activity. His initial presentation on this admission was a similar event to what he experienced on admission. That was associated with a negative troponin rise. Objective Data Vital Signs: Vital Signs Temp Pulse Resp BP Pulse Ox O2 Del Method O2 Flow Rate 97.8 F 59 L 14 166/81 H 98 Room Air 2 11/22/23 08:07 11/22/23 08:14 11/22/23 08:07 11/22/23 08:14 11/22/23 08:07 11/22/23 08:07 11/21/23 19:45 Oxygen Flow Rate (L/min) 2 Oxygen Delivery Method Room Air Weight: 224 lb 3.362 oz Body Mass Index (BMI) 32.1 Intake & Output: Intake and Output for Last 24 Hours 11/20/23 11/21/23 11/22/23 23:59 23:59 23:59 Intake Total 1200 / 1200 Balance 1200 / 1200 Lab / Micro Data Attestation: I reviewed the patient's lab results. 11/22/23 02:07 11/22/23 02:07 Labs: Laboratory Results - last 24 hr 11/21/23 20:07: Troponin I High Sens 14 11/21/23 21:49: Troponin I High Sens 16 11/22/23 02:07: WBC 8.5, RBC 4.90, Hgb 13.5, Hct 41.7, MCV 85.1, MCH 27.6, MCHC 32.4, RDW Std Deviation 41.1, RDW Coeff of Papi 13.3, Plt Count 157, MPV 11.0, Sodium 139, Potassium 4.2, Chloride 107, Carbon Dioxide 25.0, Anion Gap 7, BUN 19 H, Creatinine 1.23, Estim Creat Clear Calc 75.36, Est GFR (MDRD) Af Amer 77, Est GFR (MDRD) Non-Af 63, BUN/Creatinine Ratio 15.4, Glucose 207 H, Calcium 8.9, Troponin I High Sens 15 Cardiology Labs/Tests 11/22/23 02:07: WBC 8.5, RBC 4.90, Hgb 13.5, Hct 41.7, MCV 85.1, MCH 27.6, MCHC 32.4, Plt Count 157, MPV 11.0, Sodium 139, Potassium 4.2, Chloride 107, Carbon Dioxide 25.0, Anion Gap 7, BUN 19 H, Creatinine 1.23, Est GFR (MDRD) Af Amer 77, Est GFR (MDRD) Non-Af 63, BUN/Creatinine Ratio 15.4, Glucose 207 H, Calcium 8.9 Rhythm: EKG: ECHO: Stress Test: Cardiac Cath: PCI: CT Surgery: Holter monitor: EPS: PPM: CXR: Chest CT Scan: EKG Follow-up EKG: Attestation: I personally reviewed and interpreted this EKG as follows: Interpretation: EKG shows a normal sinus rhythm and normal axis. DE intervals were normal the patient had a right bundle branch block which was unchanged. This was done during the time of his complaints last evening. Physical Exam Const oriented x3 HEENT normocephalic Neck supple and no carotid bruits Chest inspection of chest normal Resp clear to auscultation bilaterally Cardio regular rate, regular rhythm, no murmurs, no rub and no gallops GI normal to inspection, nondistended, normoactive bowel sounds Extremity normal to inspection Skin no rashes or lesions noted Psych Memory / Cognition: cognition grossly intact Assessment & Plan Assessment/Plan (1) Chest pain: QUALIFIERS: Chest pain type: unspecified Qualified Code(s): R07.9 - Chest pain, unspecified PLAN: The patient's anginal equivalent is bilateral arm tingling and pain. 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 He does have known distal vessel disease that is not approachable by percutaneous or surgical revascularization techniques. His WHITAKER to his LAD was patent he had no significant disease in the circumflex system his right coronary artery distally is functionally occluded on the cath March [address] Lacy. The patient's symptoms have occurred at rest on 2 occasions he has had no symptoms when he was ambulatory between these events. His medications have been increased. We will observe him for 24 hours ambulating in the halls and he remains symptom-free will be discharged in the next 24 hours. The patient will have an echocardiogram done to reevaluate his LV function as a change in his LV function would require additional and alternative medical therapy. Is also possible this is noncardiac in etiology given his negative high-sensitivity troponins. (2) Essential (primary) hypertension: PLAN: The patient's blood pressure is less than adequately controlled however we did just increase his metoprolol. This will be reevaluated in the outpatient setting and additional therapy will be added as indicated. This will also be tailored to the results of his echocardiogram. (3) Presence of stent in coronary artery: PLAN: March 2023 showed patent stents in the proximal and mid right coronary artery with functional total obstruction distally. (4) Atherosclerotic heart disease of [place] coronary artery without angina pectoris: QUALIFIERS: [place] vs. transplanted heart: [place] heart Qualified Code(s): I25.10 - Atherosclerotic heart disease of [place] coronary artery without angina pectoris PLAN: As noted above described under problem 1 and 3. PLAN: Plan The patient should be followed up in the [facility] office in 1 to 2 weeks with one of our advanced practitioners or Dr. Lacy or Dr. Brooks Guy. The echo will be rereviewed with the patient at the time of that visit and alternative therapy will be instituted as indicated. If the patient remains asymptomatic he can be discharged from the hospital in the next 24 hours. Charges/Coding Visit Charges Inpatient E&M: 30956 Subs Hosp L2
--- NOTE | 2023-11-22 14:20 | PN_ITS ---
Subjective Subjective Patient seen and examined. HE had no active complaints. Chest pain hasnt recurred. Review of systems is otherwise negative. He has remained hemodynamically stable. Objective Data Objective Data Vital Signs: Vital Signs Temp Pulse Resp BP Pulse Ox O2 Del Method O2 Flow Rate 97.8 F 59 L 14 166/81 H 98 Room Air 2 11/22/23 08:07 11/22/23 08:14 11/22/23 08:07 11/22/23 08:14 11/22/23 08:07 11/22/23 08:07 11/21/23 19:45 Oxygen Flow Rate (L/min) 2 Oxygen Delivery Method Room Air Weight: 224 lb 3.362 oz Body Mass Index (BMI) 32.1 Intake & Output: Intake and Output for Last 24 Hours 11/20/23 11/21/23 11/22/23 23:59 23:59 23:59 Intake Total 1200 / 1200 675 / 675 Balance 1200 / 1200 675 / 675 Lab / Micro Data 11/22/23 02:07 11/22/23 02:07 Labs: Laboratory Results - last 24 hr 11/21/23 20:07: Troponin I High Sens 14 11/21/23 21:49: Troponin I High Sens 16 11/22/23 02:07: WBC 8.5, RBC 4.90, Hgb 13.5, Hct 41.7, MCV 85.1, MCH 27.6, MCHC 32.4, RDW Std Deviation 41.1, RDW Coeff of Papi 13.3, Plt Count 157, MPV 11.0, Sodium 139, Potassium 4.2, Chloride 107, Carbon Dioxide 25.0, Anion Gap 7, BUN 19 H, Creatinine 1.23, Estim Creat Clear Calc 75.36, Est GFR (MDRD) Af Amer 77, Est GFR (MDRD) Non-Af 63, BUN/Creatinine Ratio 15.4, Glucose 207 H, Calcium 8.9, Troponin I High Sens 15 Physical Exam Const alert, oriented x3 and no apparent distress General Appearance: cooperative HEENT normocephalic, head/scalp atraumatic, moist oral mucous membranes and oropharynx normal Eyes PERRL and EOMs intact bilaterally Neck no lymphadenopathy, supple and no JVD Lymph Lymphatic: no lymphadenopathy noted and no lymphedema noted Resp normal respiratory effort, normal air movement and clear to auscultation bilaterally Cardio regular rate, regular rhythm, S1 normal heart sound, S2 normal heart sound and no murmurs GI normal to inspection, nondistended, normoactive bowel sounds, soft to palpation and non-tender Extremity normal capillary refill, no clubbing, cyanosis or edema and no calf tenderness General Extremity: no tenderness to palpation of joints or extremities Skin General Skin Exam: no breakdown Neuro CN's II-XII intact bilaterally, no focal motor deficits, no sensory deficits noted and deep tendon reflexes 2+ bilaterally Motor Exam: strength 5/5 throughout and general weakness Psych thought process normal, cooperative and affect normal Appearance: appropriate Assessment & Plan Assessment/Plan (1) Chest pain: QUALIFIERS: Chest pain type: unspecified Qualified Code(s): R07.9 - Chest pain, unspecified PLAN: Plan #Chest pain * has known CAD. on aspirin and plavix as well as imdur * troponins x 3 were negative * cardiology on board. Medications adjusted. * has a history of CAD with stents in place in the proximal and mid coronary RCA with functional total obstruction distally, which is being medically treated as his known distal vessel diseaase was not approachable by percuteanous or surgical revascularisation techniques * on metoprolol which was increased by cardiology. * #Hypertension: On metoprolol. Metoprolol increased today. IV hydralazine as needed. #Hyperlipidemia: On statin and is at immediate #Obesity: BMI is 32.2. Complicates acute care, expected recovery and prognosis. #Type 2 diabetes mellitus: On insulin sliding scale. Accu-Cheks ACHS. Also on glimepiride and pioglitazone as well as Sitagliptin #GERD: S/p Leah fundoplication. Stable. DVT prophylaxis: Lovenox Disposition: patient says he wants to be discharged tomorrow; plan is for dc tomorrow Charges/Coding Visit Charges Inpatient E&M: 84357 Subs Hosp L2
[2023-11-22] MEDS: Nitroglycerin (INPATIENT USE) 0.4 MG TAB.SUBL 0.400000000000000022 MG SL (15:24)
--- NOTE | 2023-11-22 15:32 | NURSING ---
states chest pressure pain relieving down to a 4 now but same pain in arms bilat on 2l nc
[2023-11-22] MEDS: Naproxen 500 MG Tablet PO (17:53)
[2023-11-22] MEDS: Atorvastatin Calcium 80 MG Tablet PO (20:56)
[2023-11-23 03:24] VITALS: PULSE 56
[2023-11-23 04:05] VITALS: BP 146/91; PULSE 62; RESP 16; TEMP 36.4; O2SAT 100
[2023-11-23 07:43] VITALS: O2SAT 98
[2023-11-23 08:01] LABS: Absolute Lymphocyte Count 1.02 X10^3/uL (0.83-4.51); Absolute Neutrophil Count 4.8 X10^3/uL (2.0-7.7); Basophil# 0.04 X10^3/uL; Basophil% 0.6 % (0-1); Eosinophil# 0.16 X10^3/uL; Eosinophils% 2.4 % (0-5); Hematocrit 44.9 % (40-54); Hemoglobin 14.5 g/dL (13.0-16.5); Lymphocyte # 1.02 X10^3/ul (0.83-4.51); Lymphocyte % 15.1 % (19-41); Mean Corp Hgb Conc 32.3 g/dL (32-36); Mean Corpuscular Hgb 27.3 pg (27.0-32.0); Mean Corpuscular Volume 84.4 fL (80-94); Mean Platelet Vol. 11.6 fl (6.2-12.0); Monocyte# 0.75 X10^3/uL; Monocyte% 11.1 % (0-10); NRBC Flagged by Analyzer 0 % (0-5); Neutrophil # 4.75 X10^3/uL (2.7-7.7); Neutrophil % 70.4 % (47-70); Platelet Count 160 K/mm3 (150-450); RBC Distribution Width CV 13.4 % (11.6-14.6); RBC Distribution Width SD 41.1 fl (35.1-43.9); Red Blood Count 5.32 M/mm3 (4.6-6.2); White Blood Count 6.8 K/mm3 (4.4-11.0)
[2023-11-23 08:05] VITALS: BP 157/90; PULSE 62; RESP 16; TEMP 36.3; O2SAT 98
[2023-11-23 08:24] LABS: Anion Gap 5 (5-15); BUN 20 mg/dL (7-18); BUN/Creat Ratio 16.9 RATIO (10-20); Calcium,Total 9.3 mg/dL (8.5-10.1); Chloride 109 mmol/L (98-107); Creatinine, Serum 1.18 mg/dL (0.70-1.30); EST Glomerular Filtration Rate 67 mL/min (>60); Est Glom Filt Rate - Afr Amer 80 mL/min (>60); Estimated Creatinine Clearance 78.55 ml/min; Glucose 212 mg/dL (74-106); Potassium 4.2 mmol/L (3.5-5.1); Sodium Level 137 mmol/L (136-145)
--- NOTE | 2023-11-23 08:29 | PCM.PN.CARD ---
Subjective Subjective Patient reports that he is doing much better today. We initiated nonsteroidal anti-inflammatory therapy for this presumed cervical neck discomfort. It appears the tingling and achiness in his both both of his arms appear to be more consistent with a noncardiac etiology. He had 45 minutes or more of the symptoms with negative high-sensitivity troponins. The patient appears to be responding to nonsteroidal therapy. He denies any PND orthopnea and denies any recurrence of the symptoms denies any chest tightness squeezing and is ambulatory without restrictions in the hospital. Echo done yesterday showed normal LV function with an ejection fraction of 60% no wall motion abnormalities. He had mild left ventricular prophy and mild 1+ aortic insufficiency. Objective Data Vital Signs: Vital Signs Temp Pulse Resp BP Pulse Ox O2 Del Method O2 Flow Rate 97.3 F L 62 16 157/90 H 98 Room Air 2 11/23/23 08:05 11/23/23 08:05 11/23/23 08:05 11/23/23 08:05 11/23/23 08:05 11/23/23 08:05 11/22/23 15:30 Oxygen Flow Rate (L/min) 2 Oxygen Delivery Method Room Air Weight: 224 lb 3.362 oz Body Mass Index (BMI) 32.1 Intake & Output: Intake and Output for Last 24 Hours 11/21/23 11/22/23 11/23/23 23:59 23:59 23:59 Intake Total 1200 / 1200 1850 / 1850 350 / 350 Balance 1200 / 1200 1850 / 1850 350 / 350 Lab / Micro Data 11/23/23 07:15 11/23/23 07:15 Labs: Laboratory Results - last 24 hr 11/23/23 07:15: WBC 6.8, RBC 5.32, Hgb 14.5, Hct 44.9, MCV 84.4, MCH 27.3, MCHC 32.3, RDW Std Deviation 41.1, RDW Coeff of Papi 13.4, Plt Count 160, MPV 11.6, Immature Gran % (Auto) 0.400, Neut % (Auto) 70.4 H, Lymph % (Auto) 15.1 L, [place] % (Auto) 11.1 H, Eos % (Auto) 2.4, Baso % (Auto) 0.6, Absolute Neuts (auto) 4.8, Absolute Lymphs (auto) 1.02, Nucleated RBC % 0, Sodium 137, Potassium 4.2, Chloride 109 H, Carbon Dioxide 23.0, Anion Gap 5, BUN 20 H, Creatinine 1.18, Estim Creat Clear Calc 78.55, Est GFR (MDRD) Af Amer 80, Est GFR (MDRD) Non-Af 67, BUN/Creatinine Ratio 16.9, Glucose 212 H, Calcium 9.3 Cardiology Labs/Tests 11/23/23 07:15: WBC 6.8, RBC 5.32, Hgb 14.5, Hct 44.9, MCV 84.4, MCH 27.3, MCHC 32.3, Plt Count 160, MPV 11.6, Immature Gran % (Auto) 0.400, Neut % (Auto) 70.4 H, Lymph % (Auto) 15.1 L, [place] % (Auto) 11.1 H, Eos % (Auto) 2.4, Baso % (Auto) 0.6, Absolute Neuts (auto) 4.8, Nucleated RBC % 0, Sodium 137, Potassium 4.2, Chloride 109 H, Carbon Dioxide 23.0, Anion Gap 5, BUN 20 H, Creatinine 1.18, Est GFR (MDRD) Af Amer 80, Est GFR (MDRD) Non-Af 67, BUN/Creatinine Ratio 16.9, Glucose 212 H, Calcium 9.3 Rhythm: EKG: ECHO: Stress Test: Cardiac Cath: PCI: CT Surgery: Holter monitor: EPS: PPM: CXR: Chest CT Scan: Radiography Diagnostic Testing: Radiology Impression Echocardiogram 11/21/23 03:13 Interpretation Summary Normal LV size. Mild concentric left ventricular hypertrophy. Left ventricular systolic function is normal. The left ventricular ejection fraction is 60 %. Stage 1 diastolic dysfunction. Mild (1+) aortic valve insufficiency. Contrast injection was performed. Ordering Physician: Juliocesar Mercado Referring Physician: Pilo Aviles Performed By: Debi Pinon RDCS Physical Exam Const oriented x3 HEENT normocephalic Neck no JVD Chest inspection of chest normal Resp normal respiratory effort Cardio regular rate, regular rhythm, S1 normal heart sound, S2 normal heart sound, no murmurs, no rub and no gallops GI normal to inspection, nondistended, normoactive bowel sounds Extremity normal to inspection Psych mental status grossly normal Assessment & Plan Assessment/Plan (1) Atherosclerotic heart disease of [place] coronary artery without angina pectoris: QUALIFIERS: [place] vs. transplanted heart: [place] heart Qualified Code(s): I25.10 - Atherosclerotic heart disease of [place] coronary artery without angina pectoris PLAN: The patient's symptoms did not seem to be consistent with angina. His high-sensitivity troponins are negative and his EKG showed no acute changes. His echocardiogram shows normal LV function with no segmental wall motion abnormality. Right cardiovascular standpoint the patient can be discharged to home. He should be continued on nonsteroidal anti-inflammatory therapy for 7 days. I discussed with him that should he have a recurrence of the symptoms he should follow-up with his primary care physician for further evaluation of potential cervical spine issues. (2) Essential (primary) hypertension: PLAN: Blood pressure remains slightly elevated today. Further treatment will be deferred to the primary service and his primary care physician. PLAN: Plan From a cardiovascular standpoint the patient can be discharged to home today. The patient is a follow-up with his cardiology previously arranged appointments and as needed. Charges/Coding Visit Charges Inpatient E&M: 13168 Init Hosp L2
[2023-11-23] MEDS: Pantoprazole Sodium 40 MG Tablet PO (09:11)
[2023-11-23] MEDS: Naproxen 500 MG Tablet PO (09:11)
[2023-11-23] MEDS: Clopidogrel Bisulfate 75 MG Tablet PO (09:11)
[2023-11-23] MEDS: Isosorbide Mononitrate 60 MG Tablet PO (09:12)
[2023-11-23 09:13] VITALS: PULSE 68
[2023-11-23] MEDS: Metoprolol Tartrate 25 MG Tablet PO (09:13)
[2023-11-23] MEDS: Enoxaparin 40 MG/0.4 ML Syringe SC (09:15)
[2023-11-23] MEDS: Ranolazine 500 MG Tablet 1000 MG PO (09:15)
[2023-11-23] MEDS: Aspirin 81 MG TAB.CHEW PO (09:15)
[2023-11-23] MEDS: Ezetimibe 10 MG Tablet PO (09:15)
--- NOTE | 2023-11-23 11:31 | PCM.DC.SUM ---
Providers Date of Admission: 11/21/23 Date of Discharge: 11/23/23 Primary Care Physician: Dr. Pilo Aviles MD Consultations 11/21/23 08:13 Consult: Cardiology Routine Consulting Provider: Jose Arenas Reason for Consult: chest pain, h/o CAD with stenting x 7 EMERGENT Consult: No MD Notified: Yes Date Notified: 11/21/23 Time Notified: 08:19 Method of Notification: Text Reason For Visit: CHEST PAIN Diagnosis Discharge Diagnosis (1) Atherosclerotic heart disease of [place] coronary artery without angina pectoris: Status: Chronic Code(s): I25.10 - Atherosclerotic heart disease of [place] coronary artery without angina pectoris Qualifiers: [place] vs. transplanted heart: [place] heart Qualified Code(s): I25.10 - Atherosclerotic heart disease of [place] coronary artery without angina pectoris (2) Essential (primary) hypertension: Status: Chronic Code(s): I10 - Essential (primary) hypertension Plan #Chest pain has known CAD. on aspirin and plavix as well as imdur troponins x 3 were negative cardiology on board. Medications adjusted. has a history of CAD with stents in place in the proximal and mid coronary RCA with functional total obstruction distally, which is being medically treated as his known distal vessel diseaase was not approachable by percuteanous or surgical revascularisation techniques on metoprolol which was increased by cardiology. #Hypertension: On metoprolol. Metoprolol increased today. IV hydralazine as needed. #Hyperlipidemia: On statin and is at immediate #Obesity: BMI is 32.2. Complicates acute care, expected recovery and prognosis. #Type 2 diabetes mellitus: On insulin sliding scale. Accu-Cheks ACHS. Also on glimepiride and pioglitazone as well as Sitagliptin #GERD: S/p Leah fundoplication. Stable. DVT prophylaxis: Lovenox Disposition: patient says he wants to be discharged tomorrow; plan is for dc tomorrow Medications at Discharge Home Medications atorvastatin 80 mg tablet 80 mg PO DAILY lower chloesterol 12/15/16 aspirin 81 mg chewable tablet 81 mg PO DAILY #1 TAB 10/14/20 clopidogrel 75 mg tablet 75 mg PO DAILY antiplatelet 12/11/20 ezetimibe 10 mg tablet 10 mg PO DAILY 05/19/21 acetaminophen 325 mg tablet 650 mg PO Q4H PRN Pain 05/30/21 metoprolol tartrate 25 mg tablet 25 mg PO BID 06/13/21 pioglitazone 30 mg tablet 30 mg PO DAILY 06/13/21 sitagliptin phosphate 50 mg-metformin 1,000 mg tablet (Janumet) 1 tab PO BID 06/13/21 glimepiride 4 mg tablet 4 mg PO DAILY 03/12/23 isosorbide mononitrate 30 mg tablet,extended release 24 hr 30 mg PO DAILY 03/12/23 pantoprazole 40 mg tablet,delayed release 40 mg PO DAILY 03/12/23 ranolazine 1,000 mg tablet,extended release,12 hr 1,000 mg PO BID take with food #180 tabs 05/12/23 naproxen 500 mg tablet 500 mg PO BIDCM #14 tabs 11/23/23 Hospital Course Operations None Procedures 2-D Echocardiogram Summary of Care Provided Minutes Spent on Discharge: 45 Hospital Course: Patient is a 62-year-old male with a past medical history as outlined was admitted through the ED on 11/21/2023 with a complaint of chest pain. Pain started about an hour prior to admission. Pain was abrupt and started while she was watching TV. It was anterior and pressure-like and moderate in intensity. He had no aggravating or relieving factors. Review of systems otherwise negative. On admission troponins were within normal range and EKG showed no acute ST changes. He was on aspirin and Plavix and has been taking it. He was admitted to be managed for chest pain to rule out ACS. He did have a known history of CAD with stents in place in the proximal and mid coronary RCA with functional total obstruction of the stent which was being medically treated as was not approachable by percutaneous or surgical revascularization techniques. His metoprolol dose was increased by cardiology. Patient symptoms resolved and he felt much better. He remained stable and was discharged home on 11/23/2023. He is follow-up with his primary care doctor within 1 to 2 weeks. Of note he was placed on naproxen by cardiology as well as felt that his symptoms might not be of cardiac origin. The naproxen did improve his symptoms and he was given a prescription for 1 week course of naproxen. Patient was on pantoprazole and this was continued. He is follow-up with his primary care doctor and cardiology within 1 to 2 weeks. Patient seen and examined prior to discharge. He had no active complaints and had an uneventful night. Review of systems otherwise negative. Labs and vitals reviewed. Home medication reviewed and reconciled. Physical Exam Const alert, oriented x3, no apparent distress and average body habitus General Appearance: cooperative, comfortable and well kempt Orientation / Consciousness: awake HEENT normocephalic, head/scalp atraumatic, hearing grossly normal bilaterally, nasal mucous membranes and turbinates normal, moist oral mucous membranes and oropharynx normal Mouth: oral and palatal mucosa normal Eyes PERRL, EOMs intact bilaterally and conjunctivae normal Neck full ROM, no lymphadenopathy, supple and no JVD Lymph Lymphatic: no lymphadenopathy noted and no lymphedema noted Chest inspection of chest normal Resp normal respiratory effort, normal air movement, no retractions, no use of accessory muscles and clear to auscultation bilaterally Cardio regular rate, regular rhythm, S1 normal heart sound, S2 normal heart sound, no murmurs and peripheral pulses 2+ throughout GI normal to inspection, nondistended, normoactive bowel sounds, soft to palpation, non-tender and non-distended Back/Spine normal ROM Extremity normal to inspection, full ROM, normal capillary refill, no clubbing, cyanosis or edema, no calf tenderness and no pedal edema General Extremity: no tenderness to palpation of joints or extremities Skin no rashes or lesions noted General Skin Exam: no breakdown Neuro oriented x3, CN's II-XII intact bilaterally, moves all extremities, no focal motor deficits, no sensory deficits noted and deep tendon reflexes 2+ bilaterally Sensorium / Orientation: awake, alert, oriented to person, oriented to place and oriented to time Speech: speech normal Motor Exam: strength 5/5 throughout and general weakness Psych mental status grossly normal, thought process normal, cooperative and affect normal Appearance: appropriate Weight / BMI Weight Weight: 224 lb 3.362 oz Body Mass Index (BMI) 32.1 ABG / Lab / Microbiology Data 11/23/23 07:15 11/23/23 07:15 Laboratory: Laboratory Results - last 24 hr 11/23/23 07:15: WBC 6.8, RBC 5.32, Hgb 14.5, Hct 44.9, MCV 84.4, MCH 27.3, MCHC 32.3, RDW Std Deviation 41.1, RDW Coeff of Papi 13.4, Plt Count 160, MPV 11.6, Immature Gran % (Auto) 0.400, Neut % (Auto) 70.4 H, Lymph % (Auto) 15.1 L, Sac % (Auto) 11.1 H, Eos % (Auto) 2.4, Baso % (Auto) 0.6, Absolute Neuts (auto) 4.8, Absolute Lymphs (auto) 1.02, Nucleated RBC % 0, Sodium 137, Potassium 4.2, Chloride 109 H, Carbon Dioxide 23.0, Anion Gap 5, BUN 20 H, Creatinine 1.18, Estim Creat Clear Calc 78.55, Est GFR (MDRD) Af Amer 80, Est GFR (MDRD) Non-Af 67, BUN/Creatinine Ratio 16.9, Glucose 212 H, Calcium 9.3 Radiography Diagnostic Testing: Radiology Impression Echocardiogram 11/21/23 03:13 Interpretation Summary Normal LV size. Mild concentric left ventricular hypertrophy. Left ventricular systolic function is normal. The left ventricular ejection fraction is 60 %. Stage 1 diastolic dysfunction. Mild (1+) aortic valve insufficiency. Contrast injection was performed. Ordering Physician: Juliocesar Mercado Referring Physician: Pilo Aviles Performed By: Debi Pinon RDCS D/C Instructions Discharge Diet: Low fat / Low cholesterol Discharge Activity: Return to Normal Activity Weight Bearing Status: Weight bearing as tolerated Call your doctor if you observe: Fever of 101 or Higher, Shortness of breath, Dizziness, Swelling in the ankles and Chest pain Meaningful Use Info Meaningful Use Diagnoses (Choose all that apply): None applicable Discharge Plan Admission Admit Date/Time: 11/21/23 03:09 Primary Reason for Your Visit: chest pain Attending Provider: Chanetll Casper Primary Care Provider: Pilo Aviles Consulting Providers: Juliocesar Mercado; Jose Arenas; Mathew Felton Instructions Patient Instructions: Chest Pain [facility] Discharge Orders/Prescriptions Prescriptions: New naproxen 500 mg Tablet 500 mg PO BIDCM Qty: 14 0RF Continued aspirin 81 mg tablet,chewable 81 mg PO DAILY Qty: 1 0RF pioglitazone 30 mg tablet 30 mg PO DAILY Janumet 50-1,000 mg tablet 1 tab PO BID ezetimibe 10 mg tablet 10 mg PO DAILY metoprolol tartrate 25 mg tablet 25 mg PO BID pantoprazole 40 mg tablet,delayed release (DR/EC) 40 mg PO DAILY glimepiride 4 mg tablet 4 mg PO DAILY isosorbide mononitrate 30 mg tablet extended release 24 hr 30 mg PO DAILY atorvastatin 80 MG tablet 80 mg PO DAILY clopidogrel 75 MG tablet 75 mg PO DAILY acetaminophen 325 mg tablet 650 mg PO Q4H PRN (Reason: Pain) ranolazine 1,000 mg tablet extended release 12 hr 1,000 mg PO BID Qty: 180 3RF Referrals / Follow Up: Pilo Aviles MD [Primary Care Provider] - Within 2 Weeks Disposition Disposition (needs filled in before D/C Order can be placed): Home, Self Care Charges/Coding Visit Charges Inpatient E&M: 10497 Disch Hosp >30min
[2023-11-23 11:37] VITALS: BP 125/86; PULSE 63; RESP 16; TEMP 36.3; O2SAT 98
== END 2023-11-23 11:30 | disposition home or self-care (01) ==
LOC: ED 11-21 00:16 → PCU 11-21 03:31
PROVIDERS: Hospitalist; Internal Medicine Interventional Cardiology; Admitting Provider Internal Medicine; Emergency Provider Emergency Medicine; PCP Family Medicine; Visit Provider Student in an Organized Health Care Education/Training Program
DX: R07.89 Other chest pain (principal); E11.9 Type 2 diabetes mellitus without complications; I25.10 Atherosclerotic heart disease of native coronary artery without angina pectoris; E78.00 Pure hypercholesterolemia, unspecified; Z79.84 Long term (current) use of oral hypoglycemic drugs; N28.9 Disorder of kidney and ureter, unspecified; I10 Essential (primary) hypertension; Z79.02 Long term (current) use of antithrombotics/antiplatelets; G47.33 Obstructive sleep apnea (adult) (pediatric); R06.02 Shortness of breath; Z79.82 Long term (current) use of aspirin; Z95.5 Presence of coronary angioplasty implant and graft; Z79.899 Other long term (current) drug therapy; E66.9 Obesity, unspecified; Z68.32 Body mass index [BMI] 32.0-32.9, adult
CPT/HCPCS: 36415; 71045; 80048; 80061; 83036; 83735; 84484; 85025; 85027; 93005; 93306; 94668; 96372; 99221; 99284; Q9957; A4216; C8929; G0378

== ENCOUNTER → 2023-11-24 | Outpatient (CLI) | payer OTHER, SELFPAY ==
[2021-06-25 13:55] VITALS: BMI 30.5
--- NOTE | 2023-11-24 16:42 | RAD_ITS ---
INDICATION: Neuralgia and neuritis EXAMINATION/TECHNIQUE: X-RAY - XR Spine Cervical 6 or More Views COMPARISON: None. FINDINGS: VERTEBRAE: Preserved vertebral body height. No acute fracture. No spondylolisthesis. Flexion and extension lateral views show no evidence of instability. DISCS: Disc spaces are maintained. NECK SOFT TISSUES: No prevertebral soft tissue widening. LUNG APICES: Clear. RAD/Cerv Spine Obl/Flex/Ext Comp IMPRESSION: Unremarkable study.. Electronically Signed: Cornelius Gutierres MD at 0:44 EST ,
== END | disposition home or self-care (01) ==
PROVIDERS: PCP Family Medicine; Referring Provider Family Medicine; Visit Provider Family Medicine
DX: M79.2 Neuralgia and neuritis, unspecified (principal)
CPT/HCPCS: 72052

== ENCOUNTER → 2023-12-10 | Outpatient (CLI) | payer OTHER, SELFPAY ==
[2021-06-25 13:55] VITALS: BMI 30.5
--- NOTE | 2023-12-10 07:46 | CDU_ITS ---
Reason For Study: DIZZINESS Rt. Velocities/BP Lt. Velocities/BP Prox CCA 87.1/22.0 cm/sec. Prox CCA 95.5/16.4 cm/sec. Mid CCA 84.6/23.2 cm/sec. Mid CCA 88.9/18.6 cm/sec. Dist CCA 84.6/25.7 cm/sec. Dist CCA 95.2/13.8 cm/sec. Prox ICA 150.9/28.5 cm/sec. Prox ICA 100.2/15.5 cm/sec. Mid ICA 84.6/23.2 cm/sec. Mid ICA 73.6/15.8 cm/sec. Dist ICA 84.6/25.7 cm/sec. Dist ICA 72.3/20.8 cm/sec. Rt. ICA/CCA = 150.9/84.6=1.8. Lt. ICA/CCA = 100.2/88.9=1.1. Prox ECA 101.8/6.0 cm/sec. Prox ECA 107.3/5.1 cm/sec. Rt. Vert. 36.1/11.5 cm/sec. Lt. Vert. 60.0/14.6 cm/sec. Right Extracranial There is homogeneous, smooth atherosclerotic plaque noted in the right common carotid artery. There is heterogeneous, irregular atherosclerotic plaque noted in the right internal carotid artery. There is no significant atherosclerotic plaque noted in the right external carotid artery. Antegrade flow is noted in the right vertebral artery. There is heterogeneous, irregular atherosclerotic plaque noted in the right bulb. Left Extracranial There is homogeneous, smooth atherosclerotic plaque noted in the left common carotid artery. There is homogeneous, irregular atherosclerotic plaque noted in the left internal carotid artery. There is no significant atherosclerotic plaque noted in the left external carotid artery. Antegrade flow is noted in the left vertebral artery. Procedure Carotid Duplex 96030. This is a Carotid Duplex examination using B-mode, color flow and specral Doppler. Exam performed in department. VL/Carotid Duplex Ultrasound Interpretation Summary Moderate (50-69%) stenosis right extracranial internal carotid. Mild (<50%) stenosis left extracranial internal carotid. Patent and antegrade vertebrals bilaterally. Ordering Physician: Roxana Gongora Referring Physician: Pilo Aviles Performed By: Kirsty Stokes RDCS, RVT
== END | disposition home or self-care (01) ==
LOC: CVS 07:45
PROVIDERS: PCP Family Medicine; Referring Provider Nurse Practitioner Gerontology; Visit Provider Nurse Practitioner Gerontology
DX: R42 Dizziness and giddiness (principal)
CPT/HCPCS: 93880

== ENCOUNTER → 2023-12-30 | Outpatient (CLI) | payer OTHER, SELFPAY ==
[2021-06-25 13:55] VITALS: BMI 30.5
[2023-12-30 10:40] LABS: Absolute Lymphocyte Count 1.59 X10^3/uL (0.83-4.51); Absolute Neutrophil Count 5.3 X10^3/uL (2.0-7.7); Basophil# 0.05 X10^3/uL; Basophil% 0.6 % (0-1); Eosinophil# 0.13 X10^3/uL; Eosinophils% 1.7 % (0-5); Hemoglobin 14.9 g/dL (13.0-16.5); Lymphocyte # 1.59 X10^3/ul (0.83-4.51); Lymphocyte % 20.3 % (19-41); Mean Corp Hgb Conc 32.4 g/dL (32-36); Mean Corpuscular Hgb 27.4 pg (27.0-32.0); Mean Corpuscular Volume 84.6 fL (80-94); Mean Platelet Vol. 11.6 fl (6.2-12.0); Monocyte# 0.76 X10^3/uL; Monocyte% 9.7 % (0-10); NRBC Flagged by Analyzer 0 % (0-5); Neutrophil # 5.28 X10^3/uL (2.7-7.7); Neutrophil % 67.3 % (47-70); Platelet Count 196 K/mm3 (150-450); RBC Distribution Width CV 13.7 % (11.6-14.6); RBC Distribution Width SD 41.7 fl (35.1-43.9); Red Blood Count 5.44 M/mm3 (4.6-6.2); White Blood Count 7.8 K/mm3 (4.4-11.0)
[2023-12-30 10:53] LABS: International Normalized Ratio 1.1
[2023-12-30 11:13] LABS: Anion Gap 5 (5-15); BUN 24 mg/dL (7-18); BUN/Creat Ratio 18.9 RATIO (10-20); Calcium,Total 9.3 mg/dL (8.5-10.1); Chloride 107 mmol/L (98-107); Creatinine, Serum 1.27 mg/dL (0.70-1.30); EST Glomerular Filtration Rate 61 mL/min (>60); Est Glom Filt Rate - Afr Amer 74 mL/min (>60); Glucose 183 mg/dL (74-106); Potassium 4.5 mmol/L (3.5-5.1); Sodium Level 137 mmol/L (136-145)
== END | disposition home or self-care (01) ==
LOC: LAB 10:11
PROVIDERS: PCP Family Medicine; Referring Provider Internal Medicine Cardiovascular Disease; Visit Provider Internal Medicine Cardiovascular Disease
DX: I25.10 Atherosclerotic heart disease of native coronary artery without angina pectoris (principal); R07.9 Chest pain, unspecified
CPT/HCPCS: 36415; 80048; 85025; 85610

== ENCOUNTER 2024-01-14 08:31 | Day surgery (SDC) | payer OTHER, SELFPAY ==
[2021-06-25 13:55] VITALS: BMI 30.5
[2024-01-13 08:35] VITALS: BMI 33.5
--- NOTE | 2024-01-18 14:26 | CL.D_ITS ---
Patient Name: ARLEEN NAJERA Study Date: 01/14/2024 Performing: Hao Lacy MD Ht: 70 inches 177.8 cm : 1960 Wt: 234 lbs 106.14 kg Age: 63 Gender: male BSA: 2.23 PROCEDURE(S) PERFORMED DC03-([id number])LHC/COR/LV/CABG CLINICAL PROFILE AND INDICATIONS Indications: Worsening Angina Heart Failure: None Stress/Imaging Stress/Image Study Performed: No CAD Presentations: Stable angina. CONCLUSIONS Coronary disease with progressive disease noted in the mid right coronary artery and distal right coronary artery. The first obtuse marginal branch also has significant disease. The non ligated thoracic arterial branch could also be contributing to angina. RECOMMENDATIONS Would recommend a staged procedure PCI to the right coronary artery and the obtuse marginal branch. DESCRIPTION OF PROCEDURE The patient arrived to the procedure lab. The risks and benefits of the procedure as well as a full description of our services here and current unavailability of surgical backup were fully explained to the patient and/or their significant other prior to the catheterization. The Timeout was completed, verifying the correct patient and procedure. The patient's procedural site was prepped and draped in the usual fashion. Local anesthetic was given subcutaneously to left radial region with Lidocaine 2%. Using a modified Seldinger technique, arterial access was obtained via the left radial artery, a 6Fr sheath was inserted. Left internal mammary artery graft to the LAD selective angiography was performed in multiple views using a 5 Fr. IM catheter. Right Coronary Artery selective angiography was then performed in multiple views using a 5 Fr. 4.0 [place] catheter. Left Coronary Artery selective angiography was performed in multiple views using a 5 Fr. JL3.5 catheter.The arterial sheath was pulled and a TR Band was applied for hemostasis 12 of air CORONARY ANGIOGRAPHY DOMINANCE: Right Dominant LEFT HEART ASSESSMENT Left Ventricular Ejection Fraction: by Echo 60 % Normal LV wall motion Normal Left Ventricular systolic function LEFT MAIN: Angiographically normal LEFT ANTERIOR DESCENDING ARTERY: PROX LAD: is occluded CIRCUMFLEX ARTERY: The circumflex artery is a nondominant vessel. There is a first obtuse marginal branch with a high-grade proximal 80 to 90% stenotic lesion. The rest of the circumflex artery is diffusely diseased RIGHT CORONARY ARTERY: Dominant vessel previously stented. The proximal area has 30 to 40% stenosis in the mid zone there is progression to 70% stenosis and distally in the posterior descending artery severely diffusely diseased GRAFTS: WHITAKER graft to the Mid LAD This vessel is patent but there is a large thoracic branch which was not clipped off and anastomosis distally. COMPLICATIONS No Complications PROCEDURE MEDICATIONS Fentanyl 50 mcg IV Versed 1 mg IV Versed 1 mg IV Oxygen: 2 L/min via nasal cannula Heparin given IA 01/14/2024 09:33:46 Verapamil 2.5mg, Ntg 100mcgs, 3000 units of Heparin given IA 01/14/2024 09:33:46 SUMMARY OF HEMODYNAMIC DATA Time AIR REST ECG 08:52:20 ECG 09:17:36 AO 120/80 (98) SA 09:45:38 AO 115/71 (91) 09:46:08 Signed By Hao Lacy MD On 01/14/2024 10:06:22 Hao Lacy MD
== END 2024-01-14 23:59 | disposition home or self-care (01) ==
LOC: CLSP 08:32
PROVIDERS: PCP Family Medicine; Referring Provider Internal Medicine Cardiovascular Disease; Visit Provider Internal Medicine Cardiovascular Disease
DX: I25.118 Atherosclerotic heart disease of native coronary artery with other forms of angina pectoris (principal); Z95.5 Presence of coronary angioplasty implant and graft; Z79.899 Other long term (current) drug therapy; Z79.82 Long term (current) use of aspirin; Z79.84 Long term (current) use of oral hypoglycemic drugs
CPT/HCPCS: 93455; 99152; 99153; C1894; J7040; Q9967; C1769

== ENCOUNTER 2024-01-20 07:00 | Day surgery (SDC) | payer OTHER, SELFPAY ==
[2021-06-25 13:55] VITALS: BMI 30.5
[2024-01-19 09:05] VITALS: BMI 33.5
[2024-01-20] VITALS (9 sets, daily range): BP systolic 130–159; BP diastolic 74–96; PULSE 61–73; RESP 14–15; TEMP 36.6; O2SAT 96–100; BMI 32.5
[2024-01-20] MEDS: 0.9% Normal Saline (1000mL) 1,000 ML 150 ML IV (11:03)
--- NOTE | 2024-01-20 13:17 | CL.I_ITS ---
Patient Name: ARLEEN NAJERA Study Date: 01/20/2024 Performing: Mu Davison MD Ht: 70 inches 177.8 cm : 1960 Wt: 234.3 lbs 106.14 kg Age: 63 Gender: male BSA: 2.23 PROCEDURE(S) PERFORMED IC01-([id number])PTCA, SINGLE CORONARY ARTERY CLINICAL PROFILE AND CO-MORBIDITIES Indications: Worsening Angina Heart Failure: None Angina Classification Anginal Classification w/in 2 Weeks: CCS IV CONCLUSIONS Attempted PCI mid RCA. Unsuccessful as balloon unable to cross tortous Prox RCA. Prox RCA stent dilated with 2.5 mm balloon but still unable to cross balloon to mid RCA. RECOMMENDATIONS Refer to CTS for evaluation for possible CABG DESCRIPTION OF PROCEDURE The patient arrived to the procedure lab. The risks and benefits of the procedure as well as a full description of our services here and current unavailability of surgical backup were fully explained to the patient and/or their significant other prior to the catheterization. The Timeout was completed, verifying the correct patient and procedure. The patient's procedural site was prepped and draped in the usual fashion. Local anesthetic was given subcutaneously to right radial region with Lidocaine 2%. Using a modified Seldinger technique, arterial access was obtained via the right radial artery, a 6Fr sheath was inserted.. Right Coronary Artery selective angiography was then performed in multiple views using a 6 Fr. AL 1 catheterThe images were reviewed and options discussed. A decision was then made to proceed with an Intervention, IVUS or other adjunct procedure. emerge monorail 2.25 x 12 Balloon catheter was inserted. Guide wire was exchanged for a run through extra floppy emerge MR 2.50 x 8 Balloon catheter was inserted. Angiogram performed pre balloon dilatation. Guide wire was exchanged for a choice extra support Guide wire was advanced to the RCA. Balloon catheter was reinserted nc emerge MR 2.5 x 8 Balloon catheter was inserted. Balloon catheter was advanced across lesion in the right coronary, mid. PTCA balloon inflated at 16 atms for 16 secs. PTCA balloon inflated at 18 atms for 20 secs. Angiogram performed post balloon dilatation. PTCA balloon inflated at 16 atms for 16 secs. PTCA balloon inflated at 12 atms for 6 secs. Angiogram performed post balloon dilatation. guideliner 6 f Guide catheter was inserted and engaged into the RCA. runthrough Guide wire was advanced to the RCA. emerge MR 2.25 x 8 Balloon catheter was inserted. Angiogram performed pre balloon dilatation. guideliner 6 f Guide catheter was inserted and engaged into the RCA. 6 f guideliner Guide catheter was inserted and engaged into the RCA. Angiogram performed Guide catheter was exchanged for a JL 4 Guide catheter was inserted and engaged into the LCA. The arterial sheath was pulled and a TR Band was applied for hemostasis 11 ml of air INTERVENTION INFORMATION LESION SITE: RCA (Mid) Lesion Complexity: High/C Pre intervention MARTHA flow: 3 PROCEDURE: Balloon Angioplasty Post intervention MARTHA flow: 3 Lesion Devices: Cordis 6 Fr AL1.0 100cm Guide Catheter Hebert Sci NC EMERGE MR 2.50x08 BALLOON COMPLICATIONS No Complications PROCEDURE MEDICATIONS Fentanyl 50 mcg IV Versed 1 mg IV Oxygen: 2 L/min via nasal cannula Heparin 6000 unit(s) IV 01/20/2024 08:52:17 Heparin . IA of 01/20/2024 08:52:25 Verapamil 2.5mg, Ntg 200mcgs, 2000 units of Heparin. IA of 01/20/2024 08:52:25 SUMMARY OF HEMODYNAMIC DATA Time AIR REST ECG 07:22:29 ECG 08:30:14 AO 104/65 (81) SA 08:57:06 AO 146/64 (95) 09:49:12 Signed By Mu Davison MD On 01/24/2024 10:32:06 Signed By Mu Davison MD On 01/20/2024 13:16:59 Mu Davison MD
--- NOTE | 2024-01-20 14:44 | CRPHASE1 ---
Patient Communication Patient Information Former Patient:: Phase I PHII Cardiac Rehab Discussed with Patient:: Yes Guide to Cardiac Rehab Given to Patient:: Yes Communication to Cardiac Rehab Choice Program [facility] PHII:: Communication Given to CR Chief Wharfinger:: Mu Davison Medical/Surgical History Medical History ME:: No Angina:: Yes CAD:: Yes Congestive Heart Failure: Cardiomyopathy:: No Valve Disease/Replacement:: No Diabetes:: Yes Diabetes Type II:: Yes Hypertension:: Yes CVA/TIA: Cardiac Rehabilitation Info Program Information Cardiac Rehabilitation Program Information: Cardiac Rehab The cardiac rehab team at [facility] consists of highly skilled exercise physiologists, nurses, respiratory therapists and physicians working together with you. Our purpose is to help you have a full recovery and achieve the goals you set for yourself. Over the years many of our patients have returned to activities they assumed they would never do again! We can help restore your confidence and motivation to make lifestyle changes that can have a significant impact on your health and quality of life! We can help answer questions and concerns you may have about exercise, lifestyle, medications, diet, stress and anxiety which are common following a hospitalization. WE monitor ECG and vital signs during exercise and discuss your progress with you and report to your physician(s). Cardiac Rehab is proven to help reduce readmissions, improve functional capacity and lower recurrence of problems with your heart. Our Cardiac Rehab program is Certified by the [place] [employer]monary [employer] (AACVPR) and Accredited by the [place] [employer] through our [facility]. You can contact us at . We invite you to call us with your questions or to get started in our program. If you have other questions or concerns be sure to ask your physician/provider during your follow-up visit. WE look forward to seeing you!
--- NOTE | 2024-01-20 14:50 | CRPH1.INSTRU ---
General Education Discussed with Patient CAD and cardiac anatomy and function:: Patient communicates acknowledgment Explanation of diagnoses and procedures:: Patient communicates acknowledgment Sign/Symptoms of IA:: Patient communicates acknowledgment Antiplatelet therapy: Patient communicates acknowledgment Proper use of NTG-SL: Patient communicates acknowledgment Emergency procedures and activation of EMS: Patient communicates acknowledgment Compliance of all prescribed medications: Patient communicates acknowledgment Dyslipidemia Response Code Dyslipidemia Response Code:: Patient communicates acknowledgment Overweight/Obesity Risk Factors Patient Overweight/Obesity Risk Factors Are:: BMI Normal [24-29 & > 65 years old] Response Code Overweight/Obesity:: Patient communicates acknowledgment Hypertension Recommendations Recommendations Include:: BP <130/80 if diabetic Response Code Hypertension:: Patient communicates acknowledgment Heart Disease Risk Factors Patient Heart Disease Risk Factors Are:: Previous cardiac event Recommendations Recommendations Include:: Educated family members of their risk Response Code Heart Disease Response Code:: Patient communicates acknowledgment Diabetes Risk Factors Patient Diabetes Risk Factors Are:: Elevated blood sugars Recommendations Recommendations Include:: Monitor blood sugar as prescribed, Diabetic dietary guidelines and Decrease/maintain body weight Response Code Diabetes:: Patient communicates acknowledgment Metabolic Syndrome Risk Factors Patient Metabolic Syndrome Risk Factors Are [3 of 5]:: Hypertension Response Code Metabolic Syndrome Response Code:: Patient communicates acknowledgment Sedentary Recommendations Recommendations Include:: Benefits of regular exercise and Monitored Outpatient Cardiac Rehab Response Code Sedentary Response Code:: Patient communicates acknowledgment Stress Recommendations Recommendations Include:: Stress management techniques Response Code Stress Response Code:: Patient communicates acknowledgment
[2024-01-20 18:14] LABS: ACT Activated Clotting Time 196 sec (74-137)
[2024-01-20 23:12] LABS: ACT Activated Clotting Time 196 sec (74-137)
== END 2024-01-20 15:32 | disposition home or self-care (01) ==
LOC: CLSP 07:01 → PCU 10:10
PROVIDERS: PCP Family Medicine; Referring Provider Internal Medicine Cardiovascular Disease; Visit Provider Internal Medicine Cardiovascular Disease
DX: I25.118 Atherosclerotic heart disease of native coronary artery with other forms of angina pectoris (principal); E11.9 Type 2 diabetes mellitus without complications; E78.00 Pure hypercholesterolemia, unspecified; I25.2 Old myocardial infarction; G47.33 Obstructive sleep apnea (adult) (pediatric); I10 Essential (primary) hypertension; Z95.5 Presence of coronary angioplasty implant and graft; Z95.1 Presence of aortocoronary bypass graft; Z79.84 Long term (current) use of oral hypoglycemic drugs; Z79.899 Other long term (current) drug therapy; Z79.82 Long term (current) use of aspirin
CPT/HCPCS: 85347; 92920; 92928; 93005; 99152; 99153; J7030; J7040; C1725; C1769; C1887; C1894; C9600; Q9967

== ENCOUNTER → 2024-02-10 | Outpatient (CLI) | payer OTHER, SELFPAY ==
[2021-06-25 13:55] VITALS: BMI 30.5
[2024-02-10 12:20] LABS: Absolute Lymphocyte Count 1.41 X10^3/uL (0.83-4.51); Absolute Neutrophil Count 4.2 X10^3/uL (2.0-7.7); Basophil# 0.04 X10^3/uL; Basophil% 0.6 % (0-1); Eosinophil# 0.14 X10^3/uL; Eosinophils% 2.2 % (0-5); Hematocrit 41.6 % (40-54); Hemoglobin 13.5 g/dL (13.0-16.5); Lymphocyte # 1.41 X10^3/ul (0.83-4.51); Lymphocyte % 22.2 % (19-41); Mean Corp Hgb Conc 32.5 g/dL (32-36); Mean Corpuscular Hgb 27.8 pg (27.0-32.0); Mean Corpuscular Volume 85.6 fL (80-94); Mean Platelet Vol. 11.3 fl (6.2-12.0); Monocyte# 0.58 X10^3/uL; Monocyte% 9.1 % (0-10); NRBC Flagged by Analyzer 0 % (0-5); Neutrophil # 4.16 X10^3/uL (2.7-7.7); Neutrophil % 65.4 % (47-70); Platelet Count 214 K/mm3 (150-450); RBC Distribution Width CV 13.6 % (11.6-14.6); RBC Distribution Width SD 42.3 fl (35.1-43.9); Red Blood Count 4.86 M/mm3 (4.6-6.2); White Blood Count 6.4 K/mm3 (4.4-11.0)
[2024-02-10 12:44] LABS: BNP,B-Type NATRIURETIC PEPTIDE 24.1 pg/mL (0-100)
[2024-02-10 13:02] LABS: Anion Gap 4 (5-15); BUN 23 mg/dL (7-18); Calcium,Total 9.2 mg/dL (8.5-10.1); Chloride 107 mmol/L (98-107); Creatinine, Serum 1.28 mg/dL (0.70-1.30); EST Glomerular Filtration Rate 61 mL/min (>60); Est Glom Filt Rate - Afr Amer 73 mL/min (>60); Glucose 210 mg/dL (74-106); Potassium 4.2 mmol/L (3.5-5.1); Sodium Level 136 mmol/L (136-145); Thyroid Stim Hormone (TSH) 0.64 uIU/mL (0.358-3.74)
== END | disposition home or self-care (01) ==
LOC: LAB 11:08
PROVIDERS: PCP Family Medicine; Referring Provider Nurse Practitioner Gerontology; Visit Provider Nurse Practitioner Gerontology
DX: R53.83 Other fatigue (principal); E55.9 Vitamin D deficiency, unspecified
CPT/HCPCS: 36415; 80048; 82306; 83880; 84443; 85025

== ENCOUNTER → 2024-02-29 | Outpatient (CLI) | payer OTHER, SELFPAY ==
[2021-06-25 13:55] VITALS: BMI 30.5
== END | disposition home or self-care (01) ==
LOC: PSN 13:26
PROVIDERS: PCP Family Medicine; Referring Provider Nurse Practitioner Gerontology; Visit Provider Nurse Practitioner Gerontology
DX: R53.83 Other fatigue (principal); R06.00 Dyspnea, unspecified; R00.2 Palpitations
CPT/HCPCS: 93225; 93226

== ENCOUNTER → 2024-03-02 | Outpatient (CLI) | payer OTHER, SELFPAY ==
[2021-06-25 13:55] VITALS: BMI 30.5
[2024-03-02 15:05] LABS: Absolute Lymphocyte Count 1.53 X10^3/uL (0.83-4.51); Absolute Neutrophil Count 4.3 X10^3/uL (2.0-7.7); Basophil# 0.03 X10^3/uL; Basophil% 0.4 % (0-1); Eosinophil# 0.17 X10^3/uL; Eosinophils% 2.5 % (0-5); Hematocrit 40.8 % (40-54); Hemoglobin 13.1 g/dL (13.0-16.5); Lymphocyte # 1.53 X10^3/ul (0.83-4.51); Lymphocyte % 22.7 % (19-41); Mean Corp Hgb Conc 32.1 g/dL (32-36); Mean Corpuscular Hgb 27.1 pg (27.0-32.0); Mean Corpuscular Volume 84.3 fL (80-94); Mean Platelet Vol. 11.5 fl (6.2-12.0); Monocyte# 0.66 X10^3/uL; Monocyte% 9.8 % (0-10); NRBC Flagged by Analyzer 0 % (0-5); Neutrophil # 4.31 X10^3/uL (2.7-7.7); Neutrophil % 64.2 % (47-70); Platelet Count 185 K/mm3 (150-450); RBC Distribution Width CV 13.3 % (11.6-14.6); RBC Distribution Width SD 40.9 fl (35.1-43.9); Red Blood Count 4.84 M/mm3 (4.6-6.2); White Blood Count 6.7 K/mm3 (4.4-11.0)
== END | disposition home or self-care (01) ==
LOC: MFPLAB 11:47
PROVIDERS: PCP Family Medicine; Visit Provider Family Medicine
DX: T14.8XXA Other injury of unspecified body region, initial encounter (principal)
CPT/HCPCS: 36415; 85025

== ENCOUNTER 2024-05-20 05:36 | Emergency (ER) | payer OTHER, SELFPAY ==
[2021-06-25 13:55] VITALS: BMI 30.5
[2024-05-20 05:36] VITALS: BP 173/110; PULSE 77; RESP 16; TEMP 36.6; O2SAT 98; BMI 33.9
[2024-05-20 05:39] VITALS: BP 173/110; PULSE 77; RESP 16; TEMP 36.6; O2SAT 99
[2024-05-20 05:59] LABS: Bedside Glucose 212 mg/dL (74-106)
--- NOTE | 2024-05-20 05:59 | EX.ED.GUMALE ---
HPI History of Present Illness Chief Complaint: Complaint Detail of Chief Complaint: Dysuria. No hematuria. Burning. Trouble initiating stream. Informant: patient Pain Onset: Days Context: Gradual Onset Timing: Continuous Current Severity: Mild Narrative Narrative: 63-year-old male history diabetes, CHF, CABG, prior hiatal hernia repair and a prior intracranial bleed with surgery. Patient states she has had dysuria and burning with urination last 4 days. Denies any gross hematuria. He has never had any urologic procedures or surgery done. Was seen in urgent care was started on Cipro but they do not think he has a UTI. He is able to urinate. Prior similar symptoms: No Recent Illness/Hospitalization: No PFSH [facility] Medical History Kidney stone RACHEL (obstructive sleep apnea) Hernia, hiatal Pure hypercholesterolemia Essential (primary) hypertension Unstable angina Dyspnea on exertion RACHEL (obstructive sleep apnea) Atherosclerotic heart disease of [place] coronary artery without angina pectoris Renal insufficiency NSTEMI (non-ST elevated myocardial infarction) Unstable angina pectoris Chest pain Type II diabetes mellitus Generalized abdominal discomfort Home Medications ?Medication ?Instructions ?Recorded ?Last Taken ?Type atorvastatin 80 mg tablet 80 mg PO DAILY lower chloesterol 12/15/16 05/08/21 History aspirin 81 mg chewable tablet 81 mg PO DAILY preventative #1 TAB 10/14/20 01/20/24 Rx ezetimibe 10 mg tablet 10 mg PO DAILY 05/19/21 Unknown History acetaminophen 325 mg tablet 650 mg PO Q4H PRN Pain 05/30/21 Unknown History pioglitazone 30 mg tablet 30 mg PO DAILY diabetes 06/13/21 Unknown History sitagliptin phosphate 50 1 tab PO BID diabetes 06/13/21 01/13/24 History mg-metformin 1,000 mg tablet (Janumet) glimepiride 4 mg tablet 4 mg PO DAILY diabetes 03/12/23 Unknown History pantoprazole 40 mg tablet,delayed 40 mg PO DAILY reflux 03/12/23 Unknown History release amlodipine 5 mg tablet (Norvasc) 5 mg PO DAILY blood pressure #30 12/10/23 Unknown Rx tabs isosorbide mononitrate 30 mg 30 mg PO DAILY heart 12/13/23 Unknown History tablet,extended release 24 hr naproxen 500 mg tablet 500 mg PO BIDCM PRN pain 01/20/24 Unknown History losartan 25 mg tablet 25 mg PO DAILY 02/10/24 Unknown History ticagrelor 90 mg tablet (Brilinta) 90 mg PO BID #180 tabs 02/10/24 Unknown Rx ciprofloxacin HCl 500 mg tablet 500 mg PO BID 05/20/24 Unknown History clopidogrel 75 mg tablet 75 mg PO DAILY 05/20/24 Unknown History metoprolol succinate 50 mg 50 mg PO DAILY 05/20/24 Unknown History tablet,extended release 24 hr tamsulosin 0.4 mg capsule (Flomax) 0.4 mg PO QHS #20 caps 05/20/24 Unknown Rx Allergy/AdvReac Type Severity Reaction Status Date / Time No Known Allergies Allergy Verified 05/20/24 05:36 Family History Mother CAD (coronary artery disease) Myocardial infarction, Onset Age: 46 Sister CAD (coronary artery disease) Sister CAD (coronary artery disease) Brother CAD (coronary artery disease) Surgical History History of coronary artery bypass graft (05/15/21) History of repair of hiatal hernia (~08/2018) History of eye surgery History of bilateral inguinal hernia repair Presence of stent in coronary artery (~05/25/17) Postsurgical percutaneous transluminal coronary angioplasty (PTCA) status Social History adopted: No household members: spouse housing: house number of children: 5 current occupational status: employed 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 Trouble initiating stream. Review of Systems ROS Unobtainable: Denies due to encephalopathy Constitutional Constitutional ED: Denies chills or fever(s) Eyes Eyes: Denies blurry vision ENT ENT ED: Denies ear pain Cardiovascular Cardiovascular: Denies chest pain Respiratory/Chest Respiratory/Chest: Denies cough or dyspnea Gastrointestinal Gastrointestinal: Denies abdominal pain, constipation, diarrhea, melena, nausea or vomiting Genitourinary Genitourinary ED: Reports dysuria; Denies hematuria Musculoskeletal Musculoskeletal: Denies arthralgias, back pain, myalgias or neck pain Integumentary Denies abscess or rash Neurologic Neurologic: Denies headache(s) Psychiatric Psychiatric: Denies anxiety or depression Endocrine Endocrinology: Denies polydipsia Hematologic/Lymphatic Hematologic/Lymphatic: Denies easy bleeding Allergic/Immunologic Allergic/Immunologic ED: Denies mouth swelling EXAM Physical Exam Narrative Exam Narrative: Well-appearing 61-year-old male. Vital signs stable afebrile. Does not look septic toxic no distress. H EENT exam unremarkable. Neck nontender. Lungs clear. Heart regular rhythm no murmur. Abdomen is soft, nontender, nondistended normal bowel sounds without peritoneal signs. Moving all 4 extremities. Nontender no edema. Neurologically is awake alert no focal motor deficits. Const Vital Signs: 05/20/24 05:36 05/20/24 05:39 05/20/24 06:39 Temperature 97.9 F 97.9 F 98.4 F Temperature Source Oral Oral Oral Pulse Rate 77 77 68 Respiratory Rate 16 16 16 Blood Pressure 173/110 H 173/110 H 148/84 H Blood Pressure Mean 131 131 105 Pulse Ox 98 99 99 Oxygen Delivery Method Room Air Room Air Room Air Positive well nourished and well developed; Negative for cachectic, contractures or unkempt General Appearance ED: well developed and NAD; Negative for unkempt, cachectic, contractures or pallor Nutritional Appearance: Negative for cachectic HEENT Reports moist mucous membranes; Denies dry mucous membranes normocephalic and atraumatic; Negative for trauma or tenderness Mouth ED: No dry mucous membranes Mouth: No dry mucous membranes Eyes PERRL and EOMs intact bilaterally General Eye ED: Negative for pale conjunctiva or scleral icterus Neck no lymphadenopathy, supple and no JVD General: Negative for tenderness Resp normal respiratory effort and clear to auscultation bilaterally Effort and Inspection: Negative for retractions Auscultation: Negative for rales, rhonchi, wheezes or diminished lung sounds Cardio regular rate, regular rhythm, S1 normal heart sound, S2 normal heart sound and no murmurs Rate: Negative for bradycardia or tachycardic Rhythm: Negative for abnormal rhythm Heart Sounds: Negative for other GI non-tender, non-distended and no masses Inspection: Negative for abdominal distention Auscultation: normoactive bowel sounds Palpation: soft and tender no CVA tenderness Bladder / Kidney Exam: No CVA tenderness Groin / Perineum Exam: Negative for edema or lesions Back/Spine no CVA tenderness General Back: Negative for CVA tenderness Cervical Spine: Negative for cervical spine tenderness Thoracic Spine / Upper Back: Negative for thoracic spinal tenderness Lumbar Spine / Lower Back: Negative for lumbar spinal tenderness Extremity normal to inspection General Extremety ED: Negative for edema, pulses abnormal or tenderness General Extremity: Negative for edema or pulses abnormal Neuro oriented x3, CN's II-XII intact bilaterally, moves all extremities and no focal motor deficits Sensorium / Orientation: alert, oriented to person, oriented to place and oriented to time; Negative for orientation impaired, confused, lethargic or stuporous Motor Exam: strength 5/5 throughout Psych mental status grossly normal Appearance: Negative for unkempt Attitude: No agitated Mood & Affect: Negative for depressed, anxious or tearful Thought Process: normal thought process Thought Content: normal thought content Skin General Skin Exam: Negative for jaundice or pallor Lesions: no lesions Rashes: no rashes Trauma: Negative for abrasion or laceration MDM MDM MDM Narrative Medical decision making narrative: 63-year-old male with dysuria and difficulty initiating urination. This may be from enlarged prostate versus UTI versus other etiologies. UA and bladder scan will be obtained. He is diabetic Karma blood sugar 212. Repeat exam patient I discussed his bladder scan was only 171 but sure if that was accurate or not. Given his symptoms we placed a Mckenna catheter. Urine is clear yellow. He is only had about 400 cc out so far. Consistent with urinary retention. I do not think he is UTI at least he is only taken 1 antibiotic and his urine is completely clean. I will leave the 16 [place] M[address] catheter in place. Be started on Flomax and follow-up with local urologist Dr. Evens Santana. History & Record Review Discussion w/independent historian: Patient Additional record(s) reviewed:: Prior inpatient record, Prior outpatient record, Prior ED visit, Prior labs and No prior records Lab Data Attestation: I reviewed the patient's lab results. Lab results narrative: Urinalysis shows negative. No white or red cells. No signs of infection. No bacteria or nitrates. Bladder scan equaled 171. BGT was 212. Labs: Laboratory Results - last 24 hr 05/20/24 05/20/24 05:41 06:20 Urine Color Yellow Urine Clarity Clear Urine pH 7.0 Ur Specific [place] 1.010 Urine Protein 30 H Urine Glucose (UA) 1000 H Urine Ketones Negative Urine Occult Blood Negative Urine Nitrite Negative Urine Bilirubin Negative Urine Urobilinogen Normal Ur Leukocyte Esterase Negative Urine RBC 0 SEEN Urine WBC 0 SEEN Ur Squamous Epith Cells 0 SEEN Urine Bacteria 0 SEEN Urine Mucus 0 SEEN POC Glucose 212 H Discharge Plan Triage Chief Complaint: Complaint ED Provider: Bradley Ruano Dx/Rx/DC Orders Clinical Impression: Dysuria, Benign prostatic hyperplasia, Acute urinary retention Instructions: ED BPH (Enlarged Prostate), ED Urinary Retention, Male Prescriptions: New tamsulosin [Flomax] 0.4 mg capsule 0.4 mg PO QHS Qty: 20 0RF No Action aspirin 81 mg tablet,chewable 81 mg PO DAILY Qty: 1 0RF pioglitazone 30 mg tablet 30 mg PO DAILY Janumet 50-1,000 mg tablet 1 tab PO BID ezetimibe 10 mg tablet 10 mg PO DAILY pantoprazole 40 mg tablet,delayed release (DR/EC) 40 mg PO DAILY glimepiride 4 mg tablet 4 mg PO DAILY losartan 25 mg tablet 25 mg PO DAILY Brilinta 90 mg tablet 90 mg PO BID Qty: 180 3RF atorvastatin 80 MG tablet 80 mg PO DAILY naproxen 500 mg Tablet 500 mg PO BIDCM PRN (Reason: pain) metoprolol succinate 50 mg tablet extended release 24 hr 50 mg PO DAILY clopidogrel 75 mg tablet 75 mg PO DAILY ciprofloxacin HCl 500 mg tablet 500 mg PO BID acetaminophen 325 mg tablet 650 mg PO Q4H PRN (Reason: Pain) amlodipine [Norvasc] 5 mg tablet 5 mg PO DAILY Qty: 30 6RF isosorbide mononitrate 30 mg tablet extended release 24 hr 30 mg PO DAILY Primary Care Provider: Pilo Aviles Referrals: Dami Santana MD [Med Staff - Active Staff] - As soon as possible Pilo Aviles MD [Primary Care Provider] - Activity Restrictions/Additional Instructions: Do not remove the Mckenna catheter. Start the medication Flomax take it 1 to 2 hours before bedtime. This will work to try to reduce the size your prostate to help you urinate. Your urine does not look infected. I do not think this is from a urinary tract infection. You can finish antibiotic if you want. Call and follow-up with the urologist Dr. Evens Santana. Call his office Wednesday morning he needs to get you in this week. Empty the catheter whenever half full or more. If it stops draining it needs to be evaluated. Print Language: Sami Disposition Disposition: Home, Self Care
[2024-05-20 06:35] LABS: Bacteria 0 SEEN /hpf (None Seen); Mucous, Urine 0 SEEN /hpf (<or=2+); Red Blood Cells-Urine 0 SEEN /hpf (0-5); Squamous Epithelial Cells - UA 0 SEEN /hpf (0-5); White Blood Cells 0 SEEN /hpf (0-5)
[2024-05-20 06:36] LABS: Color, Urine Yellow (Yellow); Glucose, Dipstick 1000 mg/dl (Normal); Ketone-Dipstick Negative (Negative); Leukocyte Esterase-Dipstick Negative /ul (Negative); Nitrite-Dipstick Negative (Negative); Occult Blood-Urine Negative /ul (Negative); Protein-Dipstick 30 mg/dl (Negative); Urine Bilirubin Dipstick Negative (Negative); Urine Clarity Clear (Clear); Urine Urobilinogen Normal (Normal)
[2024-05-20 06:39] VITALS: BP 148/84; PULSE 68; RESP 16; TEMP 36.9; O2SAT 99
[2024-05-20 07:36] VITALS: BP 134/78; PULSE 64; RESP 16; TEMP 37; O2SAT 98
[2024-05-20 08:14] VITALS: BP 154/78; PULSE 89; RESP 16; TEMP 36.4; O2SAT 99
== END 2024-05-20 08:15 | disposition home or self-care (01) ==
PROVIDERS: Emergency Provider Emergency Medicine; PCP Family Medicine; Visit Provider Emergency Medicine
DX: R30.0 Dysuria (principal); I11.0 Hypertensive heart disease with heart failure; I50.9 Heart failure, unspecified; E11.9 Type 2 diabetes mellitus without complications; I25.10 Atherosclerotic heart disease of native coronary artery without angina pectoris; E78.00 Pure hypercholesterolemia, unspecified; R33.8 Other retention of urine; N40.1 Benign prostatic hyperplasia with lower urinary tract symptoms; I25.2 Old myocardial infarction; Z79.899 Other long term (current) drug therapy; Z79.82 Long term (current) use of aspirin; Z79.84 Long term (current) use of oral hypoglycemic drugs; Z95.1 Presence of aortocoronary bypass graft; Z95.5 Presence of coronary angioplasty implant and graft
CPT/HCPCS: 51702; 81001; 82962; 99283

== ENCOUNTER → 2024-06-03 | Outpatient (CLI) | payer OTHER, SELFPAY ==
[2021-06-25 13:55] VITALS: BMI 30.5
[2024-06-03 09:31] LABS: Absolute Lymphocyte Count 1.38 X10^3/uL (0.83-4.51); Absolute Neutrophil Count 4.7 X10^3/uL (2.0-7.7); Basophil# 0.04 X10^3/uL; Basophil% 0.6 % (0-1); Eosinophil# 0.11 X10^3/uL; Eosinophils% 1.6 % (0-5); Hemoglobin 12.9 g/dL (13.0-16.5); Lymphocyte # 1.38 X10^3/ul (0.83-4.51); Lymphocyte % 20.3 % (19-41); Mean Corp Hgb Conc 31.5 g/dL (32-36); Mean Corpuscular Hgb 25.6 pg (27.0-32.0); Mean Corpuscular Volume 81.5 fL (80-94); Monocyte# 0.51 X10^3/uL; Monocyte% 7.5 % (0-10); NRBC Flagged by Analyzer 0 % (0-5); Neutrophil # 4.73 X10^3/uL (2.7-7.7); Neutrophil % 69.6 % (47-70); Platelet Count 275 K/mm3 (150-450); RBC Distribution Width CV 13.8 % (11.6-14.6); RBC Distribution Width SD 40.3 fl (35.1-43.9); Red Blood Count 5.03 M/mm3 (4.6-6.2); White Blood Count 6.8 K/mm3 (4.4-11.0)
[2024-06-03 10:22] LABS: AST(SGOT) 18 U/L (15-37); Alanine Aminotransfer ALT/SGPT 23 U/L (16-61); Albumin, Serum 3.2 g/dL (3.2-5.0); Alkaline Phosphatase 97 U/L (45-117); Anion Gap 5 (5-15); BUN 16 mg/dL (7-18); BUN/Creat Ratio 13.4 RATIO (10-20); Bilirubin, Direct 0.11 mg/dL (0.00-0.30); Chloride 108 mmol/L (98-107); Cholesterol 126 mg/dL (200); Creatinine, Serum 1.19 mg/dL (0.70-1.30); EST Glomerular Filtration Rate 66 mL/min (>60); Est Glom Filt Rate - Afr Amer 80 mL/min (>60); Globulin 4.5 g/dL (2.2-4.2); Glucose 170 mg/dL (74-106); High Density Lipoprotein 34 mg/dL; Potassium 4.4 mmol/L (3.5-5.1); Protein, Total 7.7 g/dL (6.4-8.2); Sodium Level 138 mmol/L (136-145); Triglycerides 207 mg/dL; Very Low Density Lipoprotein 41 mg/dL (5-40)
== END | disposition home or self-care (01) ==
LOC: LAB 07:55
PROVIDERS: PCP Family Medicine; Referring Provider Nurse Practitioner Gerontology; Visit Provider Nurse Practitioner Gerontology
DX: R06.00 Dyspnea, unspecified (principal); I25.118 Atherosclerotic heart disease of native coronary artery with other forms of angina pectoris
CPT/HCPCS: 36415; 80048; 80061; 80076; 83880; 85025

== ENCOUNTER → 2024-06-20 | Outpatient (CLI) | payer OTHER, SELFPAY ==
[2021-06-25 13:55] VITALS: BMI 30.5
[2024-06-20 16:57] LABS: PSA,Total - Annual Screen 4.21 ng/mL (0.00-4.00)
== END | disposition home or self-care (01) ==
LOC: LAB 15:58
PROVIDERS: PCP Family Medicine; Referring Provider Nurse Practitioner; Visit Provider Nurse Practitioner
DX: Z12.5 Encounter for screening for malignant neoplasm of prostate (principal)
CPT/HCPCS: 36415; 84153; G0103

== ENCOUNTER → 2024-07-27 | Outpatient (CLI) | payer OTHER, SELFPAY ==
[2021-06-25 13:55] VITALS: BMI 30.5
[2024-07-27 16:26] LABS: Absolute Lymphocyte Count 1.74 X10^3/uL (0.83-4.51); Absolute Neutrophil Count 4.1 X10^3/uL (2.0-7.7); Basophil# 0.03 X10^3/uL; Basophil% 0.4 % (0-1); Eosinophil# 0.18 X10^3/uL; Eosinophils% 2.7 % (0-5); Hematocrit 41.6 % (40-54); Lymphocyte # 1.74 X10^3/ul (0.83-4.51); Lymphocyte % 26.1 % (19-41); Mean Corp Hgb Conc 31.3 g/dL (32-36); Mean Corpuscular Hgb 25.1 pg (27.0-32.0); Mean Corpuscular Volume 80.5 fL (80-94); Mean Platelet Vol. 11.2 fl (6.2-12.0); Monocyte# 0.58 X10^3/uL; Monocyte% 8.7 % (0-10); NRBC Flagged by Analyzer 0 % (0-5); Neutrophil # 4.12 X10^3/uL (2.7-7.7); Neutrophil % 61.8 % (47-70); Platelet Count 219 K/mm3 (150-450); Red Blood Count 5.17 M/mm3 (4.6-6.2); White Blood Count 6.7 K/mm3 (4.4-11.0)
[2024-07-27 16:55] LABS: BNP,B-Type NATRIURETIC PEPTIDE 14.2 pg/mL (0-100)
[2024-07-27 17:06] LABS: Anion Gap 5 (5-15); BUN 20 mg/dL (7-18); BUN/Creat Ratio 15.6 RATIO (10-20); Calcium,Total 9.2 mg/dL (8.5-10.1); Chloride 104 mmol/L (98-107); Creatinine, Serum 1.28 mg/dL (0.70-1.30); EST Glomerular Filtration Rate 60 mL/min (>60); Est Glom Filt Rate - Afr Amer 73 mL/min (>60); Glucose 255 mg/dL (74-106); Potassium 4.3 mmol/L (3.5-5.1); Sodium Level 136 mmol/L (136-145); Thyroid Stim Hormone (TSH) 0.727 uIU/mL (0.358-3.740)
== END | disposition home or self-care (01) ==
LOC: LAB 15:29
PROVIDERS: PCP Family Medicine; Referring Provider Nurse Practitioner Gerontology; Visit Provider Nurse Practitioner Gerontology
DX: R06.00 Dyspnea, unspecified (principal); R53.83 Other fatigue
CPT/HCPCS: 36415; 80048; 83880; 84443; 85025

== ENCOUNTER 2024-08-14 05:58 | Day surgery (SDC) | payer OTHER, SELFPAY ==
[2021-06-25 13:55] VITALS: BMI 30.5
[2024-08-14 08:27] VITALS: BMI 33.7
--- NOTE | 2024-08-14 09:44 | STRESSREP_ITS ---
Stress Test Report Pharmacologic myocardial perfusion stress test. 63-year-old man with a history of recurrent chest discomfort Resting EKG demonstrates sinus rhythm with a right bundle branch block with a rate of 64 bpm. Resting blood pressure is 120/74 mmHg. 0.4 mg of regadenoson was infused per usual protocol followed by rapid intravenous saline flush in jection. Continuous EKG monitoring was performed. The maximum heart rate was 88 bpm which was 55 to of max impacted heart rate the maximum workload was 1 metabolic equivalent. At rest there were no ST or T wave changes noted to suggest ischemia and at peak infusion nonspecific ST changes were noted which did not meet the criteria for ischemia. The patient however started complaining of significant chest discomfort and heaviness requiring 2 sublingual nitroglycerin before there was improvement. There were no EKG changes noted. The final blood pressure was 140/84 mmHg. Myocardial perfusion protocol. 14.6 mCi of technetium 99m sestamibi was injected at rest. 0.4 mg of regadenoson was infused per usual protocol. At peak infusion 44.7 mCi of technetium 99m sestamibi was injected stress images were obtained stress and rest images were reconstructed and compared in the short axis vertical long and horizontal long axis. Gated images were also obtained. Perfusion SPECT analysis: Review of the stress images demonstrate normal uptake of tracer noted in all areas of the myocardium with a small portion in the distal anterior wall with reduced perfusion. The resting images demonstrate mild improvement in this area suggesting a small amount of distal anterior ischemia. Gated SPECT analysis: The gated ejection fraction is 61%. Conclusion: Mildly abnormal pharmacologic myocardial perfusion stress test. Apical ischemia present Preserved ejection fraction.
--- NOTE | 2024-08-14 10:49 | CL.D_ITS ---
Patient Name: ARLEEN NAJERA Study Date: 08/14/2024 Performing: Hao Lacy MD Ht: 70 inches 177.8 cm : 1960 Wt: 234.99 lbs 106.59 kg Age: 63 Gender: male BSA: 2.24 PROCEDURE(S) PERFORMED DC01-([id number])L[facility]/COR/LV CLINICAL PROFILE AND INDICATIONS Indications: Suspected CAD Heart Failure: None Stress/Imaging Date: 08/14/26tress Test with SPECT MPI: Positive Low Risk CAD Presentations: Stable angina. CONCLUSIONS Diffuse coronary disease with patent WHITAKER to the LAD noted earlier this year with a thoracic branch still present, circumflex artery previously stented which is noted to be patent, and dominant right coronary artery with diffuse disease noted in the mid to distal segment with subtotally occluded posterior descending artery. Preserved ejection fraction. RECOMMENDATIONS In view of the fact that the stress test demonstrated mildly abnormal anterior ischemia I would recommend aggressive medical therapy. Will increase amlodipine to 10 mg a day, increase isosorbide to 60 mg twice a day, and add Ranexa 1000 mg twice a day. DESCRIPTION OF PROCEDURE The patient arrived to the procedure lab. The risks and benefits of the procedure as well as a full description of our services here and current unavailability of surgical backup were fully explained to the patient and/or their significant other prior to the catheterization. The Timeout was completed, verifying the correct patient and procedure. The patient's procedural site was prepped and draped in the usual fashion. Local anesthetic was given subcutaneously to right radial region with Lidocaine 2%. Using a modified Seldinger technique, arterial access was obtained via the right radial artery, a 6Fr sheath was inserted. Right Coronary Artery selective angiography was then performed in multiple views using a 5 Fr. JL 5 catheter. Left Coronary Artery selective angiography was performed in multiple views using a 5 Fr. JL3.5 catheter. Left Ventriculography was performed in TUBBS projection using a 5 Fr. Pigtail catheter. LV to AO pullback pressures were then recorded.The arterial sheath was pulled and a TR Band was applied for hemostasis CORONARY ANGIOGRAPHY DOMINANCE: Right Dominant LEFT HEART ASSESSMENT Left Ventricular Ejection Fraction: by LV Gram 60 % Normal LV wall motion Normal Left Ventricular systolic function LEFT MAIN: Mild calcification, Mild luminal irregularities LEFT ANTERIOR DESCENDING ARTERY: Midsegment is noted to be totally occluded CIRCUMFLEX ARTERY: Nondominant and previously stented into the obtuse marginal branch which appears to be patent RIGHT CORONARY ARTERY: Large dominant right coronary artery with multiple stents noted in the proximal and midportion. There is mild in-stent stenosis noted proximally, mild to moderate in-stent stenosis noted in the midsegment, and then the mid to distal segment there is moderate in-stent stenosis noted. The posterior descending artery is subtotally occluded. The posterolateral vessel has moderate disease. This vessel in comparison to the previous catheterization from December of this year appears to be essentially unchanged. GRAFTS: WHITAKER graft to the LAD This vessel was not reimaged but there is a large thoracic branch which is still present. COMPLICATIONS No Complications PROCEDURE MEDICATIONS Fentanyl 50 mcg IV Versed 1 mg IV Versed 1 mg IV Oxygen: 2 L/min via nasal cannula SUMMARY OF HEMODYNAMIC DATA Time AIR REST ECG 08:36:42 AO 124/81 (101) SA 10:01:20 LV 138/28, 45 10:25:35 LV 138/15, 23 10:25:41 LV 120/13, 22 10:26:16 LVp 122/11, 18 10:26:20 AOp 123/73 (94) 10:26:25 Signed By Hao Lacy MD On 08/14/2024 10:48:03 Hao Lacy MD
== END 2024-08-14 12:00 | disposition home or self-care (01) ==
LOC: CVS 08:07 → CLSP 08:08
PROVIDERS: PCP Family Medicine; Referring Provider Internal Medicine Cardiovascular Disease; Visit Provider Internal Medicine Cardiovascular Disease
DX: I25.119 Atherosclerotic heart disease of native coronary artery with unspecified angina pectoris (principal); E11.9 Type 2 diabetes mellitus without complications; G47.33 Obstructive sleep apnea (adult) (pediatric); E78.00 Pure hypercholesterolemia, unspecified; I10 Essential (primary) hypertension; I25.2 Old myocardial infarction; E66.9 Obesity, unspecified; Z95.5 Presence of coronary angioplasty implant and graft; Z79.899 Other long term (current) drug therapy; Z79.82 Long term (current) use of aspirin; Z79.84 Long term (current) use of oral hypoglycemic drugs
CPT/HCPCS: 78452; 93017; 93458; 99152; 99153; A9500; Q9967; A4216; C1769; C1894; J2785

== ENCOUNTER → 2024-10-23 | Outpatient (CLI) | payer OTHER, SELFPAY ==
[2021-06-25 13:55] VITALS: BMI 30.5
--- NOTE | 2024-10-23 08:30 | AAVD_ITS ---
Reason For Study: ECp therapy for chronic angina Aorta Measurements Aorta Doppler Measurements Proximal aorta measures1.84x1.74cm. in cross- Peak systolic flow velocities within the proximal sectional axis. aorta measure 85.0 cm/sec. Proximal aorta measures1.89cm. in longitudinal Peak systolic flow velocities within the mid aorta axis. measure 87.3 cm/sec. Mid aorta measures1.72x1.60cm. in cross-sectional Peak systolic flow velocities within the distal axis. aorta measure 127.1 cm/sec. Mid aorta measures1.60cm. in longitudinal axis. Distal aorta measures1.66x1.62cm. in cross- sectional axis. Distal aorta measures1.55cm. in longitudinal axis. Left Iliac Artery Left iliac artery measures 0.94 cm. in the longitudinal axis. Left iliac artery measures 0.93x1.03 cm. in the cross-sectional axis. Peak systolic velocity in the left iliac artery measures 98.6 cm/sec. Right Iliac Artery Right iliac artery measures 1.01 cm. in the longitudinal axis. Right iliac artery measures 1.05x1.12 cm. in the cross-sectional axis. Peak systolic velocity in the right iliac artery measures 78.8 cm/sec. Procedure Aorta IVC Iliac vasculature or bypass grafts [id number]. Exam performed in department. VL/Abd Aortic/IVC Duplex scan Interpretation Summary Aorta patent, normal caliber Bilateral iliac arteries patent, normal caliber Ordering Physician: Dona Shore Referring Physician: Pilo Aviles MD Performed By: Cornell Cui RVT and Student
== END | disposition home or self-care (01) ==
LOC: CVS 08:28
PROVIDERS: PCP Family Medicine; Referring Provider Physician Assistant Medical; Visit Provider Physician Assistant Medical
DX: R07.9 Chest pain, unspecified (principal); E11.9 Type 2 diabetes mellitus without complications; I25.118 Atherosclerotic heart disease of native coronary artery with other forms of angina pectoris; E78.5 Hyperlipidemia, unspecified; I10 Essential (primary) hypertension; R09.89 Other specified symptoms and signs involving the circulatory and respiratory systems; Z95.1 Presence of aortocoronary bypass graft
CPT/HCPCS: 93978

== ENCOUNTER 2024-11-16 08:08 | Day surgery (SDC) | payer OTHER, SELFPAY ==
[2021-06-25 13:55] VITALS: BMI 30.5
--- NOTE | 2024-11-13 15:31 | RAD_ITS ---
INDICATION: Chest pain EXAMINATION/TECHNIQUE: X-RAY - XR Chest 2 Views COMPARISON: Prior study dated: 11/21/2023 FINDINGS: LINES/DEVICES: None. LUNGS: No consolidation, edema or effusion. No pneumothorax. MEDIASTINUM AND CARDIOVASCULAR STRUCTURES: Previous median sternotomy. Normal cardiac silhouette. BONES AND SOFT TISSUES: Increased kyphosis of the thoracic spine. Surgical clip of the left hemidiaphragm. RAD/Chest PA and Lateral IMPRESSION: No radiographic evidence of acute cardiopulmonary disease. Electronically Signed: Anirudh Merino MD at 9:30 EST ,
[2024-11-13 16:33] LABS: Anion Gap 7 (5-15); BUN 29 mg/dL (7-18); BUN/Creat Ratio 20.4 RATIO (10-20); Calcium,Total 9.3 mg/dL (8.5-10.1); Chloride 104 mmol/L (98-107); Creatinine, Serum 1.42 mg/dL (0.70-1.30); EST Glomerular Filtration Rate 54 mL/min (>60); Est Glom Filt Rate - Afr Amer 65 mL/min (>60); Glucose 245 mg/dL (74-106); Potassium 4.4 mmol/L (3.5-5.1); Sodium Level 134 mmol/L (136-145)
[2024-11-13 17:35] LABS: International Normalized Ratio 1.1; Prothrombin Time (Protime)PT. 14.6 SECONDS (11.7-14.9)
[2024-11-13 23:18] LABS: Absolute Neutrophil Count 4.4 X10^3/uL (2.0-7.7); Basophil# 0.03 X10^3/uL; Basophil% 0.4 % (0-1); Eosinophil# 0.12 X10^3/uL; Eosinophils% 1.7 % (0-5); Hematocrit 41.1 % (40-54); Hemoglobin 12.5 g/dL (13.0-16.5); Lymphocyte % 25.3 % (19-41); Mean Corp Hgb Conc 30.4 g/dL (32-36); Mean Corpuscular Hgb 24.3 pg (27.0-32.0); Mean Corpuscular Volume 79.8 fL (80-94); Mean Platelet Vol. 10.9 fl (6.2-12.0); Monocyte# 0.77 X10^3/uL; Monocyte% 10.8 % (0-10); NRBC Flagged by Analyzer 0 % (0-5); Neutrophil # 4.38 X10^3/uL (2.7-7.7); Neutrophil % 61.5 % (47-70); Platelet Count 229 K/mm3 (150-450); RBC Distribution Width CV 15.2 % (11.6-14.6); RBC Distribution Width SD 44.4 fl (35.1-43.9); Red Blood Count 5.15 M/mm3 (4.6-6.2); White Blood Count 7.1 K/mm3 (4.4-11.0)
[2024-11-14 15:31] VITALS: BMI 34.4
--- NOTE | 2024-11-16 10:14 | CL.D_ITS ---
Patient Name: ARLEEN NAJERA Study Date: 11/16/2024 Performing: Mu Davison MD Ht: 70 inches 177.8 cm : 1960 Wt: 240 lbs 108.86 kg Age: 63 Gender: male BSA: 2.26 PROCEDURE(S) PERFORMED DC02-([id number])[facility] CLINICAL PROFILE AND INDICATIONS Indications: Worsening Angina Heart Failure: None CAD Presentations: Unstable angina. CONCLUSIONS WHITAKER to LAD patent RECOMMENDATIONS possibly RPDA DESCRIPTION OF PROCEDURE The patient arrived to the procedure lab. The risks and benefits of the procedure as well as a full description of our services here and current unavailability of surgical backup were fully explained to the patient and/or their significant other prior to the catheterization. The Timeout was completed, verifying the correct patient and procedure. The patient's procedural site was prepped and draped in the usual fashion. Local anesthetic was given subcutaneously to right groin region with Lidocaine 2%. Using a modified Seldinger technique, arterial access was obtained via the right femoral artery, a 6Fr sheath was inserted. Left Coronary Artery selective angiography was performed in multiple views using a 5 Fr. JL4 catheter. Right Coronary Artery selective angiography was then performed in multiple views using a 5 Fr. 3DRC (Kieran) catheter. Left internal mammary artery graft to the LAD selective angiography was performed in multiple views using a 5 Fr. IM catheter.Contrast was injected through the sheath and the Right Iliac and Femoral artery were assessed for possible closure device.The arterial sheath was pulled and a Mynx closure device was deployed for hemostasis CORONARY ANGIOGRAPHY DOMINANCE: Right Dominant LEFT ANTERIOR DESCENDING ARTERY: LAD: Tubular 80% Proximal lesion in LAD In-Stent Restenosis 75% Mid lesion in LAD DIAGONAL 1: Tubular 80% Ostial lesion in DIAG1 Tubular 80% Proximal lesion in DIAG1 OM 1: In-Stent Restenosis 80% Mid lesion in MARG1, STENT to 80% OM 2: In-Stent Restenosis 80% Mid lesion in MARG1, STENT to 80% RIGHT CORONARY ARTERY: RCA: In-Stent Restenosis 80% Mid lesion in RCA Calcified 80% Distal lesion in RCA RT PDA: Tubular 99% Proximal lesion in RT PDA GRAFTS: WHITAKER Graft to LAD COMPLICATIONS No Complications PROCEDURE MEDICATIONS Versed 1 mg IV Fentanyl 50 mcg IV Oxygen: 2 L/min via nasal cannula Nitro 200 mcg IC 11/16/2024 09:36:01 SUMMARY OF HEMODYNAMIC DATA Time AIR REST ECG 08:36:26 AO 109/63 (80) SA 09:30:51 AIR REST 10:03:53 Signed By Mu Davison MD On 11/16/2024 10:14:01 Mu Davison MD
== END 2024-11-16 14:00 | disposition home or self-care (01) ==
PROVIDERS: PCP Family Medicine; Referring Provider Internal Medicine Cardiovascular Disease; Visit Provider Internal Medicine Cardiovascular Disease
DX: I25.110 Atherosclerotic heart disease of native coronary artery with unstable angina pectoris (principal); E11.9 Type 2 diabetes mellitus without complications; I10 Essential (primary) hypertension; G47.33 Obstructive sleep apnea (adult) (pediatric); I25.2 Old myocardial infarction; E78.00 Pure hypercholesterolemia, unspecified; Z95.1 Presence of aortocoronary bypass graft; Z79.84 Long term (current) use of oral hypoglycemic drugs; Z79.82 Long term (current) use of aspirin; Z79.899 Other long term (current) drug therapy
CPT/HCPCS: 36415; 71046; 80048; 85025; 85610; 93455; 99152; 99153; C1760; Q9967; C1769

== ENCOUNTER 2024-11-19 19:50 | Emergency (ER) | payer OTHER, SELFPAY ==
[2021-06-25 13:55] VITALS: BMI 30.5
[2024-11-19] VITALS (21 sets, daily range): BP systolic 111–134; BP diastolic 61–80; PULSE 62–76; RESP 12–20; TEMP 36.7; O2SAT 95–99; BMI 35.1
--- NOTE | 2024-11-19 20:01 | EKG12_ITS ---
Test Reason : CP Blood Pressure : */* mmHG Vent. Rate : 70 BPM Atrial Rate : 70 BPM P-R Int : 180 ms QRS Dur : 134 ms QT Int : 424 ms P-R-T Axes : 39 -70 15 degrees QTcB Int : 457 ms Normal sinus rhythm Right bundle branch block Left anterior fascicular block Bifascicular block Abnormal ECG Confirmed by SHERMAN LYNNE, RACHELLE ([id number]), technical editor JAM SIMPSON ([id number]) on 11/20/2024 10:59:39 A M Referred By: ROMY Confirmed By: RACHELLE WHITAKER MD
--- NOTE | 2024-11-19 20:09 | ED.VIS.CHEST ---
HPI <JUAN Washburn - Last Filed: 11/19/24 21:57> History of Present Illness Chief Complaint: Chest Pain Narrative Narrative: Patient presenting today with left-sided sharp chest pain he has had constantly since about 6 PM this evening. He reports the pain somewhat radiates into the left side of his jaw he has tingling in his bilateral hands. He reports a history of CAD, he has had a CABG in the past. He reports having chest pain almost daily, he follows with Dr. Davison who just performed a heart catheterization on . He was told he would need a CABG and is waiting for callback from [facility] to get this scheduled. He reports that last night he had chest pain, he took a nitro and it was relieved. Since this evening he has taken 4 nitros with no relief of his chest pain. He has a PMH of CAD, HTN, HLD, and T2DM. PE Risk Factors: Negative for Recent Travel/Surgery, Recent Immobilization, Prior DVT or PE or Cancer PFSH <JUAN Washburn - Last Filed: 11/19/24 21:57> [facility] Medical History Kidney stone RACHEL (obstructive sleep apnea) Hernia, hiatal Pure hypercholesterolemia Essential (primary) hypertension Unstable angina Dyspnea on exertion RACHEL (obstructive sleep apnea) Atherosclerotic heart disease of [place] coronary artery without angina pectoris Renal insufficiency NSTEMI (non-ST elevated myocardial infarction) Unstable angina pectoris Chest pain Type II diabetes mellitus Generalized abdominal discomfort Home Medications ?Medication ?Instructions ?Recorded ?Last Taken ?Type atorvastatin 80 mg tablet 80 mg PO DAILY lower chloesterol 12/15/16 11/16/24 History aspirin 81 mg chewable tablet 81 mg PO DAILY preventative #1 TAB 10/14/20 11/16/24 Rx ezetimibe 10 mg tablet 10 mg PO DAILY 05/19/21 08/14/24 History acetaminophen 325 mg tablet 650 mg PO Q4H PRN Pain 05/30/21 Unknown History pioglitazone 30 mg tablet 30 mg PO DAILY diabetes 06/13/21 08/13/24 History sitagliptin phosphate 50 1 tab PO BID diabetes 06/13/21 08/13/24 History mg-metformin 1,000 mg tablet (Janumet) glimepiride 4 mg tablet 4 mg PO DAILY diabetes 03/12/23 08/13/24 History pantoprazole 40 mg tablet,delayed 40 mg PO DAILY reflux 03/12/23 08/14/24 History release losartan 25 mg tablet 25 mg PO DAILY 02/10/24 08/14/24 History clopidogrel 75 mg tablet 75 mg PO DAILY #90 tabs 07/26/24 11/16/24 Rx tamsulosin 0.4 mg capsule (Flomax) 0.4 mg PO QDAY 07/27/24 08/14/24 History amlodipine 10 mg tablet 10 mg PO DAILY blood pressure #60 08/14/24 Unknown Rx tabs isosorbide mononitrate 60 mg 60 mg PO BID heart #60 tabs 08/14/24 Unknown Rx tablet,extended release 24 hr ranolazine 1,000 mg 1,000 mg PO BID #60 tabs 08/14/24 Unknown Rx tablet,extended release,12 hr nitroglycerin 0.4 mg sublingual 0.4 mg sublingual Q5-15M PRN chest 10/10/24 Unknown Rx tablet pain #20 tabs metoprolol succinate 100 mg 100 mg PO BID #180 TABLETS 11/09/24 11/16/24 Rx tablet,extended release 24 hr Allergy/AdvReac Type Severity Reaction Status Date / Time No Known Allergies Allergy Verified 11/19/24 19:50 Family History Mother CAD (coronary artery disease) Myocardial infarction, Onset Age: 46 Sister CAD (coronary artery disease) Sister CAD (coronary artery disease) Brother CAD (coronary artery disease) Surgical History History of coronary artery bypass graft (05/15/21) History of repair of hiatal hernia (~08/2018) History of eye surgery History of bilateral inguinal hernia repair Presence of stent in coronary artery (~05/25/17) Postsurgical percutaneous transluminal coronary angioplasty (PTCA) status Social History adopted: No household members: spouse housing: house number of children: 5 current occupational status: employed 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 Smoking Status: Never smoker alcohol intake: never substance use type: does not use caffeine: No ROS <JUAN Washburn - Last Filed: 11/19/24 21:57> ROS ED Constitutional Constitutional ED: Denies chills or fever(s) Cardiovascular Cardiovascular: Reports chest pain Respiratory/Chest Respiratory/Chest: Denies cough or dyspnea Gastrointestinal Gastrointestinal: Denies abdominal pain, nausea or vomiting Musculoskeletal Musculoskeletal: Denies arthralgias or myalgias Integumentary Denies rash Neurologic Neurologic: Denies weakness EXAM <JUAN Washburn - Last Filed: 11/19/24 21:57> Physical Exam Const Vital Signs: 11/19/24 19:50 11/19/24 20:01 11/19/24 20:27 Temperature 98.1 F Temperature Source Oral Pulse Rate 68 68 Respiratory Rate 16 Blood Pressure 123/80 H 117/70 Blood Pressure Mean 94 85 Blood Pressure Source Monitor Blood Pressure Position Semi-Fowlers Blood Pressure Location Right Arm Pulse Ox 99 Oxygen Delivery Method Room Air 11/19/24 20:30 11/19/24 20:50 11/19/24 21:00 Temperature Temperature Source Pulse Rate 68 66 Respiratory Rate 15 13 Blood Pressure 123/73 H 128/73 H 129/74 H Blood Pressure Mean 89 91 92 Blood Pressure Source Monitor Blood Pressure Position Semi-Fowlers Blood Pressure Location Right Arm Pulse Ox 98 97 Oxygen Delivery Method Room Air Room Air 11/19/24 22:00 11/19/24 23:00 Temperature Temperature Source Pulse Rate 67 64 Respiratory Rate 18 14 Blood Pressure 122/75 H 125/70 H Blood Pressure Mean 90 88 Blood Pressure Source Blood Pressure Position Blood Pressure Location Pulse Ox 97 97 Oxygen Delivery Method Room Air Room Air Positive well nourished, well developed and no apparent distress General Appearance ED: well developed HEENT Reports normocephalic and head/scalp atraumatic Mouth ED: Yes moist mucous membranes normal Eyes PERRL and EOMs intact bilaterally Neck full ROM and supple Chest Wall inspection of chest normal Resp normal respiratory effort and clear to auscultation bilaterally Cardio regular rate and regular rhythm GI soft to palpation, non-tender, non-distended and no masses Back/Spine normal ROM and normal to inspection Extremity normal to inspection and full ROM Neuro oriented x3, CN's II-XII intact bilaterally, moves all extremities, no focal motor deficits and no sensory deficits noted Sensorium / Orientation: awake and alert Psych mental status grossly normal and thought process normal Skin no rashes or lesions noted and no wounds <Dr. Titus Coe MD - Last Filed: 11/19/24 23:23> Physical Exam Const Vital Signs: 11/19/24 19:50 11/19/24 20:01 11/19/24 20:27 Temperature 98.1 F Temperature Source Oral Pulse Rate 68 68 Respiratory Rate 16 Blood Pressure 123/80 H 117/70 Blood Pressure Mean 94 85 Blood Pressure Source Monitor Blood Pressure Position Semi-Fowlers Blood Pressure Location Right Arm Pulse Ox 99 Oxygen Delivery Method Room Air 11/19/24 20:30 11/19/24 20:50 11/19/24 21:00 Temperature Temperature Source Pulse Rate 68 66 Respiratory Rate 15 13 Blood Pressure 123/73 H 128/73 H 129/74 H Blood Pressure Mean 89 91 92 Blood Pressure Source Monitor Blood Pressure Position Semi-Fowlers Blood Pressure Location Right Arm Pulse Ox 98 97 Oxygen Delivery Method Room Air Room Air 11/19/24 22:00 11/19/24 23:00 Temperature Temperature Source Pulse Rate 67 64 Respiratory Rate 18 14 Blood Pressure 122/75 H 125/70 H Blood Pressure Mean 90 88 Blood Pressure Source Blood Pressure Position Blood Pressure Location Pulse Ox 97 97 Oxygen Delivery Method Room Air Room Air <Dr. Titus Coe MD - Last Filed: 11/19/24 23:23> Heart Score History: Highly Suspicious ECG: Nonspecific Repolarization Age: >45 - <65 years Risk Factors: >/= 3 Risk Factors or History of CAD Troponin: </= Normal Limit Score: 6 MDM <JUAN Washburn - Last Filed: 11/19/24 21:57> [facility] MDM Narrative Medical decision making narrative: Patient presenting with chest pain that started at 6 PM this evening. He has a history of unstable angina. He had a heart cath performed on that showed multivessel disease. He was referred to the [facility] for a heart cath. Cardiac workup will be obtained. He was already given aspirin today, he will be started on a nitro drip and IV fluids. He was also given IV Zofran and morphine for pain. CBC is unremarkable. His BUN is 29, creatinine 1.5, sodium 135. His initial troponin is 8, repeat pending. Dr. Davison recommends transfer to a facility that can perform CABG. Transfer is pending. He remained stable. Repeat troponin pending. Lab Data Attestation: I reviewed the patient's lab results. Labs: Laboratory Results - last 24 hr 11/19/24 11/19/24 11/19/24 20:05 22:05 22:35 WBC 7.7 RBC 5.16 Hgb 12.9 L Hct 40.2 MCV 77.9 L MCH 25.0 L MCHC 32.1 RDW Std Deviation 42.9 RDW Coeff of Papi 15.4 H Plt Count 213 MPV 10.7 Immature Gran % (Auto) 0.500 Neut % (Auto) 63.6 Lymph % (Auto) 23.6 [place] % (Auto) 10.2 H Eos % (Auto) 1.6 Baso % (Auto) 0.5 Absolute Neuts (auto) 4.9 Absolute Lymphs (auto) 1.82 Nucleated RBC % 0 PT 14.5 INR 1.1 APTT 24.4 Sodium 135 L Potassium 4.6 Chloride 107 Carbon Dioxide 22.0 Anion Gap 6 BUN 29 H Creatinine 1.50 H Estim Creat Clear Calc 63.70 Est GFR (MDRD) Af Amer 61 Est GFR (MDRD) Non-Af 50 L BUN/Creatinine Ratio 19.3 Glucose 183 H Calcium 9.5 Troponin I High Sens 8 7 Radiography X-Ray: Read by ED Physician Diagnostic Testing: Clinical Impression(s) from Imaging Studies Chest X-Ray 11/19/24 20:10 IMPRESSION: No radiographic evidence of acute cardiopulmonary disease. Electronically Signed: Tod Tenorio MD at 20:51 EST , EKG Initial EKG: Comments: 70 bpm, normal sinus rhythm, right bundle branch block, no ST elevation <Dr. Titus Coe MD - Last Filed: 11/19/24 23:23> [facility] Lab Data Labs: Laboratory Results - last 24 hr 11/19/24 11/19/24 11/19/24 20:05 22:05 22:35 WBC 7.7 RBC 5.16 Hgb 12.9 L Hct 40.2 MCV 77.9 L MCH 25.0 L MCHC 32.1 RDW Std Deviation 42.9 RDW Coeff of [place]api 15.4 H Plt Count 213 MPV 10.7 Immature Gran % (Auto) 0.500 Neut % (Auto) 63.6 Lymph % (Auto) 23.6 [place] % (Auto) 10.2 H Eos % (Auto) 1.6 Baso % (Auto) 0.5 Absolute Neuts (auto) 4.9 Absolute Lymphs (auto) 1.82 Nucleated RBC % 0 PT 14.5 INR 1.1 APTT 24.4 Sodium 135 L Potassium 4.6 Chloride 107 Carbon Dioxide 22.0 Anion Gap 6 BUN 29 H Creatinine 1.50 H Estim Creat Clear Calc 63.70 Est GFR (MDRD) Af Amer 61 Est GFR (MDRD) Non-Af 50 L BUN/Creatinine Ratio 19.3 Glucose 183 H Calcium 9.5 Troponin I High Sens 8 7 Radiography Diagnostic Testing: Clinical Impression(s) from Imaging Studies Chest X-Ray 11/19/24 20:10 IMPRESSION: No radiographic evidence of acute cardiopulmonary disease. Electronically Signed: Tod Tenorio MD at 20:51 EST , Management Discussion w/another healthcare provider: Tobacco Packing Machine Operator (cardiology [facility], ) Treatment and Re-Evaluation Comments:: I have personally performed a face to face assessment of the patient and have reviewed the MARY Note. I performed a substantive portion of the visit including all aspects of the following. My [place] findings include: History is daily chest discomfort with a history of unstable angina that usually goes away with nitroglycerin but today did not. His pain is less now, a 6/10, after 4 sublingual nitroglycerin, 2 at home and 2 by EMS. Left-sided chest pressure nonpleuritic, with tingling in both arms and radiating to his jaw similar to prior ME. Recent abnormal heart cath, is waiting to get scheduled for CABG, today is Wednesday. Exam is keenly alert, not diaphoretic, lungs clear to auscultation, no distress. Equal bilateral 2+/4 radial pulses. Medical Decison Making EKG shows a remodel branch block which she has had before, there is no acute injury pattern. Chest x-ray 1 view of my interpretation shows narrow mediastinum no pneumothorax. Labs show initial troponin is normal. In the meantime we put him on a nitroglycerin drip and gave him morphine/Zofran, and on reevaluation is feeling much better discomfort and was completely resolved and vital signs of remained stable. Second troponin returned normal as well, however after reviewing his recent heart cath and calculating his heart score, he is high risk. Discussed with cardiology Dr. Davison who knows and cathed him, and advises transfer to CABG-capable facility for CABG evaluation, request that we start with . Discussed with Dr. Ramirez with cardiology there who accepts the patient. Starting the patient on heparin drip as well. Other additions or changes: [None] <Dr. Titus Coe MD - Last Filed: 11/19/24 23:23> Critical Care Time Critical Care Time: Yes Critical care time (excluding procedures): 30-74 minutes (40 min), Including time spent:, Discussing w/Patient &/or Family/Dip Guider Stoves, Discussing w/Consultants, Arranging Admission or Transfer and Performing Direct Patient Care at Bedside Discharge Plan Triage Chief Complaint: Chest Pain ED Midlevel Provider: Nina Jimenez ED Provider: Titus Coe Dx/Rx/DC Orders Clinical Impression: Unstable angina, CAD (coronary artery disease) Prescriptions: No Action aspirin 81 mg tablet,chewable 81 mg PO DAILY Qty: 1 0RF pioglitazone 30 mg tablet 30 mg PO DAILY Janumet 50-1,000 mg tablet 1 tab PO BID ezetimibe 10 mg tablet 10 mg PO DAILY pantoprazole 40 mg tablet,delayed release (DR/EC) 40 mg PO DAILY glimepiride 4 mg tablet 4 mg PO DAILY losartan 25 mg tablet 25 mg PO DAILY tamsulosin [Flomax] 0.4 mg capsule 0.4 mg PO QDAY metoprolol succinate 100 mg tablet extended release 24 hr 100 mg PO BID Qty: 180 3RF atorvastatin 80 MG tablet 80 mg PO DAILY acetaminophen 325 mg tablet 650 mg PO Q4H PRN (Reason: Pain) clopidogrel 75 mg tablet 75 mg PO DAILY Qty: 90 3RF isosorbide mononitrate 60 mg tablet extended release 24 hr 60 mg PO BID Qty: 60 3RF amlodipine 10 mg tablet 10 mg PO DAILY Qty: 60 3RF ranolazine 1,000 mg tablet extended release 12 hr 1,000 mg PO BID Qty: 60 4RF nitroglycerin 0.4 mg tablet, sublingual 0.4 mg sublingual Q5-15M PRN (Reason: chest pain) Qty: 20 3RF Rx Instructions: do not exceed 3 doses per episode Primary Care Provider: Pilo Aviles Referrals: Pilo Aviles MD [Primary Care Provider] - Print Language: Danish Disposition Disposition: Acute Care Hospital Discharge Location: [facility]
--- NOTE | 2024-11-19 20:10 | RAD_ITS ---
EXAM: XR CHEST, 2 VIEWS CLINICAL INDICATION: chest pain TECHNIQUE: Frontal and lateral views of the chest. COMPARISON: 11/13/2024 FINDINGS: LUNGS AND PLEURAL SPACES: Unremarkable. No consolidation or edema. No pneumothorax. No effusion. HEART: Unremarkable. Cardiac silhouette not enlarged. MEDIASTINUM: Central airways and mediastinal contour are unremarkable. BONES/JOINTS: Unremarkable. No acute fracture. SOFT TISSUES: Unremarkable. RAD/Chest PA and Lateral IMPRESSION: No radiographic evidence of acute cardiopulmonary disease. Electronically Signed: Tod Tenorio MD at 20:51 EST ,
[2024-11-19 20:14] LABS: Absolute Lymphocyte Count 1.82 X10^3/uL (0.83-4.51); Absolute Neutrophil Count 4.9 X10^3/uL (2.0-7.7); Basophil# 0.04 X10^3/uL; Basophil% 0.5 % (0-1); Eosinophil# 0.12 X10^3/uL; Eosinophils% 1.6 % (0-5); Hematocrit 40.2 % (40-54); Hemoglobin 12.9 g/dL (13.0-16.5); Lymphocyte # 1.82 X10^3/ul (0.83-4.51); Lymphocyte % 23.6 % (19-41); Mean Corp Hgb Conc 32.1 g/dL (32-36); Mean Corpuscular Volume 77.9 fL (80-94); Mean Platelet Vol. 10.7 fl (6.2-12.0); Monocyte# 0.79 X10^3/uL; Monocyte% 10.2 % (0-10); NRBC Flagged by Analyzer 0 % (0-5); Neutrophil % 63.6 % (47-70); Platelet Count 213 K/mm3 (150-450); RBC Distribution Width CV 15.4 % (11.6-14.6); RBC Distribution Width SD 42.9 fl (35.1-43.9); Red Blood Count 5.16 M/mm3 (4.6-6.2); White Blood Count 7.7 K/mm3 (4.4-11.0)
[2024-11-19] MEDS: 0.9% Normal Saline (1000mL) 1,000 ML 999 ML IV (20:22)
[2024-11-19] MEDS: Morphine 4 MG/ML Syringe IV (20:23)
[2024-11-19] MEDS: Ondansetron 4 MG/2 ML Vial IV (20:23)
[2024-11-19] MEDS: Nitroglycerin Infusion 250 ML 3 MG CONT INF (20:27)
[2024-11-19 20:30] LABS: Anion Gap 6 (5-15); BUN 29 mg/dL (7-18); BUN/Creat Ratio 19.3 RATIO (10-20); Calcium,Total 9.5 mg/dL (8.5-10.1); Chloride 107 mmol/L (98-107); EST Glomerular Filtration Rate 50 mL/min (>60); Est Glom Filt Rate - Afr Amer 61 mL/min (>60); Glucose 183 mg/dL (74-106); Potassium 4.6 mmol/L (3.5-5.1); Sodium Level 135 mmol/L (136-145); Troponin-I HS (w/2H Reflex) 8 pg/mL (3.0-78.0)
[2024-11-19 22:09] LABS: Reflex Troponin-HS? (from REC) Y
[2024-11-19 22:43] LABS: Troponin-I HS 7 pg/mL (3.0-78.0)
[2024-11-19 22:58] LABS: International Normalized Ratio 1.1; Partial Thromboplast Time 24.4 Seconds (24.1-36.2); Prothrombin Time (Protime)PT. 14.5 SECONDS (11.7-14.9)
[2024-11-19] MEDS: HEPARIN/D5w 25,000 UNITS 25,000 UNITS/250 ML IV.SOLN. 10 UNITS CONT INF (23:06)
[2024-11-19] MEDS: Heparin Injection (Vial) 5,000 UNIT/ML VIAL 4000 UNIT IV (23:07)
[2024-11-20] VITALS (8 sets, daily range): BP systolic 111–144; BP diastolic 67–95; PULSE 64–76; RESP 12–16; TEMP 36.7; O2SAT 93–97
== END 2024-11-20 03:14 | disposition short-term general hospital (02) ==
PROVIDERS: Physician Assistant; Emergency Provider Emergency Medicine; PCP Family Medicine; Visit Provider Emergency Medicine
DX: I25.110 Atherosclerotic heart disease of native coronary artery with unstable angina pectoris (principal); E11.9 Type 2 diabetes mellitus without complications; E78.00 Pure hypercholesterolemia, unspecified; I10 Essential (primary) hypertension; G47.33 Obstructive sleep apnea (adult) (pediatric); I25.2 Old myocardial infarction; Z79.82 Long term (current) use of aspirin; Z79.899 Other long term (current) drug therapy; Z79.84 Long term (current) use of oral hypoglycemic drugs; Z95.1 Presence of aortocoronary bypass graft; Z95.5 Presence of coronary angioplasty implant and graft
CPT/HCPCS: 71046; 80048; 84484; 85025; 85610; 85730; 93005; 96365; 96366; 96367; 96375; 96376; 99285; A4216; J2405

== ENCOUNTER → 2025-02-05 | Outpatient (CLI) | payer OTHER, SELFPAY ==
[2021-06-25 13:55] VITALS: BMI 30.5
[2025-02-05 09:49] LABS: Hemoglobin A1c 8.4 % (<=5.6)
[2025-02-05 10:17] LABS: ALB/GLOB Ratio 1.4 RATIO (0.9-2.4); AST(SGOT) 20 U/L (<=37); Alanine Aminotransfer ALT/SGPT 15 U/L (<=46); Albumin, Serum 4.2 g/dL (3.4-4.8); Alkaline Phosphatase 74 U/L (40-129); Anion Gap 12 (5-15); BUN 20 mg/dL (4-19); BUN/Creat Ratio 17.5 RATIO (10-20); Calcium,Total 9.2 mg/dL (7.6-11.0); Carbon Dioxide 20.9 mmol/L (21.0-32.0); Chloride 105 mmol/L (98-108); Cholesterol 140 mg/dL (<=200); Creatinine, Serum 1.14 mg/dL (0.70-1.20); EST Glomerular Filtration Rate 72 (>60); Globulin 3.1 g/dL (2.2-4.2); Glucose 184 mg/dL (70-99); High Density Lipoprotein 43 mg/dL; Low Density Lipoprotein Calc. 68 mg/dL; Potassium 4.7 mmol/L (3.3-5.1); Protein, Total 7.3 g/dL (5.9-8.4); Sodium Level 138 mmol/L (133-145); Triglycerides 146 mg/dL; Very Low Density Lipoprotein 29 mg/dL (5-40); cholesterol:hdl ratio screen 3.28
== END | disposition home or self-care (01) ==
LOC: LAB 08:49
PROVIDERS: PCP Family Medicine; Referring Provider Family Medicine; Visit Provider Family Medicine
DX: E11.9 Type 2 diabetes mellitus without complications (principal)
CPT/HCPCS: 36415; 80053; 80061; 83036

== ENCOUNTER → 2025-02-27 | Outpatient (CLI) | payer OTHER, SELFPAY ==
[2021-06-25 13:55] VITALS: BMI 30.5
--- NOTE | 2025-02-27 08:18 | AAVD_ITS ---
Reason For Study Reason For Study: R/O AAA before ECP therapy Aorta Measurements Aorta Doppler Measurements Proximal aorta measures1.64 x 1.64cm. in cross-sectional Peak systolic flow velocities within the proximal aorta axis. measure 72.3 cm/sec. Proximal aorta measures1.69cm. in longitudinal axis. Peak systolic flow velocities within the mid aorta measure Mid aorta measures1.61 x 1.60cm. in cross-sectional axis. 114 cm/sec. Mid aorta measures1.57cm. in longitudinal axis. Peak systolic flow velocities within the distal aorta Distal aorta measures1.74 x 1.76cm. in cross-sectional axis.measure 114 cm/sec. Distal aorta measures1.75cm. in longitudinal axis. Left Iliac Artery Left iliac artery measures 0.83 x 0.89 cm. in the cross-sectional axis. Left iliac artery measures 0.84 cm. in the longitudinal axis. Peak systolic velocity in the left iliac artery measures 77.7 cm/sec. Right Iliac Artery Right iliac artery measures 1.07 x 1.05 cm. in the cross-sectional axis. Right iliac artery measures 1.01 cm. in the longitudinal axis. Peak systolic velocity in the right iliac artery measures 79.6 cm/sec. Procedure Aorta IVC Iliac vasculature or bypass grafts 19885. Exam performed in department. VL/Abd Aortic/IVC Duplex scan Interpretation Summary Aorta patent, normal caliber Bilateral iliac arteries patent, normal caliber. Ordering Physician: Mu Davison Referring Physician: Pilo Aviles Performed By: Remedios Valdes RVT
== END | disposition home or self-care (01) ==
LOC: CVS 08:18
PROVIDERS: PCP Family Medicine; Referring Provider Internal Medicine Cardiovascular Disease; Visit Provider Internal Medicine Cardiovascular Disease
DX: I25.118 Atherosclerotic heart disease of native coronary artery with other forms of angina pectoris (principal); R07.2 Precordial pain; Z95.1 Presence of aortocoronary bypass graft; Z95.5 Presence of coronary angioplasty implant and graft
CPT/HCPCS: 93978

== ENCOUNTER → 2025-02-28 | Outpatient (CLI) | payer OTHER, SELFPAY ==
[2021-06-25 13:55] VITALS: BMI 30.5
== END | disposition home or self-care (01) ==
LOC: CR 10:53
PROVIDERS: PCP Family Medicine; Referring Provider Internal Medicine Cardiovascular Disease; Visit Provider Internal Medicine Cardiovascular Disease
DX: Z00.00 Encounter for general adult medical examination without abnormal findings (principal)

== ENCOUNTER → 2025-03-29 | Outpatient (CLI) | payer OTHER, SELFPAY ==
[2021-06-25 13:55] VITALS: BMI 30.5
--- NOTE | 2025-03-29 07:26 | ART_ITS ---
Reason For Study Reason For Study: Claudication Procedure A bilateral lower extremity continuous wave Doppler with analog waveform analysis,segmental pressures,and ankle brachial indexes with exercise. Left Segmental Pressures Left brachial= 145mmHg. Left posterior tibial artery = 171mmHg. Left dorsalis pedis artery = >254mmHg. Left digit = 104 mmHg. The left dorsalis pedis waveforms are triphasic. The left posterior tibial artery waveforms are triphasic. Right Segmental Pressures Right brachial= 138mmHg. Right posterior tibial artery = 171mmHg. Right dorsalis pedis artery = 144mmHg. Right digit = 77 mmHg. The right dorsalis pedis waveforms are triphasic. The right posterior tibial artery waveforms are triphasic. Indices The right ankle brachial index by the dorsalis pedis is 0.99. The right ankle brachial index by the posterior tibial artery is 1.18. The right ankle brachial index by the posterior tibial artery post exercise is 1.29. The right digital- brachial index is 0.53. The left ankle brachial index by the dorsalis pedis is NC. The left ankle brachial index by the posterior tibial artery is 1.18. The left posterior tibial artery index post exercise is 1.26. The left digital-brachial index is 0.72. VL/Lower Ext Art Exam w/ Exercise Interpretation Summary Triphasic Doppler waveforms are noted at ankle level bilaterally. Pulse-volume recordings appear satisfactory at all levels bilaterally. Resting ankle-brachial indices are normal bilaterally. The right digital-brachial index is mildly diminished. The left digital-brachial index is normal. The patient ambulated fo r 3 minutes, following which ankle pressures augmented bilaterally, a normal physiological response. Arterial flow appears normal at ankle level bilaterally, and at digital level o n the left. There is evidence of mild arterial occlusive disease at digital level on the right. Ordering Physician: Pilo Aviles Referring Physician: PILO AVILES MD Performed By: SHIRA CAMERON T
== END | disposition home or self-care (01) ==
LOC: CVS 07:26
PROVIDERS: PCP Family Medicine; Referring Provider Family Medicine; Visit Provider Family Medicine
DX: I73.9 Peripheral vascular disease, unspecified (principal)
CPT/HCPCS: 93924

== ENCOUNTER 2025-03-30 08:00 | Outpatient (RCR) | payer OTHER, SELFPAY ==
[2021-06-25 13:55] VITALS: BMI 30.5
== END 2025-03-31 23:59 ==
LOC: CR 08:00
PROVIDERS: PCP Family Medicine; Referring Provider Internal Medicine Cardiovascular Disease; Visit Provider Internal Medicine Cardiovascular Disease
DX: I25.118 Atherosclerotic heart disease of native coronary artery with other forms of angina pectoris (principal); I25.708 Atherosclerosis of coronary artery bypass graft(s), unspecified, with other forms of angina pectoris
CPT/HCPCS: 92971; G0166

== ENCOUNTER 2025-04-13 08:00 | Outpatient (RCR) | payer OTHER, SELFPAY ==
[2021-06-25 13:55] VITALS: BMI 30.5
== END 2025-04-30 23:59 ==
LOC: CR 08:00
PROVIDERS: PCP Family Medicine; Referring Provider Internal Medicine Cardiovascular Disease; Visit Provider Internal Medicine Cardiovascular Disease
DX: I25.118 Atherosclerotic heart disease of native coronary artery with other forms of angina pectoris (principal); I25.708 Atherosclerosis of coronary artery bypass graft(s), unspecified, with other forms of angina pectoris
CPT/HCPCS: 92971; G0166

== ENCOUNTER 2025-04-13 09:34 | Emergency (ER) | payer OTHER, SELFPAY ==
[2021-06-25 13:55] VITALS: BMI 30.5
[2025-04-13] VITALS (7 sets, daily range): BP systolic 116–176; BP diastolic 69–92; PULSE 57–98; RESP 12–20; TEMP 36.6–36.8; O2SAT 97–100; BMI 34.5
--- NOTE | 2025-04-13 10:07 | RAD_ITS ---
PROCEDURE: CHEST PA AND LATERAL 04/13/2025 REASON FOR EXAM: CHEST PAIN TECHNIQUE: Frontal and lateral views of the chest. COMPARISON: 11/19/2024 FINDINGS: Bibasilar subsegmental atelectasis. No focal consolidations. No pleural effusion or pneumothorax. Calcified aortic arch. Evidence of prior CABG. Median sternotomy wires. No acute fractures. RAD/Chest PA and Lateral IMPRESSION: No focal consolidations. Reading Location: [id number]
[2025-04-13] MEDS: Nitroglycerin SL (ED/IMG/CATH) 0.4 MG TABLET SL (10:20)
[2025-04-13] MEDS: Aspirin 81 MG TAB.CHEW 324 MG PO (10:20)
--- NOTE | 2025-04-13 10:28 | ED.VIS.CHEST ---
HPI History of Present Illness Chief Complaint: Chest Pain Informant: patient Narrative Narrative: Patient is a 64-year-old male with history of ACS, stents and CABG, hypertension, hyperlipidemia, RACHEL, type 2 diabetes mellitus and chronic angina who is currently in cardiac rehab. He states he always has some baseline chest pain and discomfort over his left chest. He notes that while at cardiac rehab today he was undergoing ECP when he developed chest pain/angina. He notes this in itself is not unusual for him as this happens every time he does this but normally he will take a nitroglycerin and the symptoms will marcus. Today however the symptoms continued to last and lasted much longer than they normally did despite taking 1 nitroglycerin. This is what prompted him to come to the emergency room. He states his sensation feels like his first heart attack. He notes that earlier he did have tingling in all of his extremities and radiation to his jaw and felt shaky but again states this has happened before with his cardiac rehab. He notes that he has otherwise been in his normal state of health. Denies any acute changes or new dyspnea on exertion/new anginal symptoms besides what day. At this time. Denies any swelling of his legs. Denies any ripping or tearing sensation. Denies radiation of pain to his back or abdomen. No other complaints or concerns reported [facility] Medical History Kidney stone RACHEL (obstructive sleep apnea) Hernia, hiatal Pure hypercholesterolemia Essential (primary) hypertension Unstable angina Dyspnea on exertion RACHEL (obstructive sleep apnea) Atherosclerotic heart disease of [place] coronary artery without angina pectoris Renal insufficiency NSTEMI (non-ST elevated myocardial infarction) Unstable angina pectoris Chest pain Type II diabetes mellitus Generalized abdominal discomfort Home Medications ?Medication ?Instructions ?Recorded ?Last Taken ?Type atorvastatin 80 mg tablet 80 mg PO DAILY lower chloesterol 12/15/16 04/13/25 History aspirin 81 mg chewable tablet 81 mg PO DAILY preventative #1 TAB 10/14/20 04/13/25 Rx ezetimibe 10 mg tablet 10 mg PO DAILY 05/19/21 04/13/25 History acetaminophen 325 mg tablet 650 mg PO Q4H PRN Pain 05/30/21 04/12/25 History sitagliptin phosphate 50 1 tab PO BID diabetes 06/13/21 04/13/25 History mg-metformin 1,000 mg tablet (Novumet) glimepiride 4 mg tablet 4 mg PO DAILY diabetes 03/12/23 04/13/25 History pantoprazole 40 mg tablet,delayed 40 mg PO DAILY reflux 03/12/23 04/13/25 History release losartan 25 mg tablet 25 mg PO DAILY 02/10/24 04/13/25 History clopidogrel 75 mg tablet 75 mg PO DAILY #90 tabs 07/26/24 04/13/25 Rx metoprolol succinate 100 mg 100 mg PO BID #180 TABLETS 11/09/24 04/13/25 Rx tablet,extended release 24 hr nitroglycerin 0.4 mg sublingual 0.4 mg sublingual Q5-15M PRN chest 12/01/24 04/13/25 Rx tablet pain #20 tabs isosorbide mononitrate 60 mg 60 mg PO BID heart #60 tabs 01/24/25 04/13/25 Rx tablet,extended release 24 hr ranolazine 1,000 mg 1,000 mg PO BID #60 tabs 01/24/25 04/13/25 Rx tablet,extended release,12 hr finasteride 5 mg tablet 5 mg PO DAILY 02/12/25 04/13/25 History amlodipine 10 mg tablet 10 mg PO DAILY blood pressure #90 04/04/25 04/13/25 Rx tabs pioglitazone 30 mg tablet 30 mg PO DAILY 04/13/25 04/13/25 History Allergy/AdvReac Type Severity Reaction Status Date / Time No Known Allergies Allergy Verified 04/13/25 09:46 Family History Mother CAD (coronary artery disease) Myocardial infarction, Onset Age: 46 Sister CAD (coronary artery disease) Sister CAD (coronary artery disease) Brother CAD (coronary artery disease) Surgical History Presence of stent in coronary artery (11/21/24) History of coronary artery bypass graft (05/15/21) History of repair of hiatal hernia (~08/2018) History of eye surgery History of bilateral inguinal hernia repair Postsurgical percutaneous transluminal coronary angioplasty (PTCA) status Social History adopted: No household members: spouse housing: house number of children: 5 current occupational status: employed 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 Shaky feeling Hematologic/Lymphatic Hematologic/Lymphatic: Denies easy bleeding or easy bruising EXAM Physical Exam Const Vital Signs: 04/13/25 09:34 04/13/25 09:43 04/13/25 10:07 Temperature 98 F Temperature Source Oral Pulse Rate 62 Respiratory Rate 20 H Respiratory Effort Short of Breath Blood Pressure 151/92 H Blood Pressure Mean 111 Pulse Ox 100 99 Oxygen Delivery Method Room Air Room Air 04/13/25 10:20 04/13/25 10:34 04/13/25 11:34 Temperature Temperature Source Pulse Rate 64 98 57 L Respiratory Rate 20 H 17 Respiratory Effort Blood Pressure 129/72 H 118/69 116/76 Blood Pressure Mean 85 89 Pulse Ox 97 98 Oxygen Delivery Method Room Air Room Air 04/13/25 12:00 Temperature Temperature Source Pulse Rate 57 L Respiratory Rate 16 Respiratory Effort Blood Pressure 132/71 H Blood Pressure Mean 91 Pulse Ox 97 Oxygen Delivery Method Room Air Positive well nourished and well developed Constitutional Narrative: No diaphoresis at this time General Appearance ED: well developed and NAD HEENT Reports moist mucous membranes Eyes PERRL and EOMs intact bilaterally Neck supple and no JVD Chest Wall inspection of chest normal and palpation of chest normal Resp normal respiratory effort and clear to auscultation bilaterally Cardio regular rate, regular rhythm and no murmurs Cardio Narrative: 2+ radial DP pulses present GI normal to inspection, nondistended, normoactive bowel sounds, soft to palpation and non-tender Neuro oriented x3 Sensorium / Orientation: awake Motor Exam: Negative for general weakness Psych mental status grossly normal Skin no rashes or lesions noted and no wounds Skin Narrative: Midline sternotomy scar present Heart Score History: Moderately Suspicious ECG: Nonspecific Repolarization Age: >45 - <65 years Risk Factors: >/= 3 Risk Factors or History of CAD Troponin: </= Normal Limit Score: 5 MDM MDM MDM Narrative Medical decision making narrative: Patient is evaluated for angina while at cardiac rehab today. Does have a significant history of angina as well as coronary artery disease but states this was much worse than his normal and not relieved by nitro. Is given additional nitro in the emergency room and cardiac workup is obtained. EKG is not consistent with ACS. Cardiac workup obtained and patient is given additional nitroglycerin in the emergency room. Cardiology note from 02/12/[address] Davison. Patient has severe coronary disease status post CABG and most recently had PCI to the RCA at in [place]. Has daily angina at rest and with exertion. Was referred to interventional cardiology as well as cardiac rehab for EECP. Patient appears additional nitro in the emergency room. Workup otherwise normal. High-sensitivity troponin 15 and then 14. He is asymptomatic and would like to go home. I did speak with cardiology on-call, Dr. Stokes. She reviewed the patient's chart. [place] that patient is asymptomatic at this time with normal delta high-sensitivity troponin could be discharged if patient is agreeable. The office will call him on Wednesday to arrange close outpatient follow-up. Patient is given close return precautions if he has progression or worsening of his angina he should immediately return to the emergency room. He verbalized understand of this. Discharged home in stable condition. Lab Data Attestation: I reviewed the patient's lab results. Labs: Laboratory Results - last 24 hr 04/13/25 04/13/25 04/13/25 09:47 12:03 Unknown WBC 8.3 RBC 5.59 Hgb 14.1 Hct 43.9 MCV 78.5 L MCH 25.2 L MCHC 32.1 RDW Std Deviation 42.7 RDW Coeff of [place] 15.1 H Plt Count 212 MPV 11.1 Immature Gran % (Auto) 0.400 Neut % (Auto) 65.2 Lymph % (Auto) 21.8 [place] % (Auto) 10.7 H Eos % (Auto) 1.4 Baso % (Auto) 0.5 Absolute Neuts (auto) 5.4 Absolute Lymphs (auto) 1.81 Nucleated RBC % 0 Sodium 134 Potassium 4.2 Chloride 99 Carbon Dioxide 20.4 L Anion Gap 15 BUN 19 Creatinine 1.05 Estim Creat Clear Calc 89.10 Est GFR (MDRD) Non-Af 80 BUN/Creatinine Ratio 17.7 Glucose 270 H Calcium 9.6 Troponin T High Sens 15 Troponin T Hi Sens 2 Hr 14 Radiography Diagnostic Testing: Clinical Impression(s) from Imaging Studies Chest X-Ray 04/13/25 10:07 IMPRESSION: No focal consolidations. Reading Location: [facility] Rhythm Strip Rhythm Strip: Sinus Rhythm Rate: 65 Ectopy: None EKG Initial EKG: Attestation: I personally reviewed and interpreted this EKG as follows: Interpretation: Sinus Rhythm Comments: Normal sinus rhythm rate of 65 bpm Left axis deviation Normal intervals Bifascicular block with right bundle branch and left anterior fascicular block New T wave inversion in lead III compared to prior EKG Discharge Plan Triage Chief Complaint: Chest Pain ED Provider: Jolly Diop Dx/Rx/DC Orders Clinical Impression: Angina pectoris, History of coronary artery stent placement, CAD (coronary artery disease), History of coronary artery bypass graft Instructions: ED Chest Pain, Uncertain Cause Prescriptions: No Action aspirin 81 mg tablet,chewable 81 mg PO DAILY Qty: 1 0RF Janumet 50-1,000 mg tablet 1 tab PO BID ezetimibe 10 mg tablet 10 mg PO DAILY pantoprazole 40 mg tablet,delayed release (DR/EC) 40 mg PO DAILY glimepiride 4 mg tablet 4 mg PO DAILY losartan 25 mg tablet 25 mg PO DAILY metoprolol succinate 100 mg tablet extended release 24 hr 100 mg PO BID Qty: 180 3RF finasteride 5 mg tablet 5 mg PO DAILY atorvastatin 80 MG tablet 80 mg PO DAILY pioglitazone 30 mg tablet 30 mg PO DAILY acetaminophen 325 mg tablet 650 mg PO Q4H PRN (Reason: Pain) Patient Comments: pt takes 3 tablets clopidogrel 75 mg tablet 75 mg PO DAILY Qty: 90 3RF nitroglycerin 0.4 mg tablet, sublingual 0.4 mg sublingual Q5-15M PRN (Reason: chest pain) Qty: 20 3RF Rx Instructions: do not exceed 3 doses per episode isosorbide mononitrate 60 mg tablet extended release 24 hr 60 mg PO BID Qty: 60 11RF ranolazine 1,000 mg tablet extended release 12 hr 1,000 mg PO BID Qty: 60 11RF amlodipine 10 mg tablet 10 mg PO DAILY Qty: 90 3RF Primary Care Provider: Pilo Aviles Referrals: Pilo Aviles MD [Primary Care Provider] - Activity Restrictions/Additional Instructions: Please follow-up with cardiology. The office will call you on Wednesday. If you have any progression or new symptoms please not hesitate to return the emergency room. Continue to use your nitroglycerin as prescribed. Print Language: [place] Disposition Disposition: Home, Self Care
[2025-04-13 10:33] LABS: Absolute Lymphocyte Count 1.81 X10^3/uL (0.83-4.51); Absolute Neutrophil Count 5.4 X10^3/uL (2.0-7.7); Basophil# 0.04 X10^3/uL; Basophil% 0.5 % (0-1); Eosinophil# 0.12 X10^3/uL; Eosinophils% 1.4 % (0-5); Hematocrit 43.9 % (40-54); Hemoglobin 14.1 g/dL (13.0-16.5); Lymphocyte # 1.81 X10^3/ul (0.83-4.51); Lymphocyte % 21.8 % (19-41); Mean Corp Hgb Conc 32.1 g/dL (32-36); Mean Corpuscular Hgb 25.2 pg (27.0-32.0); Mean Corpuscular Volume 78.5 fL (80-94); Mean Platelet Vol. 11.1 fl (6.2-12.0); Monocyte# 0.89 X10^3/uL; Monocyte% 10.7 % (0-10); NRBC Flagged by Analyzer 0 % (0-5); Neutrophil # 5.41 X10^3/uL (2.7-7.7); Neutrophil % 65.2 % (47-70); Platelet Count 212 K/mm3 (150-450); RBC Distribution Width CV 15.1 % (11.6-14.6); RBC Distribution Width SD 42.7 fl (35.1-43.9); Red Blood Count 5.59 M/mm3 (4.6-6.2); White Blood Count 8.3 K/mm3 (4.4-11.0)
[2025-04-13 11:16] LABS: Anion Gap 15 (5-15); BUN 19 mg/dL (4-19); BUN/Creat Ratio 17.7 RATIO (10-20); Calcium,Total 9.6 mg/dL (7.6-11.0); Carbon Dioxide 20.4 mmol/L (21.0-32.0); Chloride 99 mmol/L (98-108); Creatinine, Serum 1.05 mg/dL (0.70-1.20); EST Glomerular Filtration Rate 80 (>60); Glucose 270 mg/dL (70-99); Potassium 4.2 mmol/L (3.3-5.1); Sodium Level 134 mmol/L (133-145); Troponin T High Sensitivity 15 ng/L (<=22)
[2025-04-13 12:34] LABS: Troponin T High Sens 2 HR 14 ng/L (<=22)
== END 2025-04-13 12:53 | disposition home or self-care (01) ==
PROVIDERS: Emergency Provider Emergency Medicine; PCP Family Medicine; Visit Provider Emergency Medicine
DX: I25.119 Atherosclerotic heart disease of native coronary artery with unspecified angina pectoris (principal); E11.9 Type 2 diabetes mellitus without complications; Z95.1 Presence of aortocoronary bypass graft; Z95.5 Presence of coronary angioplasty implant and graft; E78.00 Pure hypercholesterolemia, unspecified; I10 Essential (primary) hypertension; I25.2 Old myocardial infarction; G47.33 Obstructive sleep apnea (adult) (pediatric); I45.2 Bifascicular block
CPT/HCPCS: 71046; 80048; 84484; 85025; 93005; 99285; A4216

== ENCOUNTER → 2025-07-16 | Outpatient (CLI) | payer OTHER, SELFPAY ==
[2021-06-25 13:55] VITALS: BMI 30.5
[2025-07-16 09:03] LABS: PSA,Total - Annual Screen 1.44 ng/mL (0.02-4.00)
== END | disposition home or self-care (01) ==
LOC: LAB 07:58
PROVIDERS: PCP Family Medicine; Referring Provider Urology; Visit Provider Urology
DX: Z12.5 Encounter for screening for malignant neoplasm of prostate (principal)
CPT/HCPCS: 36415; 84153; G0103

== ENCOUNTER → 2025-09-13 | Outpatient (CLI) | payer OTHER, SELFPAY ==
[2021-06-25 13:55] VITALS: BMI 30.5
[2025-09-13 11:11] LABS: AST(SGOT) 16 U/L (<=37); Alanine Aminotransfer ALT/SGPT 11 U/L (<=46); Albumin, Serum 4.1 g/dL (3.4-4.8); Alkaline Phosphatase 79 U/L (40-129); Anion Gap 12 (5-15); BUN 21 mg/dL (4-19); BUN/Creat Ratio 17.7 RATIO (10-20); Calcium,Total 9.7 mg/dL (7.6-11.0); Carbon Dioxide 20.8 mmol/L (21.0-32.0); Chloride 103 mmol/L (98-108); Cholesterol 139 mg/dL (<=200); Globulin 3.4 g/dL (2.2-4.2); Glucose 184 mg/dL (70-99); Low Density Lipoprotein Calc. 71 mg/dL; Potassium 4.8 mmol/L (3.3-5.1); Triglycerides 183 mg/dL; Very Low Density Lipoprotein 37 mg/dL (5-40); cholesterol:hdl ratio screen 3.80
== END | disposition home or self-care (01) ==
LOC: MFPLAB 09:11
PROVIDERS: PCP Family Medicine; Visit Provider Family Medicine
DX: E11.9 Type 2 diabetes mellitus without complications (principal)
CPT/HCPCS: 36415; 80053; 80061